=== PATIENT | female | born 1965 | race Caucasian/White ===

== ENCOUNTER → 2017-06-28 17:36 | Outpatient (CLI) | payer OTHER, SELFPAY ==
[2017-06-28 18:12] LABS: Hemoglobin 13.5 g/dl (12.0-15.0); Mean Corp Hgb Conc 32.1 g/gl (32-36); Mean Corpuscular Hgb 26.1 pg (27.0-32.0); Mean Corpuscular Volume 81.2 fL (81-99); Platelet Count 316 K/mm3 (150-450); RBC Distribution Width CV 14.9 % (11.6-14.6); RBC Distribution Width SD 43.8 fl (35.1-43.9); Red Blood Count 5.17 M/mm3 (4.2-5.4); White Blood Count 7.8 K/mm3 (4.4-11.0)
[2017-06-28 18:17] LABS: Scan Indicated on CBC? Y/N NO
[2017-06-28 18:34] LABS: AST(SGOT) 16 U/L (15-37); Alanine Aminotransfer ALT/SGPT 23 U/L (13-56); Albumin, Serum 3.7 g/dL (3.2-5.0); Alkaline Phosphatase 80 U/L (45-117); Bilirubin, Direct 0.06 mg/dL (0.00-0.30); Globulin 3.8 g/dL (2.2-4.2); Protein, Total 7.5 g/dL (6.4-8.2)
== END ==
PROVIDERS: Visit Provider Internal Medicine Gastroenterology
DX: K50.90 Crohn's disease, unspecified, without complications (principal)
CPT/HCPCS: 36415; 80076; 85027; 86140

== ENCOUNTER → 2018-10-03 07:35 | Outpatient (CLI) | payer OTHER, SELFPAY ==
--- NOTE | 2018-10-03 07:42 | CT_ITS ---
STUDY: CT ABDOMEN AND PELVIS WITH CONTRAST REASON FOR EXAM: Female, 53 years old. Abdominal pain and fever, history of Crohn's RADIATION DOSAGE (If Supplied By Facility): CTDIvol = ( 19.38 ) mGy, DLP = ( 1465.97 ) mGycm TECHNIQUE: Transaxial images were obtained from the dome of the diaphragm to the symphysis pubis with oral and rectal contrast. 100 IV/Oral Isovue 300 was administered. Sagittal and coronal images were reconstructed. Individualized dose optimization techniques were used for this CT. COMPARISON: 08/14/2015 FINDINGS: The visualized lung bases are unremarkable. The visualized portions of the heart are within normal limits. Normal liver. Normal gallbladder and extrahepatic biliary system. Normal spleen. Normal pancreas. Normal bilateral adrenal glands. Normal right kidney. Normal left kidney. Normal visualized stomach. Normal small intestine. Normal colon. There is non-visualization of the appendix. Normal abdominal aorta. Normal inferior vena cava. Normal retroperitoneum. Normal urinary bladder. Uterus is still present, the endometrium cannot be accurately evaluated with CT. The endometrium measures approximately 1.04 cm which would be abnormal if the patient is postmenopausal. Additionally, the uterus has some contour abnormality suggesting underlying fibroids. No suspicious cystic mass or free fluid noted in the pelvis. There is no clear fistula between the rectum and bladder or vagina though if this is a strong clinical concern, exam under fluoroscopy to evaluate for possible fistulous connection would be recommended. Post surgical noted in the ventral wall of the abdomen There are diffuse degenerative changes of the visualized lumbar spine. CT/Abdomen/Pelvis WITH Contrast IMPRESSION: No suspicious solid organ abnormality No CT evidence of acute inflammatory process Enlarged uterus suggests underlying fibroids. The endometrium measures 1.04 cm, if the patient is postmenopausal this would require more thorough evaluation and possible biopsy No clear CT evidence of fistulous connection between the distal sigmoid/rectum and bladder or vagina Electronically Signed: Carlos Jackson MD at 9:01 EDT , Service support ,
--- NOTE | 2018-10-03 08:00 | NURSING ---
PT SNEEZING AFTER CT WITH CONTRAST, C/O ROOF OF MOUTH ITCHING. PT AMBULATED TO HOLDING BAY FOR OBSERVATION. LIGHTS TURNED DOWN. CALL LIGHT WITHIN REACH.
[2018-10-03 08:40] VITALS: BP 130/71; PULSE 68; RESP 14; O2SAT 98
== END ==
PROVIDERS: Referring Provider Internal Medicine Gastroenterology; Visit Provider Internal Medicine Gastroenterology
DX: K50.90 Crohn's disease, unspecified, without complications (principal); L98.8 Other specified disorders of the skin and subcutaneous tissue
CPT/HCPCS: 74177; Q9967

== ENCOUNTER → 2020-03-03 15:01 | Outpatient (CLI) | payer OTHER, SELFPAY ==
[2020-03-03 17:52] LABS: Absolute Lymphocyte Count 0.92 X10^3/uL (0.83-4.51); Absolute Neutrophil Count 4.2 X10^3/uL (2.0-7.7); Basophil# 0.03 X10^3/uL; Basophil% 0.5 % (0-1); Eosinophil# 0.16 X10^3/uL; Eosinophils% 2.7 % (0-5); Hematocrit 41.7 % (37-47); Hemoglobin 13.4 g/dL (12.0-15.0); Lymphocyte # 0.92 X10^3/ul (4.0); Lymphocyte % 15.6 % (19-41); Mean Corp Hgb Conc 32.1 g/dL (32-36); Mean Corpuscular Hgb 28.7 pg (27.0-32.0); Mean Corpuscular Volume 89.3 fL (81-99); Mean Platelet Vol. 9.5 fl (6.2-12.0); Monocyte# 0.55 X10^3/uL; Monocyte% 9.3 % (0-10); NRBC Flagged by Analyzer 0 % (0-5); Neutrophil # 4.19 X10^3/uL (2.7-7.7); Neutrophil % 71.2 % (47-70); Platelet Count 272 K/mm3 (150-450); RBC Distribution Width CV 14.1 % (11.6-14.6); RBC Distribution Width SD 45.5 fl (35.1-43.9); Red Blood Count 4.67 M/mm3 (4.2-5.4); White Blood Count 5.9 K/mm3 (4.4-11.0)
[2020-03-03 18:23] LABS: AST(SGOT) 21 U/L (15-37); Alanine Aminotransfer ALT/SGPT 29 U/L (13-56); Albumin, Serum 3.6 g/dL (3.2-5.0); Alkaline Phosphatase 62 U/L (45-117); Globulin 3.6 g/dL (2.2-4.2); Protein, Total 7.2 g/dL (6.4-8.2)
== END ==
PROVIDERS: Referring Provider Internal Medicine Gastroenterology; Visit Provider Internal Medicine Gastroenterology
DX: K50.90 Crohn's disease, unspecified, without complications (principal)
CPT/HCPCS: 36415; 80076; 85025

== ENCOUNTER → 2020-06-17 16:53 | Outpatient (CLI) | payer OTHER, SELFPAY ==
[2020-06-17 17:47] LABS: Absolute Lymphocyte Count 1.21 X10^3/uL (0.83-4.51); Absolute Neutrophil Count 5.1 X10^3/uL (2.0-7.7); Basophil# 0.04 X10^3/uL; Basophil% 0.6 % (0-1); Eosinophil# 0.12 X10^3/uL; Eosinophils% 1.7 % (0-5); Hematocrit 44.6 % (37-47); Hemoglobin 14.2 g/dL (12.0-15.0); Lymphocyte # 1.21 X10^3/ul (4.0); Lymphocyte % 16.9 % (19-41); Mean Corp Hgb Conc 31.8 g/dL (32-36); Mean Corpuscular Hgb 28.1 pg (27.0-32.0); Mean Corpuscular Volume 88.3 fL (81-99); Monocyte# 0.64 X10^3/uL; NRBC Flagged by Analyzer 0 % (0-5); Neutrophil % 71.2 % (47-70); Platelet Count 342 K/mm3 (150-450); RBC Distribution Width CV 14.3 % (11.6-14.6); RBC Distribution Width SD 46.1 fl (35.1-43.9); Red Blood Count 5.05 M/mm3 (4.2-5.4); White Blood Count 7.2 K/mm3 (4.4-11.0)
[2020-06-17 18:20] LABS: AST(SGOT) 16 U/L (15-37); Alanine Aminotransfer ALT/SGPT 25 U/L (13-56); Albumin, Serum 3.8 g/dL (3.2-5.0); Alkaline Phosphatase 65 U/L (45-117); CRP 4.37 mg/L (0.0-3.0); Globulin 3.8 g/dL (2.2-4.2); Protein, Total 7.6 g/dL (6.4-8.2)
== END ==
LOC: MTLAB 16:55
PROVIDERS: PCP Nurse Practitioner Family; Referring Provider Internal Medicine Gastroenterology; Visit Provider Internal Medicine Gastroenterology
DX: K50.90 Crohn's disease, unspecified, without complications (principal)
CPT/HCPCS: 36415; 80076; 85025; 86140

== ENCOUNTER → 2020-11-26 12:07 | Outpatient (CLI) | payer OTHER, SELFPAY ==
--- NOTE | 2020-11-26 12:22 | MRI_ITS ---
STUDY: MRI ABDOMEN WITH AND WITHOUT CONTRAST REASON FOR EXAM: Female, 55 years old. CHRONS -- ENTEROGRAPHY diarrhea digestive problems TECHNIQUE: Standardized fat and water weighted pulse sequences were obtained in all 3 orthogonal planes post contrast administration. With and without IV gadolinium was administered for the contrast portion of the examination. COMPARISON: CT 10/03/2018 FINDINGS: The visualized lung bases are unremarkable. The visualized portions of the heart are within normal limits. Normal liver. There are multiple gallstones. Normal spleen. Normal pancreas. Normal bilateral adrenal glands. Normal right kidney. Normal left kidney. Normal visualized stomach. Normal small intestine. Normal colon. There is non-visualization of the appendix. There is diffuse atherosclerotic calcification of the abdominal aorta, without a demonstrated aneurysm. Normal inferior vena cava. Normal retroperitoneum. Uterus is visualized and heterogeneous. There is an exophytic mass extending off the left uterine body. This measures 37 x 36 mm. Series 20 image 24. This may be a pedunculated fibroid. There is a more heterogeneous area in the left uterine fundus measuring 35mm. This has heterogeneous enhancement. Series 22 image 17. 20 mm enhancing mass near the uterine cervix. This is noted on series 22 image 22. Fibroid uterus displaces the urinary bladder to the right side. There is a small umbilical hernia containing small bowel. Strangulation, obstruction, or incarceration is not identified. A prospective or current developing event cannot be excluded but is not evident on this study. Physical examination may be warranted in individuals with hernias. Surveillance may be warranted in individuals with hernias. There are diffuse degenerative changes of the visualized lumbar spine. MRI/MRI Abd WITH and W/O Contrast IMPRESSION: There is a small umbilical hernia containing small bowel. Strangulation, obstruction, or incarceration is not identified. Gallstones. Uterus is visualized and heterogeneous. There may be a pedunculated left uterine fibroid. There is a poorly differentiated left uterine myometrial mass. However this is stable since the prior study. Neoplastic conversion of a fibroid cannot be excluded. Three-month surveillance is recommended. If the patient has Crohn''s disease, there is no evidence for active disease. There is a cervical mass. Direct evaluation is recommended. Neoplasm cannot be excluded. Electronically Signed: Hunter Soares MD at 9:54 EDT , Service support ,
[2020-11-26 12:46] LABS: CREATININE FINGERSTICK 1.1 mg/dL (0.55-1.02)
[2020-11-26 13:15] VITALS: BP 143/74; PULSE 59; RESP 18; TEMP 36.7; O2SAT 100; BMI 45.1
[2020-11-26] MEDS: 0.9% Saline Lock 10 ML Syringe IV (14:20)
[2020-11-26] MEDS: Glucagon 1 MG/ML Syringe IM (14:20)
--- NOTE | 2020-11-26 14:30 | NURSING ---
pt states feeling heavy in MRI. bp 174/89, pulse 75 and pox 96% on room air..emotional support given. vital signs improved to 156/64, pulse 68 and pox 98% on room air. States that she is feeling better, MRI resumed
[2020-11-26 15:06] VITALS: BP 136/68; PULSE 68; RESP 18; O2SAT 98
== END ==
PROVIDERS: PCP Nurse Practitioner Family; Referring Provider Internal Medicine Gastroenterology; Visit Provider Internal Medicine Gastroenterology
DX: K50.90 Crohn's disease, unspecified, without complications (principal); K42.9 Umbilical hernia without obstruction or gangrene; K80.20 Calculus of gallbladder without cholecystitis without obstruction
CPT/HCPCS: 74183; A9575; J1610

== ENCOUNTER → 2020-12-03 12:47 | Outpatient (CLI) | payer OTHER, SELFPAY ==
[2020-12-10 14:04] LABS: HPV Reflexed? NOT INDICATED
== END ==
PROVIDERS: PCP Nurse Practitioner Family; Visit Provider Obstetrics & Gynecology
DX: Z12.4 Encounter for screening for malignant neoplasm of cervix (principal)
CPT/HCPCS: 88175; G0145

== ENCOUNTER 2021-04-12 15:19 | Outpatient (CLI) | payer OTHER, SELFPAY ==
--- NOTE | 2021-04-12 15:30 | RAD_ITS ---
STUDY: X-RAY - ABDOMEN/PELVIS REASON FOR EXAM: Female, 56 years old. Left-sided kidney stones. Patient reports recent x-ray and CT (not available for review) TECHNIQUE: Single AP view of the abdomen / pelvis. COMPARISON: CT 10/03/2018 FINDINGS: Normal visualized lung bases. There is an unremarkable bowel gas pattern. There is no demonstrated free abdominal air. Kidneys are largely obscured by overlying bowel contents. There are calcified phleboliths in the pelvis. Normal visualized osseous structures. RAD/Abdomen Single View IMPRESSION: No suspicious intra-abdominal calcification seen on x-ray. Recommend correlating with recent x-ray/CT. Electronically Signed: Angel Motta MD ([place]) at 15:53 EST ,
== END 2021-04-12 23:59 | disposition short-term general hospital (02) ==
LOC: RAD 15:22
PROVIDERS: PCP Nurse Practitioner Family; Referring Provider Urology; Visit Provider Urology
DX: N20.1 Calculus of ureter (principal)
CPT/HCPCS: 74018

== ENCOUNTER 2021-04-21 12:22 | Outpatient (CLI) | payer OTHER, SELFPAY ==
--- NOTE | 2021-04-21 12:00 | EMB_PTH ---
PATIENT: ABHISHEK GALVAN LOC: [facility] U#:[id number] AGE/SX: 56/F ROOM: RE04/21/[address]: Dr. Omari Alfaro MD : 1965 BED: DIS: 04/21/2021 SPEC #: [id number] RECD: 04/21/21 12:33 STATUS: DOMINIC MICAELA #: [id number] WONG: 04/21/21 12:[address]: Omari Alfaro DEPT: SURGICAL PATHOLOGY RECD BY: Ivana Rush ENTERED: 04/21/21 12:53 SP TYPE: ENDOM BX/C DELL DR: PATRICIA Ferrer Tissues: Endometrium, NOS Procedures: Surgery Specimen Level IV HEADER OPERATION: Endometrial biopsy PRE-OP DIAGNOSIS: N95.0 TISSUE SUBMITTED: Endometrial biopsy MICROSCOPIC DIAGNOSIS Endometrial biopsy: Proliferative endometrium. See comment. ELIZABETH:cristy 04/22/2021 COMMENT The specimen predominantly consists of strips of benign endometrial epithelium. Correlation with clinical findings and appropriate follow up are necessary. MICROSCOPIC DESCRIPTION Slides are reviewed. GROSS DESCRIPTION Received in fixative is one container labeled with the patient's name and designated EMB. The specimen consists of multiple fragments of hemorrhagic soft tissue that in aggregate measure 1.5 x 1 x 0.1 cm. The specimen is totally submitted in one cassette. / SJ:cristy 04/21/2021 :5 CPT: 23140
== END 2021-04-21 23:59 | disposition home or self-care (01) ==
LOC: LABSPEC 12:25
PROVIDERS: PCP Nurse Practitioner Family; Visit Provider Obstetrics & Gynecology
DX: N95.0 Postmenopausal bleeding (principal)
CPT/HCPCS: 88305

== ENCOUNTER → 2023-11-08 | Outpatient (CLI) | payer OTHER, SELFPAY ==
[2023-11-11 00:07] LABS: QNTFERON TB Mitogen Value > 10.00 IU/mL (.); QNTFERON TB Nil Value 0.02 IU/mL (.); QNTFERON TB1+ Ag Value 0 IU/mL (.); QNTFERON TB2+ Ag Value 0 IU/mL (.); QNTIFERON TB Positive Criteria Negative (Negative)
== END | disposition home or self-care (01) ==
LOC: MTLAB 11:08
PROVIDERS: PCP Nurse Practitioner Family; Referring Provider Internal Medicine Gastroenterology; Visit Provider Internal Medicine Gastroenterology
DX: K50.80 Crohn's disease of both small and large intestine without complications (principal)
CPT/HCPCS: 36415; 86480

== ENCOUNTER → 2024-02-28 | Outpatient (CLI) | payer OTHER, SELFPAY ==
[2024-02-28 12:15] LABS: Erythrocyte Sedimentation Rate 11 mm/hr (0-30)
[2024-02-28 12:19] LABS: Hematocrit 43.6 % (37-47); Mean Corp Hgb Conc 32.1 g/dL (32-36); Mean Corpuscular Hgb 27.6 pg (27.0-32.0); Mean Corpuscular Volume 85.8 fL (81-99); Mean Platelet Vol. 9.5 fl (6.2-12.0); Platelet Count 294 K/mm3 (150-450); RBC Distribution Width CV 14.2 % (11.6-14.6); RBC Distribution Width SD 44.5 fl (35.1-43.9); Red Blood Count 5.08 M/mm3 (4.2-5.4); White Blood Count 10.3 K/mm3 (4.4-11.0)
[2024-02-28 12:29] LABS: ALB/GLOB Ratio 0.9 RATIO (0.9-2.4); AST(SGOT) 24 U/L (15-37); Alanine Aminotransfer ALT/SGPT 34 U/L (13-56); Albumin, Serum 3.4 g/dL (3.2-5.0); Alkaline Phosphatase 74 U/L (45-117); Anion Gap 5 (5-15); BUN 16 mg/dL (7-18); BUN/Creat Ratio 18.1 RATIO (10-20); Calcium,Total 9.5 mg/dL (8.5-10.1); Chloride 102 mmol/L (98-107); Creatinine, Serum 0.88 mg/dL (0.55-1.02); EST Glomerular Filtration Rate 69 mL/min (>60); Est Glom Filt Rate - Afr Amer 84 mL/min (>60); Globulin 3.9 g/dL (2.2-4.2); Glucose 164 mg/dL (74-106); Potassium 3.2 mmol/L (3.5-5.1); Protein, Total 7.3 g/dL (6.4-8.2); Sodium Level 138 mmol/L (136-145)
== END | disposition home or self-care (01) ==
LOC: MTLAB 10:25
PROVIDERS: PCP Nurse Practitioner Family; Referring Provider Internal Medicine Gastroenterology; Visit Provider Internal Medicine Gastroenterology
DX: K50.90 Crohn's disease, unspecified, without complications (principal)
CPT/HCPCS: 36415; 80053; 85027; 85652; 86140

== ENCOUNTER → 2024-10-28 | Outpatient (CLI) | payer OTHER, SELFPAY ==
--- NOTE | 2024-10-28 16:00 | CT_ITS ---
PROCEDURE: CT ABDOMEN/PELVIS WITHOUT CONTRAST 10/28/2024 REASON FOR EXAM: CALCULUS OF KIDNEY TECHNIQUE: CT ABDOMEN/PELVIS WITHOUT CONTRAST. Noncontrast technique limits evaluation of the abdominal and pelvic viscera. Coronal and Sagittal reconstruction series were provided. One or more dose reduction techniques were used (e.g., Automated exposure control, adjustment of the mA and/or kV according to patient size, use of iterative reconstruction technique). RADIATION DOSE SUMMARY: DLP: 1260.65 mGycm COMPARISON: Abdominal CT 10/03/2018. FINDINGS: Lung bases: Clear, with mild dependent discoid atelectasis. Liver: Unremarkable. Gallbladder: Unremarkable. No biliary ductal dilatation. Spleen: Normal in size. Pancreas: Generalized age-related fatty atrophy. Adrenals: Unremarkable. Kidneys: Right-sided nephroureteral double-J stent in place. No hydroureteronephrosis or perinephric edema on either side. No urinary tract calculi identified. Bladder: Underdistended, grossly unremarkable. Reproductive Organs: Exophytic partially calcified presumed subserosal fibroid measuring up to 4 cm extending from the anterior left aspect of the lower uterine segment. Unremarkable adnexae. Bowel: Evidence of prior ventral abdominal hernia repair. Small hernia defect at the superior aspect with a focally protruding loop of small bowel without evidence of obstruction/strangulation. Normal appendix. Extensive colonic diverticulosis without evidence for active diverticulitis/colitis. Postoperative changes of partial colectomy with distal colonic anastomosis at the rectosigmoid junction. Lymph nodes: No enlarged abdominopelvic lymph nodes. Vasculature: Normal caliber abdominal aorta and IVC. Mild atherosclerotic disease. Peritoneum / Retroperitoneum: No ascites or free air. Bones: Mild multilevel degenerative changes of the spine. CT/Abdomen/Pelvis without Cont IMPRESSION: 1. No acute or active inflammatory intra-abdominal pathology. 2. Right nephroureteral double-J stent in place. No urolithiasis or hydrourete ronephrosis. 3. Exophytic 4 cm presumed uterine fibroid anterior lower uterine segment. 4. Extensive colonic diverticulosis without evidence for active diverticulitis/ colitis. 5. Prior ventral hernia repair, with small midline broad-based sasha-incisional hernia at the midline superior aspect with a focally protruding loop of small bowel. Reading Location: [id number]
--- OUTSIDE RECORDS SUMMARY | 2024-10-28 23:47 | XMS RPT_ITS | CCD ---
Author Organization [facility] Care Team Providers Care Orthotic/Prosthetic Practitioner Name Role Phone ShresthaLeighton pate Cari Unavailable Brent Wolf Unavailable Unavailable Rod Caban Unavailable Charleshoracio Gary Unavailable Unavailable Rod Caban Unavailable Unavailable Unavailable Ms. Brent Wolf Attending Unavai john Caban, Ms. Rod Flores Primary Care Unavail able Florian, Ms. Brent Pagan Attending Robynvaevelyn Caban, Ms. Rod Flores Primary Care Unavail able Mee, Ms. Rod Flores Primary Care Unavail able Florian, Ms. Brent Pagan Attending Unavai john Caban SUPERIOR COURT JUDGE-Rod KHOURY Primary Care Provide r Riya GRANDE MPH, Zach Nag S Primary Care Pro vider RIYA, ZACH NAG S Primary Care Unavail able MALLAPAREDDI, ZACH NAG S Primary Care Unavail able MALLAPAREDDI, ZACH NAG S Primary Care Unavail able MALLAPAREDDI, ZACH NAG S Primary Care Unavail able MALLAPAREDDI, ZACH NAG S Primary Care Unavail able Mora Spear MD Primary Care Provider Hannah Champion DO Primary Care Provider [phone] Unavailable Unavailable Hannah Champion DO Primary Care Provider Maury Ramirez Attending Unavailable Maury Ramirez Referring Unavailable Rod Caban NP Primary Care Unavailable Maury Ramirez Referring Unavailable Mee MIX MILL TENDER, Rod Primary Care Unavailable Maury Ramirez Attending Unavailable SYSTEM, PROVIDER NOT IN Referring Unavaila ble SYSTEM, PROVIDER NOT IN Attending Unavaila ble Akira DO, Hannah Primary Care Provider AKIRA, HANNAH Primary Care Unavailable BRENT WOLF Attending Unavailable GABINO HOLT Referring Unavailable MALLTODD, ZACH NAG S Primary Care Unavail able AKIRA, HANNAH Primary Care Unavailable SUSHMA WOOD Attending Unavailable AKIRA, HANNAH Primary Care Unavailable YANYENIBRENT Jackson Attending Unavailable AKIRA, HANNAH R. Primary Care Unavailable WILFREDO PALMER Attending Unavailable AKIRA, HANNAH R. Primary Care Unavailable VICKI LEUNG Referring Unavailabl e VICKI LEUNG Attending Unavailabl e MALLAPAREDDI, ZACH NAG S Attending Unavail able MALLAPAREDDI, ZACH NAG S Primary Care Unavail able GABINO HOLT Attending Unavailable MORA SPEAR Primary Care Unavailable GABINO HOLT Attending Unavailable AKIRA, HANNAH Primary Care Unavailable AKIRA, HANNAH R. Primary Care Unavailable AKIRA, HANNAH R. Referring Unavailable AKIRA, HANNAH R. Admitting Unavailable SUZETTE REED Attending Unavailable AKIRA, HANNAH R. Primary Care Unavailable YENI QUIROGA Attending Unavailable AKIRA, HANNAH R. Attending Unavailable AKIRA, HANNAH R. Primary Care Unavailable AKIRA, HANNAH R. Attending Unavailable AKIRA, HANNAH R. Primary Care Unavailable AKIRA, HANNAH R. Primary Care Unavailable AKIRA, HANNAH R. Attending Unavailable AKIRA, HANNAH R. Primary Care Unavailable AKIRA, HANNAH R. Attending Unavailable AKIRA, HANNAH R. Primary Care Unavailable VICKI LEUNG Attending Unavailabl e AKIRA, HANNAH R. Primary Care Unavailable VICKI LEUNG Admitting Unavailabl e VICKI LEUNG Referring Unavailabl e CRISTIANE MOMIN Attending Unavailable AKIRA, HANNAH R. Primary Care Unavailable CRISTIANE MOMIN Admitting Unavailable CRISTIANE MOMIN Referring Unavailable AKIRA, HANNAH R. Primary Care Unavailable AKIRA, HANNAH R. Attending Unavailable AKIRA, HANNAH R. Attending Unavailable AKIRA, HANNAH R. Primary Care Unavailable AKIRA, HANNAH R. Attending Unavailable AKIRA, HANNAH R. Primary Care Unavailable AKIRA, HANNAH R. Attending Unavailable HANNAH CHAMPION Primary Care Unavailable Allergies Allergy Classification Reported Allergen(s) Allergy Type Date of Onset Reaction(s) Facility Unclassified (6 sources) Tape - Adhesive, Bandaids, Paper Rash [facility] (2 sources) Latex Gloves MISC; Translations: [Latex Gloves MISC] Allergy to drug (finding) [facility] Work Phone: (2 sources) Adhesive Tape TAPE; Translations: [Adhesive Tape TAPE] Allergy to drug (finding) [facility] Work Phone: (20 sources) Latex; Translations: [LATEX] Propensity to adverse reactions 4 Diarrhea, Hives, Swelling, Itching [facility] Work Phone: (20 sources) Adhes. Mppf-Zrmt-Ummkq lkonium; Translations: [ADHES. VBVT-GKEK-OCLKT LKONIUM] Drug Intolerance 4 [facility] (20 sources) Adhesive Tape-Silicones; Translations: [ADHESIVE TAPE-SILICONES] Drug Allergy 3 [facility] Work Phone: (20 sources) Other; Translations: [OTHER] Propensity to adverse reactions 4 [facility] Work Phone: (15 sources) ANIMAL DANDER; Translations: [ANIMAL DANDER] Propensity to adverse reactions to drug (disorder) 1 Shortness of breath [facility] (14 sources) HOUSE DUST MITE; Translations: [HOUSE DUST MITE] Propensity to adverse reactions to drug (disorder) 4 Shortness of breath [facility] (18 sources) Grass pollen; Translations: [GRASS POLLEN] Propensity to adverse reactions to drug 4 [facility] Work Phone: (18 sources) peanut allergenic extract; Translations: [PEANUT] Drug Allergy 4 Hives, Swelling [facility] (18 sources) Cat Dander; Translations: [CAT DANDER] Propensity to adverse reactions to drug 4 Shortness Of Breath [facility] (1 source) natural latex rubber Drug allergy (disorder) 1 [facility] (1 source) Pollen Drug allergy (disorder) 1 [facility] (1 source) Iodinated Contrast Media Drug allergy (disorder) 9 [facility] Medications Current Medications Medication Drug Class(es) Dates Sig (Normalized) Sig (Original) acetaminophen 325 mg oral tablet (20 sources) Start: 12-23-2016 take 2 tablets by mouth every six hours as needed acetaminophen 325 mg oral tablet ; 2 tab(s) orally every 6 hours, As Needed Quantity: 0 Refills: 0 Ordered: 23-Dec-2016 Linda Tate Start: 23-Dec-2016 Generic Substitution Allowed Start: 12-23-2016 acetaminophen (Tylenol) 325 mg tablet Take by mouth every 6 hours if needed. 12/23/2016 Active [id number] 200 actuat albuterol 0.09 mg/actuat metered dose inhaler (20 sources) beta2-Adrenergic Agonist Start: 06-04-2024 End: 06-04-2025 take 2 puff(s) by inhalation every four hours for wheezing albuterol (Ventolin HFA) 90 mcg/actuation inhaler Indications: Seasonal allergies , Asthma, unspecified asthma severity, unspecified whether complicated, unspecified whether persistent ([facility]) Inhale 2 puffs every 4 hours if needed for wheezing or shortness of breath. 18 g 06/04/2024 06/04/2025 Active Start: 08-28-2023 take 1 puff(s) by in halation every four hours as needed albuterol 90 mcg/actuation inhaler Inhale 1 (one) puff every 4 (four) hours as needed . 08/28/2023 Active Start: 08-28-2023 End: 06-27-2024 take 1 puff(s) by inhalation every four hours for wheezing albuterol 90 mcg/actuation inhaler Indications: Seasonal allergies Inhale 1 puff every 4 hours if needed for wheezing. 18 g 05/28/2024 06/27/2024 Active Start: 02-01-2022 take 2 puff(s) by in halation twice daily as needed for cough albuterol 90 mcg/inh inhalation aerosol ; 2 puff(s) inhaled 2 times a day as needed for cough Quantity: 8.5 Refills: 0 Ordered: 01-Feb-2022 Brent Wolf Start: 01-Feb-2022 Generic Substitution Allowed Comments: For inhalation only.It is very important that you take or use this exactly as directed. Do not skip doses or discontinue unless directed by your doctor.Obtain medical advice before taking any non-prescription drugs as some may affect the action of this medication.Shake well before use. Start: 02-01-2022 End: 08-28-2023 take 1 puff(s) by inhalation twice daily albuterol 90 mcg/actuation inhaler Inhale 1 puff twice a day. 02/01/2022 08/28/2023 Discontinued (Reorder) take 2 puff(s) by in halation every six hours Albuterol (Eqv-Proventil HFA) 90 mcg/inh inhalation aerosol ; 2 puff(s) inhaled every 6 hours Quantity: 0 Refills: 0 Ordered: 01-Feb-2022 Brunilda Nguyen Generic Substitution Allowed Comment on above: For inhalation only. It is very important that you take or use this exactly as directed. Do not skip doses or discontinue unless directed by your doctor.Obtain medical advice before taking any non-prescription drugs as some may affect the action of this medication.Shake well before use. amoxicillin 875 mg / clavulanate 125 mg oral tablet (1 source) Penicillin-class Antibacterial Start: 07-17-19 End: 07-27-19 take 1 tablet by mouth twice daily amoxicillin-pot clavulanate (Augmentin) 875-125 mg tablet Indications: Asthma with acute exacerbation, unspecified asthma severity, unspecified whether persistent ([facility]) Take 1 tablet (875 mg) by mouth 2 times a day for 10 days. 20 tablet 07/17/2023 07/27/2023 Active azithromycin 250 mg oral tablet (2 sources) Macrolide Antimicrobial Start: 01-29-20 End: 02-03-20 azithromycin (Zithromax Z-Luis Manuel) 250 mg tablet Indications: Acute bronchitis, unspecified organism Take 2 tablets (500 mg) on Day 1, followed by 1 tablet (250 mg) once daily on Days 2 through 5. 6 tablet 0 01/28/2023 02/02/2023 Active Start: 02-01-2022 take 2 tablets by [facility], then take 1 tablet by mouth once daily azithromycin 250 mg oral tablet ; Take 2 tabs (500mg) x 1 days, then 1 tab (250mg) once daily x 4 days Quantity: 6 Refills: 0 Ordered: 01-Feb-2022 Brent Wolf Start: 01-Feb-2022 Generic Substitution Allowed Comments: Do not take dairy products, antacids, or iron preparations within one hour of this medication.Finish all this medication unless otherwise directed by prescriber. Comment on above: Do not take dairy pr oducts, antacids, or iron preparations within one hour of this medication.Finish all this medication unless otherwise directed by prescriber. benzonatate 100 mg oral capsule (1 source) Non-narcotic Antitussive Start: End: take 1 capsule by mouth twice daily as needed for cough benzonatate (TESSALON) 100 MG capsule Indications: Subacute cough Take 1 (one) capsule (100 mg total) by mouth 2 (two) times a day as needed for cough . 20 capsule 04/24/2024 05/04/2024 Active bifidobacterium animalis [id number] unt / lactobacillus acidophilus [id number] unt oral capsule (4 sources) take 1 capsule by mouth once daily Probiotic Formula oral capsule ; 1 cap(s) orally once a day Quantity: 0 Refills: 0 Ordered: 16-Dec-2016 Noelle Salinas Generic Substitution Allowed blood-glucose meter misc (12 sources) Start: blood-glucose meter misc Indications: Type 2 diabetes mellitus without complication, without long-term current use of insulin Test daily before all meals/snacks and once before bedtime. 1 each 07/25/2023 Active Start: 07-25-2023 blood-glucose meter misc Indications: Type 2 diabetes mellitus without complication, without long-term current use of insulin (Multi) Test daily before all meals/snacks and once before bedtime. 1 each 07/25/2023 Active brompheniramine maleate 0.4 mg/ml / dextromethorphan hydrobromide 2 mg/ml / pseudoephedrine hydrochloride 6 mg/ml oral solution (1 source) alpha-Adrenergic Agonist, Uncompetitive P-mnvxag-N-aspartate Receptor Antagonist, Sigma-1 Agonist Start: 02-27-2024 End: 03-08-2024 take 5 mL by mouth four times daily as needed for cough zpbcucdmbutvhaq-fhpsofvqq-IP 2-30-10 mg/5 mL syrup Indications: Acute cough Take 5 mL by mouth 4 times a day as needed for congestion or cough for up to 10 days. 120 mL 02/27/2024 03/08/2024 Active budesonide 3 mg delayed release oral capsule (5 sources) Corticosteroid budesonide 3 mg oral capsule, extended release Quantity: 0 Refills: 0 Ordered: 18-Sep-2020 Thomas Turpin Generic Substitution Allowed cefdinir 300 mg oral capsule (2 sources) Cephalosporin Antibacterial Start: 09-25-2024 take 1 capsule by mouth twice daily cefdinir (OMNICEF) 300 MG capsule Take 1 (one) capsule (300 mg total) by mouth 2 (two) times a day . 20 capsule 09/25/2024 Active cephalexin 500 mg oral tablet (4 sources) Cephalosporin Antibacterial take 1 tablet by mouth once daily cephalexin 500 mg oral tablet ; 1 tab(s) orally once a day Quantity: 0 Refills: 0 Ordered: 16-Dec-2016 Noelle Salinas Status: Discontinued Generic Substitution Allowed cholecalciferol 0.05 mg oral capsule (4 sources) Vitamin D Start: 04-18-2023 End: 08-16-2023 take 1 capsule by mouth once daily cholecalciferol (Vitamin D3) 50 mcg (2,000 unit) capsule Indications: Vitamin D deficiency Take 1 capsule (50 mcg) by mouth once daily. 30 capsule 3 04/18/2023 08/16/2023 Active ciclopirox 80 mg/ml topical solution (20 sources) Start: 08-23-2023 ciclopirox (PENLAC) 8 % solution APPLY SOLUTION TOPICALLY ONCE DAILY TO AFFECTED TOENAILS. EVERY WEEK FILE WITH MONTEZUMA BOARD & REMOVE RESIDUE 08/23/2023 Active ciprofloxacin 500 mg oral tablet (4 sources) Quinolone Antimicrobial Start: 04-24-2021 End: 04-30-2021 take 1 tablet by mouth twice daily Cipro 500 mg oral tablet ; 1 tab(s) orally 2 times a day Quantity: 14 Refills: 0 Ordered: 24-Apr-2021 Brent Wolf Start: 24-Apr-2021 End: 30-Apr-2021 Generic Substitution Allowed Comments: Avoid prolonged or excessive exposure to direct and/or artificial sunlight while taking this medication.Check with your doctor before becoming .Do not take dairy products, antacids, or iron preparations within one hour of this medication.Finish all this medication unless otherwise directed by prescriber.Medication should be taken with plenty of water. Start: 10-05-2020 End: 10-14-2020 take 1 tablet by mouth twice daily Cipro 500 mg oral tablet ; 1 tab(s) orally 2 times a day Quantity: 20 Refills: 0 Ordered: 05-Oct-2020 Brent Wolf Start: 05-Oct-2020 End: 14-Oct-2020 Generic Substitution Allowed Comments: Avoid prolonged or excessive exposure to direct and/or artificial sunlight while taking this medication.Check with your doctor before becoming .Do not take dairy products, antacids, or iron preparations within one hour of this medication.Finish all this medication unless otherwise directed by prescriber.Medication should be taken with plenty of water. Comment on above: Avoid prolonged or e xcessive exposure to direct and/or artificial sunlight while taking this medication.Check with your doctor before becoming .Do not take dairy products, antacids, or iron preparations within one hour of this medication.Finish all this medication unless otherwise directed by prescriber.Medication should be taken with plenty of water. cyclobenzaprine hydrochloride 10 mg oral tablet (1 source) Muscle Relaxant Start : 09-27 take 1 tablet by mouth three times daily for pain cyclobenzaprine 10 mg oral tablet ; 1 tab(s) orally 3 times a day as needed for pain Quantity: 20 Refills: 0 Ordered: 27-Sep-2022 Brent Wolf Start: 27-Sep-2022 Generic Substitution Allowed Comments: May cause drowsiness. Alcohol may intensify this effect. Use care when operating dangerous machinery.Obtain medical advice before taking any non-prescription drugs as some may affect the action of this medication. Comment on above: May cause drowsiness . Alcohol may intensify this effect. Use care when operating dangerous machinery.Obtain medical advice before taking any non-prescription drugs as some may affect the action of this medication. diclofenac sodium 50 mg delayed release oral tablet (1 source) Nonsteroidal Anti-inflammatory Drug take 1 tablet by mouth twice daily at mealtime diclofenac sodium (VOLTAREN) 50 MG EC tablet Take 1 (one) tablet (50 mg total) by mouth 2 (two) times a day with meals . Active 30 actuat fluticasone furoate 0.2 mg/actuat / vilanterol 0.025 mg/actuat dry powder inhaler (14 sources) Corticosteroid, beta2-Adrenergic Agonist Start : 08-27 End: 09-26 take 1 puff(s) by inhalation once daily fluticasone furoate-vilanteroL (Breo Ellipta) 200-25 mcg/dose inhaler Indications: Asthma with acute exacerbation, unspecified asthma severity, unspecified whether persistent ([facility]) Inhale 1 puff once daily. 28 each 08/28/2023 Active Start: 01-16-2023 End: 08-28-2023 Breo Ellipta 200-25 mcg/dose inhaler 01/16/2023 08/28/2023 Discontinued (Reorder) take 1 puff(s) by in halation once daily Breo Ellipta 100 mcg-25 mcg/inh inhalation powder ; 1 puff(s) inhaled once a day Quantity: 0 Refills: 0 Ordered: 01-Feb-2022 Brunilda Nguyen Generic Substitution Allowed wqguvzpwhyx-afypjfrar-jnphzs er (Trelegy Ellipta) 200-62.5-25 mcg blister with device (8 sources) Start: 05-28-2024 take 1 puff(s) by mouth once daily lmduyfxpshu-iygsjqhjf-arqwkdtr (Trelegy Ellipta) 200-62.5-25 mcg blister with device Indications: Moderate persistent asthma without complication ([facility]) , Seasonal allergies Inhale 1 puff once daily. RINSE MOUTH WITH WATER AFTER. 60 each 5 05/28/2024 Active Start: 04-24-2024 End: 05-28-2024 take 1 puff(s) by mouth once daily qsykdyvhlxm-uqfbimogt-dbzzamzh (Trelegy Ellipta) 200-62.5-25 mcg blister with device Indications: Moderate persistent asthma without complication ([facility]) , Seasonal allergies Inhale 1 puff once daily. RINSE MOUTH WITH WATER AFTER. 60 each 04/24/2024 05/28/2024 Discontinued (Reorder) Start: 10-12-2023 take 1 puff(s) by mouth once daily nvjghkmxuhg-quiwsklaq-lghqtjxt (Trelegy Ellipta) 200-62.5-25 mcg blister with device Indications: Moderate persistent asthma without complication ([facility]) , Seasonal allergies Inhale 1 puff once daily. RINSE MOUTH WITH WATER AFTER. 60 each 5 10/12/2023 Active take 1 puff(s) by mouth once daily maequdoizza-lrdoswzwd-cmhvpycy (Trelegy Ellipta) 200-62.5-25 mcg blister with device Inhale 1 puff once daily. RINSE MOUTH WITH WATER AFTER. #1 sample to pt per Dr. Holt. Active tnrghkfbfqt-jhykimzxd-xcwnti er (Trelegy Ellipta) 200-62.5-25 mcg DsDv (15 sources) fluticasone-umec lidin-vilanter (Trelegy Ellipta) 200-62.5-25 mcg DsDv Inhale 1 (one) Inhalation. daily . Active glipiZIDE 5 mg oral tablet (13 sources) Sulfonylurea S t a r t : 0 5 - 1 4 - 2 0 2 4 E n d : 0 5 - 1 4 - 2 0 2 5 take 1 tablet by mouth twice daily before mealtime glipiZIDE (Glucotrol) 5 mg tablet Indications: Type 2 diabetes mellitus without complication, without long-term current use of insulin Take 1 tablet (5 mg) by mouth 2 times a day before meals. 60 tablet 11 07/25/2023 Active hydroCHLOROthiazide 25 mg or al tablet (20 sources) Thiazide Diuretic S t a r t : 0 6 - 1 1 - 2 0 1 9 E n d : 0 5 - 0 2 - 2 0 2 5 take 1 tablet by mouth once daily hydroCHLOROthiazide (HYDRODIURIL) 25 MG tablet Indications: Primary hypertension Take 1 (one) tablet (25 mg total) by mouth daily . 30 tablet 3 07/12/2024 Active inFLIXimab 100 mg injection (4 sources) Tumor Necrosis Factor Charles Remicade 100 mg intr avenous injection Quantity: 0 Refills: 0 Ordered: 16-Dec-2016 Noelle Salinas Status: Discontinued Generic Substitution Allowed isopropyl alcohol 0.7 ml/ml medicated pad (20 sources) S t a r t : 0 2 - 1 2 - 2 0 2 5 Alcohol Prep Pads PadM Indications: Type 2 diabetes mellitus without complication, without long-term current use of insulin (HCC) Apply 1 (one) Swab. topically 2 (two) times a day . 200 each 3 04/24/2024 Active Start: 11-11-2023 End: 04-24-2024 Alcohol Prep Pads PadM USE 1 SWAB TO TEST DAILY BEFORE ALL MEALS/SNACKS AND ONCE BEFORE BEDTIME 11/11/2023 04/24/2024 Discontinued (Reorder (Suppress CancelRx Message to Pharmacy)) Start: 10-12-2023 isopropyl alco hoL 70 % towelette Indications: Type 2 diabetes mellitus without complication, without long-term current use of insulin Test daily before all meals/snacks and once before bedtime. 1 each 1 10/12/2023 Active Start: 07-25-2023 isopropyl alco hoL 70 % towelette Indications: Type 2 diabetes mellitus without complication, without long-term current use of insulin (Multi) Test daily before all meals/snacks and once before bedtime. 1 each 07/25/2023 Active lisinopril 20 mg oral tablet (20 sources) Angiotensin Converting Enzyme Inhibitor Start: 01-23-2024 End: 07-12-2024 take 1 tablet by mouth once daily lisinopriL (PRINIVIL,ZESTRIL) 20 MG tablet Indications: Primary hypertension Take 1 (one) tablet (20 mg total) by mouth daily . 30 tablet 3 07/12/2024 Active mesalamine (4 sources) Aminosalicylate Lialda ; 2.4 gra m(s) orally once a day Quantity: 0 Refills: 0 Ordered: 16-Dec-2016 Noelle Salinas Status: Discontinued Generic Substitution Allowed metFORMIN hydrochloride 500 mg oral tablet (1 source) Biguanide Start: 07-17-2023 End: 08-20-2024 take 1 tablet by mouth twice daily at mealtime metFORMIN (Glucophage) 500 mg tablet Indications: Type 2 diabetes mellitus without complication, without long-term current use of insulin (Multi) Take 1 tablet (500 mg) by mouth 2 times a day with meals. 200 tablet 3 07/17/2023 08/20/2024 Active methylPREDNISolone (2 sources) Corticosteroid Start: 08-08-2024 End: 08-14-2024 methylPREDNISolone (MEDROL DOSEPACK) 4 mg tablet Indications: Acute pain of left shoulder Follow package directions . 21 tablet 08/08/2024 08/14/2024 Active 24 hr metoprolol succinate 50 mg extended release oral tablet (20 sources) beta-Adrenergic Charles Start: 01-23-2024 End: 07-12-2024 take 1 tablet by mouth once daily metoprolol succinate (TOPROL-XL) 50 MG 24 hr tablet Indications: Primary hypertension Take 1 (one) tablet (50 mg total) by mouth daily . 30 tablet 3 07/12/2024 Active Start: 03-29-2019 End: 01-23-2024 take 1 tablet by mouth every twenty-four hours metoprolol succinate XL (Toprol-XL) 50 mg 24 hr tablet Take by mouth. 03/29/2019 Active metoprolol Quant ity: 0 Refills: 0 Ordered: 27-Sep-2022 Miriam Rao Generic Substitution Allowed miconazole nitrate 20 mg/ml topical cream (2 sources) Azole Antifungal Start: 10-09-2024 miconazole (MICOTIN) 2 % cream Indications: Vaginal candidiasis Apply topically 2 (two) times a day Apply to rash on sasha area . 14 g 10/09/2024 Active nitrofurantoin, macrocrystals 25 mg / nitrofurantoin, monohydrate 75 mg oral capsule (1 source) Nitrofuran Antibacterial Start: 08-26-2024 End: 09-02-2024 take 1 capsule by mouth twice daily nitrofurantoin, macrocrystal-monoh ydrate, (Macrobid) 100 mg capsule Indications: Acute cystitis with hematuria Take 1 capsule (100 mg) by mouth 2 times a day for 7 days. 14 capsule 08/26/2024 09/02/2024 Active pantoprazole 20 mg delayed release oral tablet (1 source) Proton Pump Inhibitor take 1 tablet by mouth once daily pantoprazole (PROTONIX) 20 MG tablet Take 1 (one) tablet (20 mg total) by mouth daily . Active predniSONE 10 mg oral tablet (6 sources) Start: 02-27-2024 End: 03-05-2024 take 3 tablets by mouth once daily predniSONE (Deltasone) 10 mg tablet Indications: Mild intermittent asthma with acute exacerbation ([facility]) Take 3 tablets (30 mg) by mouth once daily for 7 days. 21 tablet 02/27/2024 03/05/2024 Active Start: 07-17-2023 End: 07-22-2023 take 1 tablet by mouth once daily predniSONE (Deltasone) 50 mg tablet Indications: Asthma with acute exacerbation, unspecified asthma severity, unspecified whether persistent ([facility]) Take 1 tablet (50 mg) by mouth once daily for 5 days. 5 tablet 07/17/2023 07/22/2023 Active Start: 01-28-2023 End: 02-02-2023 take 3 tablets by mouth once daily predniSONE (Deltasone) 10 mg tablet Indications: Acute bronchitis, unspecified organism Take 3 tablets (30 mg) by mouth once daily for 5 days. 15 tablet 0 01/28/2023 02/02/2023 Active Start: 09-27-2022 End: 10-08-2022 take 4 tablets by mouth once daily at mealtime, then take 1 tablet by mouth once daily, then take 1 tablet by mouth once daily, then take 1 tablet by mouth once daily predniSONE 10 mg oral tablet ; 4 tab(s) orally once a day x 3 days3 tab(s) orally once a day x 3 days2 tab(s) orally once a day x 3 days1 tab(s) orally once a day x 3 days Quantity: 30 Refills: 0 Ordered: 27-Sep-2022 Brent Wolf Start: 27-Sep-2022 End: 08-Oct-2022 Generic Substitution Allowed Comments: It is very important that you take or use this exactly as directed. Do not skip doses or discontinue unless directed by your doctor.Obtain medical advice before taking any non-prescription drugs as some may affect the action of this medication.Take with food or milk. Start: 02-01-2022 End: 02-05-2022 take 3 tablets by mouth once daily at mealtime predniSONE 10 mg oral tablet ; 3 tab(s) orally once a day x 5 days Quantity: 15 Refills: 0 Ordered: 01-Feb-2022 Brent Wolf Start: 01-Feb-2022 End: 05-Feb-2022 Generic Substitution Allowed Comments: It is very important that you take or use this exactly as directed. Do not skip doses or discontinue unless directed by your doctor.Obtain medical advice before taking any non-prescription drugs as some may affect the action of this medication.Take with food or milk. Comment on above: It is very important that you take or use this exactly as directed. Do not skip doses or discontinue unless directed by your doctor.Obtain medical advice before taking any non-prescription drugs as some may affect the action of this medication.Take with food or milk. 0.83 ml risankizumab-rzaa 90.4 mg/ml prefilled syringe (15 sources) risankizumab-rza a (Skyrizi) 75 mg/0.83 mL Syrg Inject 150 mg under the skin . Active semaglutide 0.25 mg or 0.5 mg (2 mg/3 mL) Pen (14 sources) Start: 07-22-2024 semaglutide 0.25 mg or 0.5 mg (2 mg/3 mL) Pen Indications: Type 2 diabetes mellitus without complication, without long-term current use of insulin (HCC) Inject 0.25 (one-quarter) mg under the skin every 7 days . 3 mL 3 07/22/2024 Active Start: 02-22-2024 End: 05-22-2024 semaglutide 0.25 mg or 0.5 m g (2 mg/3 mL) Pen Indications: Type 2 diabetes mellitus without complication, without long-term current use of insulin (HCC) Inject 0.25 (one-quarter) mg under the skin once a week . 6 mL 3 02/22/2024 05/22/2024 Start: 02-22-2024 End: 05-22-2024 semaglutide 0.25 mg or 0.5 m g (2 mg/3 mL) Pen Indications: Type 2 diabetes mellitus without complication, without long-term current use of insulin (HCC) Inject 0.25 (one-quarter) mg under the skin once a week . 6 mL 3 02/22/2024 05/22/2024 Active Start: 11-05-2023 End: 02-22-2024 semaglutide 0.25 mg or 0.5 m g (2 mg/3 mL) Pen Inject under the skin . 11/05/2023 02/22/2024 Discontinued (Reorder (Suppress CancelRx Message to Pharmacy)) Start: 11-05-2023 semaglutide 0. 25 mg or 0.5 mg (2 mg/3 mL) Pen Inject under the skin . 11/05/2023 Active semaglutide 0.25 mg or 0.5 mg (2 mg/3 mL) pen injector (15 sources) Start: 11-05-2023 inject 0.25 mg by subcutaneous injection every week, then inject 0.5 mg by subcutaneous injection every week semaglutide 0.25 mg or 0.5 mg (2 mg/3 mL) pen injector Indications: Type 2 diabetes mellitus without complication, without long-term current use of insulin Inject 0.25 mg under the skin 1 (one) time per week for 30 days, THEN 0.5 mg 1 (one) time per week. 3 mL 2 11/05/2023 Active Start: 11-05-2023 inject 0.25 mg by peters bcutaneous injection every week, then inject 0.5 mg by subcutaneous injection every week semaglutide 0.25 mg or 0.5 mg (2 mg/3 mL) pen injector Indications: Type 2 diabetes mellitus without complication, without long-term current use of insulin (Multi) Inject 0.25 mg under the skin 1 (one) time per week for 30 days, THEN 0.5 mg 1 (one) time per week. 3 mL 2 11/05/2023 Active Start: 11-05-2023 End: 11-01-2023 semaglutide 0.25 mg or 0.5 m g (2 mg/3 mL) pen injector Indications: Type 2 diabetes mellitus without complication, without long-term current use of insulin (Multi) Inject 0.25 mg under the skin 1 (one) time per week. 3 mL 1 11/05/2023 11/01/2023 Discontinued Start: 11-05-2023 End: 01-04-2024 inject 0.25 mg by subcutaneous injection every week, then inject 0.5 mg by subcutaneous injection every week semaglutide 0.25 mg or 0.5 mg (2 mg/3 mL) pen injector Indications: Type 2 diabetes mellitus without complication, without long-term current use of insulin (Multi) Inject 0.25 mg under the skin 1 (one) time per week for 30 days, THEN 0.5 mg 1 (one) time per week. 3 mL 2 11/05/2023 01/04/2024 Active Start: 07-23-2023 End: 11-01-2023 semaglutide 0.25 mg or 0.5 m g (2 mg/3 mL) pen injector Indications: Type 2 diabetes mellitus without complication, without long-term current use of insulin (Multi) Inject 0.25 mg under the skin 1 (one) time per week. 3 mL 1 07/23/2023 11/01/2023 Discontinued (Reorder) Start: 07-23-2023 End: 07-22-2024 semaglutide 0.25 mg or 0.5 m g (2 mg/3 mL) pen injector Indications: Type 2 diabetes mellitus without complication, without long-term current use of insulin (Multi) Inject 0.25 mg under the skin 1 (one) time per week. 3 mL 1 07/23/2023 07/22/2024 Active triamcinolone acetonide 1 mg/ml topical cream (1 source) Corticosteroid Start: 02-22-2024 End: 03-07-2024 triamcinolone (KENALOG) 0.1 % cream Indications: Rash Apply topically 2 (two) times a day Apply 1 gram to affected area for 14 days . 30 g 02/22/2024 03/07/2024 Active vitamin b6 100 mg oral tablet (20 sources) Start: 08-22-2023 pyridoxine, vi tamin B6, (B-6) 100 MG tablet Take 1 (one) tablet (100 mg total) by mouth . 08/22/2023 Active Completed/Discontinued Medications Medication Drug Class(es) Dates Sig (Normalized) Sig (Original) acetaminophen 325 mg / HYDROcodone bitartrate 5 mg oral tablet (3 sources) Opioid Agonist Start: 04-09-2021 End: 04-11-2021 take 1 tablet by mouth every eight hours hydrocodone-acetam inophen 5 mg-325 mg oral tablet ; 1 tab(s) orally every 8 hours Quantity: 9 Refills: 0 Ordered: 09-Apr-2021 Gary Lucas Start: 09-Apr-2021 End: 11-Apr-2021 Generic Substitution Allowed Comments: Caution federal law prohibits the transfer of this drug to any person other than the person for whom it was prescribed.May cause drowsiness. Alcohol may intensify this effect. Use care when operating dangerous machinery.This product contains acetaminophen. Do not use with any other product containing acetaminophen to prevent possible liver damage.Using more of this medication than prescribed may cause serious breathing problems. Comment on above: Caution federal law prohibits the transfer of this drug to any person other than the person for whom it was prescribed.May cause drowsiness. Alcohol may intensify this effect. Use care when operating dangerous machinery.This product contains acetaminophen. Do not use with any other product containing acetaminophen to prevent possible liver damage.Using more of this medication than prescribed may cause serious breathing problems. azaTHIOprine 50 mg oral tablet (20 sources) Purine Antimetabolite Start: 03-21-2017 End: 07-22-2024 take 3 tablets by mouth once daily azaTHIOprine (IMURAN) 50 mg tablet Take 3 (three) tablets (150 mg total) by mouth daily . 03/21/2017 07/22/2024 Discontinued Start: 03-21-2017 take 1 tablet by ash th three times daily azaTHIOprine 50 MG Oral Tablet TAKE 1 TABLET 3 TIMES DAILY. Quantity: 0 Refills: 0 Ordered: 21-Mar-2017 DO Start : 21-Mar-2017 Active take 1 tablet by ash th once daily azaTHIOprine (Imuran) 50 mg tablet Take 1 tablet (50 mg) by mouth once daily. Active take 150 mg into the eye(s) once daily at bedtime azaTHIOprine ; 150 milligram(s) to each affected eye once a day (at bedtime) Quantity: 0 Refills: 0 Ordered: 16-Dec-2016 Noelle Salinas Status: Discontinued Generic Substitution Allowed docusate sodium 100 mg oral capsule (1 source) End: 03-21-2017 Stool Softener 100 MG Oral Capsule Quantity: 0 Refills: 0 Ordered: 21-Mar-2017 DO End : 21-Mar-2017 Complete ketorolac tromethamine 10 mg oral tablet (2 sources) Nonsteroidal Anti-inflammatory Drug, Cyclooxygenase Inhibitor Start: 04-09-2021 End: 04-13-2021 take 1 tablet by mouth three times daily at mealtime ketorolac 10 mg oral tablet ; 1 tab(s) orally 3 times a day Quantity: 15 Refills: 0 Ordered: 09-Apr-2021 Gary Lucas Start: 09-Apr-2021 End: 13-Apr-2021 Generic Substitution Allowed Comments: It is very important that you take or use this exactly as directed. Do not skip doses or discontinue unless directed by your doctor.May cause drowsiness or dizziness.Obtain medical advice before taking any non-prescription drugs as some may affect the action of this medication.Take with food or milk. Comment on above: It is very important that you take or use this exactly as directed. Do not skip doses or discontinue unless directed by your doctor.May cause drowsiness or dizziness.Obtain medical advice before taking any non-prescription drugs as some may affect the action of this medication.Take with food or milk. montelukast 10 mg oral tablet (13 sources) Leukotriene Receptor Antagonist Start: 01-16-2023 End: 03-25-2024 take 1 tablet by mouth once daily at bedtime montelukast (Singulair) 10 mg tablet Indications: Asthma, unspecified asthma severity, unspecified whether complicated, unspecified whether persistent ([facility]) Take 1 tablet (10 mg) by mouth once daily at bedtime. 30 tablet 6 08/28/2023 10/31/2023 Discontinued (Therapy completed) ondansetron 4 mg oral tablet (2 sources) Serotonin-3 Receptor Antagonist Start: 04-09-2021 End: 04-15-2021 take 1 tablet by mouth every eight hours Zofran 4 mg oral tablet ; 1 tab(s) orally every 8 hours Quantity: 21 Refills: 0 Ordered: 09-Apr-2021 Gary Lucas Start: 09-Apr-2021 End: 15-Apr-2021 Generic Substitution Allowed 0.25 mg, 0.5 mg dose 1.5 ml semaglutide 1.34 mg/ml pen injector (2 sources) End: 2024 semaglutide (Ozempic) 0.25 mg or 0.5 mg(2 mg/1.5 mL) Pen Inject 0.25 (one-quarter) mg under the skin every 7 days . 2024 Discontinued (Duplicate order (Suppress CancelRx Message to Pharmacy)) sulfamethoxazole 800 mg / trimethoprim 160 mg oral tablet (6 sources) Dihydrofolate Reductase Inhibitor Antibacterial, Sulfonamide Antimicrobial Start: 04-09-2021 End: 04-15-2021 take 1 tablet by mouth every twelve hours Bactrim DS 800 mg-160 mg oral tablet ; 1 tab(s) orally every 12 hours Quantity: 14 Refills: 0 Ordered: 09-Apr-2021 Gary Lucas Start: 09-Apr-2021 End: 15-Apr-2021 Generic Substitution Allowed Comments: Avoid prolonged or excessive exposure to direct and/or artificial sunlight while taking this medication.Finish all this medication unless otherwise directed by prescriber.Medica tion should be taken with plenty of water. Start: 09-18-2020 End: 09-24-2020 take 1 tablet by mouth twice daily Bactrim DS 800 mg-160 mg oral tablet ; 1 tab(s) orally 2 times a day Quantity: 14 Refills: 0 Ordered: 18-Sep-2020 Brent Wolf Start: 18-Sep-2020 End: 24-Sep-2020 Status: Other Generic Substitution Allowed Comments: Avoid prolonged or excessive exposure to direct and/or artificial sunlight while taking this medication.Finish all this medication unless otherwise directed by prescriber.Medication should be taken with plenty of water. Comment on above: Avoid prolonged or e xcessive exposure to direct and/or artificial sunlight while taking this medication.Finish all this medication unless otherwise directed by prescriber.Medication should be taken with plenty of water. tamsulosin hydrochloride 0.4 mg oral capsule (1 source) alpha-Adrenergic Charles Start: 2021 End: 2021 take 1 capsule by mouth once daily Flomax 0.4 mg oral capsule ; 1 cap(s) orally once a day Quantity: 5 Refills: 0 Ordered: 10-Apr-2021 Adeola Hanna Start: 10-Apr-2021 End: 14-Apr-2021 Generic Substitution Allowed Comments: It is very important that you take or use this exactly as directed. Do not skip doses or discontinue unless directed by your doctor.May cause drowsiness. Alcohol may intensify this effect. Use care when operating dangerous machinery.Some non-prescription drugs may aggravate your condition. Read all labels carefully. If a warning appears, check with your doctor before taking.Swallow whole. Do not crush. Comment on above: It is very important that you take or use this exactly as directed. Do not skip doses or discontinue unless directed by your doctor.May cause drowsiness. Alcohol may intensify this effect. Use care when operating dangerous machinery.Some non-prescription drugs may aggravate your condition. Read all labels carefully. If a warning appears, check with your doctor before taking.Swallow whole. Do not crush. Problems Active Problems Problem Classification Problem Date Documented Da te Episodic/Chronic Abdominal pain (7 sources) Right upper quadrant pain; Translations: [Right upper quadrant pain] Onset: 5 09-25-2024 Episodic Acute bronchitis (1 source) Acute bronchitis; Translations: [Acute bronchitis, unspecified] 01-28-2023 Episodic Administrative/social admission (1 source) Patient encounter status; Translations: [Persons encountering health services in other specified circumstances] 04-18-2023 Episodic Allergic reactions (2 sources) H/O: non-drug allergy; Translations: [Other allergy, other than to medicinal agents] Episodic Asthma (20 sources) Asthma; Translations: [Unspecified asthma, uncomplicated] Onset: 4 04-18-2023 Chronic Calculus of urinary tract (7 sources) Kidney stone; Translations: [Calculus of kidney] Onset: 5 04-09-2021 Episodic Diabetes mellitus without complication (20 sources) Type 2 diabetes mellitus without complication; Translations: [Type 2 diabetes mellitus without complications] Onset: 4 07-17-2023 Chronic Disorders of lipid metabolism (3 sources) Mixed hyperlipidemia; Translations: [Mixed hyperlipidemia] Onset: 4 04-18-2023 Chronic Diverticulosis and diverticulitis (5 sources) Diverticulitis; Translations: [Diverticulitis of intestine, part unspecified, without perforation or abscess without bleeding] Onset: 5 10-13-2024 Chronic E Codes: Struck by; against (1 source) Striking against other stationary object, initial encounter; Translations: [Striking against other stationary object, initial encounter] Onset: 3 Episodic Esophageal disorders (1 source) Gastroesophageal reflux disease without esophagitis; Translations: [Gastro-esophageal reflux disease without esophagitis] 09-28-2023 Chronic Essential hypertension (20 sources) Essential hypertension; Translations: [Essential (primary) hypertension] Onset: 4 04-18-2023 Chronic Genitourinary symptoms and ill-defined conditions (12 sources) Scalding pain on urination ; Translations: [Dysuria] Onset: 5 09-18-2020 Episodic Headache; including migraine (1 source) Headache; including migraine; Translations: [Headache, unspecified] Onset: 2 Joint disorders and dislocations; trauma-related (4 sources) Inferior subluxation of left humerus, initial encounter; Translations: [Closed inferior dislocation of humerus] Onset: 5 09-09-2024 Episodic Mycoses (3 sources) Candidiasis of vagina; Translations: [Vaginal candidiasis] Onset: 5 10-09-2024 Episodic Nutritional deficiencies (6 sources) Vitamin D deficiency; Translations: [Vitamin D deficiency, unspecified] Onset: 4 04-18-2023 Chronic Osteoarthritis (1 source) Unilateral primary osteoarthritis, left hip; Translations: [Unilateral primary osteoarthritis, left hip] Onset: 3 Chronic Other connective tissue disease (1 source) Pain in leg, unspecified; Translations: [Pain in leg, unspecified] Onset: 3 Episodic Other connective tissue disease (1 source) Disorder of shoulder; Translations: [Bursitis of unspecified shoulder] 09-16-2024 Episodic Other diseases of bladder and urethra (2 sources) Vesicocolic fistula; 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 Other female genital disorders (2 sources) Rectovaginal fistula; Translations: [Digestive-genital tract fistula, female] Chronic Other gastrointestinal disorders (3 sources) History of Crohns disease; Translations: [Personal history of unspecified digestive disease] 04-18-2023 Episodic Other gastrointestinal disorders (2 sources) Diarrhea, unspecified; Translations: [Diarrhea, unspecified] Onset: 4 Episodic Other lower respiratory disease (4 sources) Cough; Translations: [Subacute cough] Onset: 5 04-24-2024 Episodic Other nervous system disorders (2 sources) H/O: cataract; Translations: [Personal history of other disorders of nervous system and sense organs] Episodic Other non-traumatic joint disorders (1 source) Hip pain; Translations: [Pain in joint, pelvic region and thigh] 09-27-2022 Episodic Other non-traumatic joint disorders (1 source) Pain in right hip; Translations: [Pain in right hip] Onset: 3 Episodic Other non-traumatic joint disorders (3 sources) Chronic ankle pain; Translations: [Pain in left ankle and joints of left foot] 04-18-2023 Episodic Other non-traumatic joint disorders (5 sources) Pain in left shoulder; Translations: [Pain in joint, shoulder region] Onset: 5 08-08-2024 Episodic Other upper respiratory disease (5 sources) Seasonal allergy; Translations: [Other seasonal allergic rhinitis] 12-12-2023 Chronic Other upper respiratory disease (2 sources) Other seasonal allergic rhinitis; Translations: [Other seasonal allergic rhinitis] Onset: 5 Chronic Regional enteritis and ulcerative colitis (20 sources) Crohn's disease; Translations: [Regional enteritis of unspecified site] Onset: 4 Chronic Residual codes; unclassified (2 sources) Pain, unspecified; Translations: [Pain, unspecified] Onset: 5 Episodic Spondylosis; intervertebral disc disorders; other back problems (3 sources) Acute back pain with sciatica; Translations: [Lumbago] Onset: 3 09-27-2022 Episodic Unclassified (2 sources) Burning with urination 09-18-2020 Unclassified (2 sources) LOWER BACK/SIDE PAIN 04-08-2021 Comment on above: LOWER BACK/SIDE PAIN Unclassified (1 source) Pyelonephritis of left kidney 04-09-2021 Unclassified (1 source) Kidney stone on left side 04-09-2021 Unclassified (2 sources) R HIP PAIN 09-27-2022 Comment on above: R HIP PAIN Unclassified (1 source) Acute pain of right hip 09-27-2022 Unclassified (1 source) Acute right-sided low back pain with right-sided sciatica 09-27-2022 Unclassified (1 source) Cough, unspecified; Translations: [Cough, unspecified] Onset: 2 Unclassified (1 source) Acute cough; Translations: [Acute cough] Onset: 4 Unclassified (1 source) Acute candidiasis of vulva and vagina; Translations: [Acute candidiasis of vulva and vagina] Onset: 5 Unclassified (1 source) Subacute cough; Translations: [Subacute cough] Onset: 02-12-202 5 Urinary tract infections (12 sources) Urinary tract infectious disease; Translations: [Pyelonephritis] Onset: 09-18-2020 Episodic Comment on above: UTI Past or Other Problems Problem Classification Problem Date Documented Da te Episodic/Chronic Abdominal hernia (19 sources) Umbilical hernia; Translations: [Umbilical hernia without obstruction or gangrene] Onset: 2024 2024 Episodic Diabetes mellitus without complication (3 sources) Impaired fasting glycemia; Translations: [Impaired fasting glucose] Onset: 07-12-2023 04-18-2023 Episodic Influenza (3 sources) Influenza due to Influenza A virus; Translations: [Influenza due to other identified influenza virus with other respiratory manifestations] Onset: 04-17-2024 04-17-2024 Episodic Malaise and fatigue (3 sources) Fatigue; Translations: [Other fatigue] Onset: 04-24-2024 04-24-2024 Episodic Mood disorders (12 sources) Mood disorders Onset: 01-23-2024 Resolved: 07-22-2024 01-23-2024 Other connective tissue disease (13 sources) Cramp in lower limb; Translations: [Cramp and spasm] Onset: 04-24-2024 04-24-2024 Episodic Other connective tissue disease (2 sources) Cramp and spasm; Translations: [Cramp and spasm] Onset: 04-24-2024 Episodic Other lower respiratory disease (10 sources) Cough; Translations: [Acute cough] Onset: 04-25-2024 02-27-2024 Episodic Other skin disorders (16 sources) Eruption; Translations: [Rash and other nonspecific skin eruption] Onset: 02-22-2024 02-22-2024 Episodic Other skin disorders (2 sources) Rash and other nonspecific skin eruption; Translations: [Rash and other nonspecific skin eruption] Onset: 02-22-2024 Episodic Other upper respiratory disease (1 source) Nasal congestion; Translations: [Nasal congestion] Onset: 02-01-2022 Episodic Other upper respiratory infections (6 sources) Upper respiratory infection; Translations: [Acute upper respiratory infection, unspecified] Onset: 02-01-2022 02-01-2022 Episodic Comment on above: URI Unclassified (16 sources) Onset: 04-18-2023 Resolved: 10-31-2023 4 Unclassified (1 source) Acute cough; Translations: [Acute cough] Onset: 02-27-2024 Unclassified (1 source) Inferior subluxation of left glenohumeral joint 10-09-2024 Unclassified (1 source) Acute candidiasis of vulva and vagina; Translations: [Acute candidiasis of vulva and vagina] Onset: 10-09-2024 Unclassified (1 source) Subacute cough; Translations: [Subacute cough] Onset: 04-24-2024 Results Test Name Value Interpretation Reference Range Facility CULTURE, URINE, ROUTINEon CULTURE, URINE, ROUTINE SEE NOTE Normal [facility] Comment on above: Result Comment: CULTURE, URINE, ROUTINE Micro Number: [id number] Test Status: Final Specimen Source: Urine Specimen Quality: Adequate Result: Mixed genital rosa isolated. These superficial bacteria are not indicative of a urinary tract infection. No further organism identification is warranted on this specimen. If clinically indicated, recollect clean-catch, mid-stream urine and transfer immediately to Urine Culture Transport Tube. Performed By: #### [id number] #### [facility] [address], [address] [place] [id number] Environmental Health Nurse: Terry Bond MD Urinalysis macro (dipstick) panel (U)on 10-22-2024 Bilirubin Ql (U) Negative Negative [facility] Glucose Ql (U) Negative Normal, Negative mg/dL [facility] Hemoglobin Ql (U) Large Abnormal Negative [facility] Interpretation and review of laboratory results Abnormal [facility] Ketones Ql (U) Negative Negative mg/dL [facility] Leukocyte esterase Test strip Ql (U) Trace Abnormal Negative [facility] Nitrite Ql (U) Negative Negative [facility] pH (U) 5.5 [pH] 5.0 - 7.0 [facility] Protein Ql (U) 300 mg/dL Abnormal Negative [facility] Specific gravity (U) [Rel density] 1.02 1.005 - 1.025 [facility] Urobilinogen Qn (U) 0.2 mg/dL <2.0, 0.2, Normal, Negative, 1.0, 2.0, <1.0 [facility] CULTURE, URINE, ROUTINEon CULTURE, URINE, ROUTINE SEE NOTE Normal [facility] Comment on above: Result Comment: CULTURE, URINE, ROUTINE Micro Number: [id number] Test Status: Final Specimen Source: Urine Specimen Quality: Adequate Result: Mixed genital rosa isolated. These superficial bacteria are not indicative of a urinary tract infection. No further organism identification is warranted on this specimen. If clinically indicated, recollect clean-catch, mid-stream urine and transfer immediately to Urine Culture Transport Tube. Performed By: #### [id number] #### [address], [address] [place] [address] Environmental Health Nurse: Terry Bond MD CT ABDOMEN PELVIS WITH IV CO NTRAST ONLYon 09-25-2024 CT ABDOMEN PELVIS WITH IV CONTRAST ONLY EXAMINATION: CT ABDOMEN PELVIS WITH IV CONTRAST [...] pelvic ultrasound follow-up if not previously evaluated. [employer] Workstation ID: [id number] Dictated by: BONNIE GARCIA on MonSep 25, 2024 2:20:24 PM EDT Transcribed by: JOSE FLORES on MonSep 25, 2024 2:28:58 PM EDT Finalized by: BONNIE GARCIA on MonSep 25, 2024 10:19:25 PM EDT [facility] Comment on above: Order Comment: Injur y/Trauma or Illness?:Illness/Other How long have you had these symptoms (acute/chronic)?:Acute Reason for exam?:Diffuse abdominal pain and history of Crohn's Type of Exam?:Initial Additional signs and symptoms?:no ED Prov Noteon 09-25-2024 ED Prov Note HPI: 09/25/2024, Time: @NOWYADIRA@ Frannie Galvan is a 59 y.o. female presenting to the ED for gradual onset of diffuse abdominal pain and patient holding right side, beginning 3 hours ago. The complaint has been constant, moderate in severity, and worsened by changing position. No fever or chills. History of Crohn's ROS: Pertinent positives and negatives are stated within HPI, all other systems reviewed and are negative. - PAST HISTORY - Past Medical History: @PM@ Past Surgical History: has a past surgical [...] Grass pollen, Latex, Peanut, and Adhesive tape-silicones ------ RESULTS ----- All laboratory and radiology results have been [...] Pelvis With IV Contrast Only (Results Pending) --- NURSING NOTES AND VITALS REVIEWED ----- The nursing notes within the ED encounter and vital signs as below have been reviewed. Pulse 85 Temp 98.1 degrees F (36.7 degrees C) Resp 18 Ht 5' 6 Wt 113.4 kg (250 lb) SpO2 95% BMI 40.35 kg/m Oxygen Saturation Interpretation: Normal -------PHYSICAL EXAM Constitutional/General : Alert and oriented x3, moderate apparent discomfort [...] rash Neurologic: GCS 15, Psych: Normal Affect -------- ED COURSE/MEDICAL DECISION MAKING ------ Medications methylPREDNISolone sod suc(PF) (SOLU-medrol) Injection 125 [...] Impression: No diagnosis found. (Please note that dot (more content not included)... Normal [facility] POC BASIC METABOLIC PANEL [facility] 09-25-2024 Chloride [Moles/Vol] 101 mmol/L Normal 98-108 [facility] Comment on above: Order Comment: [facility] has implemented the eGFR calculation approach that does not have a coefficient for race that conforms to the NKF-ASN Task Force Recommendations. CO2 [Moles/Vol] 31 mmol/L Normal 21-32 [facility] Comment on above: Order Comment: [facility] has implemented the eGFR calculation approach that does not have a coefficient for race that conforms to the NKF-ASN Task Force Recommendations. Creatinine [Mass/Vol] 0.76 mg/dL Normal 0.60-1.20 [facility] Comment on above: Order Comment: [facility] has implemented the eGFR calculation approach that does not have a coefficient for race that conforms to the NKF-ASN Task Force Recommendations. Glucose [Mass/Vol] 146 mg/dL High 65-99 [facility] Comment on above: Order Comment: [facility] has implemented the eGFR calculation approach that does not have a coefficient for race that conforms to the NKF-ASN Task Force Recommendations. POC GFR 89 mL/min/1.73 m2 Normal >=60 [facility] Comment on above: Order Comment: [facility] has implemented the eGFR calculation approach that does not have a coefficient for race that conforms to the NKF-ASN Task Force Recommendations. Result Comment: April mated GFR was calculated using the 2020 CKD-EPI creatinine equation. POC IONIZED CALCIUM 4.9 mg/dL Normal 4.5-5.3 [facility] Comment on above: Order Comment: [facility] has implemented the eGFR calculation approach that does not have a coefficient for race that conforms to the NKF-ASN Task Force Recommendations. Potassium [Moles/Vol] 3.3 mmol/L Low 3.5-5.1 [facility] Comment on above: Order Comment: [facility] has implemented the eGFR calculation approach that does not have a coefficient for race that conforms to the NKF-ASN Task Force Recommendations. Sodium [Moles/Vol] 141 mmol/L Normal 135-145 [facility] Comment on above: Order Comment: [facility] has implemented the eGFR calculation approach that does not have a coefficient for race that conforms to the NKF-ASN Task Force Recommendations. Urea nitrogen [Mass/Vol] 19 mg/dL Normal 8-25 [facility] Comment on above: Order Comment: [facility] has implemented the eGFR calculation approach that does not have a coefficient for race that conforms to the NKF-ASN Task Force Recommendations. POC CBC AND DIFFERENTIALon 0 - BASOPHILS ABSOLUTE COUNT 0.03 K/mcL Normal 0.00-0.30 [facility] Basophils/100 WBC (Bld) 0.2 % Normal [facility] Eosinophils (Bld) [#/Vol] 0.06 10*3/uL Normal 0.00-0.50 [facility] Eosinophils/100 WBC (Bld) 0.5 % Normal [facility] Erythrocyte distribution width (RBC) [Ratio] 13.5 % Normal 11.6-14.8 [facility] Hematocrit (Bld) [Volume fraction] 46.5 % High 36.0-46.0 [facility] Hemoglobin (Bld) [Mass/Vol] 15.6 g/dL Normal 12.0-16.0 [facility] IG ABSOLUTE 0.02 K/mcL Normal 0.00-0.30 [facility] IG PERCENT 0.20 % Normal [facility] Comment on above: Result Comment: The IG parameter is the percentage of metamyelocytes, myelocytes and promyelocytes. An immature granulocyte count (IG) of 1% or more suggests the possibility of infection, an IG count of 3% is very likely related to an infection. Lymphocytes (Bld) [#/Vol] 0.69 10*3/uL Low 0.90-4.00 [facility] Lymphocytes/100 WBC (Bld) 5.5 % Normal [facility] MCH (RBC) [Entitic mass] 28.3 pg Normal 26.0-34.0 [facility] MCV (RBC) [Entitic vol] 84.2 fL Normal 80.0-100.0 [facility] MEAN CORPUSCULAR HEMOGLOBIN CONC 33.5 g/dL Normal 31.0-37.0 [facility] Monocytes (Bld) [#/Vol] 0.92 10*3/uL High 0.30-0.90 [facility] Monocytes/100 WBC (Bld) 7.4 % Normal [facility] NEUTROPHILS ABSOLUTE COUNT 10.75 K/mcL High 1.70-7.00 [facility] Neutrophils/100 WBC (Bld) 86.2 % Normal [facility] Platelet mean volume (Bld) [Entitic vol] 8.9 fL Low 9.4-12.4 [facility] Platelets (Bld) [#/Vol] 218 10*3/uL Normal 150-400 [facility] RBC (Bld) [#/Vol] 5.52 10*6/uL High 4.00-5.20 [facility] WBC (Bld) [#/Vol] 12.47 10*3/uL High 4.50-11.00 [facility] POC LIVER PANEL PLUS [place] 09-25-2024 Albumin [Mass/Vol] 4.2 g/dL Normal 3.2-5.2 [facility] ALP [Catalytic activity/Vol] 75 U/L Normal 40-150 [facility] ALT [Catalytic activity/Vol] 23 U/L Normal 0-40 [facility] Amylase [Catalytic activity/Vol] 29 U/L Normal 25-115 [facility] Amylase [Catalytic activity/Vol] 31 U/L Normal 7-33 [facility] AST [Catalytic activity/Vol] 24 U/L Normal 0-45 [facility] Bilirubin [Mass/Vol] 1.0 mg/dL Normal 0.0-1.3 [facility] Protein [Mass/Vol] 7.1 g/dL Normal 6.0-8.0 [facility] POC Urinalysis Dipstick, Aut oOrdered By: Batsheva Payne on 09-25-2024 Bilirubin Ql (U) Negative Negative [facility] Glucose Ql (U) Negative Normal, Negative mg/dL [facility] Hemoglobin Ql (U) Moderate Abnormal Negative [facility] Interpretation and review of laboratory results Abnormal [facility] Ketones Ql (U) Negative Negative mg/dL [facility] alth Leukocyte esterase Test strip Ql (U) Small Abnormal Negative [facility] Nitrite Ql (U) Negative Negative [facility] pH (U) 5.5 [pH] 5.0 - 7.0 [facility] Protein Ql (U) Negative Negative mg/dL [facility] alth Specific gravity (U) [Rel density] 1.025 1.005 - 1.025 [facility] Urobilinogen Qn (U) 0.2 mg/dL <2.0, 0.2, Normal, Negative, 1.0, 2.0, <1.0 [facility] XR SHOULDER LEFT 1 VIEWon XR SHOULDER LEFT 1 VIEW EXAMINATION: XR SHOULDER LEFT 1 VIEW 09/09/2024 [...] the left shoulder on this single image. [employer] Workstation ID: [id number] Dictated by: FABIEN JAUREGUI on MonSep 11, 2024 3:22:45 PM EDT Transcribed by: KARI RODRIGUEZ on MonSep 11, 2024 3:59:29 PM EDT Finalized by: FABIEN JAUREGUI on MonSep 11, 2024 4:00:10 PM EDT Normal [facility] Comment on above: Order Comment: Axill justin view Injury/Trauma or Illness?:Illness/Other How long have you had these symptoms (acute/chronic)?:Acute Reason for exam?:Pain on the top of the left shoulder after sleeping on it. History of cancer?:n Surgeries, chemotherapy, or radiation?:n Type of Exam?:Initial Additional signs and symptoms?:Limited range of motion due to pain CULTURE, URINE, ROUTINEon CULTURE, URINE, ROUTINE SEE NOTE Normal [facility] Comment on above: Result Comment: CULTURE, URINE, ROUTINE Micro Number: [id number] Test Status: Final Specimen Source: Not given Specimen Quality: Adequate Result: Mixed genital rosa isolated. These superficial bacteria are not indicative of a urinary tract infection. No further organism identification is warranted on this specimen. If clinically indicated, recollect clean-catch, mid-stream urine and transfer immediately to Urine Culture Transport Tube. Performed By: #### 3 [id number] #### [facility] [address], [address] [place] [phone] Environmental Health Nurse: Terry Bond MD POCT UA (nonautomated w/o mi croscopy) manually resultedOrdered By: Miriam Rao on 08-26-2024 Appearance (U) Clear Clear [facility] Glucose Test strip (U) [Mass/Vol] Negative NEGATIVE mg/dl [facility] Hemoglobin Ql (U) MODERATE (2+) Abnormal NEGATIVE [facility] Interpretation and review of laboratory results Abnormal [facility] Leukocyte esterase Test strip Ql (U) SMALL (1+) Abnormal NEGATIVE [facility] Nitrite Ql (U) Negative NEGATIVE [facility] pH (U) 5.5 [pH] No Reference Range Established [facility] POC Bilirubin, Urine Negative NEGATIVE [facility] POC Color, Urine Yellow Straw, Oliver ow, Light-Yellow [facility] POC Ketones, Urine Negative NEGATIVE mg/dl [facility] POC Protein, Urine Negative NEGATIVE mg/dl [facility] POC Specific [place], Urine 1.015 1.005 - 1.035 [facility] POC Urobilinogen, Urine 0.2 0.2, 1.0 EU/DL [facility] XR SHOULDER LEFT 2+ VIEWS (S TANDARD)on 08-08-2024 XR SHOULDER LEFT 2+ VIEWS (STANDARD) EXAMINATION: XR SHOULDER LEFT 2+ VIEWS (STANDARD) [...] glenohumeral joint subluxation. No acute osseous abnormality. [employer] Workstation ID: [id number] Dictated by: BONNIE GARCIA on MonAugust 08, 2024 4:26:09 PM EDT Transcribed by: ALEXA IRWIN on MonAugust 08, 2024 4:35:30 PM EDT Finalized by: BONNIE GARCIA on MonAugust 08, 2024 9:09:47 PM EDT Normal [facility] Comment on above: Order Comment: Injur y/Trauma or Illness?:Injury/Trauma How long have you had these symptoms (acute/chronic)?:Acute Reason for exam?:left shoulder pain, Acute pain of left shoulder History of cancer?:n Surgeries, chemotherapy, or radiation?:n Type of Exam?:Initial Mechanism of injury?:lifting boxes HbA1c (Bld) [Mass fraction]O rdered By: Linda Sims on 07-22-2024 Interpretation and review of laboratory results Abnormal [facility] POC Glycosylated Hemoglobin (Hb A1C)Ordered By: Linda Sims on 07-22-2024 HbA1c (Bld) [Mass fraction] 6.1 % Abnormal 4.0 - 6.0 % [facility] ALBUMIN, RANDOM URINE W/CREA Raymundo 04-25-2024 ALBUMIN, URINE 1.9 mg/dL Normal See Note: [facility] Comment on above: Result Comment: Refe rence Range: Reference Range Not established Performed By: #### 9 27, 496, 38154, 58828, 622, 10569, 6399 #### [facility] [place] [address] Environmental Health Nurse: Terry Bond MD ALBUMIN/CREATININE RATIO, RANDOM URINE 9 mg/g creat Normal <30 [facility] Comment on above: Result Comment: The ADA defines abnormalities in albumin excretion as follows: Albuminuria Category Result (mg/g creatinine) Normal to Mildly increased <30 Moderately increased 30-299 Severely increased > OR = 300 The ADA recommends that at least two of three specimens collected within a 3-6 month period be abnormal before considering a patient to be within a diagnostic category. Performed By: #### 9 27, 496, 45509, 92571, 622, 21006, 6399 #### [facility] [place] [address] Environmental Health Nurse: Terry Bond MD Creatinine (U) [Mass/Vol] 222 mg/dL Normal 20-275 [facility] Comment on above: Performed By: #### 9 27, 496, 33456, 91865, 622, 64056, 6399 #### [facility] [place] [address] Environmental Health Nurse: Terry Bond MD CBC (INCLUDES DIFF/PLT)on Basophils (Bld) [#/Vol] 0.037 10*3/uL Normal 0-200 [facility] Comment on above: Performed By: #### 9 27, 496, 03775, 96601, 622, 86096, 6399 #### [facility] [place] [address] Environmental Health Nurse: Terry Bond MD Basophils/100 WBC (Bld) 0.5 % Normal [facility] Comment on above: Performed By: #### 9 27, 496, 68847, 98569, 622, 99921, 6399 #### [facility] [place] [address] Environmental Health Nurse: Terry Bond MD COMMENT(S) Normal [facility] Comment on above: Result Comment: Revi ew of peripheral smear confirms automated results. Performed By: #### 9 27, 496, 61436, 10775, 622, 59281, 6399 #### [facility] [place] [address] Environmental Health Nurse: Terry Bond MD Eosinophils (Bld) [#/Vol] 0.148 10*3/uL Normal 15-500 [facility] Comment on above: Performed By: #### 9 27, 496, 72069, 71732, 622, 68520, 6399 #### [facility] [place] [address] Environmental Health Nurse: Terry Bond MD Eosinophils/100 WBC (Bld) 2.0 % Normal [facility] Comment on above: Performed By: #### 9 27, 496, 46226, 12143, 622, 56084, 6399 #### [facility] [place] [address] Environmental Health Nurse: Terry Bond MD Erythrocyte distribution width (RBC) [Ratio] 13.8 % Normal 11.0-15.0 [facility] Comment on above: Performed By: #### 9 27, 496, 11673, 72679, 622, 35970, 6399 #### [facility] [place] [address] Environmental Health Nurse: Terry Bond MD Hematocrit (Bld) [Volume fraction] 44.1 % Normal 35.0-45.0 [facility] Comment on above: Performed By: #### 9 27, 496, 70985, 60129, 622, 87485, 6399 #### [facility] [place] [address] Environmental Health Nurse: Terry Bond MD Hemoglobin (Bld) [Mass/Vol] 14.2 g/dL Normal 11.7-15.5 [facility] Comment on above: Performed By: #### 9 27, 496, 56874, 19892, 622, 08412, 6399 #### [facility] of [place] [address] Environmental Health Nurse: Terry Bond MD Lymphocytes (Bld) [#/Vol] 0.673 10*3/uL Low 850-3900 [facility] Comment on above: Performed By: #### 9 27, 496, 77123, 09709, 622, 33530, 6399 #### [facility] [place] [address] Environmental Health Nurse: Terry Bond MD Lymphocytes/100 WBC (Bld) 9.1 % Normal [facility] Comment on above: Performed By: #### 9 27, 496, 38102, 32113, 622, 94272, 6399 #### [facility] [place] [address] Environmental Health Nurse: Terry Bond MD MCH (RBC) [Entitic mass] 27.4 pg Normal 27.0-33.0 [facility] Comment on above: Performed By: #### 9 27, 496, 42557, 79638, 622, 13157, 6399 #### [facility] [place] [address] Environmental Health Nurse: Terry Bond MD MCHC (RBC) [Mass/Vol] 32.2 g/dL Normal 32.0-36.0 [facility] Comment on above: Result Comment: For adults, a slight decrease in the calculated MCHC value (in the range of 30 to 32 g/dL) is most likely not clinically significant; however, it should be interpreted with caution in correlation with other red cell parameters and the patient's clinical condition. Performed By: #### 9 27, 496, 05508, 32063, 622, 40474, 6399 #### [facility] of [place] [address] Environmental Health Nurse: Terry Bond MD MCV (RBC) [Entitic vol] 85.1 fL Normal 80.0-100.0 [facility] Comment on above: Performed By: #### 9 27, 496, 40506, 41567, 622, 80871, 6399 #### [facility] of [place] [address] Environmental Health Nurse: Terry Bond MD Monocytes (Bld) [#/Vol] 0.622 10*3/uL Normal 200-950 [facility] Comment on above: Performed By: #### 9 27, 496, 97953, 86367, 622, 43253, 6399 #### [facility] of [address], [address] [place] [address] Environmental Health Nurse: Terry Bond MD Monocytes/100 WBC (Bld) 8.4 % Normal [facility] Comment on above: Performed By: #### 9 27, 496, 58039, 35064, 622, 75694, 6399 #### [facility] of [place] [address] Environmental Health Nurse: Terry Bond MD Neutrophils (Bld) [#/Vol] 5.92 10*3/uL Normal 8346-8990 [facility] Comment on above: Performed By: #### 9 27, 496, 56957, 18888, 622, 21122, 6399 #### [facility] [place] [address] Environmental Health Nurse: Terry Bond MD Neutrophils/100 WBC (Bld) 80.0 % Normal [facility] Comment on above: Performed By: #### 9 27, 496, 63820, 93712, 622, 34445, 6399 #### [facility] of [place] [address] Environmental Health Nurse: Terry Bond MD Platelet mean volume (Bld) [Entitic vol] 9.6 fL Normal 7.5-12.5 [facility] Comment on above: Performed By: #### 9 27, 496, 08206, 72839, 622, 04272, 6399 #### [facility] [place] [address] Environmental Health Nurse: Terry Bond MD Platelets (Bld) [#/Vol] 404 10*3/uL High 140-400 [facility] Comment on above: Performed By: #### 9 27, 496, 39693, 12326, 622, 39900, 6399 #### [facility] [address], [address] [place] [address] Environmental Health Nurse: Terry Bond MD RBC (Bld) [#/Vol] 5.18 10*6/uL High 3.80-5.10 [facility] Comment on above: Performed By: #### 9 27, 496, 06294, 80327, 622, 30310, 6399 #### [facility] [place] [address] Environmental Health Nurse: Terry Bond MD WBC (Bld) [#/Vol] 7.4 10*3/uL Normal 3.8-10.8 [facility] Comment on above: Performed By: #### 9 27, 496, 01721, 71957, 622, 99504, 6399 #### [facility] [address], [address] [place] [address] Environmental Health Nurse: Terry Bond MD CBC Auto Differentialon 04-13 Basophils (Bld) [#/Vol] 37 10*3/uL [facility] Basophils/100 WBC (Bld) 0.5 % [facility] Eosinophils (Bld) [#/Vol] 148 10*3/uL [facility] Eosinophils/100 WBC (Bld) 2 % [facility] Erythrocyte distribution width (RBC) [Ratio] 13.8 % 11.0 - 15.0 % [facility] Hematocrit (Bld) [Volume fraction] 44.1 % 35.0 - 45.0 % [facility] Hemoglobin (Bld) [Mass/Vol] 14.2 g/dL 11.7 - 15.5 g/dL [facility] Interpretation and review of laboratory results Abnormal [facility] Lymphocytes (Bld) [#/Vol] 673 10*3/uL Low [facility] Lymphocytes/100 WBC (Bld) 9.1 % [facility] MCH (RBC) [Entitic mass] 27.4 pg 27.0 - 33.0 pg [facility] MCHC (RBC) [Mass/Vol] 32.2 g/dL 32.0 - 36.0 g/dL [facility] Comment on above: For adults, a slight decrease in the calculated MCHC value (in the range of 30 to 32 g/dL) is most likely not clinically significant; however, it should be interpreted with caution in correlation with other red cell parameters and the patient's clinical condition. MCV (RBC) [Entitic vol] 85.1 fL 80.0 - 100.0 fL [facility] Monocytes (Bld) [#/Vol] 622 10*3/uL [facility] Monocytes/100 WBC (Bld) 8.4 % [facility] Neutrophils (Bld) [#/Vol] 5920 10*3/uL [facility] Neutrophils/100 WBC (Bld) 80 % [facility] Platelet mean volume (Bld) [Entitic vol] 9.6 fL 7.5 - 12.5 fL [facility] Platelets (Bld) [#/Vol] 404 10*3/uL High [facility] RBC (Bld) [#/Vol] 5.18 10*6/uL High [facility] comment (Unsp spec) [Interp] [facility] Comment on above: Review of peripheral smear confirms automated results. WBC (Bld) [#/Vol] 7.4 10*3/uL [facility] FASTING:NO FASTING: NO [facility] COMPREHENSIVE METABOLIC PANE L W/ANION GAPon 04-25-2024 Albumin [Mass/Vol] 4.0 g/dL Normal 3.6-5.1 [facility] Comment on above: Performed By: #### 9 27, 496, 00134, 59218, 622, 87495, 6399 #### [facility] [address], [address] [place] [phone] Environmental Health Nurse: Terry Bond MD ALP [Catalytic activity/Vol] 58 U/L Normal 37-153 [facility] Comment on above: Performed By: #### 9 27, 496, 85289, 88852, 622, 72143, 6399 #### [facility] [address], [address] [place] [phone] Environmental Health Nurse: Terry Bond MD ALT [Catalytic activity/Vol] 20 U/L Normal 6-29 [facility] Comment on above: Performed By: #### 9 27, 496, 36188, 92136, 622, 32031, 6399 #### [facility] [place] [address] Environmental Health Nurse: Terry Bond MD AST [Catalytic activity/Vol] 20 U/L Normal 10-35 [facility] Comment on above: Performed By: #### 9 27, 496, 35087, 27693, 622, 99432, 6399 #### [facility] [place] [address] Environmental Health Nurse: Terry Bond MD Bilirubin [Mass/Vol] 0.6 mg/dL Normal 0.2-1.2 [facility] Comment on above: Performed By: #### 9 27, 496, 19465, 68603, 622, 08765, 6399 #### [facility] [place] [address] Environmental Health Nurse: Terry Bond MD Calcium [Mass/Vol] 9.8 mg/dL Normal 8.6-10.4 [facility] Comment on above: Performed By: #### 9 27, 496, 09447, 25117, 622, 11469, 6399 #### [facility] [place] [address] Environmental Health Nurse: Terry Bond MD Chloride [Moles/Vol] 98 mmol/L Normal 98-110 [facility] Comment on above: Performed By: #### 9 27, 496, 13609, 69203, 622, 33227, 6399 #### [facility] of [place] [address] Environmental Health Nurse: Terry Bond MD CO2 [Moles/Vol] 30 mmol/L Normal 20-32 [facility] Comment on above: Performed By: #### 9 27, 496, 02614, 39229, 622, 77051, 6399 #### [facility] [place] [address] Environmental Health Nurse: Terry Bond MD Creatinine [Mass/Vol] 0.70 mg/dL Normal 0.50-1.05 [facility] Comment on above: Performed By: #### 9 27, 496, 15743, 85056, 622, 60851, 6399 #### [facility] [place] [address] Environmental Health Nurse: Terry Bond MD ELECTROLYTE BALANCE 11 mmol/L (calc) Normal 7-17 [facility] Comment on above: Performed By: #### 9 27, 496, 40037, 03091, 622, 41897, 6399 #### [facility] [place] [address] Environmental Health Nurse: Terry Bond MD GFR/1.73 sq M.predicted among non-blacks MDRD (S/P/Bld) [Vol rate/Area] 98 mL/min/{1.73_m2} Normal > OR = 60 [facility] Comment on above: Performed By: #### 9 27, 496, 34105, 23915, 622, 12684, 6399 #### [facility] [place] [address] Environmental Health Nurse: Terry Bond MD Glucose [Mass/Vol] 175 mg/dL High 65-139 [facility] Comment on above: Result Comment: Non-fasting reference interval For someone without known diabetes, a glucose value >125 mg/dL indicates that they may have diabetes and this should be confirmed with a follow-up test. Performed By: #### 9 27, 496, 84594, 03209, 622, 45050, 6399 #### [facility] [place] [address] Environmental Health Nurse: Terry Bond MD Potassium [Moles/Vol] 3.4 mmol/L Low 3.5-5.3 [facility] Comment on above: Performed By: #### 9 27, 496, 09958, 82424, 622, 56415, 6399 #### [facility] of [place] [address] Environmental Health Nurse: Terry Bond MD Protein [Mass/Vol] 7.1 g/dL Normal 6.1-8.1 [facility] Comment on above: Performed By: #### 9 27, 496, 14791, 10291, 622, 02430, 6399 #### [facility] of [address], [address] [place] [address] Environmental Health Nurse: Terry Bond MD Sodium [Moles/Vol] 139 mmol/L Normal 135-146 [facility] Comment on above: Performed By: #### 9 27, 496, 23527, 09974, 622, 04607, 6399 #### [facility] [place] [address] Environmental Health Nurse: Terry Bond MD Urea nitrogen [Mass/Vol] 20 mg/dL Normal 7-25 [facility] Comment on above: Performed By: #### 9 27, 496, 41921, 86276, 622, 01293, 6399 #### [facility] [place] [address] Environmental Health Nurse: Terry Bond MD Comprehensive metabolic 2000 panelon 04-25-2024 Albumin [Mass/Vol] 4 g/dL 3.6 - 5.1 g/dL [facility] ALP [Catalytic activity/Vol] 58 U/L 37 - 153 U/L [facility] ALT [Catalytic activity/Vol] 20 U/L 6 - 29 U/L [facility] Anion gap [Moles/Vol] 11 mmol/L [facility] AST [Catalytic activity/Vol] 20 U/L 10 - 35 U/L [facility] Bilirubin [Mass/Vol] 0.6 mg/dL 0.2 - 1.2 mg/dL [facility] Calcium [Mass/Vol] 9.8 mg/dL 8.6 - 10. 4 mg/dL [facility] Chloride [Moles/Vol] 98 mmol/L 98 - 110 mmol/L [facility] CO2 [Moles/Vol] 30 mmol/L 20 - 32 mmol/L [facility] ealth Creatinine [Mass/Vol] 0.7 mg/dL 0.50 - 1.05 mg/dL [facility] GFR/1.73 sq M.predicted among non-blacks MDRD (S/P/Bld) [Vol rate/Area] 98 mL/min/{1.73_m2} > OR = 60 mL/min/1.73m2 [facility] Glucose [Mass/Vol] 175 mg/dL High 65 - 139 mg/dL [facility] Comment on above: Non-fasting reference interval For someone without known diabetes, a glucose value >125 mg/dL indicates that they may have diabetes and this should be confirmed with a follow-up test. Interpretation and review of laboratory results Abnormal [facility] Potassium [Moles/Vol] 3.4 mmol/L Low 3.5 - 5.3 mmol/L [facility] Protein [Mass/Vol] 7.1 g/dL 6.1 - 8.1 g/dL [facility] Sodium [Moles/Vol] 139 mmol/L 135 - 146 mmol/L [facility] Urea nitrogen [Mass/Vol] 20 mg/dL 7 - 25 mg/dL [facility] HEMOGLOBIN A1con 04-25-2024 HEMOGLOBIN A1c 7.0 % of total Hgb High <5.7 [facility] Comment on above: Result Comment: For someone without known diabetes, [...] of diabetes for children. Performed By: #### 9 33, 956, 43793, 79944, 232, 83234, 8956 #### [place] [id number] [facility], [address] [place] [phone] Environmental Health Nurse: Terry Bond MD HbA1c (Bld) [Mass fraction]o n 04-25-2024 Interpretation and review of laboratory results Abnormal [facility] FASTING:NO FASTING: NO [facility] Hemoglobin A1con 04-25-2024 HbA1c (Bld) [Mass fraction] 7 % High [facility] Comment on above: For someone without known diabetes, a hemoglobin [...] A1c for diagnosis of diabetes for children. MAGNESIUMon 04-25-2024 Magnesium [Mass/Vol] 2.2 mg/dL Normal 1.5-2.5 [facility] Comment on above: Order Comment: FASTI NG:NO FASTING: NO Performed By: #### 9 27, 496, 46856, 10271, 622, 50100, 6399 #### [facility] [place] [id number] [facility], [address] [place] [phone] Environmental Health Nurse: Terry Bond MD Magnesiumon 04-25-2024 Magnesium [Mass/Vol] 2.2 mg/dL 1.5 - 2.5 mg/dL [facility] Microalbumin/Creatinine Rati o, UR Randomon 04-25-2024 Albumin DL <= 20 mg/L (U) [Mass/Vol] 1.9 mg/dL See Note: [facility] Comment on above: Reference Range: Reference Range Not established Albumin/Creatinine (U) [Mass ratio] 9 [facility] Comment on above: The ADA defines abnormalities in albumin excretion as follows: Albuminuria Category Result (mg/g creatinine) Normal to Mildly increased <30 Moderately increased 30-299 Severely increased > OR = 300 The ADA recommends that at least two of three specimens collected within a 3-6 month period be abnormal before considering a patient to be within a diagnostic category. Creatinine (U) [Mass/Vol] 222 mg/dL 20 - 275 mg/dL [facility] No Panel Informationon 04-25 FASTING:NO FASTING: NO [facility] FASTING:NO FASTING: NO [facility] TSH DL <= 0.005 mIU/L Qnon 0 04-25-2024 TSH Qn 0.89 m[IU]/L [facility] TSH W/REFLEX TO FT4on 2024 TSH W/REFLEX TO FT4 0.89 mIU/L Normal 0.40-4.50 [facility] Comment on above: Performed By: #### 9 27, 496, 10699, 54444, 622, 36470, 6399 #### [facility] [address], [address] [place] [address] Environmental Health Nurse: Terry Bond MD VITAMIN B12on 04-25-2024 Cobalamin (Vitamin B12) [Mass/Vol] 435 pg/mL Normal 200-1100 [facility] Comment on above: Performed By: #### 9 27, 496, 89089, 52301, 622, 66442, 6399 #### [facility] [address], [address] [place] [address] Environmental Health Nurse: Terry Bond MD VITAMIN D,25-OH,TOTAL,IAon 0 04-25-2024 VITAMIN D,25-OH,TOTAL,IA 39 ng/mL Normal 30-100 [facility] Comment on above: Result Comment: Key min D Status 25-OH Vitamin D: Deficiency: <20 ng/mL Insufficiency: 20 - 29 ng/mL Optimal: > or = 30 ng/mL For 25-OH Vitamin D testing on patients on D2-supplementation and patients for whom quantitation of D2 and D3 fractions is required, the QuestAssureD(TM) 25-OH VIT D, (D2,D3), LC/MS/MS is recommended: order code 37661 (patients >2yrs). See Note 1 Note 1 For additional information, please refer to http://education.Pluralsight.Aircrm/faq/DDI607 (This link is being provided for informational/ educational purposes only.) Performed By: #### 9 27, 496, 85849, 69856, 622, 51109, 6399 #### [facility] [address], [address] [place] [address] Environmental Health Nurse: Terry Bond MD Vitamin B12on 04-25-2024 Cobalamin (Vitamin B12) [Mass/Vol] 435 pg/mL 200 - 1100 pg/mL [facility] Vitamin D, Total, 25-OHon 25-hydroxyvitamin D [Mass/Vol] 39 ng/mL 30 - 100 ng/mL [facility] Comment on above: Vitamin D Status 25 -OH Vitamin D: Deficiency: <20 ng/mL Insufficiency: 20 - 29 ng/mL Optimal: > or = 30 ng/mL For 25-OH Vitamin D testing on patients on D2-supplementation and patients for whom quantitation of D2 and D3 fractions is required, the [facility]ureD(TM) 25-OH VIT D, (D2,D3), LC/MS/MS is recommended: order code 00004 (patients >2yrs). See Note 1 Note 1 For additional information, please refer to http://education.valuescope/faq/WYP269 (This link is being provided for informational/ educational purposes only.) POCT SARS-COV-2/FLU/RSV PCR SYMPTOMATIC manually resultedOrdered By: Miriam Rao on 04-17-2024 FLUAV RNA CLEMENT+probe Ql (Resp) Detected Abnormal Not Detected [facility] FLUBV RNA CLEMENT+probe Ql (Resp) Not detected Not Detected [facility] Interpretation and review of laboratory results Abnormal [facility] RSV RNA CLEMENT+probe Ql (Resp) Not detected Not Detected [facility] SARS-CoV-2 (COVID-19) RNA CLEMENT+probe Ql (Resp) Not detected Not Detected [facility] CBC-Complete Blood Cnt No Di ffon 02-28-2024 Erythrocyte distribution width (RBC) [Ratio] 14.2 % Normal 11.6-14.6 [facility] Comment on above: Performed By: #### L 101.9900, L100.0500, L500.4050, L501.6710 #### [facility] [address] [place], [address] Hematocrit (Bld) [Volume fraction] 43.6 % Normal 37-47 [facility] Comment on above: Performed By: #### L 101.9900, L100.0500, L500.4050, L501.6710 #### [facility] [address] [place], [address] Hemoglobin (Bld) [Mass/Vol] 14.0 g/dL Normal 12.0-15.0 [facility] Comment on above: Performed By: #### L 101.9900, L100.0500, L500.4050, L501.6710 #### [facility] [address] [place], [address] MCH (RBC) [Entitic mass] 27.6 pg Normal 27.0-32.0 [facility] Comment on above: Performed By: #### L 101.9900, L100.0500, L500.4050, L501.6710 #### [facility] [address] [place], [address] MCHC (RBC) [Mass/Vol] 32.1 g/dL Normal 32-36 [facility] Comment on above: Performed By: #### L 101.9900, L100.0500, L500.4050, L501.6710 #### [facility] [address] [place], [address] MCV (RBC) [Entitic vol] 85.8 fL Normal 81-99 [facility] Comment on above: Performed By: #### L 101.9900, L100.0500, L500.4050, L501.6710 #### [facility] [address] [place], [address] Platelet mean volume (Bld) [Entitic vol] 9.5 fL Normal 6.2-12.0 [facility] Comment on above: Performed By: #### L 101.9900, L100.0500, L500.4050, L501.6710 #### [facility] [address] [place], [address] Platelets (Bld) [#/Vol] 294 10*3/uL Normal 150-450 [facility] Comment on above: Performed By: #### L 101.9900, L100.0500, L500.4050, L501.6710 #### [facility] [address] [place], [address] RBC (Bld) [#/Vol] 5.08 10*6/uL Normal 4.2-5.4 [facility] Comment on above: Performed By: #### L 101.9900, L100.0500, L500.4050, L501.6710 #### [facility] [address] [place], [address] RDW SD 44.5 fl High 35.1-43.9 [facility] Comment on above: Performed By: #### L 101.9900, L100.0500, L500.4050, L501.6710 #### [facility] [address] [place], [address] WBC (Bld) [#/Vol] 10.3 10*3/uL Normal 4.4-11.0 [facility] Comment on above: Performed By: #### L 101.9900, L100.0500, L500.4050, L501.6710 #### [facility] [address] [place], [address] CRPon 02-28-2024 C-REACTIVE PROT 76.70 mg/L High 0.0-3.0 [facility] Comment on above: Result Comment: C-Re active Protein (CRP) provides useful information for the diagnosis, therapy and monitoring of inflammatory processes and associated diseases. For the evaluation of Relative Risk for Cardiovascular Disease, a High Sensitivity CRP (HSCRP) should be ordered. Performed By: #### L 101.9900, L100.0500, L500.4050, L501.6710 #### [facility] [address] [place], [address] Comprehensive Metabolic Prof ilon 02-28-2024 Albumin [Mass/Vol] 3.4 g/dL Normal 3.2-5.0 [facility] Comment on above: Performed By: #### L 101.9900, L100.0500, L500.4050, L501.6710 #### [facility] [address] [place], [address] Albumin/Globulin [Mass ratio] 0.9 {ratio} Normal 0.9-2.4 [facility] Comment on above: Performed By: #### L 101.9900, L100.0500, L500.4050, L501.6710 #### [facility] [address] [place], [address] ALK P 74 U/L Normal 45-117 [facility] Comment on above: Performed By: #### L 101.9900, L100.0500, L500.4050, L501.6710 #### [facility] [address] [place], [address] ALT [Catalytic activity/Vol] 34 U/L Normal 13-56 [facility] Comment on above: Performed By: #### L 101.9900, L100.0500, L500.4050, L501.6710 #### [facility] [address] [place], [address] AST [Catalytic activity/Vol] 24 U/L Normal 15-37 [facility] Comment on above: Performed By: #### L 101.9900, L100.0500, L500.4050, L501.6710 #### [facility] [address] [place], [address] Bilirubin [Mass/Vol] 0.70 mg/dL Normal 0.20-1.00 [facility] Comment on above: Result Comment: For patients on eltrombopag therapy, use of Dimension [place] TBIL is not recommended. Performed By: #### L 101.9900, L100.0500, L500.4050, L501.6710 #### [facility] [address] [place], [address] BUN/CRE 18.1 RATIO Normal 10-20 [facility] Comment on above: Performed By: #### L 101.9900, L100.0500, L500.4050, L501.6710 #### [facility] [address] [place], [address] CA,Total 9.5 mg/dL Normal 8.5-10.1 [facility] Comment on above: Performed By: #### L 101.9900, L100.0500, L500.4050, L501.6710 #### [facility] [address] [place], [address] Chloride [Moles/Vol] 102 mmol/L Normal 98-107 [facility] Comment on above: Performed By: #### L 101.9900, L100.0500, L500.4050, L501.6710 #### [facility] [address] [place], [address] CO2 [Moles/Vol] 31.0 mmol/L Normal 21.0-32.0 [facility] Comment on above: Performed By: #### L 101.9900, L100.0500, L500.4050, L501.6710 #### [facility] [address] [place], [address] Creatinine [Mass/Vol] 0.88 mg/dL Normal 0.55-1.02 [facility] Comment on above: Result Comment: The validity of the calculated GFR GFRAA in patients over 70 years has not been determined. Clinical correlation is essential. Performed By: #### L 101.9900, L100.0500, L500.4050, L501.6710 #### [facility] [address] [place], [address] EST GFR - AA 84 mL/min Normal >60 [facility] Comment on above: Result Comment: Afri can [place] GFR Calc Performed By: #### L 101.9900, L100.0500, L500.4050, L501.6710 #### [facility] [address] [place], [address] GAP 5 Normal 5-15 [facility] Comment on above: Performed By: #### L 101.9900, L100.0500, L500.4050, L501.6710 #### [facility] [address] [place], [address] GFR/1.73 sq M.predicted among non-blacks MDRD (S/P/Bld) [Vol rate/Area] 69 mL/min/{1.73_m2} Normal >60 [facility] Comment on above: Result Comment: Non- GFR Calc Performed By: #### L 101.9900, L100.0500, L500.4050, L501.6710 #### [facility] [address] [place], [address] Globulin (S) [Mass/Vol] 3.9 g/dL Normal 2.2-4.2 [facility] Comment on above: Performed By: #### L 101.9900, L100.0500, L500.4050, L501.6710 #### [facility] [address] [place], [address] Glucose [Mass/Vol] 164 mg/dL High 74-106 [facility] Comment on above: Result Comment: Fast ing Glucose result greater than or equal to 126 mg/dL suggests DIABETES MELLITUS per A.D.A. criteria. Performed By: #### L 101.9900, L100.0500, L500.4050, L501.6710 #### [facility] [address] [place], [address] Potassium [Moles/Vol] 3.2 mmol/L Low 3.5-5.1 [facility] Comment on above: Performed By: #### L 101.9900, L100.0500, L500.4050, L501.6710 #### [facility] [address] [place], [address] Sodium [Moles/Vol] 138 mmol/L Normal 136-145 [facility] Comment on above: Performed By: #### L 101.9900, L100.0500, L500.4050, L501.6710 #### [facility] [address] [place], [address] T PROT 7.3 g/dL Normal 6.4-8.2 [facility] Comment on above: Performed By: #### L 101.9900, L100.0500, L500.4050, L501.6710 #### [facility] [address] [place], [address] Urea nitrogen [Mass/Vol] 16 mg/dL Normal 7-18 [facility] Comment on above: Performed By: #### L 101.9900, L100.0500, L500.4050, L501.6710 #### [facility] [address] [place], [address] Erythrocyte Sed Rateon 02-27 SED RATE 11 mm/hr Normal 0-30 [facility] Comment on above: Performed By: #### L 101.9900, L100.0500, L500.4050, L501.6710 #### [facility] [address] [place], [address] POCT SARS-COV-2/FLU/RSV PCR SYMPTOMATIC manually resultedon 02-27-2024 FLUAV RNA CLEMENT+probe Ql (Resp) Not detected Not Detected [facility] Work Phone: FLUBV RNA CLEMENT+probe Ql (Resp) Not detected Not Detected [facility] Work Phone: Interpretation and review of laboratory results Normal [facility] Work Phone: RSV RNA CLEMENT+probe Ql (Resp) Not detected Not Detected [facility] Work Phone: SARS-CoV-2 (COVID-19) RNA CLEMENT+probe Ql (Resp) Not detected Not Detected [facility] Work Phone: [facility] Work Phone: Quantiferon TB-Gold+on 11-10 QFT MITOGEN ELANA > 10.00 Normal . [facility] Comment on above: Performed By: #### L 3400.8000 #### [facility] [address] [place], [place], [phone] (673) QFT NIL VALUE 0.02 IU/mL Normal . [facility] Comment on above: Performed By: #### L 3400.8000 #### [facility] [address] [place], [place], [phone] (953) QFT TB GOLD+ Comment Normal . [facility] Comment on above: Result Comment: Estevan tiFERON-TB Gold Plus is a qualitative indirect test for M tuberculosis infection (including disease) and is intended for use in conjunction with risk assessment, radiography, and other medical and diagnostic evaluations. The QuantiFERON-TB Gold Plus result is determined by subtracting the Nil value from either TB antigen (Ag) value. The Mitogen tube serves as a control for the test. Performed By: #### L 3400.8000 #### [facility] [address] [place], [place], [phone] (323) QFT TB POS CRIT Negative Normal Negative [facility] Comment on above: Result Comment: No r esponse to M tuberculosis antigens detected. Infection with M tuberculosis is unlikely, but high risk individuals should be considered for additional testing (ATS/IDSA/CDC Clinical Practice Guidelines, 2017). The reference range is an Antigen minus Nil result of <0.35 IU/mL. The specimen received for QuantiFERON testing was incubated by the ordering institution. Specific procedures outlined in our Directory of Services and in the package insert for the QuantiFERON Gold (In Tube) test must be followed to enable for proper stimulation of cells for the production of interferon gamma. Chemiluminescence immunoassay methodology Performed at: [address] [id number] [employer] Cutter: Maury Salazar PhD, Phone: [phone] Performed By: #### L 3400.8000 #### [facility] [address] [place], [address] QFT TB1+ AG ELANA 0 IU/mL Normal . [facility] Comment on above: Performed By: #### L 3400.8000 #### [facility] [address] [place], [address] QFT TB2+ AG ELANA 0 IU/mL Normal . [facility] Comment on above: Performed By: #### L 3400.8000 #### [facility] [address] [place], [address] Basic metabolic 2000 panelon 11-01-2023 Anion gap [Moles/Vol] 11 mmol/L Normal 10-20 [facility] Comment on above: Performed By: #### 2 4323-8 #### YAN FORD ([id number]) [facility] ([facility]) [facility] [place] [address] Calcium [Mass/Vol] 9.4 mg/dL Normal 8.6-10.3 [facility] Comment on above: Performed By: #### 2 4323-8 #### YAN FORD (76066) [facility] ([facility]) [address] [place] [address] Chloride [Moles/Vol] 106 mmol/L Normal 98-107 [facility] Comment on above: Performed By: #### 2 4323-8 #### YAN FORD (51162) [facility] ([facility]) [address] [place] [address] CO2 [Moles/Vol] 28 mmol/L Normal 21-32 [facility] Comment on above: Performed By: #### 2 4323-8 #### YAN FORD (83605) [facility] ([facility]) [facility] [place] [address] Creatinine [Mass/Vol] 0.74 mg/dL Normal 0.50-1.05 [facility] Comment on above: Performed By: #### 2 4323-8 #### YAN FORD (04607) [facility] ([facility]) [address] [place] [address] GFR/1.73 sq M.predicted MDRD (S/P/Bld) [Vol rate/Area] mL/min/{1.73_m2} Normal >60 [facility] Comment on above: Result Comment: Calc ulations of estimated GFR are performed using the 2020 CKD-EPI Study Refit equation without the race variable for the IDMS-Traceable creatinine methods. https://jasn.asnjournals.org/content/early/ASN.438450251 8 Performed By: #### 2 4323-8 #### YAN FORD (23402) [facility] ([facility]) [address] [place] [address] Glucose [Mass/Vol] 151 mg/dL High 74-99 [facility] Comment on above: Performed By: #### 2 4323-8 #### YAN FORD (78439) [facility] ([facility]) [address] [place] [address] Potassium [Moles/Vol] 3.9 mmol/L Normal 3.5-5.3 [facility] Comment on above: Performed By: #### 2 4323-8 #### YAN FORD (55312) [facility] ([facility]) [address] [place] [address] Sodium [Moles/Vol] 141 mmol/L Normal 136-145 [facility] Comment on above: Performed By: #### 2 4323-8 #### YAN FORD (73070) [facility] ([facility]) [address] [place] [address] Urea nitrogen [Mass/Vol] 24 mg/dL High 6-23 [facility] Comment on above: Performed By: #### 2 4323-8 #### YAN FORD (30192) [facility] ([facility]) [address] [place] [address] C reactive proteinon 024 CRP [Mass/Vol] 0.58 mg/dL Normal <1.00 [facility] Comment on above: Order Comment: ESTRELLA [address] [facility] [place], [place] [address]KYXHB: [phone]: [phone] Performed By: #### 2 4323-8 #### YAN FORD (84250) [facility] ([facility]) [address] [place], [place] [address] CBC panel Auto (Bld)on 10-31 Erythrocyte distribution width (RBC) [Ratio] 13.5 % Normal 11.5-14.5 [facility] Comment on above: Order Comment: [address] [facility] [place], [place] [address]YNVZK: [phone]: [phone] Performed By: #### 2 4323-8 #### YAN FORD (15834) [facility] ([facility]) [address] [place] [address] Hematocrit (Bld) [Volume fraction] 48.6 % High 36.0-46.0 [facility] Comment on above: Order Comment: [address] [facility] [place], [place] [address]GITYU: [phone]: [phone] Performed By: #### 2 4323-8 #### YAN FORD (59098) [facility] ([facility]) [address] [place] [address] Hemoglobin (Bld) [Mass/Vol] 15.4 g/dL Normal 12.0-16.0 [facility] Comment on above: Order Comment: ESTRELLA [address] [facility] [place], [place] [address]DWTUC: [phone]: [phone] Performed By: #### 2 4323-8 #### YAN FORD (67821) [facility] ([facility]) [address] [place] [address] MCH (RBC) [Entitic mass] 28.0 pg Normal 26.0-34.0 [facility] Comment on above: Order Comment: ESTRELLA [address] [facility] [place], [place] [address]BAVAM: [phone]: [phone] Performed By: #### 2 4323-8 #### YAN FORD (28421) [facility] ([facility]) [address] [place] [address] MCHC (RBC) [Mass/Vol] 31.7 g/dL Low 32.0-36.0 [facility] Comment on above: Order Comment: JAZMÍN HERNANDEZENTEROLOGY[address] [facility] [place], [place] [address]XLUOS: [phone]: [phone] Performed By: #### 2 4323-8 #### YAN FORD (48665) [facility] ([facility]) [address] [place] [address] MCV (RBC) [Entitic vol] 88 fL Normal 80-100 [facility] Comment on above: Order Comment: ESTRE[address]A [address] [facility] [place], [place] [address]KZBCM: [phone]: [phone] Performed By: #### 2 4323-8 #### YAN FORD (47300) [facility] ([facility]) [address] [place] [address] Nucleated RBC/100 WBC (Bld) [Ratio] 0.0 /100 WBCs Normal 0.0-0.0 [facility] Comment on above: Order Comment: ESTRELLA HERNA[address] [place], [place] [address]OAWEF: [phone]: [phone] Performed By: #### 2 4323-8 #### YAN FORD (14841) [facility] ([facility]) [address] [place] [address] Platelets (Bld) [#/Vol] 296 x10*3/uL Normal 150-450 [facility] Comment on above: Order Comment: ESTRELLA HERNA[address]DE[address] [facility] [place], [place] [address]KEDMJ: [phone]: [phone] Performed By: #### 2 4323-8 #### YAN FORD ([id number]) [facility] ([facility]) [address] [place] [address] RBC (Bld) [#/Vol] 5.50 x10*6/uL High 4.00-5.20 [facility] Comment on above: Order Comment: ESTRELLA HERNA[address] [facility] [place], [place] [address]XQONQ: [phone]: [phone] Performed By: #### 2 4323-8 #### YAN FORD ([id number]) [facility] ([facility]) [address] [place] [address] WBC (Bld) [#/Vol] 6.3 x10*3/uL Normal 4.4-11.3 [facility] Comment on above: Order Comment: ESTRELLA HERNANDEZ[address], [place] [address]ALUIC: [phone]: [phone] Performed By: #### 2 4323-8 #### YAN FORD ([id number]) [facility] ([facility]) [address] [place] [address] HbA1c (Bld) [Mass fraction]o n 11-01-2023 Average glucose Estimated from glycated hemoglobin (Bld) [Mass/Vol] 137 mg/dL Normal Not Established [facility] Comment on above: Order Comment: Diagn osis of Fixvnozh-WwjcmrZqb-Uaoiszfs: < or = 5.6%Increased risk for developing diabetes: 5.7-6.4%Diagnostic of diabetes: > or = 6.5% Performed By: #### 2 4323-8 #### YAN FORD ([id number]) [facility] ([facility]) [facility] [place] [address] Hemoglobin A1c/Hemoglobin.to geoffrey 11-01-2023 HbA1c (Bld) [Mass fraction] 6.4 % High see below [facility] Comment on above: Order Comment: Diagn osis of Cdwwhoxx-JrpnxbJcx-Aizyicpi: < or = 5.6%Increased risk for developing diabetes: 5.7-6.4%Diagnostic of diabetes: > or = 6.5% Performed By: #### 2 4323-8 #### YAN FORD ([id number]) [facility] ([facility]) [facility] [place] [address] Hepatic function 2000 panelo n 11-01-2023 Albumin BCP dye [Mass/Vol] 4.2 g/dL Normal 3.4-5.0 [facility] Comment on above: Order Comment: TONIE HERNA[address] [place], [place] [address]RZYQD: [phone]: [phone] Performed By: #### 2 4323-8 #### YAN FORD ([id number]) [facility] ([facility]) [address] [place] [address] ALP [Catalytic activity/Vol] 57 U/L Normal 33-136 [facility] Comment on above: Order Comment: TONIE HER[address] [place], [place] [address]HYONR: [phone]: [phone] Performed By: #### 2 4323-8 #### YAN FORD ([id number]) [facility] ([facility]) [facility] [place] [address] ALT With P-5'-P [Catalytic activity/Vol] 16 U/L Normal 7-45 [facility] Comment on above: Order Comment: ESTRELLA [address] [facility] [facility] [address], [place] [address]DQBVZ: [phone]: [phone] Result Comment: Juju ents treated with Sulfasalazine may generate falsely decreased results for ALT. Performed By: #### 2 4323-8 #### YAN FORD ([id number]) [facility] ([facility]) [address] [place] [address] AST With P-5'-P [Catalytic activity/Vol] 16 U/L Normal 9-39 [facility] Comment on above: Order Comment: [address]RELL[address] [address]CZCLP: [phone]: [phone] Performed By: #### 2 4323-8 #### YAN FORD ([id number]) [facility] ([facility]) [address] [place] [address] Bilirubin [Mass/Vol] 0.5 mg/dL Normal 0.0-1.2 [facility] Comment on above: Order Comment: [address]RELL[address] [address]XHOGW: [phone]: [phone] Performed By: #### 2 4323-8 #### YAN FORD ([id number]) [facility] ([facility]) [address] [place] [address] Bilirubin.direct [Mass/Vol] 0.1 mg/dL Normal 0.0-0.3 [facility] Comment on above: Order Comment: ESTRELLA [address] [address]TZBFN: [phone]: [phone] Performed By: #### 2 4323-8 #### YAN FORD ([id number]) [facility] ([facility]) [address] [place] [address] Protein [Mass/Vol] 6.4 g/dL Normal 6.4-8.2 [facility] Comment on above: Order Comment: TIKA RAMIREZ MDGASTROENTEROLOGYGraciela OLIVA [address] [address]PVKVS: [phone]: [phone] Performed By: #### 2 4323-8 #### YAN FORD ([id number]) [facility] ([facility]) [address] [place] [address] Respiratory Allergy Profile IgEOrdered By: Phil Burgess on 09-06-2023 A. alternata IgE Qn (S) 0.38 kU/L Abnormal NINF - 0.10 kU/L [facility] A. fumigatus IgE Qn (S) kU/L NINF - 0.10 kU/L [facility] Mozambican house dust mite IgE Qn (S) kU/L NINF - 0.10 kU/L [facility] Bermuda grass IgE Qn (S) kU/L NINF - 0.10 kU/L [facility] Boxelder IgE Qn (S) kU/L NINF - 0.10 kU/L [facility] C. herbarum IgE Qn (S) kU/L NINF - 0.10 kU/L [facility] California Vale Pollen IgE Qn (S) kU/L NINF - 0.10 kU/L [facility] Cat dander IgE Qn (S) kU/L NINF - 0.10 kU/L [facility] Cockroach IgE Qn (S) kU/L NINF - 0.10 kU/L [facility] Common Pigweed IgE Qn (S) kU/L NINF - 0.10 kU/L [facility] Common Ragweed IgE Qn (S) 0.16 kU/L Abnormal NINF - 0.10 kU/L [facility] Camden IgE Qn (S) kU/L NINF - 0.10 kU/L [facility] Dog dander IgE Qn (S) kU/L NINF - 0.10 kU/L [facility] Romanian plantain IgE Qn (S) kU/L NINF - 0.10 kU/L [facility] house dust mite IgE Qn (S) kU/L NINF - 0.10 kU/L [facility] Goosefoot IgE Qn (S) kU/L NINF - 0.10 kU/L [facility] Interpretation and review of laboratory results Abnormal [facility] Levi grass IgE Qn (S) kU/L NINF - 0.10 kU/L [facility] Kentucky blue grass IgE Qn (S) kU/L NINF - 0.10 kU/L [facility] Malik Plane IgE Qn (S) kU/L NINF - 0.10 kU/L [facility] Mountain Juniper IgE Qn (S) kU/L NINF - 0.10 kU/L [facility] P. notatum IgE Qn (S) kU/L NINF - 0.10 kU/L [facility] Pecan or Collier Tree IgE Qn (S) kU/L NINF - 0.10 kU/L [facility] Saltwort IgE Qn (S) kU/L NINF - 0.10 kU/L [facility] Sheep Perley IgE Qn (S) kU/L NINF - 0.10 kU/L [facility] Silver Birch IgE Qn (S) kU/L NINF - 0.10 kU/L [facility] Nick IgE Qn (S) kU/L NINF - 0. 10 kU/L [facility] Total IgE RAST Qn (S) 12.3 NINF [facility] Comment on above: Note: Omalizumab (Xo lair, GeneChangeMob; humanized IgG1 antihuman IgE Fc) treatment does not significantly interfere with the accuracy of total IgE on the ImmunoCAP (Pulsar) platform. J Allergy Clin Immunol 2006;117:759-66). Allergens, parasitic diseases, smoking, and alcohol consumption have been reported to increase levels of total IgE in serum. White Atul IgE Qn (S) kU/L NINF - 0.10 kU/L [facility] White Elm IgE Qn (S) kU/L NINF - 0.10 kU/L [facility] White mulberry IgE Qn (S) kU/L NINF - 0.10 kU/L [facility] Hercules IgE Qn (S) kU/L NINF - 0.10 kU/L [facility] Interpretation Scale <0.10 kU/L - Class 0 Allergen: ABSENT OR UNDETECTABLE ALLERGEN SPECIFIC IgE 0.10-0.34 kU/L - Class 0/1 Allergen: EQUIVOCAL LEVEL OF ALLERGEN SPECIFIC IgE 0.35-0.69 kU/L - Class 1 Allergen: LOW LEVEL OF ALLERGEN SPECIFIC IgE 0.70-3.49 kU/L - Class 2 Allergen: MODERATE LEVEL OF ALLERGEN SPECIFIC IgE 3.50-17.49 kU/L - Class 3 Allergen: HIGH LEVEL OF ALLERGEN SPECIFIC IgE 17.50-49.99 kU/L - Class 4 Allergen: VERY HIGH LEVEL OF ALLERGEN SPECIFIC IgE 50.00-100.00 kU/L - Class 5 Allergen: ULTRA HIGH LEVEL OF ALLERGEN SPECIFIC IgE >100.00 kU/L - Class 6 Allergen: EXTREMELY HIGH LEVEL OF ALLERGEN SPECIFIC IgE [facility] ALLERGEN, RESPIRATORY PROFIL E IGEon 09-05-2023 A. alternata IgE Qn (S) 0.38 kU/L Invalid Interpretation Code <0.10 [facility] Comment on above: Order Comment: Inter pretation Scale <0.10 kU/L - Class 0 Allergen: ABSENT OR UNDETECTABLE ALLERGEN SPECIFIC IgE 0.10-0.34 kU/L - Class 0/1 Allergen: EQUIVOCAL LEVEL OF ALLERGEN SPECIFIC IgE 0.35-0.69 kU/L - Class 1 Allergen: LOW LEVEL OF ALLERGEN SPECIFIC IgE 0.70-3.49 kU/L - Class 2 Allergen: MODERATE LEVEL OF ALLERGEN SPECIFIC IgE 3.50-17.49 kU/L - Class 3 Allergen: HIGH LEVEL OF ALLERGEN SPECIFIC IgE 17.50-49.99 kU/L - Class 4 Allergen: VERY HIGH LEVEL OF ALLERGEN SPECIFIC IgE 50.00-100.00 kU/L - Class 5 Allergen: ULTRA HIGH LEVEL OF ALLERGEN SPECIFIC IgE >100.00 kU/L - Class 6 Allergen: EXTREMELY HIGH LEVEL OF ALLERGEN SPECIFIC IgE Performed By: #### I CPA2 #### PREETHI Alcala ([id number]) [facility] ([facility]) [address] [place] [address] A. fumigatus IgE Qn (S) <0.10 Normal <0.10 [facility] Comment on above: Order Comment: Inter pretation Scale <0.10 kU/L - Class 0 Allergen: ABSENT OR UNDETECTABLE ALLERGEN SPECIFIC IgE 0.10-0.34 kU/L - Class 0/1 Allergen: EQUIVOCAL LEVEL OF ALLERGEN SPECIFIC IgE 0.35-0.69 kU/L - Class 1 Allergen: LOW LEVEL OF ALLERGEN SPECIFIC IgE 0.70-3.49 kU/L - Class 2 Allergen: MODERATE LEVEL OF ALLERGEN SPECIFIC IgE 3.50-17.49 kU/L - Class 3 Allergen: HIGH LEVEL OF ALLERGEN SPECIFIC IgE 17.50-49.99 kU/L - Class 4 Allergen: VERY HIGH LEVEL OF ALLERGEN SPECIFIC IgE 50.00-100.00 kU/L - Class 5 Allergen: ULTRA HIGH LEVEL OF ALLERGEN SPECIFIC IgE >100.00 kU/L - Class 6 Allergen: EXTREMELY HIGH LEVEL OF ALLERGEN SPECIFIC IgE Performed By: #### I CPA2 #### PREETHI Alcala ([id number]) [facility] ([facility]) [address] [place] [address] Mozambican house dust mite IgE Qn (S) <0.10 Normal <0.10 [facility] Comment on above: Order Comment: Inter pretation Scale <0.10 kU/L - Class 0 Allergen: ABSENT OR UNDETECTABLE ALLERGEN SPECIFIC IgE 0.10-0.34 kU/L - Class 0/1 Allergen: EQUIVOCAL LEVEL OF ALLERGEN SPECIFIC IgE 0.35-0.69 kU/L - Class 1 Allergen: LOW LEVEL OF ALLERGEN SPECIFIC IgE 0.70-3.49 kU/L - Class 2 Allergen: MODERATE LEVEL OF ALLERGEN SPECIFIC IgE 3.50-17.49 kU/L - Class 3 Allergen: HIGH LEVEL OF ALLERGEN SPECIFIC IgE 17.50-49.99 kU/L - Class 4 Allergen: VERY HIGH LEVEL OF ALLERGEN SPECIFIC IgE 50.00-100.00 kU/L - Class 5 Allergen: ULTRA HIGH LEVEL OF ALLERGEN SPECIFIC IgE >100.00 kU/L - Class 6 Allergen: EXTREMELY HIGH LEVEL OF ALLERGEN SPECIFIC IgE Performed By: #### I CPA2 #### PREETHI Alcala ([id number]) [facility] ([facility]) [address] [place] [address] Bermuda grass IgE Qn (S) <0.10 Normal <0.10 [facility] Comment on above: Order Comment: Inter pretation Scale <0.10 kU/L - Class 0 Allergen: ABSENT OR UNDETECTABLE ALLERGEN SPECIFIC IgE 0.10-0.34 kU/L - Class 0/1 Allergen: EQUIVOCAL LEVEL OF ALLERGEN SPECIFIC IgE 0.35-0.69 kU/L - Class 1 Allergen: LOW LEVEL OF ALLERGEN SPECIFIC IgE 0.70-3.49 kU/L - Class 2 Allergen: MODERATE LEVEL OF ALLERGEN SPECIFIC IgE 3.50-17.49 kU/L - Class 3 Allergen: HIGH LEVEL OF ALLERGEN SPECIFIC IgE 17.50-49.99 kU/L - Class 4 Allergen: VERY HIGH LEVEL OF ALLERGEN SPECIFIC IgE 50.00-100.00 kU/L - Class 5 Allergen: ULTRA HIGH LEVEL OF ALLERGEN SPECIFIC IgE >100.00 kU/L - Class 6 Allergen: EXTREMELY HIGH LEVEL OF ALLERGEN SPECIFIC IgE Performed By: #### I CPA2 #### PREETHI Alcala ([id number]) [facility] ([facility]) [address] [place] [address] Boxelder IgE Qn (S) <0.10 Normal <0.10 [facility] Comment on above: Order Comment: Inter pretation Scale <0.10 kU/L - Class 0 Allergen: ABSENT OR UNDETECTABLE ALLERGEN SPECIFIC IgE 0.10-0.34 kU/L - Class 0/1 Allergen: EQUIVOCAL LEVEL OF ALLERGEN SPECIFIC IgE 0.35-0.69 kU/L - Class 1 Allergen: LOW LEVEL OF ALLERGEN SPECIFIC IgE 0.70-3.49 kU/L - Class 2 Allergen: MODERATE LEVEL OF ALLERGEN SPECIFIC IgE 3.50-17.49 kU/L - Class 3 Allergen: HIGH LEVEL OF ALLERGEN SPECIFIC IgE 17.50-49.99 kU/L - Class 4 Allergen: VERY HIGH LEVEL OF ALLERGEN SPECIFIC IgE 50.00-100.00 kU/L - Class 5 Allergen: ULTRA HIGH LEVEL OF ALLERGEN SPECIFIC IgE >100.00 kU/L - Class 6 Allergen: EXTREMELY HIGH LEVEL OF ALLERGEN SPECIFIC IgE Performed By: #### I CPA2 #### PREETHI Alcaal ([id number]) [facility] ([facility]) [address] [place] [address] C. herbarum IgE Qn (S) <0.10 Normal <0.10 [facility] Comment on above: Order Comment: Inter pretation Scale <0.10 kU/L - Class 0 Allergen: ABSENT OR UNDETECTABLE ALLERGEN SPECIFIC IgE 0.10-0.34 kU/L - Class 0/1 Allergen: EQUIVOCAL LEVEL OF ALLERGEN SPECIFIC IgE 0.35-0.69 kU/L - Class 1 Allergen: LOW LEVEL OF ALLERGEN SPECIFIC IgE 0.70-3.49 kU/L - Class 2 Allergen: MODERATE LEVEL OF ALLERGEN SPECIFIC IgE 3.50-17.49 kU/L - Class 3 Allergen: HIGH LEVEL OF ALLERGEN SPECIFIC IgE 17.50-49.99 kU/L - Class 4 Allergen: VERY HIGH LEVEL OF ALLERGEN SPECIFIC IgE 50.00-100.00 kU/L - Class 5 Allergen: ULTRA HIGH LEVEL OF ALLERGEN SPECIFIC IgE >100.00 kU/L - Class 6 Allergen: EXTREMELY HIGH LEVEL OF ALLERGEN SPECIFIC IgE Performed By: #### I CPA2 #### PREETHI Alcala ([id number]) [facility] ([facility]) [address] [place] [address] [place] Vale Pollen IgE Qn (S) <0.10 Normal <0.10 [facility] Comment on above: Order Comment: Inter pretation Scale <0.10 kU/L - Class 0 Allergen: ABSENT OR UNDETECTABLE ALLERGEN SPECIFIC IgE 0.10-0.34 kU/L - Class 0/1 Allergen: EQUIVOCAL LEVEL OF ALLERGEN SPECIFIC IgE 0.35-0.69 kU/L - Class 1 Allergen: LOW LEVEL OF ALLERGEN SPECIFIC IgE 0.70-3.49 kU/L - Class 2 Allergen: MODERATE LEVEL OF ALLERGEN SPECIFIC IgE 3.50-17.49 kU/L - Class 3 Allergen: HIGH LEVEL OF ALLERGEN SPECIFIC IgE 17.50-49.99 kU/L - Class 4 Allergen: VERY HIGH LEVEL OF ALLERGEN SPECIFIC IgE 50.00-100.00 kU/L - Class 5 Allergen: ULTRA HIGH LEVEL OF ALLERGEN SPECIFIC IgE >100.00 kU/L - Class 6 Allergen: EXTREMELY HIGH LEVEL OF ALLERGEN SPECIFIC IgE Performed By: #### I CPA2 #### PREETHI Alcala ([id number]) [facility] ([facility]) [address] [place] [address] Cat dander IgE Qn (S) <0.10 Normal <0.10 [facility] Comment on above: Order Comment: Inter pretation Scale <0.10 kU/L - Class 0 Allergen: ABSENT OR UNDETECTABLE ALLERGEN SPECIFIC IgE 0.10-0.34 kU/L - Class 0/1 Allergen: EQUIVOCAL LEVEL OF ALLERGEN SPECIFIC IgE 0.35-0.69 kU/L - Class 1 Allergen: LOW LEVEL OF ALLERGEN SPECIFIC IgE 0.70-3.49 kU/L - Class 2 Allergen: MODERATE LEVEL OF ALLERGEN SPECIFIC IgE 3.50-17.49 kU/L - Class 3 Allergen: HIGH LEVEL OF ALLERGEN SPECIFIC IgE 17.50-49.99 kU/L - Class 4 Allergen: VERY HIGH LEVEL OF ALLERGEN SPECIFIC IgE 50.00-100.00 kU/L - Class 5 Allergen: ULTRA HIGH LEVEL OF ALLERGEN SPECIFIC IgE >100.00 kU/L - Class 6 Allergen: EXTREMELY HIGH LEVEL OF ALLERGEN SPECIFIC IgE Performed By: #### I CPA2 #### PREETHI Alcala ([id number]) [facility] ([facility]) [address] [place] [address] Cockroach IgE Qn (S) <0.10 Normal <0.10 [facility] Comment on above: Order Comment: Inter pretation Scale <0.10 kU/L - Class 0 Allergen: ABSENT OR UNDETECTABLE ALLERGEN SPECIFIC IgE 0.10-0.34 kU/L - Class 0/1 Allergen: EQUIVOCAL LEVEL OF ALLERGEN SPECIFIC IgE 0.35-0.69 kU/L - Class 1 Allergen: LOW LEVEL OF ALLERGEN SPECIFIC IgE 0.70-3.49 kU/L - Class 2 Allergen: MODERATE LEVEL OF ALLERGEN SPECIFIC IgE 3.50-17.49 kU/L - Class 3 Allergen: HIGH LEVEL OF ALLERGEN SPECIFIC IgE 17.50-49.99 kU/L - Class 4 Allergen: VERY HIGH LEVEL OF ALLERGEN SPECIFIC IgE 50.00-100.00 kU/L - Class 5 Allergen: ULTRA HIGH LEVEL OF ALLERGEN SPECIFIC IgE >100.00 kU/L - Class 6 Allergen: EXTREMELY HIGH LEVEL OF ALLERGEN SPECIFIC IgE Performed By: #### I CPA2 #### PREETHI Alcala ([id number]) [facility] ([facility]) [address] [place] [address] Common Pigweed IgE Qn (S) <0.10 Normal <0.10 [facility] Comment on above: Order Comment: Inter pretation Scale <0.10 kU/L - Class 0 Allergen: ABSENT OR UNDETECTABLE ALLERGEN SPECIFIC IgE 0.10-0.34 kU/L - Class 0/1 Allergen: EQUIVOCAL LEVEL OF ALLERGEN SPECIFIC IgE 0.35-0.69 kU/L - Class 1 Allergen: LOW LEVEL OF ALLERGEN SPECIFIC IgE 0.70-3.49 kU/L - Class 2 Allergen: MODERATE LEVEL OF ALLERGEN SPECIFIC IgE 3.50-17.49 kU/L - Class 3 Allergen: HIGH LEVEL OF ALLERGEN SPECIFIC IgE 17.50-49.99 kU/L - Class 4 Allergen: VERY HIGH LEVEL OF ALLERGEN SPECIFIC IgE 50.00-100.00 kU/L - Class 5 Allergen: ULTRA HIGH LEVEL OF ALLERGEN SPECIFIC IgE >100.00 kU/L - Class 6 Allergen: EXTREMELY HIGH LEVEL OF ALLERGEN SPECIFIC IgE Performed By: #### I CPA2 #### PREETHI Alcala ([id number]) [facility] ([facility]) [address] [place] [address] Common Ragweed IgE Qn (S) 0.16 kU/L Invalid Interpretation Code <0.10 [facility] Comment on above: Order Comment: Inter pretation Scale <0.10 kU/L - Class 0 Allergen: ABSENT OR UNDETECTABLE ALLERGEN SPECIFIC IgE 0.10-0.34 kU/L - Class 0/1 Allergen: EQUIVOCAL LEVEL OF ALLERGEN SPECIFIC IgE 0.35-0.69 kU/L - Class 1 Allergen: LOW LEVEL OF ALLERGEN SPECIFIC IgE 0.70-3.49 kU/L - Class 2 Allergen: MODERATE LEVEL OF ALLERGEN SPECIFIC IgE 3.50-17.49 kU/L - Class 3 Allergen: HIGH LEVEL OF ALLERGEN SPECIFIC IgE 17.50-49.99 kU/L - Class 4 Allergen: VERY HIGH LEVEL OF ALLERGEN SPECIFIC IgE 50.00-100.00 kU/L - Class 5 Allergen: ULTRA HIGH LEVEL OF ALLERGEN SPECIFIC IgE >100.00 kU/L - Class 6 Allergen: EXTREMELY HIGH LEVEL OF ALLERGEN SPECIFIC IgE Performed By: #### I CPA2 #### PREETHI Alcala ([id number]) [facility] ([facility]) [address] [place] [address] Camden IgE Qn (S) <0.10 Normal <0.10 [facility] Comment on above: Order Comment: Inter pretation Scale <0.10 kU/L - Class 0 Allergen: ABSENT OR UNDETECTABLE ALLERGEN SPECIFIC IgE 0.10-0.34 kU/L - Class 0/1 Allergen: EQUIVOCAL LEVEL OF ALLERGEN SPECIFIC IgE 0.35-0.69 kU/L - Class 1 Allergen: LOW LEVEL OF ALLERGEN SPECIFIC IgE 0.70-3.49 kU/L - Class 2 Allergen: MODERATE LEVEL OF ALLERGEN SPECIFIC IgE 3.50-17.49 kU/L - Class 3 Allergen: HIGH LEVEL OF ALLERGEN SPECIFIC IgE 17.50-49.99 kU/L - Class 4 Allergen: VERY HIGH LEVEL OF ALLERGEN SPECIFIC IgE 50.00-100.00 kU/L - Class 5 Allergen: ULTRA HIGH LEVEL OF ALLERGEN SPECIFIC IgE >100.00 kU/L - Class 6 Allergen: EXTREMELY HIGH LEVEL OF ALLERGEN SPECIFIC IgE Performed By: #### I CPA2 #### PREETHI Alcala ([id number]) [facility] ([facility]) [address] [place] [address] Dog dander IgE Qn (S) <0.10 Normal <0.10 [facility] Comment on above: Order Comment: Inter pretation Scale <0.10 kU/L - Class 0 Allergen: ABSENT OR UNDETECTABLE ALLERGEN SPECIFIC IgE 0.10-0.34 kU/L - Class 0/1 Allergen: EQUIVOCAL LEVEL OF ALLERGEN SPECIFIC IgE 0.35-0.69 kU/L - Class 1 Allergen: LOW LEVEL OF ALLERGEN SPECIFIC IgE 0.70-3.49 kU/L - Class 2 Allergen: MODERATE LEVEL OF ALLERGEN SPECIFIC IgE 3.50-17.49 kU/L - Class 3 Allergen: HIGH LEVEL OF ALLERGEN SPECIFIC IgE 17.50-49.99 kU/L - Class 4 Allergen: VERY HIGH LEVEL OF ALLERGEN SPECIFIC IgE 50.00-100.00 kU/L - Class 5 Allergen: ULTRA HIGH LEVEL OF ALLERGEN SPECIFIC IgE >100.00 kU/L - Class 6 Allergen: EXTREMELY HIGH LEVEL OF ALLERGEN SPECIFIC IgE Performed By: #### I CPA2 #### PREETHI Alcala ([id number]) [facility] ([facility]) [address] [place] [address] Romanian plantain IgE Qn (S) <0.10 Normal <0.10 [facility] Comment on above: Order Comment: Inter pretation Scale <0.10 kU/L - Class 0 Allergen: ABSENT OR UNDETECTABLE ALLERGEN SPECIFIC IgE 0.10-0.34 kU/L - Class 0/1 Allergen: EQUIVOCAL LEVEL OF ALLERGEN SPECIFIC IgE 0.35-0.69 kU/L - Class 1 Allergen: LOW LEVEL OF ALLERGEN SPECIFIC IgE 0.70-3.49 kU/L - Class 2 Allergen: MODERATE LEVEL OF ALLERGEN SPECIFIC IgE 3.50-17.49 kU/L - Class 3 Allergen: HIGH LEVEL OF ALLERGEN SPECIFIC IgE 17.50-49.99 kU/L - Class 4 Allergen: VERY HIGH LEVEL OF ALLERGEN SPECIFIC IgE 50.00-100.00 kU/L - Class 5 Allergen: ULTRA HIGH LEVEL OF ALLERGEN SPECIFIC IgE >100.00 kU/L - Class 6 Allergen: EXTREMELY HIGH LEVEL OF ALLERGEN SPECIFIC IgE Performed By: #### I CPA2 #### PREETHI Alcala ([id number]) [facility] ([facility]) [address] [place] [address] house dust mite IgE Qn (S) <0.10 Normal <0.10 [facility] Comment on above: Order Comment: Inter pretation Scale <0.10 kU/L - Class 0 Allergen: ABSENT OR UNDETECTABLE ALLERGEN SPECIFIC IgE 0.10-0.34 kU/L - Class 0/1 Allergen: EQUIVOCAL LEVEL OF ALLERGEN SPECIFIC IgE 0.35-0.69 kU/L - Class 1 Allergen: LOW LEVEL OF ALLERGEN SPECIFIC IgE 0.70-3.49 kU/L - Class 2 Allergen: MODERATE LEVEL OF ALLERGEN SPECIFIC IgE 3.50-17.49 kU/L - Class 3 Allergen: HIGH LEVEL OF ALLERGEN SPECIFIC IgE 17.50-49.99 kU/L - Class 4 Allergen: VERY HIGH LEVEL OF ALLERGEN SPECIFIC IgE 50.00-100.00 kU/L - Class 5 Allergen: ULTRA HIGH LEVEL OF ALLERGEN SPECIFIC IgE >100.00 kU/L - Class 6 Allergen: EXTREMELY HIGH LEVEL OF ALLERGEN SPECIFIC IgE Performed By: #### I CPA2 #### PREETHI Alcala ([id number]) [facility] ([facility]) [address] [place] [address] [place] IgE Qn (S) <0.10 Normal <0.10 [facility] Comment on above: Order Comment: Inter pretation Scale <0.10 kU/L - Class 0 Allergen: ABSENT OR UNDETECTABLE ALLERGEN SPECIFIC IgE 0.10-0.34 kU/L - Class 0/1 Allergen: EQUIVOCAL LEVEL OF ALLERGEN SPECIFIC IgE 0.35-0.69 kU/L - Class 1 Allergen: LOW LEVEL OF ALLERGEN SPECIFIC IgE 0.70-3.49 kU/L - Class 2 Allergen: MODERATE LEVEL OF ALLERGEN SPECIFIC IgE 3.50-17.49 kU/L - Class 3 Allergen: HIGH LEVEL OF ALLERGEN SPECIFIC IgE 17.50-49.99 kU/L - Class 4 Allergen: VERY HIGH LEVEL OF ALLERGEN SPECIFIC IgE 50.00-100.00 kU/L - Class 5 Allergen: ULTRA HIGH LEVEL OF ALLERGEN SPECIFIC IgE >100.00 kU/L - Class 6 Allergen: EXTREMELY HIGH LEVEL OF ALLERGEN SPECIFIC IgE Performed By: #### I CPA2 #### PREETHI Alcala ([id number]) [facility] ([facility]) [address] [place] [address] [place] grass IgE Qn (S) <0.10 Normal <0.10 [facility] Comment on above: Order Comment: Inter pretation Scale <0.10 kU/L - Class 0 Allergen: ABSENT OR UNDETECTABLE ALLERGEN SPECIFIC IgE 0.10-0.34 kU/L - Class 0/1 Allergen: EQUIVOCAL LEVEL OF ALLERGEN SPECIFIC IgE 0.35-0.69 kU/L - Class 1 Allergen: LOW LEVEL OF ALLERGEN SPECIFIC IgE 0.70-3.49 kU/L - Class 2 Allergen: MODERATE LEVEL OF ALLERGEN SPECIFIC IgE 3.50-17.49 kU/L - Class 3 Allergen: HIGH LEVEL OF ALLERGEN SPECIFIC IgE 17.50-49.99 kU/L - Class 4 Allergen: VERY HIGH LEVEL OF ALLERGEN SPECIFIC IgE 50.00-100.00 kU/L - Class 5 Allergen: ULTRA HIGH LEVEL OF ALLERGEN SPECIFIC IgE >100.00 kU/L - Class 6 Allergen: EXTREMELY HIGH LEVEL OF ALLERGEN SPECIFIC IgE Performed By: #### I CPA2 #### PREETHI Alcala ([id number]) [facility] ([facility]) [address] [place] [address] [place] IgE Qn (S) <0.10 Normal <0.10 [facility] Comment on above: Order Comment: Inter pretation Scale <0.10 kU/L - Class 0 Allergen: ABSENT OR UNDETECTABLE ALLERGEN SPECIFIC IgE 0.10-0.34 kU/L - Class 0/1 Allergen: EQUIVOCAL LEVEL OF ALLERGEN SPECIFIC IgE 0.35-0.69 kU/L - Class 1 Allergen: LOW LEVEL OF ALLERGEN SPECIFIC IgE 0.70-3.49 kU/L - Class 2 Allergen: MODERATE LEVEL OF ALLERGEN SPECIFIC IgE 3.50-17.49 kU/L - Class 3 Allergen: HIGH LEVEL OF ALLERGEN SPECIFIC IgE 17.50-49.99 kU/L - Class 4 Allergen: VERY HIGH LEVEL OF ALLERGEN SPECIFIC IgE 50.00-100.00 kU/L - Class 5 Allergen: ULTRA HIGH LEVEL OF ALLERGEN SPECIFIC IgE >100.00 kU/L - Class 6 Allergen: EXTREMELY HIGH LEVEL OF ALLERGEN SPECIFIC IgE Performed By: #### I CPA2 #### PREETHI Alcala ([id number]) [facility] ([facility]) [address] [place] [address] [place] Pl[place] IgE Qn (S) <0.10 Normal <0.10 [facility] Comment on above: Order Comment: Inter pretation Scale <0.10 kU/L - Class 0 Allergen: ABSENT OR UNDETECTABLE ALLERGEN SPECIFIC IgE 0.10-0.34 kU/L - Class 0/1 Allergen: EQUIVOCAL LEVEL OF ALLERGEN SPECIFIC IgE 0.35-0.69 kU/L - Class 1 Allergen: LOW LEVEL OF ALLERGEN SPECIFIC IgE 0.70-3.49 kU/L - Class 2 Allergen: MODERATE LEVEL OF ALLERGEN SPECIFIC IgE 3.50-17.49 kU/L - Class 3 Allergen: HIGH LEVEL OF ALLERGEN SPECIFIC IgE 17.50-49.99 kU/L - Class 4 Allergen: VERY HIGH LEVEL OF ALLERGEN SPECIFIC IgE 50.00-100.00 kU/L - Class 5 Allergen: ULTRA HIGH LEVEL OF ALLERGEN SPECIFIC IgE >100.00 kU/L - Class 6 Allergen: EXTREMELY HIGH LEVEL OF ALLERGEN SPECIFIC IgE Performed By: #### I CPA2 #### PREETHI Alcala ([id number]) [facility] ([facility]) [address] [place] [address] Mountain Juniper IgE Qn (S) <0.10 Normal <0.10 [facility] Comment on above: Order Comment: Inter pretation Scale <0.10 kU/L - Class 0 Allergen: ABSENT OR UNDETECTABLE ALLERGEN SPECIFIC IgE 0.10-0.34 kU/L - Class 0/1 Allergen: EQUIVOCAL LEVEL OF ALLERGEN SPECIFIC IgE 0.35-0.69 kU/L - Class 1 Allergen: LOW LEVEL OF ALLERGEN SPECIFIC IgE 0.70-3.49 kU/L - Class 2 Allergen: MODERATE LEVEL OF ALLERGEN SPECIFIC IgE 3.50-17.49 kU/L - Class 3 Allergen: HIGH LEVEL OF ALLERGEN SPECIFIC IgE 17.50-49.99 kU/L - Class 4 Allergen: VERY HIGH LEVEL OF ALLERGEN SPECIFIC IgE 50.00-100.00 kU/L - Class 5 Allergen: ULTRA HIGH LEVEL OF ALLERGEN SPECIFIC IgE >100.00 kU/L - Class 6 Allergen: EXTREMELY HIGH LEVEL OF ALLERGEN SPECIFIC IgE Performed By: #### I CPA2 #### PREETHI Alcala ([id number]) [facility] ([facility]) [address] [place] [address] P. notatum IgE Qn (S) <0.10 Normal <0.10 [facility] Comment on above: Order Comment: Inter pretation Scale <0.10 kU/L - Class 0 Allergen: ABSENT OR UNDETECTABLE ALLERGEN SPECIFIC IgE 0.10-0.34 kU/L - Class 0/1 Allergen: EQUIVOCAL LEVEL OF ALLERGEN SPECIFIC IgE 0.35-0.69 kU/L - Class 1 Allergen: LOW LEVEL OF ALLERGEN SPECIFIC IgE 0.70-3.49 kU/L - Class 2 Allergen: MODERATE LEVEL OF ALLERGEN SPECIFIC IgE 3.50-17.49 kU/L - Class 3 Allergen: HIGH LEVEL OF ALLERGEN SPECIFIC IgE 17.50-49.99 kU/L - Class 4 Allergen: VERY HIGH LEVEL OF ALLERGEN SPECIFIC IgE 50.00-100.00 kU/L - Class 5 Allergen: ULTRA HIGH LEVEL OF ALLERGEN SPECIFIC IgE >100.00 kU/L - Class 6 Allergen: EXTREMELY HIGH LEVEL OF ALLERGEN SPECIFIC IgE Performed By: #### I CPA2 #### PREETHI Alcala ([id number]) [facility] [place] [address] Pecan or Collier Tree IgE Qn (S) <0.10 Normal <0.10 [facility] Comment on above: Order Comment: Inter pretation Scale <0.10 kU/L - Class 0 Allergen: ABSENT OR UNDETECTABLE ALLERGEN SPECIFIC IgE 0.10-0.34 kU/L - Class 0/1 Allergen: EQUIVOCAL LEVEL OF ALLERGEN SPECIFIC IgE 0.35-0.69 kU/L - Class 1 Allergen: LOW LEVEL OF ALLERGEN SPECIFIC IgE 0.70-3.49 kU/L - Class 2 Allergen: MODERATE LEVEL OF ALLERGEN SPECIFIC IgE 3.50-17.49 kU/L - Class 3 Allergen: HIGH LEVEL OF ALLERGEN SPECIFIC IgE 17.50-49.99 kU/L - Class 4 Allergen: VERY HIGH LEVEL OF ALLERGEN SPECIFIC IgE 50.00-100.00 kU/L - Class 5 Allergen: ULTRA HIGH LEVEL OF ALLERGEN SPECIFIC IgE >100.00 kU/L - Class 6 Allergen: EXTREMELY HIGH LEVEL OF ALLERGEN SPECIFIC IgE Performed By: #### I CPA2 #### PREETHI Alcala ([id number]) [facility] ([facility]) [address] [place] [address] Saltwort IgE Qn (S) <0.10 Normal <0.10 [facility] Comment on above: Order Comment: Inter pretation Scale <0.10 kU/L - Class 0 Allergen: ABSENT OR UNDETECTABLE ALLERGEN SPECIFIC IgE 0.10-0.34 kU/L - Class 0/1 Allergen: EQUIVOCAL LEVEL OF ALLERGEN SPECIFIC IgE 0.35-0.69 kU/L - Class 1 Allergen: LOW LEVEL OF ALLERGEN SPECIFIC IgE 0.70-3.49 kU/L - Class 2 Allergen: MODERATE LEVEL OF ALLERGEN SPECIFIC IgE 3.50-17.49 kU/L - Class 3 Allergen: HIGH LEVEL OF ALLERGEN SPECIFIC IgE 17.50-49.99 kU/L - Class 4 Allergen: VERY HIGH LEVEL OF ALLERGEN SPECIFIC IgE 50.00-100.00 kU/L - Class 5 Allergen: ULTRA HIGH LEVEL OF ALLERGEN SPECIFIC IgE >100.00 kU/L - Class 6 Allergen: EXTREMELY HIGH LEVEL OF ALLERGEN SPECIFIC IgE Performed By: #### I CPA2 #### PREETHI Alcala ([id number]) [facility] ([facility]) [address] [place] [address] Sheep Perley IgE Qn (S) <0.10 Normal <0.10 [facility] Comment on above: Order Comment: Inter pretation Scale <0.10 kU/L - Class 0 Allergen: ABSENT OR UNDETECTABLE ALLERGEN SPECIFIC IgE 0.10-0.34 kU/L - Class 0/1 Allergen: EQUIVOCAL LEVEL OF ALLERGEN SPECIFIC IgE 0.35-0.69 kU/L - Class 1 Allergen: LOW LEVEL OF ALLERGEN SPECIFIC IgE 0.70-3.49 kU/L - Class 2 Allergen: MODERATE LEVEL OF ALLERGEN SPECIFIC IgE 3.50-17.49 kU/L - Class 3 Allergen: HIGH LEVEL OF ALLERGEN SPECIFIC IgE 17.50-49.99 kU/L - Class 4 Allergen: VERY HIGH LEVEL OF ALLERGEN SPECIFIC IgE 50.00-100.00 kU/L - Class 5 Allergen: ULTRA HIGH LEVEL OF ALLERGEN SPECIFIC IgE >100.00 kU/L - Class 6 Allergen: EXTREMELY HIGH LEVEL OF ALLERGEN SPECIFIC IgE Performed By: #### I CPA2 #### PREETHI Alcala ([id number]) [facility] ([facility]) [address] [place] [address] Silver Birch IgE Qn (S) <0.10 Normal <0.10 [facility] Comment on above: Order Comment: Inter pretation Scale <0.10 kU/L - Class 0 Allergen: ABSENT OR UNDETECTABLE ALLERGEN SPECIFIC IgE 0.10-0.34 kU/L - Class 0/1 Allergen: EQUIVOCAL LEVEL OF ALLERGEN SPECIFIC IgE 0.35-0.69 kU/L - Class 1 Allergen: LOW LEVEL OF ALLERGEN SPECIFIC IgE 0.70-3.49 kU/L - Class 2 Allergen: MODERATE LEVEL OF ALLERGEN SPECIFIC IgE 3.50-17.49 kU/L - Class 3 Allergen: HIGH LEVEL OF ALLERGEN SPECIFIC IgE 17.50-49.99 kU/L - Class 4 Allergen: VERY HIGH LEVEL OF ALLERGEN SPECIFIC IgE 50.00-100.00 kU/L - Class 5 Allergen: ULTRA HIGH LEVEL OF ALLERGEN SPECIFIC IgE >100.00 kU/L - Class 6 Allergen: EXTREMELY HIGH LEVEL OF ALLERGEN SPECIFIC IgE Performed By: #### I CPA2 #### PREETHI Alcala ([id number]) [facility] ([facility]) [address] [place] [address] Nick IgE Qn (S) <0.10 Normal <0.10 [facility] Comment on above: Order Comment: Inter pretation Scale <0.10 kU/L - Class 0 Allergen: ABSENT OR UNDETECTABLE ALLERGEN SPECIFIC IgE 0.10-0.34 kU/L - Class 0/1 Allergen: EQUIVOCAL LEVEL OF ALLERGEN SPECIFIC IgE 0.35-0.69 kU/L - Class 1 Allergen: LOW LEVEL OF ALLERGEN SPECIFIC IgE 0.70-3.49 kU/L - Class 2 Allergen: MODERATE LEVEL OF ALLERGEN SPECIFIC IgE 3.50-17.49 kU/L - Class 3 Allergen: HIGH LEVEL OF ALLERGEN SPECIFIC IgE 17.50-49.99 kU/L - Class 4 Allergen: VERY HIGH LEVEL OF ALLERGEN SPECIFIC IgE 50.00-100.00 kU/L - Class 5 Allergen: ULTRA HIGH LEVEL OF ALLERGEN SPECIFIC IgE >100.00 kU/L - Class 6 Allergen: EXTREMELY HIGH LEVEL OF ALLERGEN SPECIFIC IgE Performed By: #### I CPA2 #### PREETHI Alcala ([id number]) [facility] ([facility]) [address] [place] [address] Total IgE RAST Qn (S) 12.3 KU/L Normal <=214 [facility] Comment on above: Order Comment: Inter pretation Scale <0.10 kU/L - Class 0 Allergen: ABSENT OR UNDETECTABLE ALLERGEN SPECIFIC IgE 0.10-0.34 kU/L - Class 0/1 Allergen: EQUIVOCAL LEVEL OF ALLERGEN SPECIFIC IgE 0.35-0.69 kU/L - Class 1 Allergen: LOW LEVEL OF ALLERGEN SPECIFIC IgE 0.70-3.49 kU/L - Class 2 Allergen: MODERATE LEVEL OF ALLERGEN SPECIFIC IgE 3.50-17.49 kU/L - Class 3 Allergen: HIGH LEVEL OF ALLERGEN SPECIFIC IgE 17.50-49.99 kU/L - Class 4 Allergen: VERY HIGH LEVEL OF ALLERGEN SPECIFIC IgE 50.00-100.00 kU/L - Class 5 Allergen: ULTRA HIGH LEVEL OF ALLERGEN SPECIFIC IgE >100.00 kU/L - Class 6 Allergen: EXTREMELY HIGH LEVEL OF ALLERGEN SPECIFIC IgE Result Comment: Note : Omalizumab (Xolair, GeneChangeMob; humanized IgG1 antihuman IgE Fc) treatment does not significantly interfere with the accuracy of total IgE on the ImmunoCAP (Pulsar) platform. J Allergy Clin Immunol 2006;117:759-66). Allergens, parasitic diseases, smoking, and alcohol consumption have been reported to increase levels of total IgE in serum. Performed By: #### I CPA2 #### PREETHI Alcala ([id number]) [facility] ([facility]) [address] [place] [address] White Atul IgE Qn (S) <0.10 Normal <0.10 [facility] Comment on above: Order Comment: Inter pretation Scale <0.10 kU/L - Class 0 Allergen: ABSENT OR UNDETECTABLE ALLERGEN SPECIFIC IgE 0.10-0.34 kU/L - Class 0/1 Allergen: EQUIVOCAL LEVEL OF ALLERGEN SPECIFIC IgE 0.35-0.69 kU/L - Class 1 Allergen: LOW LEVEL OF ALLERGEN SPECIFIC IgE 0.70-3.49 kU/L - Class 2 Allergen: MODERATE LEVEL OF ALLERGEN SPECIFIC IgE 3.50-17.49 kU/L - Class 3 Allergen: HIGH LEVEL OF ALLERGEN SPECIFIC IgE 17.50-49.99 kU/L - Class 4 Allergen: VERY HIGH LEVEL OF ALLERGEN SPECIFIC IgE 50.00-100.00 kU/L - Class 5 Allergen: ULTRA HIGH LEVEL OF ALLERGEN SPECIFIC IgE >100.00 kU/L - Class 6 Allergen: EXTREMELY HIGH LEVEL OF ALLERGEN SPECIFIC IgE Performed By: #### I CPA2 #### PREETHI Alcala ([id number]) [facility] ([facility]) [address] [place] [address] [place] IgE Qn (S) <0.10 Normal <0.10 [facility] Comment on above: Order Comment: Inter pretation Scale <0.10 kU/L - Class 0 Allergen: ABSENT OR UNDETECTABLE ALLERGEN SPECIFIC IgE 0.10-0.34 kU/L - Class 0/1 Allergen: EQUIVOCAL LEVEL OF ALLERGEN SPECIFIC IgE 0.35-0.69 kU/L - Class 1 Allergen: LOW LEVEL OF ALLERGEN SPECIFIC IgE 0.70-3.49 kU/L - Class 2 Allergen: MODERATE LEVEL OF ALLERGEN SPECIFIC IgE 3.50-17.49 kU/L - Class 3 Allergen: HIGH LEVEL OF ALLERGEN SPECIFIC IgE 17.50-49.99 kU/L - Class 4 Allergen: VERY HIGH LEVEL OF ALLERGEN SPECIFIC IgE 50.00-100.00 kU/L - Class 5 Allergen: ULTRA HIGH LEVEL OF ALLERGEN SPECIFIC IgE >100.00 kU/L - Class 6 Allergen: EXTREMELY HIGH LEVEL OF ALLERGEN SPECIFIC IgE Performed By: #### I CPA2 #### PREETHI Alcala ([id number]) [facility] ([facility]) [address] [place] [address] White mulberry IgE Qn (S) <0.10 Normal <0.10 [facility] Comment on above: Order Comment: Inter pretation Scale <0.10 kU/L - Class 0 Allergen: ABSENT OR UNDETECTABLE ALLERGEN SPECIFIC IgE 0.10-0.34 kU/L - Class 0/1 Allergen: EQUIVOCAL LEVEL OF ALLERGEN SPECIFIC IgE 0.35-0.69 kU/L - Class 1 Allergen: LOW LEVEL OF ALLERGEN SPECIFIC IgE 0.70-3.49 kU/L - Class 2 Allergen: MODERATE LEVEL OF ALLERGEN SPECIFIC IgE 3.50-17.49 kU/L - Class 3 Allergen: HIGH LEVEL OF ALLERGEN SPECIFIC IgE 17.50-49.99 kU/L - Class 4 Allergen: VERY HIGH LEVEL OF ALLERGEN SPECIFIC IgE 50.00-100.00 kU/L - Class 5 Allergen: ULTRA HIGH LEVEL OF ALLERGEN SPECIFIC IgE >100.00 kU/L - Class 6 Allergen: EXTREMELY HIGH LEVEL OF ALLERGEN SPECIFIC IgE Performed By: #### I CPA2 #### PREETHI Alcala ([id number]) [facility] ([facility]) [address] [place] [address] Hercules IgE Qn (S) <0.10 Normal <0.10 [facility] Comment on above: Order Comment: Inter pretation Scale <0.10 kU/L - Class 0 Allergen: ABSENT OR UNDETECTABLE ALLERGEN SPECIFIC IgE 0.10-0.34 kU/L - Class 0/1 Allergen: EQUIVOCAL LEVEL OF ALLERGEN SPECIFIC IgE 0.35-0.69 kU/L - Class 1 Allergen: LOW LEVEL OF ALLERGEN SPECIFIC IgE 0.70-3.49 kU/L - Class 2 Allergen: MODERATE LEVEL OF ALLERGEN SPECIFIC IgE 3.50-17.49 kU/L - Class 3 Allergen: HIGH LEVEL OF ALLERGEN SPECIFIC IgE 17.50-49.99 kU/L - Class 4 Allergen: VERY HIGH LEVEL OF ALLERGEN SPECIFIC IgE 50.00-100.00 kU/L - Class 5 Allergen: ULTRA HIGH LEVEL OF ALLERGEN SPECIFIC IgE >100.00 kU/L - Class 6 Allergen: EXTREMELY HIGH LEVEL OF ALLERGEN SPECIFIC IgE Performed By: #### I CPA2 #### PREETHI Alcala ([id number]) [facility] ([facility]) [id number] [place] [address] Calprotectinon 08-26-2023 Calprotectin (Stl) [Mass/Mass] 73 ug/g High <=49 [facility] Comment on above: Result Comment: REFE RENCE INTERVAL: Calprotectin, Fecal by Immunoassay Less than 50 ug/g.........Normal 50-120 ug/g...............Borderline elevated, test should be re-evaluated in 4-6 weeks. 121 ug/g or greater.......Elevated Performed By: [address] [place] [address] Orthoph[employer] Tech/Draftsman: Royce Marroquin MD, PhD CLIA Number: [id number] Performed By: #### 3 8445-3 #### [facility] ([place]) ([id number]) [address] [place] [address] Basic metabolic 2000 panelon 08-23-2023 Anion gap [Moles/Vol] 11 mmol/L Normal 10-20 [facility] Comment on above: Performed By: #### 2 4321-2 #### YAN FORD ([id number]) [facility] ([facility]) [address] [place] [address] Calcium [Mass/Vol] 9.4 mg/dL Normal 8.6-10.3 [facility] Comment on above: Performed By: #### 2 4321-2 #### YAN FORD ([id number]) [facility] ([facility]) [address] [place] [address] 73810 Chloride [Moles/Vol] 103 mmol/L Normal 98-107 [facility] Comment on above: Performed By: #### 2 4321-2 #### YAN FORD ([id number]) [facility] ([facility]) [address] [place] [address] 35614 CO2 [Moles/Vol] 29 mmol/L Normal 21-32 [facility] Comment on above: Performed By: #### 2 4321-2 #### YAN FORD ([id number]) [facility] ([facility]) [address] [place] [address]36 Creatinine [Mass/Vol] 0.64 mg/dL Normal 0.50-1.05 [facility] Comment on above: Performed By: #### 2 4321-2 #### YAN FORD ([id number]) [facility] ([facility]) [address] [place] [address] 72802 GFR/1.73 sq M.predicted MDRD (S/P/Bld) [Vol rate/Area] mL/min/{1.73_m2} Normal >60 [facility] Comment on above: Result Comment: Calc ulations of estimated GFR are performed using the 2020 CKD-EPI Study Refit equation without the race variable for the IDMS-Traceable creatinine methods. https://jasn.asnjournals.org/content/early//ASN.316475026 8 Performed By: #### 2 4320-2 #### YAN FORD ([id number]) [facility] ([facility]) [address] [place] [address] 99486 Glucose [Mass/Vol] 123 mg/dL High 74-99 [facility] Comment on above: Performed By: #### 2 4320-2 #### YAN FORD ([id number]) [facility] ([facility]) [address] [place] [address] 10778 Potassium [Moles/Vol] 4.0 mmol/L Normal 3.5-5.3 [facility] Comment on above: Performed By: #### 2 432-2 #### YAN FORD ([id number]) [facility] ([facility]) [address] [place] [address] 78852 Sodium [Moles/Vol] 139 mmol/L Normal 136-145 [facility] Comment on above: Performed By: #### 2 4321-2 #### YAN FORD ([id number]) [facility] ([facility]) [address] [place] [address] Urea nitrogen [Mass/Vol] 17 mg/dL Normal 6-23 [facility] Comment on above: Performed By: #### 2 4321-2 #### YAN FORD ([id number]) [facility] ([facility]) [address] [place] [address] C reactive proteinon 024 CRP [Mass/Vol] 0.57 mg/dL Normal <1.00 [facility] Comment on above: Performed By: #### 1 988-5 #### YAN FORD ([id number]) [facility] ([facility]) [address] [place] [address]85 Hepatitis B virus surface Ag on 08-23-2023 HBV surface Ag IA Ql Non-Reactive Normal Nonreactive [facility] Comment on above: Result Comment: Biot in interference may cause falsely decreased results. Patients taking a Biotin dose of up to 5 mg/day should refrain from taking Biotin for 24 hours before sample collection. Providers may contact their local laboratory for further information. Performed By: #### 5 196-1 #### PREETHI Alcala ([id number]) [facility] ([facility]) [address] [place] [address] M. tuberculosis stim IFN-g a nd spot count panel (Bld)on 08-23-2023 Gamma interferon negative control spot count (Bld) [#] Passed [facility] Comment on above: Performed By: #### 7 4281-7 #### QUEST CHANTL ([id number]) [address] [facility]. tuberculosis stim IFN-g CFP10 Ag spot count (Bld) [#] 1 [facility] Comment on above: Performed By: #### 7 4281-7 #### QUEST CHANTL ([id number]) [address] [facility]. tuberculosis stim IFN-g ESAT-6 Ag spot count (Bld) [#] 0 [facility] Comment on above: Performed By: #### 7 4281-7 #### QUEST CHANTL ([id number]) [address] [facility] [address] [address] [facility] M. tuberculosis stim IFN-g Ql (Bld) [Interp] Negative Normal Negative [facility] Comment on above: Result Comment: A negative test result does not exclude the possibility of exposure to or infection with Mycobacterium tuberculosis (M. tuberculosis). Patients with recent exposure to TB infected individuals exhibiting a negative T-SPOT.TB result should be considered for retesting within 6 weeks or if other relevant clinical symptoms indicate. Results from T-SPOT.TB testing must be used in conjunction with each individual's epidemiological history, current medical status, and results of other diagnostic evaluations. The T-SPOT.TB test is qualitative and results are reported as positive, borderline, or negative, given that the test controls perform as expected. In line with the Centers for Disease Control and Prevention's 2010 recommendation to report quantitative measurements alongside the qualitative result, the laboratory provides spot counts for informational purposes only. The T-SPOT.TB test should not be interpreted as a quantitative test. Performed By: #### 7 4281-7 #### QUEST CHANTL ([id number]) [address] [facility] [address] Mitogen stimulated gamma interferon positive control spot count (Bld) [#] Passed Normal [facility] Comment on above: Result Comment: For additional information, please refer to http://education.[employer]/faq/WRL032 (This link is being provided for informational/ educational purposes only.) Performed By: #### 7 4281-7 #### QUEST CHANTL ([id number]) [address] [facility] [address] Calcidiolon 07-12-2023 25-hydroxyvitamin D3 [Mass/Vol] 19 ng/mL Low 30-100 [facility] Comment on above: Order Comment: Defic iency: < 20 ng/ml Insufficiency: 20-29 ng/ml Sufficiency: 30-100 ng/ml This assay accurately quantifies the sum of Vitamin D3, 25-Hydroxy and Vitamin D2,25-Hydroxy. Performed By: #### 1 989-3 #### YAN FORD ([id number]) [facility] ([facility]) [address] [place] [address] Comprehensive metabolic 2000 panelon 07-12-2023 Albumin BCP dye [Mass/Vol] 4.3 g/dL Normal 3.4-5.0 [facility] Comment on above: Performed By: #### 2 4323-8 #### YAN FORD ([id number]) [facility] ([facility]) [address] [place] [address] 18494 ALP [Catalytic activity/Vol] 62 U/L Normal 33-136 [facility] Comment on above: Performed By: #### 2 4323-8 #### YAN FORD ([id number]) [facility] ([facility]) [address] [place] [address] 81997 ALT With P-5'-P [Catalytic activity/Vol] 21 U/L Normal 7-45 [facility] Comment on above: Result Comment: Juju ents treated with Sulfasalazine may generate falsely decreased results for ALT. Performed By: #### 2 4323-8 #### YAN FORD ([id number]) [facility] ([facility]) [address] [place] [address] 01233 Anion gap [Moles/Vol] 12 mmol/L Normal 10-20 [facility] Comment on above: Performed By: #### 2 4323-8 #### YAN FORD ([id number]) [facility] ([facility]) [facility] [place] [address] AST With P-5'-P [Catalytic activity/Vol] 23 U/L Normal 9-39 [facility] Comment on above: Performed By: #### 2 4323-8 #### YAN FORD ([id number]) [facility] ([facility]) [address] [place] [address] 65452 Bilirubin [Mass/Vol] 0.7 mg/dL Normal 0.0-1.2 [facility] Comment on above: Performed By: #### 2 4323-8 #### YAN FORD ([id number]) [facility] ([facility]) [address] [place] [address] 97685 Calcium [Mass/Vol] 10.0 mg/dL Normal 8.6-10.3 [facility] Comment on above: Performed By: #### 2 4323-8 #### YAN FORD ([id number]) [facility] ([facility]) [facility] [place] [address] Chloride [Moles/Vol] 102 mmol/L Normal 98-107 [facility] Comment on above: Performed By: #### 2 4323-8 #### YAN FORD ([id number]) [facility] ([facility]) [address] [place] [address] 46654 CO2 [Moles/Vol] 29 mmol/L Normal 21-32 [facility] Comment on above: Performed By: #### 2 4323-8 #### YAN FORD ([id number]) [facility] ([facility]) [address] [place] [address] 37507 Creatinine [Mass/Vol] 0.59 mg/dL Normal 0.50-1.05 [facility] Comment on above: Performed By: #### 2 4323-8 #### YAN FORD ([id number]) [facility] ([facility]) [address] [place] [address] 27332 GFR/1.73 sq M.predicted MDRD (S/P/Bld) [Vol rate/Area] mL/min/{1.73_m2} Normal >60 [facility] Comment on above: Result Comment: Calc ulations of estimated GFR are performed using the 2020 CKD-EPI Study Refit equation without the race variable for the IDMS-Traceable creatinine methods. https://jasn.asnjournals.org/content/early//ASN.221765922 8 Performed By: #### 2 4323-8 #### YAN FORD ([id number]) [facility] ([facility]) [address] [place] [id number] Glucose [Mass/Vol] 151 mg/dL High 74-99 [facility] Comment on above: Performed By: #### 2 4323-8 #### YAN FORD ([id number]) [facility] ([facility]) [facility] [place] [address] Potassium [Moles/Vol] 3.8 mmol/L Normal 3.5-5.3 [facility] Comment on above: Performed By: #### 2 4323-8 #### YAN FORD ([id number]) [facility] ([facility]) [address] [place] [address] 11211 Protein [Mass/Vol] 6.8 g/dL Normal 6.4-8.2 [facility] Comment on above: Performed By: #### 2 4323-8 #### YAN FORD ([id number]) [facility] ([facility]) [address] [place] [address] [id number] Sodium [Moles/Vol] 139 mmol/L Normal 136-145 [facility] Comment on above: Performed By: #### 2 4323-8 #### YAN FORD ([id number]) [facility] ([facility]) [address] [place] [address] 65994 Urea nitrogen [Mass/Vol] 19 mg/dL Normal 6-23 [facility] Comment on above: Performed By: #### 2 4323-8 #### YAN FORD ([id number]) [facility] ([facility]) [address] [place] [address] [id number] HbA1c (Bld) [Mass fraction]o n 07-12-2023 Average glucose Estimated from glycated hemoglobin (Bld) [Mass/Vol] 197 mg/dL Normal Not Established [facility] Comment on above: Order Comment: Diagn osis of Diabetes-Adults Non-Diabetic: < or = 5.6% Increased risk for developing diabetes: 5.7-6.4% Diagnostic of diabetes: > or = 6.5% Monitoring of Diabetes Age (y)....................... Therapeutic Goal (%) Adults: >18.........................<7.0 Pediatrics: 13-18...................<7.5 Pediatrics: 7-12....................<8.0 Pediatrics: 0-6..................... 7.5-8.5 [employer]. Diabetes Care 33(S1), Mar 2009 Performed By: #### 4 548-4 #### YAN FORD ([id number]) [facility] ([facility]) [address] [id number] Hemoglobin A1c/Hemoglobin.to geoffrey 07-12-2023 HbA1c (Bld) [Mass fraction] 8.5 % High see below [facility] Comment on above: Order Comment: Diagn osis of Diabetes-Adults Non-Diabetic: < or = 5.6% Increased risk for developing diabetes: 5.7-6.4% Diagnostic of diabetes: > or = 6.5% Monitoring of Diabetes Age (y)....................... Therapeutic Goal (%) Adults: >18.........................<7.0 Pediatrics: 13-18...................<7.5 Pediatrics: 7-12....................<8.0 Pediatrics: 0-6..................... 7.5-8.5 [place]. Diabetes Care 33(S1), Mar 2009 Performed By: #### 4 548-4 #### YAN FORD ([id number]) [facility] ([facility]) [facility] [place] [address] Lipid 1996 panelon 4 Cholesterol [Mass/Vol] 248 mg/dL High 0-199 [facility] Comment on above: Result Comment: Age Desirable Borderline High High 0-19 Y 0 - 169 170 - 199 >/= 200 20-24 Y 0 - 189 190 - 224 >/= 225 >24 Y 0 - 199 200 - 239 >/= 240 All ranges are based on fasting samples. Specific therapeutic targets will vary based on patient-specific cardiac risk. Pediatric guidelines reference:Pediatrics 2011, 128(S5).Adult guidelines reference: NCEP ATPIII Guidelines,PIPPA 2001, 258:2486-97 Venipuncture immediately after or during the administration of Metamizole may lead to falsely low results. Testing should be performed immediately prior to Metamizole dosing. Performed By: #### 2 4331-1 #### YAN FORD ([id number]) [facility] ([facility]) [facility] [place] [address] Cholesterol in HDL [Mass/Vol] 45.0 mg/dL Normal [facility] Comment on above: Result Comment: Age Very Low Low Normal High 0-19 Y < 35 < 40 40-45 ---- 20-24 Y ---- < 40 >45 ---- >24 Y ---- < 40 40-60 >60 Performed By: #### 2 4331-1 #### YAN FORD ([id number]) [facility] ([facility]) [address] [place] [address] Cholesterol in LDL [Mass/Vol] 158 mg/dL High <=99 [facility] Comment on above: Result Comment: Near Borderline AGE Desirable Optimal High High Very High 0-19 Y 0 - 109 --- 110-129 >/= 130 ---- 20-24 Y 0 - 119 --- 120-159 >/= 160 ---- >24 Y 0 - 99 100-129 130-159 160-189 >/=190 Performed By: #### 2 4331-1 #### YAN FORD ([id number]) [facility] ([facility]) [facility] [place] [address] Cholesterol in VLDL [Mass/Vol] 45 mg/dL High 0-40 [facility] Comment on above: Performed By: #### 2 4331-1 #### YAN FORD ([id number]) [facility] ([facility]) [facility] [place] [address] CHOLESTEROL/HDL RATIO 5.5 Normal [facility] Comment on above: Result Comment: Ref Values Desirable < 3.4 High Risk > 5.0 Performed By: #### 2 4331-1 #### YAN FORD ([id number]) [facility] ([facility]) [address] [place], [place] [id number] NON HDL CHOLESTEROL 203 mg/dL High 0-149 [facility] Comment on above: Result Comment: Age Desirable Borderline High High Very High 0-19 Y 0 - 119 120 - 144 >/= 145 >/= 160 20-24 Y 0 - 149 150 - 189 >/= 190 ---- >24 Y 30 mg/dL above LDL Cholesterol goal Performed By: #### 2 4331-1 #### YAN FORD ([id number]) [facility] ([facility]) [address] [place], [place] [id number] Triglyceride [Mass/Vol] 226 mg/dL High 0-149 [facility] Comment on above: Result Comment: Age Desirable Borderline High High Very High 0 D-90 D 19 - 174 ---- ---- ---- 91 D- 9 Y 0 - 74 75 - 99 >/= 100 ---- 10-19 Y 0 - 89 90 - 129 >/= 130 ---- 20-24 Y 0 - 114 115 - 149 >/= 150 ---- >24 Y 0 - 149 150 - 199 200- 499 >/= 500 Venipuncture immediately after or during the administration of Metamizole may lead to falsely low results. Testing should be performed immediately prior to Metamizole dosing. Performed By: #### 2 4331-1 #### YAN FORD ([id number]) [facility] ([facility]) [address] [place], [place] [id number] XR Ankle - left 3 Viewson Soft tissue swelling without acute osseous abnormality. MACRO: None Signed by: Gregg Arroyo 05/02/2023 10:21 AM Dictation workstation: [id number] Interpreted By: Gregg Arroyo, STUDY: XR ANKLE LEFT 3+ VIEWS; ; 05/01/2023 9:19 am INDICATION: Signs/Symptoms:left ankle pain. COMPARISON: None. ACCESSION NUMBER(S): [id number] ORDERING CLINICIAN: ZACH MALLAPAREDDI FINDINGS: Soft tissue swelling. Calcaneal enthesopathy. Chronic appearing ossicle adjacent to the medial malleolus suggestive of remote injury. [facility] Gregg Arroyo MD - 05/02/2023 Interpreted By: Gregg Arroyo, STUDY: XR ANKLE LEFT 3+ VIEWS; ; 05/01/2023 9:19 am INDICATION: Signs/Symptoms:left ankle pain. COMPARISON: None. ACCESSION NUMBER(S): [id number] ORDERING CLINICIAN: ZACH RITTER FINDINGS: Soft tissue swelling. Calcaneal enthesopathy. Chronic appearing ossicle adjacent to the medial malleolus suggestive of remote injury. IMPRESSION: Soft tissue swelling without acute osseous abnormality. MACRO: None Signed by: Gregg Arroyo 05/02/2023 10:21 AM Dictation workstation: [id number] [facility] Work Phone: XR Ankle - left 3 ViewsOrder ed By: Gregg Arroyo on 05-02-2023 [facility] Work Phone: XR Ankle - left 3 Viewson Radiology Study observation (narrative) [facility] Work Phone: CBC AND DIFFERENTIALon 11-07 % AUTOMATED IMMATURE GRAN 0.4 % Normal 0.0 - 0.9 [facility] Comment on above: Result Comment: Nuha ture Granulocyte Count (IG) includes promyelocytes, myelocytes and metamyelocytes but does not include bands. Percent differential counts (%) should be interpreted in the context of the absolute cell counts (cells/L). Performed By: #### C BCDF #### [address] [address] Basophils (Bld) [#/Vol] 0.04 10*3/uL Normal 0.00 - 0.10 [facility] Comment on above: Performed By: #### C BCDF #### [address] [address] Basophils/100 WBC (Bld) 0.5 % Normal 0.0 - 2.0 [facility] Comment on above: Performed By: #### C BCDF #### [address] [address] Eosinophils (Bld) [#/Vol] 0.09 10*3/uL Normal 0.00 - 0.70 [facility] Comment on above: Performed By: #### C BCDF #### [address] [address] Eosinophils/100 WBC (Bld) 1.2 % Normal 0.0 - 6.0 [facility] Comment on above: Performed By: #### C BCDF #### [address] [address] Erythrocyte distribution width (RBC) [Ratio] 13.9 % Normal 11.5 - 14.5 [facility] Comment on above: Performed By: #### C BCDF #### [address] [address] Hematocrit (Bld) [Volume fraction] 44.7 % Normal 36.0 - 46.0 [facility] Comment on above: Performed By: #### C BCDF #### [address] [address] Hemoglobin (Bld) [Mass/Vol] 14.4 g/dL Normal 12.0 - 16.0 [facility] Comment on above: Performed By: #### C BCDF #### [address] [address] Lymphocytes (Bld) [#/Vol] 1.10 10*3/uL Low 1.20 - 4.80 [facility] Comment on above: Performed By: #### C BCDF #### [address] [address] Lymphocytes/100 WBC (Bld) 14.4 % Normal 13.0 - 44.0 [facility] Comment on above: Performed By: #### C BCDF #### [address] [address] MCHC (RBC) [Mass/Vol] 32.2 g/dL Normal 32.0 - 36.0 [facility] Comment on above: Performed By: #### C BCDF #### [address] [address] MCV (RBC) [Entitic vol] 87 fL Normal 80 - 100 [facility] Comment on above: Performed By: #### C BCDF #### [address] [address] Monocytes (Bld) [#/Vol] 0.64 10*3/uL Normal 0.10 - 1.00 [facility] Comment on above: Performed By: #### C BCDF #### [address] [address] Monocytes/100 WBC (Bld) 8.4 % Normal 2.0 - 10.0 [facility] Comment on above: Performed By: #### C BCDF #### [address] [address] Neutrophils (Bld) [#/Vol] 5.74 10*3/uL Normal 1.20 - 7.70 [facility] Comment on above: Result Comment: Perc ent differential counts (%) should be interpreted in the context of the absolute cell counts (cells/L). Performed By: #### C BCDF #### [address] [address] Neutrophils/100 WBC (Bld) 75.1 % Normal 40.0 - 80.0 [facility] Comment on above: Performed By: #### C BCDF #### [address] [address] Platelets (Bld) [#/Vol] 209 10*3/uL Normal 150 - 450 [facility] Comment on above: Performed By: #### C BCDF #### [address] [address] RBC 5.14 x10E12/L Normal 4.00 - 5.20 [facility] Comment on above: Performed By: #### C BCDF #### [address] [address] WBC (Bld) [#/Vol] 7.6 10*3/uL Normal 4.4 - 11.3 [facility] Comment on above: Performed By: #### C BCDF #### [address] [address] COMPREHENSIVE PANELon 2022 Albumin [Mass/Vol] 4.4 g/dL Normal 3.4 - 5.0 [facility] Comment on above: Performed By: #### C MP #### [address] [address] ALP [Catalytic activity/Vol] 68 U/L Normal 33 - 110 [facility] Comment on above: Performed By: #### C MP #### [address] [address] ALT [Catalytic activity/Vol] 20 U/L Normal 7 - 45 [facility] Comment on above: Result Comment: Juju ents treated with Sulfasalazine may generate falsely decreased results for ALT. Performed By: #### C MP #### [address] [address] Anion gap [Moles/Vol] 13 mmol/L Normal 10 - 20 [facility] Comment on above: Performed By: #### C MP #### [address] [address] AST [Catalytic activity/Vol] 22 U/L Normal 9 - 39 [facility] Comment on above: Performed By: #### C MP #### [address] [address] Bilirubin [Mass/Vol] 0.8 mg/dL Normal 0.0 - 1.2 [facility] Comment on above: Performed By: #### C MP #### [address] [address] Calcium [Mass/Vol] 9.9 mg/dL Normal 8.6 - 10.3 [facility] Comment on above: Performed By: #### C MP #### [address] [address] Chloride [Moles/Vol] 100 mmol/L Normal 98 - 107 [facility] Comment on above: Performed By: #### C MP #### [address] [address] Creatinine [Mass/Vol] 0.63 mg/dL Normal 0.50 - 1.05 [facility] Comment on above: Performed By: #### C MP #### [address] [address] eGFR FEMALE >90 Normal >90 [facility] Comment on above: Result Comment: CALC ULATIONS OF ESTIMATED GFR ARE PERFORMED USING THE 2020 CKD-EPI STUDY REFIT EQUATION WITHOUT THE RACE VARIABLE FOR THE IDMS-TRACEABLE CREATININE METHODS. https://jasn.asnjournals.org/content/early//ASN.730979034 8 Performed By: #### C MP #### [address] [address] Glucose [Mass/Vol] 120 mg/dL High 74 - 99 [facility] Comment on above: Performed By: #### C MP #### [address] [address] HCO3 (Bld) [Moles/Vol] 29 mmol/L Normal 21 - 32 [facility] Comment on above: Performed By: #### C MP #### [address] [address] Potassium [Moles/Vol] 3.3 mmol/L Low 3.5 - 5.3 [facility] Comment on above: Performed By: #### C MP #### [address] [address] Protein [Mass/Vol] 6.9 g/dL Normal 6.4 - 8.2 [facility] Comment on above: Performed By: #### C MP #### [address] [address] Sodium [Moles/Vol] 139 mmol/L Normal 136 - 145 [facility] Comment on above: Performed By: #### C MP #### [address] [address] Urea nitrogen [Mass/Vol] 14 mg/dL Normal 6 - 23 [facility] Comment on above: Performed By: #### C MP #### [address] [address] LIPID PANEL (CORONARY RISK 2 )on 11-07-2022 Cholesterol [Mass/Vol] 237 mg/dL High 0 - 199 [facility] Comment on above: Result Comment: . AGE DESIRABLE BORDERLINE HIGH HIGH 0-19 Y 0 - 169 170 - 199 >/= 200 20-24 Y 0 - 189 190 - 224 >/= 225 >24 Y 0 - 199 200 - 239 >/= 240 All ranges are based on fasting samples. Specific therapeutic targets will vary based on patient-specific cardiac risk. . Pediatric guidelines reference:Pediatrics 2011, 128(S5). Adult guidelines reference: NCEP ATPIII Guidelines, PIPPA 2001, 258:2486-97 . Venipuncture immediately after or during the administration of Metamizole may lead to falsely low results. Testing should be performed immediately prior to Metamizole dosing. Performed By: #### L IPID #### [address] [address] Cholesterol in HDL [Mass/Vol] 46.0 mg/dL Normal [facility] Comment on above: Result Comment: . AGE VERY LOW LOW NORMAL HIGH 0-19 Y < 35 < 40 40-45 ---- 20-24 Y ---- < 40 >45 ---- >24 Y ---- < 40 40-60 >60 . Performed By: #### L IPID #### [address] [address] Cholesterol in LDL [Mass/Vol] 157 mg/dL High 0 - 99 [facility] Comment on above: Result Comment: . NEAR BORD AGE DESIRABLE OPTIMAL HIGH HIGH VERY HIGH 0-19 Y 0 - 109 --- 110-129 >/= 130 ---- 20-24 Y 0 - 119 --- 120-159 >/= 160 ---- >24 Y 0 - 99 100-129 130-159 160-189 >/=190 . Performed By: #### L IPID #### [address] [address] Cholesterol in VLDL [Mass/Vol] 34 mg/dL Normal 0 - 40 [facility] Comment on above: Performed By: #### L IPID #### [address] [address] Cholesterol.total/ Cholesterol in HDL [Mass ratio] 5.2 {ratio} Abnormal [facility] Comment on above: Result Comment: REF VALUES DESIRABLE < 3.4 HIGH RISK > 5.0 Performed By: #### L IPID #### [address] [address] Triglyceride [Mass/Vol] 170 mg/dL High 0 - 149 [facility] Comment on above: Result Comment: . AGE DESIRABLE BORDERLINE HIGH HIGH VERY HIGH 0 D-90 D 19 - 174 ---- ---- ---- 91 D- 9 Y 0 - 74 75 - 99 >/= 100 ---- 10-19 Y 0 - 89 90 - 129 >/= 130 ---- 20-24 Y 0 - 114 115 - 149 >/= 150 ---- >24 Y 0 - 149 150 - 199 200- 499 >/= 500 . Venipuncture immediately after or during the administration of Metamizole may lead to falsely low results. Testing should be performed immediately prior to Metamizole dosing. Performed By: #### L IPID #### [address] [address] MAGNESIUMon 11-07-2022 Magnesium [Mass/Vol] 1.86 mg/dL Normal 1.60 - 2.40 [facility] Comment on above: Performed By: #### M G #### [address] [address] TSHon 11-07-2022 TSH Qn 1.37 m[IU]/L Normal 0.44 - 3.98 [facility] Comment on above: Result Comment: TSH testing is performed using different testing methodology at [facility] than at other [facility]. Direct result comparisons should only be made within the same method. Performed By: #### C BCDF #### [address] [address] VITAMIN D, 25-HYDROXYon 10-12 VITAMIN D, 25-HYDROXY 19 ng/mL Abnormal [facility] Comment on above: Result Comment: . DEFICIENCY: < 20 NG/ML INSUFFICIENCY: 20-29 NG/ML SUFFICIENCY: 30-100 NG/ML THIS ASSAY ACCURATELY QUANTIFIES THE SUM OF VITAMIN D3, 25-HYDROXY AND VIT D2,25-HYDROXY. Performed By: #### V TDOH #### [address] [address] CBCon 11-04-2022 Erythrocyte distribution width (RBC) [Ratio] 13.8 % Normal 11.5 - 14.5 [facility] Comment on above: Performed By: #### C BC #### [address] [address] Hematocrit (Bld) [Volume fraction] 44.8 % Normal 36.0 - 46.0 [facility] Comment on above: Performed By: #### C BC #### [address] [address] Hemoglobin (Bld) [Mass/Vol] 14.6 g/dL Normal 12.0 - 16.0 [facility] Comment on above: Performed By: #### C BC #### [address] [address] MCHC (RBC) [Mass/Vol] 32.6 g/dL Normal 32.0 - 36.0 [facility] Comment on above: Performed By: #### C BC #### [address] [address] MCV (RBC) [Entitic vol] 86 fL Normal 80 - 100 [facility] Comment on above: Performed By: #### C BC #### [address] [address] Platelets (Bld) [#/Vol] 187 10*3/uL Normal 150 - 450 [facility] Comment on above: Performed By: #### C BC #### [address] [address] RBC 5.21 x10E12/L High 4.00 - 5.20 [facility] Comment on above: Performed By: #### C BC #### [address] [address] WBC (Bld) [#/Vol] 7.3 10*3/uL Normal 4.4 - 11.3 [facility] Comment on above: Performed By: #### C BC #### [address] [address] SEDIMENTATION RATE, ERYTHROC YTEon 11-04-2022 SEDIMENTATION RATE, ERYTHROCYTE 12 mm/h Normal 0 - 30 [facility] Comment on above: Performed By: #### E SRWS #### [address] [address] HIP, UNILATERAL W/PELVIS WHE N PERFORMED 2-3 VIEWSon 09-27-2022 HIP, UNILATERAL W/PELVIS WHEN PERFORMED 2-3 VIEWS STUDY: Pelvis and Right Hip Radiographs; 09/27/22 at 1:48 PM INDICATION: Right hip pain for 2 months. COMPARISON: Pelvic XR 04/10/21. ACCESSION NUMBER(S): [id number] ORDERING CLINICIAN: BRENT WOLF CNP TECHNIQUE: AP view of the pelvis and two view(s) of the right hip. FINDINGS: PELVIS: The pelvic ring is intact. There is no acute fracture. Degenerative changes are seen of the left hip with loss of articular joint space medially. RIGHT HIP: There is no displaced fracture. The alignment is anatomic. No soft tissue abnormality is seen. IMPRESSION: No acute osseous abnormality. Degenerative change left hip. Signed by Ronnie Bryant MD Electronically signed by: RONNIE BRYANT MD [facility] Provider Note - ED v3on 09-10 Provider Note - ED v3 Provider Note: Results/Vital Signs Pediatric Clinical Scoring (CECELIA) is no recent CECELIA charted on this account Chart Review ED NOTES ED NOTES: Patient presents for evaluation of right hip pain that has been ongoing for the past 2 months. Patient states she was on a riding lawnmower and had a hole in the ground which caused her to slide forward and jammed her knees into the dashboard of the coke crane operator. States she did not like Active for 2 weeks which did somewhat help symptoms. Has been taking Tylenol as well. States last week symptoms started to radiate down posterior leg. Denies any change in bowel or bladder control. Patient states that pain exacerbated with bearing weight and walking. Denies any bruising or swelling. HISTORY OF PRESENTING ILLNESS FRANNIE is a 57 year old Female and was seen by me at 27-Sep-2022 13:23. Triage Information: Most recent Vital Sign Value Date PAST MEDICAL HISTORY ALLERGIES/INTOLERANCES : Allergy Allergen: NKDA Type: Reaction: Allergen: Tape - Adhesive, Bandaids, Paper Type: Environment Reaction: Rash Intolerance Allergen: Latex Type: Latex Reaction: Nausea/Vomiting HEALTH HISTORY: No documented data. OUTPATIENT MEDICATIONS: Home Medications Review Status for Reconciliation: Complete Med Status: Patient Currently Takes Medications Drug Name: lisinopril 20 mg oral tablet Instructions: 1 tab(s) orally once a day Drug Name: hydroCHLOROthiazide 25 mg oral tablet Instructions: 1 tab(s) orally once a day Drug Name: azaTHIOprine 50 mg oral tablet Instructions: 1 tab(s) orally once a day Drug Name: Breo Ellipta 100 mcg-25 mcg/inh inhalation powder Instructions: 1 puff(s) inhaled once a day Drug Name: albuterol 90 mcg/inh inhalation aerosol Instructions: 2 puff(s) inhaled 2 times a day as needed for cough Drug Name: metoprolol Instructions: null Drug Name: cyclobenzaprine 10 mg oral tablet Instructions: 1 tab(s) orally 3 times a day as needed for pain Drug Name: predniSONE 10 mg oral tablet Instructions: 4 tab(s) orally once a day x 3 days 3 tab(s) orally once a day x 3 days 2 tab(s) orally once a day x 3 days 1 tab(s) orally once a day x 3 days SIGNIFICANT EVENTS: Clinical Events Description:Surgical Procedure Additional Notes:Examination under anesthesia, seton placement in rectovaginal fistula, exploratory laparotomy, lysis of adhesions, excision of infected umbilical hernia mesh, mobilization of splenic flexure, sigmoid colectomy Past Medical History Description:chrons disease Description:recurrent UTIs Description:Rectal bladder fistula Description:colon resection Description:hernia repairs PRIMARY CARE NURSE: Is : no Is : no REVIEW OF SYSTEMS All other systems reviewed and are negative REVIEW OF SYSTEMS: Comments See HPI PHYSICAL EXAM CONSTITUTIONAL: Well appearing, well nourished, awake, alert, oriented to person, place, time/situation and in no apparent distress. MUSCULOSKELETAL: R hip pain with bearing weight and walking, no ecchymosis, erythema or edema. Some pain with extension of hip. NEUROLOGICAL: Alert and oriented, no focal deficits, no motor or sensory deficits. SKIN: Skin normal color for race, warm, dry and intact. No evidence of trauma. PSYCHIATRIC: Alert and oriented to person, place, time/situation. normal mood and affect. No apparent risk to self or others. CRITICAL CARE VITAL SIGNS: T PRBP SpO2O2(LPM) %FiO2 Method 27-Sep-2022 12:57:[id number] 96 MDM MDM/ED COURSE: Discussed Findings with: patient Data Reviewed: vital signs Treatment Plan: Rx prednisone and flexeril. Encouraged to continue Tylenol PRN. Xray ordered. Patient's clinical presentation is otherwise unremarkable at this time. Patient is discharged with instructions to follow-up with primary care or seek emergency medical attention for worsening symptoms or any new concerns. DISPOSITION Diagnosis/Annotation: ED Dx Name:Acute pain of right hip Code:M25.551 Name:Acute right-sided low back pain with right-sided sciatica Code:M54.41 Disposition: discharged Type: home CONSULT CRITICAL CARE TIME Is this a critically ill patient: no Electronic Signatures for Addendum Section: Brent Wolf (SUPERIOR COURT JUDGE-LOCK OPERATOR) (Signed Addendum 27-Sep-2022 15:22) Pt notified of xray results. No change in care plan. Electronic Signatures: Brent Wolf (SUPERIOR COURT JUDGE-LOCK OPERATOR) (Signed 27-Sep-2022 15:21) Authored: ED Notes, HPI, PMH, ROS, PE, Results/Vital Signs, MDM/ED Course, Clinical Impression, Attestation, Chart Review, Scores Last Updated: 27-Sep-2022 15:22 by Brent Wolf (SUPERIOR COURT JUDGE-LOCK OPERATOR) Normal [facility] CBCon 05-30-2022 Erythrocyte distribution width (RBC) [Ratio] 13.7 % Normal 11.5 - 14.5 [facility] Comment on above: Performed By: #### C BCDF #### [address] [address] Hematocrit (Bld) [Volume fraction] 43.8 % Normal 36.0 - 46.0 [facility] Comment on above: Performed By: #### C BCDF #### [address] [address] Hemoglobin (Bld) [Mass/Vol] 14.0 g/dL Normal 12.0 - 16.0 [facility] Comment on above: Performed By: #### C BCDF #### [address] [address] MCHC (RBC) [Mass/Vol] 32.0 g/dL Normal 32.0 - 36.0 [facility] Comment on above: Performed By: #### C BCDF #### [address] [address] MCV (RBC) [Entitic vol] 88 fL Normal 80 - 100 [facility] Comment on above: Performed By: #### C BCDF #### [address] [address] Platelets (Bld) [#/Vol] 311 10*3/uL Normal 150 - 450 [facility] Comment on above: Performed By: #### C BCDF #### [address] [address] RBC 4.99 x10E12/L Normal 4.00 - 5.20 [facility] Comment on above: Performed By: #### C BCDF #### [address] [address] WBC (Bld) [#/Vol] 8.9 10*3/uL Normal 4.4 - 11.3 [facility] Comment on above: Performed By: #### C BCDF #### [address] [address] COMPREHENSIVE PANELon 2022 Albumin [Mass/Vol] 4.0 g/dL Normal 3.4 - 5.0 [facility] Comment on above: Performed By: #### C MP #### [address] [address] ALP [Catalytic activity/Vol] 64 U/L Normal 33 - 110 [facility] Comment on above: Performed By: #### C MP #### [address] [address] ALT [Catalytic activity/Vol] 14 U/L Normal 7 - 45 [facility] Comment on above: Result Comment: Juju ents treated with Sulfasalazine may generate falsely decreased results for ALT. Performed By: #### C MP #### [address] [address] Anion gap [Moles/Vol] 10 mmol/L Normal 10 - 20 [facility] Comment on above: Performed By: #### C MP #### [address] [address] AST [Catalytic activity/Vol] 13 U/L Normal 9 - 39 [facility] Comment on above: Performed By: #### C MP #### [address] [address] Bilirubin [Mass/Vol] 0.5 mg/dL Normal 0.0 - 1.2 [facility] Comment on above: Performed By: #### C MP #### [address] [address] Calcium [Mass/Vol] 9.4 mg/dL Normal 8.6 - 10.3 [facility] Comment on above: Performed By: #### C MP #### [address] [address] [address] Chloride [Moles/Vol] 101 mmol/L Normal 98 - 107 [facility] Comment on above: Performed By: #### C MP #### [address] [address] Creatinine [Mass/Vol] 0.73 mg/dL Normal 0.50 - 1.05 [facility] Comment on above: Performed By: #### C MP #### [address] [address] eGFR FEMALE >90 Normal >90 [facility] Comment on above: Result Comment: CALC ULATIONS OF ESTIMATED GFR ARE PERFORMED USING THE 2020 CKD-EPI STUDY REFIT EQUATION WITHOUT THE RACE VARIABLE FOR THE IDMS-TRACEABLE CREATININE METHODS. https://jasn.asnjournals.org/content/early//ASN.027411185 8 Performed By: #### C MP #### [address] [address] Glucose [Mass/Vol] 109 mg/dL High 74 - 99 [facility] Comment on above: Performed By: #### C MP #### [address] [address] HCO3 (Bld) [Moles/Vol] 31 mmol/L Normal 21 - 32 [facility] Comment on above: Performed By: #### C MP #### [address] [address] Potassium [Moles/Vol] 3.3 mmol/L Low 3.5 - 5.3 [facility] Comment on above: Performed By: #### C MP #### [address] [address] Protein [Mass/Vol] 6.9 g/dL Normal 6.4 - 8.2 [facility] Comment on above: Performed By: #### C MP #### [address] [address] Sodium [Moles/Vol] 139 mmol/L Normal 136 - 145 [facility] Comment on above: Performed By: #### C MP #### [address] [address] Urea nitrogen [Mass/Vol] 19 mg/dL Normal 6 - 23 [facility] Comment on above: Performed By: #### C MP #### [address] [address] SEDIMENTATION RATE, ERYTHROC YTEon 05-30-2022 SEDIMENTATION RATE, ERYTHROCYTE 4 mm/h Normal 0 - 30 [facility] Comment on above: Performed By: #### C BCDF #### [address] [address] CBC AND DIFFERENTIALon 02-18 % AUTOMATED IMMATURE GRAN 0.3 % Normal 0.0 - 0.9 [facility] Comment on above: Result Comment: Nuha ture Granulocyte Count (IG) includes promyelocytes, myelocytes and metamyelocytes but does not include bands. Percent differential counts (%) should be interpreted in the context of the absolute cell counts (cells/L). Performed By: #### C BCDF #### [address] [address] Basophils (Bld) [#/Vol] 0.03 10*3/uL Normal 0.00 - 0.10 [facility] Comment on above: Performed By: #### C BCDF #### [address] [address] Basophils/100 WBC (Bld) 0.4 % Normal 0.0 - 2.0 [facility] Comment on above: Performed By: #### C BCDF #### [address] [address] Eosinophils (Bld) [#/Vol] 0.10 10*3/uL Normal 0.00 - 0.70 [facility] Comment on above: Performed By: #### C BCDF #### [address] [address] Eosinophils/100 WBC (Bld) 1.4 % Normal 0.0 - 6.0 [facility] Comment on above: Performed By: #### C BCDF #### [address] [address] Erythrocyte distribution width (RBC) [Ratio] 14.0 % Normal 11.5 - 14.5 [facility] Comment on above: Performed By: #### C BCDF #### [address] [address] Hematocrit (Bld) [Volume fraction] 44.4 % Normal 36.0 - 46.0 [facility] Comment on above: Performed By: #### C BCDF #### [address] [address] Hemoglobin (Bld) [Mass/Vol] 14.2 g/dL Normal 12.0 - 16.0 [facility] Comment on above: Performed By: #### C BCDF #### [address] [address] Lymphocytes (Bld) [#/Vol] 1.05 10*3/uL Low 1.20 - 4.80 [facility] Comment on above: Performed By: #### C BCDF #### [address] [address] Lymphocytes/100 WBC (Bld) 15.0 % Normal 13.0 - 44.0 [facility] Comment on above: Performed By: #### C BCDF #### [address] [address] MCHC (RBC) [Mass/Vol] 32.0 g/dL Normal 32.0 - 36.0 [facility] Comment on above: Performed By: #### C BCDF #### [address] [address] MCV (RBC) [Entitic vol] 88 fL Normal 80 - 100 [facility] Comment on above: Performed By: #### C BCDF #### [address] [address] Monocytes (Bld) [#/Vol] 0.50 10*3/uL Normal 0.10 - 1.00 [facility] Comment on above: Performed By: #### C BCDF #### [address] [address] Monocytes/100 WBC (Bld) 7.1 % Normal 2.0 - 10.0 [facility] Comment on above: Performed By: #### C BCDF #### [address] [address] Neutrophils (Bld) [#/Vol] 5.30 10*3/uL Normal 1.20 - 7.70 [facility] Comment on above: Result Comment: Perc ent differential counts (%) should be interpreted in the context of the absolute cell counts (cells/L). Performed By: #### C BCDF #### [address] [address] Neutrophils/100 WBC (Bld) 75.8 % Normal 40.0 - 80.0 [facility] Comment on above: Performed By: #### C BCDF #### [address] [address] Platelets (Bld) [#/Vol] 304 10*3/uL Normal 150 - 450 [facility] Comment on above: Performed By: #### C BCDF #### [address] [address] RBC 5.05 x10E12/L Normal 4.00 - 5.20 [facility] Comment on above: Performed By: #### C BCDF #### [address] [address] WBC (Bld) [#/Vol] 7.0 10*3/uL Normal 4.4 - 11.3 [facility] Comment on above: Performed By: #### C BCDF #### [address] [address] COMPREHENSIVE PANELon 2021 Albumin [Mass/Vol] 4.2 g/dL Normal 3.4 - 5.0 [facility] Comment on above: Performed By: #### C BCDF #### [address] [address] ALP [Catalytic activity/Vol] 53 U/L Normal 33 - 110 [facility] Comment on above: Performed By: #### C BCDF #### [address] [address] ALT [Catalytic activity/Vol] 17 U/L Normal 7 - 45 [facility] Comment on above: Result Comment: Juju ents treated with Sulfasalazine may generate falsely decreased results for ALT. Performed By: #### C BCDF #### [address] [address] Anion gap [Moles/Vol] 10 mmol/L Normal 10 - 20 [facility] Comment on above: Performed By: #### C BCDF #### [address] [address] AST [Catalytic activity/Vol] 18 U/L Normal 9 - 39 [facility] Comment on above: Performed By: #### C BCDF #### [address] [address] Bilirubin [Mass/Vol] 0.7 mg/dL Normal 0.0 - 1.2 [facility] Comment on above: Performed By: #### C BCDF #### [address] [address] Calcium [Mass/Vol] 9.6 mg/dL Normal 8.6 - 10.3 [facility] Comment on above: Performed By: #### C BCDF #### [address] [address] Chloride [Moles/Vol] 100 mmol/L Normal 98 - 107 [facility] Comment on above: Performed By: #### C BCDF #### [address] [address] Creatinine [Mass/Vol] 0.73 mg/dL Normal 0.50 - 1.05 [facility] Comment on above: Performed By: #### C BCDF #### [address] [address] eGFR FEMALE >90 Normal >90 [facility] Comment on above: Result Comment: CALC ULATIONS OF ESTIMATED GFR ARE PERFORMED USING THE 2020 CKD-EPI STUDY REFIT EQUATION WITHOUT THE RACE VARIABLE FOR THE IDMS-TRACEABLE CREATININE METHODS. https://jasn.asnjournals.org/content/early//ASN.362495016 8 Performed By: #### C BCDF #### [address] [address] Glucose [Mass/Vol] 98 mg/dL Normal 74 - 99 [facility] Comment on above: Performed By: #### C BCDF #### [address] [address] HCO3 (Bld) [Moles/Vol] 32 mmol/L Normal 21 - 32 [facility] Comment on above: Performed By: #### C BCDF #### [address] [address] Potassium [Moles/Vol] 3.5 mmol/L Normal 3.5 - 5.3 [facility] Comment on above: Performed By: #### C BCDF #### [address] [address] Protein [Mass/Vol] 6.8 g/dL Normal 6.4 - 8.2 [facility] Comment on above: Performed By: #### C BCDF #### [address] [address] Sodium [Moles/Vol] 138 mmol/L Normal 136 - 145 [facility] Comment on above: Performed By: #### C BCDF #### [address] [address] Urea nitrogen [Mass/Vol] 19 mg/dL Normal 6 - 23 [facility] Comment on above: Performed By: #### C BCDF #### [address] [address] LIPID PANEL (CORONARY RISK 2 )on 02-18-2022 Cholesterol [Mass/Vol] 221 mg/dL High 0 - 199 [facility] Comment on above: Result Comment: . AGE DESIRABLE BORDERLINE HIGH HIGH 0-19 Y 0 - 169 170 - 199 >/= 200 20-24 Y 0 - 189 190 - 224 >/= 225 >24 Y 0 - 199 200 - 239 >/= 240 All ranges are based on fasting samples. Specific therapeutic targets will vary based on patient-specific cardiac risk. . Pediatric guidelines reference:Pediatrics 2011, 128(S5). Adult guidelines reference: NCEP ATPIII Guidelines, PIPPA 2001, 258:2486-97 . Venipuncture immediately after or during the administration of Metamizole may lead to falsely low results. Testing should be performed immediately prior to Metamizole dosing. Performed By: #### L IPID #### [address] [address] Cholesterol in HDL [Mass/Vol] 49.0 mg/dL Normal [facility] Comment on above: Result Comment: . AGE VERY LOW LOW NORMAL HIGH 0-19 Y < 35 < 40 40-45 ---- 20-24 Y ---- < 40 >45 ---- >24 Y ---- < 40 40-60 >60 . Performed By: #### L IPID #### [address] [address] Cholesterol in LDL [Mass/Vol] 143 mg/dL High 0 - 99 [facility] Comment on above: Result Comment: . NEAR BORD AGE DESIRABLE OPTIMAL HIGH HIGH VERY HIGH 0-19 Y 0 - 109 --- 110-129 >/= 130 ---- 20-24 Y 0 - 119 --- 120-159 >/= 160 ---- >24 Y 0 - 99 100-129 130-159 160-189 >/=190 . Performed By: #### L IPID #### [address] [address] Cholesterol in VLDL [Mass/Vol] 29 mg/dL Normal 0 - 40 [facility] Comment on above: Performed By: #### L IPID #### [address] [address] Cholesterol.total/ Cholesterol in HDL [Mass ratio] 4.5 {ratio} Normal [facility] Comment on above: Result Comment: REF VALUES DESIRABLE < 3.4 HIGH RISK > 5.0 Performed By: #### L IPID #### [address] [address] Triglyceride [Mass/Vol] 145 mg/dL Normal 0 - 149 [facility] Comment on above: Result Comment: . AGE DESIRABLE BORDERLINE HIGH HIGH VERY HIGH 0 D-90 D 19 - 174 ---- ---- ---- 91 D- 9 Y 0 - 74 75 - 99 >/= 100 ---- 10-19 Y 0 - 89 90 - 129 >/= 130 ---- 20-24 Y 0 - 114 115 - 149 >/= 150 ---- >24 Y 0 - 149 150 - 199 200- 499 >/= 500 . Venipuncture immediately after or during the administration of Metamizole may lead to falsely low results. Testing should be performed immediately prior to Metamizole dosing. Performed By: #### L IPID #### [address] [address] Provider Note - ED v3on 01-12 Provider Note - ED v3 Provider Note: Chart Review: ED NOTES ED NOTES: Patient presents for evaluation of nasal congestion, cough, headache, body aches, fatigue that has been ongoing for the past week. Has been using albuterol and Breo inhaler without much improvement in symptoms. Denies fever, n/v/d, headache, sore throat, abdominal pains, chest pains, or any other associated symptoms or complaints. No otc meds tried for symptoms. HISTORY OF PRESENTING ILLNESS FRANNIE is a 57 year old Female and was seen by me at 01-Feb-2022 17:26. Triage Information: Most recent Vital Sign Value Date PAST MEDICAL HISTORY ALLERGIES/INTOLERANCES : Allergy Allergen: NKDA Type: Reaction: Allergen: Tape - Adhesive, Bandaids, Paper Type: Environment Reaction: Rash Intolerance Allergen: Latex Type: Latex Reaction: Nausea/Vomiting HEALTH HISTORY: No documented data. OUTPATIENT MEDICATIONS: Home Medications Review Status for Reconciliation: Complete Med Status: Patient Currently Takes Medications Drug Name: acetaminophen 325 mg oral tablet Instructions: 2 tab(s) orally every 6 hours, As Needed Drug Name: budesonide 3 mg oral capsule, extended release Instructions: null Drug Name: lisinopril 20 mg oral tablet Instructions: 1 tab(s) orally once a day Drug Name: hydroCHLOROthiazide 25 mg oral tablet Instructions: 1 tab(s) orally once a day Drug Name: azaTHIOprine 50 mg oral tablet Instructions: 1 tab(s) orally once a day Drug Name: hydrocodone-acetaminop hen 5 mg-325 mg oral tablet Instructions: 1 tab(s) orally every 8 hours Drug Name: Breo Ellipta 100 mcg-25 mcg/inh inhalation powder Instructions: 1 puff(s) inhaled once a day Drug Name: Albuterol (Eqv-Proventil HFA) 90 mcg/inh inhalation aerosol Instructions: 2 puff(s) inhaled every 6 hours Drug Name: azithromycin 250 mg oral tablet Instructions: Take 2 tabs (500mg) x 1 days, then 1 tab (250mg) once daily x 4 days Drug Name: predniSONE 10 mg oral tablet Instructions: 3 tab(s) orally once a day x 5 days Drug Name: albuterol 90 mcg/inh inhalation aerosol Instructions: 2 puff(s) inhaled 2 times a day as needed for cough SIGNIFICANT EVENTS: Clinical Events Description:Surgical Procedure Additional Notes:Examination under anesthesia, seton placement in rectovaginal fistula, exploratory laparotomy, lysis of adhesions, excision of infected umbilical hernia mesh, mobilization of splenic flexure, sigmoid colectomy Past Medical History Description:chrons disease Description:recurrent UTIs Description:Rectal bladder fistula Description:colon resection Description:hernia repairs PRIMARY CARE NURSE: Is : no Is : no REVIEW OF SYSTEMS All other systems reviewed and are negative REVIEW OF SYSTEMS: Comments See HPI PHYSICAL EXAM CONSTITUTIONAL: Well appearing, well nourished, awake, alert, oriented to person, place, time/situation and in no apparent distress. HENMT: Airway patent, ears with clear tympanic membranes bilaterally. Nasal mucosa clear. Mouth with normal mucosa. Throat has no vesicles, no oropharyngeal exudates and uvula is midline. Face with no lymph node enlargement. EYES: Clear bilaterally, pupils equal, round and reactive to light. CARDIOVASCULAR: Normal rate, regular rhythm. Heart sounds S1, S2. No murmurs, rubs or gallops. PMI non-displaced. RESPIRATORY: Decreased air movement bilaterally without rales, rhonchi and wheezing. NEUROLOGICAL: Alert and oriented, no focal deficits, no motor or sensory deficits. SKIN: Skin normal color for race, warm, dry and intact. No evidence of trauma. PSYCHIATRIC: Alert and oriented to person, place, time/situation. normal mood and affect. No apparent risk to self or others. CRITICAL CARE VITAL SIGNS: T PRBP SpO2O2(LPM) %FiO2 Method 01-Feb-2022 17:12:[id number] 4 98 MDM MDM/ED COURSE: Discussed Findings with: patient Data Reviewed: vital signs Treatment Plan: Zpak, prednisone and albuterol inhaler. Encouraged pt to continue inhalers as directed, push by mouth fluids and rest. Discharged with instructions to return to office, f/u with PCP or go to ED if symptoms do not improve or worsen. DISPOSITION Diagnosis/Annotation: ED Dx Name:Acute upper respiratory infection Code:J06.9 Disposition: discharged Type: home CONSULT CRITICAL CARE TIME Is this a critically ill patient: no Electronic Signatures: Brent Wolf (SUPERIOR COURT JUDGE-LOCK OPERATOR) (Signed 01-Feb-2022 22:09) Authored: ED Notes, HPI, PMH, ROS, PE, Results/Vital Signs, MDM/ED Course, Clinical Impression, Attestation, Chart Review, Scores Last Updated: 01-Feb-2022 22:09 by Brent Wolf (SUPERIOR COURT JUDGE-LOCK OPERATOR) Normal [facility] Cult, Urineon 04-24-2021 Bacteria identified Cx Nom (U) [facility] Work Phone: Bacteria identified Cx Nom (U) Abnormal [facility] Work Phone: Established Visit (Colon and Rectal Surgery)on 04-07-2019 Established Visit (Colon and Rectal Surgery) History of Present Illness Frannie Galvan is a 54 yo F with history of Crohn's disease, colovesicular and rectovaginal fistula, as well as diverticular disease. In December 2016 she underwent an EUA, placement of draining seton, laparotomy, WILI, excision of infected umbilical hernia mesh,takedown of colovesical fistula, and sigmoid colectomy with colorectal anastomosis. She was last seen in clinic in 2017 with symptomatic anovaginal fistula that was controlled with seton. Discussed mucosal advancement flap repair vs. conservative management with long-term draining seton. She presents to clinic today for follow-up. Fistula is minimally symptomatic at present and seton is not bothering her much. Active Problems Acute cystitis without hematuria (595.0) (N30.00) Colovesical fistula (596.1) (N32.1) Crohn disease (555.9) (K50.90) Rectovaginal fistula (619.1) (N82.3) Past Medical History History of cataract (V12.49) (Z86.69) History of Crohn's disease (V12.70) (Z87.19) History of seasonal allergies (V15.09) (Z88.9) Surgical History History of Anal Fistulectomy History of Cataract Surgery History of Inguinal Hernia Repair History of Tonsillectomy History of Umbilical Hernia Repair Family History Family history of cardiac disorder (V17.49) (Z82.49) Family history of cerebrovascular accident (CVA) (V17.1) (Z82.3) Social History Full-time employment Never smoker No alcohol use Allergies Adhesive Tape TAPE Recorded By: Adele Martinez; 09/27/2016 2:22:08 PM Latex Gloves MISC Recorded By: Adele Martinez; 09/27/2016 2:22:08 PM Current Meds azaTHIOprine 50 MG Oral Tablet; TAKE 1 TABLET 3 TIMES DAILY; Therapy: 21Mar2017 to Recorded Dispense: 0 Days ; #: Sufficient Tablet; Refill: 0; RAMON = N; Record; Last Updated By: Adele Martinez; 03/21/2017 10:34:29 AM Vitals Vital Signs Recorded: 02Apr2019 02:57PM Heart Rate96 Mfnoyovi251 Wafjdsqlw28 Height5 ft 6 in Xfswth014 lb BMI Dhtziohpci29.71 BSA Calculated2.3 Physical Exam Constitutional: General appearance: In no acute distress, well appearing and well nourished. Abdomen and Pelvis: Examination of Anus and Perineum: Abnormal. draining silastic seton in place. Diagnoses/Problems Rectovaginal fistula (619.1) (N82.3) Crohn disease (555.9) (K50.90) Provider Impressions Anovaginal fistula. Minimal symptoms with seton in place.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 [facility] 08-28-2023 10:52-0400 SaO2% (BldA) [Mass fraction] 96 % Zach Ritter MD MPH Work Phone: [facility] 08-28-2023 10:52-0400 Systolic blood pressure 130 mm[Hg] Zach Ritter MD MPH Work Phone: [facility] 07-17-2023 13:21-0400 Body height 165 cm Zach Ritter MD MPH Work Phone: [facility] 07-17-2023 13:21-0400 Body mass index (BMI) [Ratio] 47.1 kg/m2 Zach Ritter MD MPH Work Phone: [facility] 07-17-2023 13:21-0400 Body weight 128.23 kg Zach Ritter MD MPH Work Phone: [facility] 07-17-2023 13:21-0400 Diastolic blood pressure 92 mm[Hg] Zach Ritter MD MPH Work Phone: [facility] 07-17-2023 13:21-0400 Heart rate 65 /min Zach Ritter MD MPH Work Phone: [facility] 07-17-2023 13:21-0400 SaO2% (BldA) [Mass fraction] 95 % Zach Ritter MD MPH Work Phone: [facility] 07-17-2023 13:21-0400 Systolic blood pressure 130 mm[Hg] Zach Ritter MD MPH Work Phone: [facility] 04-18-2023 16:37-0500 Body height 165 cm Zach Ritter MD MPH Work Phone: [facility] 04-18-2023 16:37-0500 Body mass index (BMI) [Ratio] 47 kg/m2 Zach Ritter MD MPH Work Phone: [facility] 04-18-2023 16:37-0500 Body weight 127.96 kg Zach Ritter MD MPH Work Phone: [facility] 04-18-2023 16:37-0500 Diastolic blood pressure 94 mm[Hg] Zach Ritter MD MPH Work Phone: [facility] 04-18-2023 16:37-0500 Heart rate 84 /min Zach Ritter MD MPH Work Phone: [facility] 04-18-2023 16:37-0500 SaO2% (BldA) [Mass fraction] 96 % Zach Ritter MD MPH Work Phone: [facility] 04-18-2023 16:37-0500 Systolic blood pressure 138 mm[Hg] Zach Ritter MD MPH Work Phone: [facility] 01-28-2023 10:29-0500 Body height 165 cm Brent Wolf SUPERIOR COURT JUDGE-LOCK OPERATOR Work Phone: [facility] 01-28-2023 10:29-0500 Body mass index (BMI) [Ratio] 47.32 kg/m2 Brent Wolf SUPERIOR [facility] JUDGE-LOCK OPERATOR Work Phone: [facility] 01-28-2023 10:29-0500 Body temperature 97.2 [degF] Brent Wolf SUPERIOR COURT JUDGE-LOCK OPERATOR Work Phone: [facility] 01-28-2023 10:29-0500 Body weight 128.82 kg Brent Wolf SUPERIOR [facility] JUDGE-LOCK OPERATOR Work Phone: [facility] 01-28-2023 10:29-0500 Diastolic blood pressure 86 mm[Hg] Brent Wolf SUPERIOR COURT JUDGE-LOCK OPERATOR Work Phone: [facility] 01-28-2023 10:29-0500 Heart rate 69 /min Brent Wolf SUPERIOR COURT JUDGE-LOCK OPERATOR Work Phone: [facility] 01-28-2023 10:29-0500 SaO2% (BldA) [Mass fraction] 95 % Brent Wolf SUPERIOR COURT JUDGE-LOCK OPERATOR Work Phone: [facility] 01-28-2023 10:29-0500 Systolic blood pressure 141 mm[Hg] Brent Wolf SUPERIOR COURT JUDGE-LOCK OPERATOR Work Phone: [facility] 09-27-2022 14:57-0400 Body height 167.6 cm Leighton Shrestha Other Phone: [facility] 09-27-2022 14:57-0400 Body temperature 97.52 [degF] Leighton Shrestha Other Phone: [facility] 09-27-2022 14:57-0400 Diastolic blood pressure 84 mm[Hg] Leighton Shrestha Other Phone: [facility] 09-27-2022 14:57-0400 Heart rate 74 /min Leighton Shrestha Other Phone: [facility] 09-27-2022 14:57-0400 SaO2% (BldA) [Mass fraction] 96 % Leighton Shrestha Other Phone: [facility] 09-27-2022 14:57-0400 Systolic blood pressure 144 mm[Hg] Leighton Shrestha Other Phone: [facility] 02-01-2022 19:12-0500 Body height 168 cm Leighton Shrestha Other Phone: [facility] 02-01-2022 19:12-0500 Body temperature 97.34 [degF] Leighton Shrestha Other Phone: [facility] 02-01-2022 19:12-0500 Diastolic blood pressure 84 mm[Hg] Leighton Shrestha Other Phone: [facility] 02-01-2022 19:12-0500 Heart rate 83 /min Leighton Shrestha Other Phone: [facility] 02-01-2022 19:12-0500 Respiratory rate 16 /min Leighton Shrestha Other Phone: [facility] 02-01-2022 19:12-0500 SaO2% (BldA) [Mass fraction] 98 % Leighton Shrestha Other Phone: [facility] 02-01-2022 19:12-0500 Systolic blood pressure 126 mm[Hg] Leighton Shrestha Other Phone: [facility] 04-24-2021 13:10-0500 Body height 170 cm Leighton Shrestha Other Phone: [facility] 04-24-2021 13:10-0500 Body temperature 96.8 [degF] Leighton Shrestha Other Phone: [facility] 04-24-2021 13:10-0500 Diastolic blood pressure 73 mm[Hg] Leighton Shrestha Other Phone: [facility] 04-24-2021 13:10-0500 Heart rate 82 /min Leighton Shrestha Other Phone: [facility] 04-24-2021 13:10-0500 SaO2% (BldA) [Mass fraction] 98 % Leighton Shrestha Other Phone: [facility] 04-24-2021 13:10-0500 Systolic blood pressure 116 mm[Hg] Leighton Shrestha Other Phone: [facility] 04-09-2021 04:21-0500 Diastolic blood pressure 87 mm[Hg] Leighton Shrestha Other Phone: [facility] 04-09-2021 04:21-0500 Heart rate 66 /min Leighton Shrestha Other Phone: [facility] 04-09-2021 04:21-0500 Respiratory rate 16 /min Leighton Shrestha Other Phone: [facility] 04-09-2021 04:21-0500 SaO2% (BldA) [Mass fraction] 99 % Leighton Shrestha Other Phone: [facility] 04-09-2021 04:21-0500 Systolic blood pressure 96 mm[Hg] Leighton Shrestha Other Phone: [facility] 10-05-2020 19:14-0400 Body height 167.6 cm Leighton Shrestha Other Phone: [facility] 10-05-2020 19:14-0400 Body temperature 97.16 [degF] Leighton Shrestha Other Phone: [facility] 10-05-2020 19:14-0400 Diastolic blood pressure 81 mm[Hg] Leighton Shrestha Other Phone: [facility] 10-05-2020 19:14-0400 Heart rate 80 /min Leighton Shrestha Other Phone: [facility] 10-05-2020 19:14-0400 SaO2% (BldA) [Mass fraction] 95 % Leighton Shrestha Other Phone: [facility] 10-05-2020 19:14-0400 Systolic blood pressure 126 mm[Hg] Leighton Shrestha Other Phone: [facility] 09-18-2020 18:34-0400 Body height 167.6 cm Leighton Shrestha Other Phone: [facility] 09-18-2020 18:34-0400 Body temperature 96.98 [degF] Leighton Shrestha Other Phone: [facility] 09-18-2020 18:34-0400 Diastolic blood pressure 77 mm[Hg] Leighton Shrestha Other Phone: [facility] 09-18-2020 18:34-0400 Heart rate 68 /min Leighton Shrestha Other Phone: [facility] 09-18-2020 18:34-0400 Respiratory rate 16 /min Leighton Shrestha Other Phone: [facility] 09-18-2020 18:34-0400 SaO2% (BldA) [Mass fraction] 96 % Leighton Shrestha Other Phone: [facility] 09-18-2020 18:34-0400 Systolic blood pressure 140 mm[Hg] Leighton Shrestha Other Phone: [facility] Encounters Encounter Date Encounter Type Care Provider Facility Start: 10-22-2024 End: 10-22-2024 ambulatory HANNAH CHAMPION [facility] Start: 10-22-2024 End: 10-22-2024 Office outpatient visit 25 minutes Hannah Katerin Champion DO Work Phone: [facility] Comment on above: Nephrolithiasis (Samantha jenny Dx) Start: 10-09-2024 End: 10-09-2024 Office outpatient visit 25 minutes Hannah Katerin Champion DO Work Phone: [facility] Comment on above: Vaginal candidiasis (Primary Dx); Diverticulitis Start: 10-09-2024 End: 10-09-2024 ambulatory HANNAH CHAMPION [facility] Start: 09-25-2024 End: 09-25-2024 Emergency department patient visit HANNAH CHAMPION [facility] Start: 09-25-2024 End: 09-25-2024 Office outpatient visit 25 minutes Hannah Champion DO Work Phone: [facility] Comment on above: RUQ pain (Primary Dx ); Dysuria Start: 09-25-2024 End: 09-25-2024 ambulatory HANNAH CHAMPION [facility] Start: 09-09-2024 End: 09-09-2024 Office outpatient new 30 minutes Vicki Leung LOCK OPERATOR Work Phone: [facility] Comment on above: Bursitis and tendini tis of shoulder region (Primary Dx); Inferior subluxation of left glenohumeral joint Start: 09-09-2024 End: 09-13-2024 ambulatory HANNAH Katerin CHAMPION [facility] Start: 08-26-2024 End: 08-26-2024 Patient encounter procedure Brent Wolf SUPERIOR COURT JUDGE-LOCK OPERATOR Work Phone: [facility] Comment on above: Acute cystitis with hematuria (Primary Dx); Dysuria Start: 08-26-2024 End: 08-26-2024 ambulatory [facility]ANNAH [facility] Start: 08-09-2024 End: 10-09-2024 Follow-up encounter Vicki Leung LOCK OPERATOR Work Phone: [facility] Comment on above: XR Shoulder Left 2+ Views (Standard) Start: 08-08-2024 End: 08-09-2024 Refill Hannah R. Akira DO Work Phone: [facility] Comment on above: Type 2 diabetes mary itus without complication, without long- term current use of insulin (HCC) (Primary Dx) Start: 08-08-2024 End: 08-08-2024 Office outpatient visit 25 minutes Vicki Leung LOCK OPERATOR Work Phone: [facility] Comment on above: Acute pain of left s houlder (Primary Dx); Cervical radiculopathy Start: 07-22-2024 End: 07-22-2024 ambulatory HANNAH Katerin CHAMPION [facility] Start: 07-22-2024 End: 07-22-2024 Office outpatient visit 40 minutes Hannah R. Akira DO Work Phone: [facility] Comment on above: Type 2 diabetes mary itus without complication, without long- term current use of insulin (HCC) (Primary Dx); Rash; Primary hypertension Start: 07-12-2024 End: 07-12-2024 Refill Hannah R. Akira DO Work Phone: [facility] Comment on above: Primary hypertension Start: 05-28-2024 End: 05-28-2024 Office outpatient visit 40 minutes Gabino Holt DO Work Phone: [facility] Comment on above: Moderate persistent asthma without complication ([facility]-HCC) (Primary Dx); Seasonal allergies Start: 05-28-2024 End: 05-28-[address] [facility] Start: 05-23-2024 End: 05-23-2024 Documentation procedure Hannah Champion DO Work Phone: [facility] Comment on above: FMLA DOCUMENTATION Start: 05-20-2024 End: 05-20-2024 ambulatory HANNAH Conklin [facility] Start: 05-20-2024 End: 05-20-2024 Office outpatient visit 15 minutes Hannah Champion DO Work Phone: [facility] Comment on above: Type 2 diabetes mary itus without complication, without long- term current use of insulin (HCC) (Primary Dx) Start: 04-24-2024 End: 04-24-2024 ambulatory HANNAH Conklin [facility] Start: 04-24-2024 End: 04-24-2024 Office outpatient visit 25 minutes Hannah Champion DO Work Phone: [facility] Comment on above: Type 2 diabetes mary itus without complication, without long- term current use of insulin (HCC) (Primary Dx); Primary hypertension; Vitamin D deficiency; Subacute cough; Fatigue, unspecified type; Leg cramps; Crohn's disease with fistula, unspecified gastrointestinal tract location (HCC) Start: 04-17-2024 End: 04-17-2024 Patient encounter procedure Brent Wolf SUPERIOR COURT JUDGE-LOCK OPERATOR Work Phone: [facility] Comment on above: Influenza A (Primary Dx); Acute upper respiratory infection Start: 04-17-2024 End: 04-17-2024 ambulatory [facility] Start: 02-27-2024 End: 02-27-2024 Patient encounter procedure Sushma Wood SUPERIOR COURT JUDGE-LOCK OPERATOR Work Phone: [facility] Comment on above: Mild intermittent as thma with acute exacerbation (HHS-HCC) (Primary Dx); Acute cough Start: 02-27-2024 End: 02-28-2024 ambulatory Maury Ramirez Facility:[facility] Start: 02-22-2024 End: 02-22-2024 Office outpatient visit 25 minutes Hannah Champion DO Work Phone: [facility] Comment on above: Rash (Primary Dx); Type 2 diabetes mellitus without complication, without long-term current use of insulin (HCC) Start: 02-22-2024 End: 02-22-2024 ambulatory HANNAH CHAMPION [facility] Start: 2024 End: 01-29-2024 ambulatory HANNAH CHAMPION [facility] Start: 2024 End: 2024 Office outpatient new 45 minutes Hannah Champion DO Work Phone: [facility] Comment on above: Crohn's disease with fistula, unspecified gastrointestinal tract location (HCC) (Primary Dx); Umbilical hernia without obstruction and without gangrene Start: 2024 End: 2024 ambulatory HANNAH CHAMPION [facility] Start: 01-23-2024 End: 01-23-2024 Office outpatient new 45 minutes Hannah Champion DO Work Phone: [facility] Comment on above: Type 2 diabetes mary itus without complication, without long- term current use of insulin (HCC) (Primary Dx); Umbilical hernia without obstruction and without gangrene; Primary hypertension; Moderate persistent asthma without complication; Crohn's disease with fistula, unspecified gastrointestinal tract location (HCC) Start: 01-23-2024 End: 01-23-2024 ambulatory HANNAH CHAMPION [facility] Start: 12-12-2023 End: 12-12-2023 Office outpatient visit 25 minutes Gabino Holt DO Work Phone: [facility] Comment on above: Moderate persistent asthma without complication (HHS-HCC) (Primary Dx); Seasonal allergies Start: 12-12-2023 End: 12-12-2023 [facility]ulatory [place] [facility] Start: 11-08-2023 End: 11-08-2023 ambulatory Maury Ramirez Facility:[facility] Start: 11-01-2023 End: 11-01-2023 ambulatory [facility] Start: 10-31-2023 End: 10-31-2023 Office outpatient visit 15 minutes Zach Ritter MD MPH Work Phone: [facility] Comment on above: Type 2 diabetes mary itus without complication, without long- term current use of insulin (Multi) (Primary Dx); Asthma with acute exacerbation, unspecified asthma severity, unspecified whether persistent (HHS-HCC) Start: 10-31-2023 End: 10-31-2023 ambulatory [facility] Start: 09-28-2023 End: 09-28-2023 Office outpatient visit 25 minutes Gabino Holt DO Work Phone: [facility] Comment on above: Mild persistent asth ma without complication (HHS-HCC) (Primary Dx); Seasonal allergies; Gastroesophageal reflux disease without esophagitis Start: 09-20-2023 End: 09-20-2023 Erroneous Encounter Gabino Holt DO Work Phone: [facility] Start: 09-12-2023 End: 09-12-2023 Subsequent hospital visit by physician Akira Hines Room [facility] Comment on above: Moderate persistent asthma without complication (HHS-HCC) Start: 09-12-2023 End: 09-12-[address] [facility] Start: 09-05-2023 End: 09-05-2023 ambulatory [facility] Start: 09-05-2023 End: 09-05-2023 Office outpatient new 45 minutes Gabino Holt DO Work Phone: [facility] Comment on above: Moderate persistent asthma without complication (HHS-HCC) (Primary Dx); Asthma with acute exacerbation, unspecified asthma severity, unspecified whether persistent (HHS-HCC); Seasonal allergies Start: 08-28-2023 End: 08-28-2023 Office outpatient visit 25 minutes Zach Ritter MD MPH Work Phone: [facility] Comment on above: Type 2 diabetes mary itus without complication, without long- term current use of insulin (Multi) (Primary Dx); Asthma with acute exacerbation, unspecified asthma severity, unspecified whether persistent (HHS-HCC); Asthma, unspecified asthma severity, unspecified whether complicated, unspecified whether persistent (HHS-HCC) Start: 08-26-2023 End: 08-26-2023 ambulatory [facility] Start: 08-23-2023 End: 08-23-2023 ambulatory [facility] Start: 07-17-2023 End: 07-17-2023 Office outpatient visit 25 minutes Zach Ritter MD MPH Work Phone: [facility] Comment on above: Asthma with acute ex acerbation, unspecified asthma severity, unspecified whether persistent (HHS-HCC) (Primary Dx); Primary hypertension; Type 2 diabetes mellitus without complication, without long-term current use of insulin (Multi) Start: 07-12-2023 End: 07-12-2023 ambulatory [facility] Start: 05-01-2023 End: 05-01-2023 Subsequent hospital visit by physician Akira [id number] [facility] Comment on above: Chronic pain of left ankle Start: 04-18-2023 End: 04-18-2023 Office outpatient new 45 minutes Zach Ritter MD MPH Work Phone: [facility] Comment on above: Encounter to [facility] (Primary Dx); Primary hypertension; Vitamin D deficiency; Impaired fasting glucose; Mixed hyperlipidemia; Chronic pain of left ankle; H/O Crohn's disease; Asthma, unspecified asthma severity, unspecified whether complicated, unspecified whether persistent Start: 01-28-2023 End: 01-28-2023 Patient encounter procedure Brent Wolf SUPERIOR COURT JUDGE-LOCK OPERATOR Work Phone: [facility] Comment on above: Acute bronchitis, un specified organism (Primary Dx) Start: 09-27-2022 ambulatory Ms. Rod Caban Facility:[id number] Start: 09-27-2022 End: 09-27-2022 Emergency department patient visit [facility] Start: 02-01-2022 End: 02-01-2022 Emergency department patient visit [facility] Start: 04-24-2021 End: 04-24-2021 Emergency department patient visit [facility] Start: 04-12-2021 End: 04-12-2021 ambulatory PROVIDER NOT IN SYSTEM [facility] Start: 04-08-2021 End: 04-09-2021 Emergency department patient visit Gary Lucas [facility] Emergency 04 Start: 10-05-2020 End: 10-05-2020 Emergency department patient visit [facility] Start: 09-18-2020 End: 09-18-2020 Emergency department patient visit [facility] Start: 04-07-2017 AUDIT Rod Winklerabdullahi boggs Work Phone: [facility] Work Phone: Start: 03-21-2017 Postop follow up vis it related to original px Rod Winkleryuri Work Phone: [facility] Work Phone: Procedures Date Procedure Procedure Detail Performing Clinician Start: 10-22-2024 Urnls dip stick/tabl et rgnt non-auto w/o micrscp Hannah Champion DO Work Phone: Start: 09-25-2024 Urnls dip stick/tabl et rgnt auto w/o microscopy Hannah Champion DO Work Phone: Start: 08-26-2024 Urnls dip stick/tabl et rgnt non-auto w/o micrscp Brent Sancho Olguinlatasha SUPERIOR COURT JUDGE-LOCK OPERATOR Work Phone: Start: 07-22-2024 Hemoglobin glycosyla marsha a1c Hannah Champion DO Work Phone: Start: 05-20-2024 Follow-up visit Follow-up HANNAH CHAMPION Start: 04-24-2024 Comprehensive metabo lic panel Hannah Champion DO Work Phone: Start: 04-24-2024 Urine albumin quantitative Hannah Champion DO Work Phone: Start: 04-17-2024 POCT SARS-COV-2/FLU/ RSV PCR SYMPTOMATIC Brent Sancho Florian SUPERIOR COURT JUDGE-LOCK OPERATOR Work Phone: Start: 02-27-2024 POCT SARS-COV-2/FLU/ RSV PCR SYMPTOMATIC Sushma Wood SUPERIOR COURT JUDGE-LOCK OPERATOR Work Phone: Start: 01-23-2024 Hemoglobin glycosyla marsha a1c Hannah Champion DO Work Phone: Start: 07-12-2023 Comprehensive metabo lic 2000 panel - Serum or Plasma ZACH TREJOLASHON Start: 07-12-2023 Hemoglobin A1c/Hemoglobin.total in Blood ZACH TREJOREDDI Start: 07-12-2023 Lipid panel ZACH MEDINA PAREDDI Start: 07-12-2023 VITAMIN D 25-HYDROXY,TOTAL ZACH TREJOREDDI Start: 07-12-2023 Lipid 1996 panel - S edith or Plasma Zach Ritter MD MPH Work Phone: Start: 05-01-2023 Radex ankle complete minimum 3 views Zach Ritter MD MPH Work Phone: Start: 11-07-2022 Lipid 1996 panel - S edith or Plasma Brent Wolf SUPERIOR COURT JUDGE-LOCK OPERATOR Work Phone: Start: 06-26-2014 Microscopic observat ion [Identifier] in Cervix by Cyto stain Brent Wolf SUPERIOR COURT JUDGE-LOCK OPERATOR Work Phone: Anal fistulectomy Rod Alcala Lázaro miller Work Phone: Cataract surgery Rod Winkler yuri Work Phone: Inguinal Hernia Repair Rod Alcala Mee Work Phone: Tonsillectomy Rod Alcala Audie boggs Work Phone: Umbilical Hernia Repair Terr [facility] Cari Caban Work Phone: Plan of Treatment Date Care Activity Detail Author Start: 11-08-2027 Lipid panel Lipid Panel [facility] Start: 10-09-2025 Diabetic foot examination Diabetic F oot Exam [facility] Start: 09-25-2025 eGFR Diabetes eGFR Diabetes [facility] Start: 07-22-2025 Depression screening using PHQ-9 (Patient Health Questionnaire 9) score Depression Screening/Follow-Up (PHQ-2/9) [facility] Start: 04-24-2025 Cyanocobalamin vitam in b-12 Vitamin B-12 [facility] Start: 04-24-2025 eGFR Diabetes eGFR Diabetes [facility] Start: 04-24-2025 Urine screening for protein [facility] Start: 01-22-2025 Depression screening using PHQ-9 (Patient Health Questionnaire 9) score Depression Screening/Follow-Up (PHQ-2/9) [facility] Start: 01-22-2025 Hemoglobin A1c measurement A1C [facility] Start: 01-14-2025 End: 01-14-2025 Patient encounter procedure 01/14/2025 9:00 AM EST Office Visit [facility] [address] [place] [address] Hannah Champion DO [address] [place] [id number] [facility] Start: 11-11-2024 Influenza vaccination [facility] Start: 10-22-2024 Hemoglobin A1c measurement [facility] Start: 09-27-2024 End: 09-27-2024 Patient encounter procedure [facility] Start: 07-22-2024 Hemoglobin A1c measurement [facility] Start: 07-22-2024 End: 07-22-2024 Patient encounter procedure 07/22/2024 8:40 AM EDT Office Visit [facility] [address] [place] [address] Hannah Champion DO [address] [address] [facility] Start: 07-11-2024 Lipid panel Lipid Panel [facility] Start: 07-11-2024 Vitamin D25-[place] Vitamin D25-OH [facility] Start: 05-20-2024 End: 05-20-2024 Patient encounter procedure 05/20/2024 8:40 AM EDT Office Visit [facility] [address] [place] [address] Hannah Champion DO [address] [address] [facility] Start: 04-26-2024 End: 04-26-2024 Patient encounter procedure 04/26/2024 8:30 AM EST Office Visit [place] [id number] [place] [address] Gabino Holt DO [address] [place] [address] [facility] Start: 04-24-2024 End: 04-24-2024 Patient encounter procedure 04/24/2024 8:40 AM EST Office Visit [facility] [address] [place] [address] Hannah Champion DO [address] [address] [facility] Start: 04-15-2024 End: 04-15-2024 Patient encounter procedure 04/15/2024 8:00 AM EST Office Visit [facility] [address] [place] [address] Gabino Holt DO [address] [place] [address] [facility] Start: 03-11-2024 End: 03-11-2024 Patient encounter procedure 03/11/2024 9:20 AM EST Office Visit [facility] [address] [place] [address] Hannah Champion DO [address] [address] [facility] Start: 03-07-2024 End: 03-07-2024 Patient encounter procedure 03/07/2024 3:00 PM EST Office Visit [facility] [address] [place] [id number] Mora Spear MD [address] [facility] [address] [place] [address] [facility] Start: 02-22-2024 End: 02-22-2024 Patient encounter procedure 02/22/2024 9:00 AM EST Office Visit [facility] [address] [place] [address] Hannah Champion DO [address] [address] [facility] Start: 02-01-2024 Hemoglobin A1c measurement Diabetes: Hemoglobin A1C [facility] Start: 2024 End: 2024 ambulatory 2024 3:30 PM EST Patient Outreach [facility] [address] [place] [address] [facility] Start: 12-12-2023 End: 12-12-2023 Patient encounter procedure 12/12/2023 3:30 PM EDT Office Visit [facility] [address] [place] [id number] Gabino Holt DO [address] [place] [address] [facility] Start: 11-12-2023 COVID-19 Vaccine () COVID-19 Vaccine ( season) [facility] Start: 11-12-2023 Influenza vaccination [facility] Start: 11-07-2023 End: 10-30-2024 Basic metabolic 2000 panel - Serum or Plasma Basic Metabolic Panel Lab Routine Type 2 diabetes mellitus without complication, without long-term current use of insulin (Multi) Expected: 11/07/2023 (Approximate), Expires: 10/30/2024 [facility] Work Phone: Comment on above: Expected: 11/07/2023 (Approximate), Expires: 10/30/2024 Start: 10-31-2023 End: 10-30-2024 Hemoglobin A1c/Hemoglobin.total in Blood Hemoglobin A1C Lab Routine Type 2 diabetes mellitus without complication, without long-term current use of insulin (Multi) Expected: 10/31/2023 (Approximate), Expires: 10/30/2024 [facility] Service Area Work Phone: Comment on above: Expected: 10/31/2023 (Approximate), Expires: 10/30/2024 Start: 10-30-2023 End: 10-30-2023 Patient encounter procedure 10/30/2023 9:40 AM EDT Office Visit [facility] [address] [place] [phone] Zach Ritter MD MPH [address] [facility] [address] [place] [address] [facility] Start: 10-12-2023 Hemoglobin A1c measurement Diabetes: Hemoglobin A1C [facility] Start: 10-12-2023 End: 10-12-2023 Patient encounter procedure 10/12/2023 8:00 AM EDT Office Visit [facility] [address] [place] [id number] Gabino Holt DO [address] [place] [address] [facility] Start: 09-28-2023 End: 09-28-2023 Patient encounter procedure 09/28/2023 8:00 AM EDT Office Visit [facility] [address] [place] [address] Gabino Hlot DO [address] [place] [address] [facility] Start: 09-20-2023 End: 09-20-2023 Patient encounter procedure 09/20/2023 9:20 AM EDT Office Visit [facility] [address] [place] [address] Gabino Holt DO [address] [place] [address] [facility] Start: 09-12-2023 End: 09-12-2023 Patient encounter procedure [facility] Start: 09-05-2023 End: 09-04-2024 Complete Pulmonary Function Test Pre/Post Bronchodialator (Spirometry Pre/Post/DLCO/Lung Volumes) Complete Pulmonary Function Test Pre/Post Bronchodialator (Spirometry Pre/Post/DLCO/Lung Volumes) PFT Routine Moderate persistent asthma without complication (HHS-HCC) Expected: 09/05/2023 (Approximate), Expires: 09/04/2024 [facility] Work Phone: Comment on above: Expected: 09/05/2023 (Approximate), Expires: 09/04/2024 Start: 09-05-2023 End: 09-04-2024 Exhaled Nitric Oxide (FeNO) Exhaled Nitric Oxide (FeNO) PFT Routine Moderate persistent asthma without complication (HHS-HCC) Expected: 09/05/2023 (Approximate), Expires: 09/04/2024 [facility] Service Area Work Phone: Comment on above: Expected: 09/05/2023 (Approximate), Expires: 09/04/2024 Start: 09-05-2023 End: 09-05-2023 Patient encounter procedure 09/05/2023 10:40 AM EDT Office Visit [facility] [address] [place] [phone] Gabino Holt DO [address] [place] [address] [facility] Start: 08-18-2023 End: 08-18-2023 Patient encounter procedure 08/18/2023 8:40 AM EDT Office Visit [facility] [address] [place] [phone] Zach Ritter MD MPH [address] [facility] [address] [place] [address] [facility] Start: 07-17-2023 End: 07-17-2023 Patient encounter procedure 07/17/2023 5:00 PM EDT Office Visit [facility] [address] [place] [id number] Zach Ritter MD MPH [address] [facility], [address] [place] [address] [facility] Start: 07-17-2023 End: 07-16-2024 Basic metabolic 2000 panel - Serum or Plasma Basic Metabolic Panel Lab Routine Type 2 diabetes mellitus without complication, without long-term current use of insulin (Multi) Expected: 07/17/2023 (Approximate), Expires: 07/16/2024 [facility] Service Area Work Phone: Comment on above: Expected: 07/17/2023 (Approximate), Expires: 07/16/2024 Start: 04-18-2023 End: 04-18-2024 25-hydroxyvitamin D3 [Mass/volume] in Serum or Plasma Vitamin D 25-Hydroxy,Total (for eval of Vitamin D levels) Lab Routine Vitamin D deficiency Expected: 04/18/2023 (Approximate), Expires: 04/18/2024 [facility] Service Area Work Phone: Comment on above: Expected: 04/18/2023 (Approximate), Expires: 04/18/2024 Start: 04-18-2023 End: 04-18-2024 Comprehensive metabolic 2000 panel - Serum or Plasma Comprehensive Metabolic Panel Lab Routine Impaired fasting glucose Expected: 04/18/2023 (Approximate), Expires: 04/18/2024 [facility] Work Phone: Comment on above: Expected: 04/18/2023 (Approximate), Expires: 04/18/2024 Start: 04-18-2023 End: 04-18-2024 Hemoglobin A1c/Hemoglobin.total in Blood Hemoglobin A1C Lab Routine Impaired fasting glucose Expected: 04/18/2023 (Approximate), Expires: 04/18/2024 [facility] Work Phone: Comment on above: Expected: 04/18/2023 (Approximate), Expires: 04/18/2024 Start: 04-18-2023 End: 04-18-2024 Lipid 1996 panel - Serum or Plasma Lipid Panel Lab Routine Mixed hyperlipidemia Expected: 04/18/2023 (Approximate), Expires: 04/18/2024 [facility] Work Phone: Comment on above: Expected: 04/18/2023 (Approximate), Expires: 04/18/2024 Start: 04-18-2023 End: 04-18-2024 XR Ankle - left 3 Views XR ankle left 3+ views Imaging Routine Chronic pain of left ankle Expected: 04/18/2023, Expires: 04/18/2024 [facility] Work Phone: Comment on above: Expected: 04/18/2023 , Expires: 04/18/2024 Start: 2023 Respiratory Syncytia l Virus Immunization: Risk, 60-74 Risk, or 75+ (1 - Risk 60-74 years 1-dose series) Respiratory Syncytial Virus Immunization: Risk, 60-74 Risk, or 75+ (1 - Risk 60-74 years 1-dose series) [facility] Start: 2023 RSV High Risk: (Elde rly (60+) or Population) (1 - Risk 60-74 years 1-dose series) RSV High Risk: (Elderly (60+) or Population) (1 - Risk 60-74 years 1-dose series) [facility] Start: 2023 RSV patient s and/or patients aged 60+ years (1 - 1-dose 60+ series) RSV patients and/or patients aged 60+ years (1 - 1-dose 60+ series) [facility] Start: 11-11-2022 Influenza vaccination Influenza Vacc ine (#1) [facility] Start: 04-25-2021 Urine screening for protein Diabetes: Urine Protein Screening [facility] Start: 07-03-2020 COVID-19 Vaccine (3 - Moderna risk series) COVID-19 Vaccine (3 - Moderna risk series) [facility] Start: 06-26-2017 Screening for malign ant neoplasm of cervix [facility] Start: 2013 Administration of he rpes zoster vaccine Zoster Vaccines (1 of 2) [facility] Start: 2013 Screening for malign ant neoplasm of colon Flexible sigmoid[facility] Start: 2013 Zoster Vaccines (1 of 2) Zoster Vacc robert (1 of 2) [facility] Start: 08-15-2007 Hepatitis B Vaccines (2 of 3 - 19+ 3-dose series) Hepatitis B Vaccines (2 of 3 - 19+ 3-dose series) [facility] Start: 2003 Screening for malign ant neoplasm of breast Mammogram [facility] Start: 1993 Screening for malign ant neoplasm of cervix HPV/Cotest [facility] Start: 1985 DTaP/Tdap/Td Vaccine s (1 - Tdap) DTaP/Tdap/Td Vaccines (1 - Tdap) [facility] Start: 01-26-1984 Screening for malign ant neoplasm of cervix [facility] Start: 1982 Administration of he rpes zoster vaccine Zoster Vaccines (1 of 2) [facility] Start: 1982 Pneumococcal vaccination Pneum ococcal Vaccine (1 of 2 - PCV) [facility] Start: 1982 Pneumococcal Vaccine : Age 50+ (1 of 2 - PCV) Pneumococcal Vaccine: Age 50+ (1 of 2 - PCV) [facility] Start: 1982 Zoster Vaccines (1 of 2) Zoster Vacc robert (1 of 2) [facility] Start: 1981 Hepatitis C screening Hepatitis C Sc reening [facility] Start: 1978 HIV screening HIV Screening [facility] Start: 1973 Diabetic foot examination [facility] Start: 1973 Glaucoma screening [facility] Start: 1973 Urine screening for protein [facility] Start: 1969 Pneumococcal Vaccine : Ped or At-Risk (1 of 2 - PCV) Pneumococcal Vaccine: Ped or At-Risk (1 of 2 - PCV) [facility] Start: 1969 Pneumococcal Vaccine : Pediatrics (0 to 5 Years) and At-Risk Patients (6 to 64 Years) (1 - PCV) Pneumococcal Vaccine: Pediatrics (0 to 5 Years) and At-Risk Patients (6 to 64 Years) (1 - PCV) [facility] Start: 1969 Pneumococcal Vaccine : Pediatrics (0 to 5 Years) and At-Risk Patients (6 to 64 Years) (1 of 2 - PCV) Pneumococcal Vaccine: Pediatrics (0 to 5 Years) and At-Risk Patients (6 to 64 Years) (1 of 2 - PCV) [facility] Start: 1966 History and physical examination, annual for health maintenance Wellness Visit [facility] Start: 01-26-1964 MMR Vaccines (1 of 1 - Standard series) MMR Vaccines (1 of 1 - Standard series) [facility] Start: 1963 COVID-19 Vaccine (#1) COVID-19 Vacci ne (#1) [facility] Start: 1963 Cyanocobalamin vitam in b-12 Vitamin B-12 [facility] Start: 1963 HIV screening HIV Screening [facility] Start: 1963 Screening for malign ant neoplasm of colon [facility] Start: 1963 Screening for osteoporosis Bone Density Scan [facility] Start: 1963 TB Test TB Test [facility] Start: 1963 Tetanus vaccination Tetanus: Every 1 0yrs [facility] Start: 1963 Yearly Adult Physical [facility]ly [facility] End: 09-25-2025 Bacteria identified in Unspecified specimen by Aerobe culture Urine Aerobic Culture Microbiology Routine Dysuria 1 Occurrences starting 09/25/2024 until 09/25/2025 [facility] Work Phone: Comment on above: 1 Occurrences starti ng 09/25/2024 until 09/25/2025 Bacteria identified in Unspecified specimen by Aerobe culture Urine Aerobic Culture Microbiology Routine Dysuria 09/25/2024 12:47 PM EDT [facility] End: 10-22-2025 Bacteria identified in Unspecified specimen by Aerobe culture Urine Aerobic Culture Microbiology Routine Nephrolithiasis 1 Occurrences starting 10/22/2024 until 10/22/2025 [facility] Comment on above: 1 Occurrences starti ng 10/22/2024 until 10/22/2025 Bacteria identified in Unspecified specimen by Aerobe culture Urine Aerobic Culture Microbiology Routine Nephrolithiasis 10/22/2024 4:09 PM EDT [facility] Bacteria identified in Urine by Culture Urine Culture Microbiology Routine Acute cystitis with hematuria Ordered: 08/26/2024 [facility] Service Area Work Phone: Comment on above: Ordered: 08/26/2024 End: 04-24-2025 Complete blood count with white cell differential, manual CBC and Differential Lab Routine Type 2 diabetes mellitus without complication, without long-term current use of insulin (HCC) Primary hypertension 1 Occurrences starting 04/24/2024 until 04/24/2025 [facility] Work Phone: Comment on above: 1 Occurrences starti ng 04/24/2024 until 04/24/2025 End: 09-12-2023 Complete Pulmonary Function Test Pre/Post Bronchodialator (Spirometry Pre/Post/DLCO/Lung Volumes) [facility] Service Area Work Phone: Comment on above: Once for 1 Occurrenc es starting 09/12/2023 until 09/12/2023 End: 09-12-2023 Exhaled Nitric Oxide (FeNO) [facility] Service Area Work Phone: Comment on above: Once for 1 Occurrenc es starting 09/12/2023 until 09/12/2023 Hemoglobin A1c/Hemoglobin.total in Blood POC Glycosylated Hemoglobin (Hb A1C) Point of Care Testing Routine Type 2 diabetes mellitus without complication, without long-term current use of insulin (HCC) 01/23/2024 8:13 AM EST [facility] Work Phone: End: 07-22-2025 Lipid 1996 panel - Serum or Plasma Lipid Panel Lab Routine Type 2 diabetes mellitus without complication, without long-term current use of insulin ([facility]) 1 Occurrences starting 07/22/2024 until 07/22/2025 [facility] Work Phone: Comment on above: 1 Occurrences starti ng 07/22/2024 until 07/22/2025 End: 10-22-2025 US Kidney - bilateral and Urinary bladder US Renal and Bladder Imaging Routine Nephrolithiasis 1 Occurrences starting 10/22/2024 until 10/22/2025 [facility] Work Phone: Comment on above: 1 Occurrences starti ng 10/22/2024 until 10/22/2025 End: 05-01-2023 XR Ankle - left 3 Views [facility] Service Are a Work Phone: Comment on above: Once for 1 Occurrenc es starting 05/01/2023 until 05/01/2023 End: 08-08-2025 XR Shoulder - left 2 Views XR Shoulder Left 2+ Views (Standard) Imaging Routine Acute pain of left shoulder 1 Occurrences starting 08/08/2024 until 08/08/2025 [facility] Work Phone: Comment on above: 1 Occurrences starti ng 08/08/2024 until 08/08/2025 XR Shoulder - left 2 Views XR Shoulder Left 2+ Views (Standard) Imaging Routine Acute pain of left shoulder 08/08/2024 8:25 AM EDT [facility] Immunizations Immunization Date Immunization Notes Care Provider Zeus bill 01-12-2007 influenza virus vaccine, unspecified formulation Brent HOWELL Work Phone: [facility] Work Phone: Payers Date Payer Category Payer Self-pay 2017 Managed Care POS (unspecified) [employer] CHOICE POS/POSII/PREMIER CARE/PREMIER CARE PLUS [id number] 2012 Managed Care (Private) [facility] [id number] 2012 Private Health Insurance [facility] [id number] 2012-Present [address] [place] [address] [id number] 2012 Unknown 2012 Private Health Insurance [id number] 1965 Unknown [id number] 2.16840.1.471430.3.57 9.2.1068 1963 Unknown [id number] 2.16840.1.150696.3.57 9.2.1069 1963 Unknown [id number] 2.16840.1.089602.3.57 9.2.1069 1963 Unknown [id number] 2.16840.1.696181.3.57 9.2.1245 1963 Unknown [id number] 2.16.840.1.663472.3.57 9.2.1245 1963 Unknown [id number] 2.16.840.1.701297.3.57 9.2.1245 1963 Unknown [id number] 2.16.840.1.268742.3.57 9.2.1245 1963 Unknown [id number] 2.16.840.1.602547.3.57 9.2.1245 1963 Unknown [id number] 2.16.840.1.688369.3.57 9.2.900 1963 Unknown [id number] 2.16.840.1.538945.3.57 9.2.1243 1963 Unknown [id number] 2.16.840.1.671969.3.57 9.2.124 1963 Unknown [id number] 2.16.840.1.589385.3.57 9.2.1243 1963 Unknown [id number] 2.16.840.1.375911.3.57 9.2.1243 1963 Unknown [id number] 2.16.840.1.846296.3.57 9.2.1243 1963 Unknown [id number] 2.16.840.1.985266.3.57 9.2.902 1963 Unknown [id number] 2.16.840.1.138080.3.57 9.2.902 1963 Unknown [id number] 2.16.840.1.689993.3.57 9.2.1244 1963 Unknown [id number] 2.16.840.1.529446.3.57 9.2.1244 1963 Unknown [id number] 2.16.840.1.280491.3.57 9.2.1244 1963 Unknown [id number] 2.16.840.1.772284.3.57 9.2.903 1963 Unknown [id number] 2.16.840.1.274095.3.57 9.2.903 1963 Unknown [id number] 2.16.840.1.707531.3.57 9.2.903 1963 Unknown [id number] 2.16.840.1.941513.3.57 9.2.903 1963 Unknown [id number] 2.16.840.1.386955.3.57 9.2.903 1963 Unknown [id number] 2.16.840.1.543721.3.57 9.2.903 1963 Unknown [id number] 2.16.840.1.745170.3.57 9.2.903 1963 Unknown [id number] 2.16.840.1.524166.3.57 9.2.903 1963 Unknown [id number] 2.16.840.1.317366.3.57 9.2.903 1963 Unknown [id number] 2.16.840.1.158629.3.57 9.2.903 1963 Unknown [id number] 2.16.840.1.853960.3.57 9.2.903 1963 Unknown [id number] 2.16.840.1.085318.3.57 9.2.903 1963 Unknown [id number] 2.16.840.1.311133.3.57 9.2.903 Unknown [id number] 2.16.840.1.285344.3.57 9.2.462 Unknown [id number] 2.16.840.1.433354.3.57 9.2.462 Social History Date Type Detail Facility [facility] Tobacco smoking consumption unknown [facility] Start: 04-18-2023 End: 07-22-2024 Never smoker Never smoker [facility] Start: 01-28-2023 End: 01-23-2024 Tobacco smoking status NHIS Never smoked tobacco [facility] Work Phone: Start: 01-28-2023 End: 01-23-2024 Tobacco use and exposure Smokeless tobacco non-user [facility] Work Phone: Start: 01-28-2023 End: 10-31-2023 Alcohol intake Lifetime non-drinker (finding) [facility] Work Phone: Start: 1965 Sex Assigned At Not on file [facility] Work Phone: Start: 04-18-2023 End: 07-22-2024 Gender identity Not on file [facility] Start: 01-18-2023 End: 05-28-2024 Exposure to SARS-CoV-2 (event) Not sure [facility] Start: 12-12-2023 End: 10-22-2024 Alcoholic beverage intake Ex-drinker (finding) [facility] Work Phone: Adult Depression Screening Assessment 0 [facility] Start: 01-05-2024 Gender identity Identifies as female gender (finding) [facility] Start: 01-05-2024 Sexual orientation Heterosexual (finding) [facility] (I/We) worried wheth er (my/our) food would run out before (I/we) got money to buy more. Never true [facility] Medical Equipment Procedure Code Equipment Code Equipment Origin al Text Equipment Identifier Dates [id number] Start: 07-25-2023 End: 08-08-2024 Check glucose on ce daily. [id number] Start: 07-25-2023 by Miscellaneous route 3 (three) times a day as needed . [id number] Start: 08-08-2024 33G one touch ch nedra BG TID PRN . [id number] Start: 08-08-2024 33G one touch TI D PRN . [id number] Start: 08-08-2024 End: 08-08-2024 Goals Date Patient Goal Desired Activity /State Personal health goal Comment on above: Formatting of this n ote might be different from the original. 30 grams of carbohydrates per meal; 15 grams of carbohydrates per snack with focus on balancing protein at all meals & snacks Clinical Notes 01-28-2023 to 10-26-2024 Assessment & Plan Note - Hannah Champion, - 10/22/2024 4:28 PM EDTAssessment & Plan Note - Hannah Champion DO - 10/22/2024 4:28 PM EDTPHannah cuellar DO - 10/22/2024 3:41 PM EDT Note Date & Type Note Facility 10-26-2024 Note Please call patient and let her know her urine culture is negative for infection. AUTHENTICATED BY HANNAH CHAMPION, ON 10/26/2024 19:46:53 [facility] 10-22-2024 Evaluation + Plan note Associated Problem(s): Nephrolithiasis Right nephrolithiasis while traveling in [facility] 10/19/2024 (3 days ago[address] and ultrasound [...] - Hydrate well, use OTC pain relievers [facility] 10-22-2024 Miscellaneous Notes Associated Problem(s): Nephrolithiasis Right nephrolithiasis while traveling in [facility] 10/19/2024 (3 days ago[address] CT and ultrasound [...] - Hydrate well, use OTC pain relievers documented in this encounter [facility] 10-22-2024 Note Assessment/Plan: Nephrolithiasis Right nephrolithiasis while traveling in [facility] 10/19/2024 (3 days ago[address] and ultrasound [...] well, use OTC pain relievers Subjective: Frannie Galvan is a 59 y.o. female Chief Complaint Patient presents with Follow-up Pt states she was seen in the ER in [facility] due to severe back pain. Pt states she had a CT scan done and it showed that she had a kidney stone. Pt states she is still having blood in her urine. Pt would like referral to urology. Patient presents for ER follow-up. She began having right sided flank pain 10/19/24 when she was in [facility] preparing to come home. She was examined [...] the medications. My ongoing relationship with Frannie Galvan requires continued responsibility and cognitive effort of being the focal point for all services related to chronic condition(s). Hannah Champion DO AUTHENTICATED BY HANNAH CHAMPION, ON 10/22/2024 16:28:25 [facility] 10-22-2024 History of Present illness Narrative Assessment/Plan: Nephrolithiasis Right nephrolithiasis while traveling in [facility] 10/19/2024 (3 days ago[address] and ultrasound [...] well, use OTC pain relievers Subjective: Frannie Galvan is a 59 y.o. female Chief Complaint Patient presents with Follow-up Pt states she was seen in the ER in [facility] due to severe back pain. Pt states she had a CT scan done and it showed that she had a kidney stone. Pt states she is still having blood in her urine. Pt would like referral to urology. Patient presents for ER follow-up. She began having right sided flank pain 10/19/24 when she was in [facility] preparing to come home. She was examined [...] 145/99 Pulse: 68 Resp: 14 Temp: 98.9 F (37.2 C) SpO2: 96% Physical Exam Constitutional: General: [...] the medications. My ongoing relationship with Frannie Galvan requires continued responsibility and cognitive effort of being the focal point for all services related to chronic condition(s). Hannah Champion DO documented in this encounter [facility] 10-13-2024 Evaluation + Plan note Associated Problem(s): Diverticulitis Right upper quadrant pain with CT 09/25/2024 showing Diffuse colonic diverticulosis. Superimposed focal transverse colon wall thickening and pericolonic fat stranding, suspicious for small focal area of diverticulitis. She has completed a course of cefdinir and metronidazole and pain is greatly improved. - Follow-up if symptoms do not resolve [facility] 10-13-2024 Miscellaneous Notes Associated Problem(s): Diverticulitis Right upper quadrant pain with CT 09/25/2024 showing Diffuse colonic diverticulosis. Superimposed focal transverse colon wall thickening and pericolonic fat stranding, suspicious for small focal area of diverticulitis. She has completed a course of cefdinir and metronidazole and pain is greatly improved. - Follow-up if symptoms do not resolve Associated Problem(s): Vaginal candidiasis Vulvar pruritus since completing antibiotics for diverticulitis. Metronidazole prescribed. Follow-up if needed. documented in this encounter [facility] 10-13-2024 Evaluation + Plan note Associated Problem(s): Vaginal candidiasis Vulvar pruritus since completing antibiotics for diverticulitis. Metronidazole prescribed. Follow-up if needed. [facility] 10-09-2024 Note Assessment/Plan: Vaginal candidiasis Vulvar pruritus since completing [...] if symptoms do not resolve Subjective: Frannie Galvan is a 59 y.o. female Chief Complaint [...] since being on antibiotics. She [place] red[place] for this year. FMLA needs to be 09/10/24-09/10/25 The following portions [...] the medications. My ongoing relationship with Frannie Galvan requires continued responsibility and cognitive effort of being the focal point for all services related to chronic condition(s). Hannah Champion DO AUTHENTICATED BY HANNAH CHAMPION, ON 10/13/2024 12:29:59 [facility] 10-09-2024 History of Present illness Narrative Assessment/Plan: Vaginal candidiasis Vulvar pruritus since completing [...] if symptoms do not resolve Subjective: Frannie Galvan is a 59 y.o. female Chief Complaint [...] since being on antibiotics. She [place] red[place] for this year. FMLA needs to be 09/10/24-09/10/25 The following portions of the patient's history were reviewed and updated as appropriate: allergies, current medications, past family history, past medical history, past social history, past surgical history and problem list. Review of Systems Objective: PACU Vitals 10/09/24 0742 BP: 122/81 Pulse: 67 Resp: 18 Temp: 97.7 F (36.5 C) SpO2: 96% PainSc: 0-No pain Physical [...] the medications. My ongoing relationship with Frannie Galvan requires continued responsibility and cognitive effort of being the focal point for all services related to chronic condition(s). Hannah Champion DO Skin intact but dry and calluses heels. Pedal and Tibial pulses palpable and equal Monofilament screen normal. documented in this encounter [facility] 09-27-2024 Note Please call patient and let her know her urine culture was negative for infection. AUTHENTICATED BY HANNAH CHAMPION, ON 09/27/2024 07:57:02 [facility] 09-25-2024 Evaluation + Plan note Associated Problem(s): Dysuria Pelvic fullness, urgency. POC UA positive for blood, LE, nitrites. Hx colovesicular fistula with Crohn's - Urine sent for culture [facility] 09-25-2024 Miscellaneous Notes Associated Problem(s): Dysuria Pelvic fullness, urgency. POC UA positive for blood, LE, nitrites. Hx colovesicular fistula with Crohn's - Urine sent for culture Associated Problem(s): RUQ pain Acute onset this morning. Ddx: cholecystitis, gastritis, ozempic side effect, SBO, ureterolithiasis. - Sent to ER for urgent evaluation documented in this encounter [facility] 09-25-2024 Evaluation + Plan note Associated Problem(s): RUQ pain Acute onset this morning. Ddx: cholecystitis, gastritis, ozempic side effect, SBO, ureterolithiasis. - Sent to ER for urgent evaluation [facility] 09-25-2024 Note Assessment/Plan: RUQ pain Acute onset this morning. Ddx: cholecystitis, gastritis, ozempic side effect, SBO, ureterolithiasis. - Sent to ER for urgent evaluation Dysuria Pelvic fullness, urgency. POC UA positive for blood, LE, nitrites. Hx colovesicular fistula with Crohn's - Urine sent for culture Subjective: Frannie Galvan is a 59 y.o. female Chief Complaint [...] the medications. My ongoing relationship with Frannie Galvan requires continued responsibility and cognitive effort of being the focal point for all services related to chronic condition(s). Hannah Champion DO AUTHENTICATED BY HANNAH CHAMPION, ON 09/25/2024 13:25:43 [facility] 09-25-2024 History of Present illness Narrative Assessment/Plan: RUQ pain Acute onset this morning. Ddx: cholecystitis, gastritis, ozempic side effect, SBO, ureterolithiasis. - Sent to ER for urgent evaluation Dysuria Pelvic fullness, urgency. POC UA positive for blood, LE, nitrites. Hx colovesicular fistula with Crohn's - Urine sent for culture Subjective: Frannie Galvan is a 59 y.o. female Chief Complaint [...] 117/74 Pulse: 82 Resp: 16 Temp: 98 F (36.7 C) SpO2: 96% Physical Exam Constitutional: General: She is in acute distress. Appearance: Normal appearance. HENT: Head: Normocephalic. Cardiovascular: Rate and Rhythm: Normal rate. Pulmonary: Effort: Pulmonary effort is normal. No respiratory distress. Abdominal: General: There is distension. Tenderness: There is abdominal tenderness in the right upper quadrant and epigastric area. Positive signs include Ugo's sign. Comments: Fullness and ttp RUQ and epigastrium Neurological: Mental Status: She is alert. For any new medications prescribed today, patient was educated about indications for the medication, how to take the medication and potential side effects of the medications. My ongoing relationship with Frannie Estela requires continued responsibility and cognitive effort of being the focal point for all services related to chronic condition(s). Hannah Champion DO documented in this encounter [facility] 09-09-2024 Note Frannie Galvan 1965 CC: 59 y.o. is a she [...] joint Follow Up: No follow-ups on file. Cristiane Momin, [place] [1] Allergies Allergen Reactions Cat Dander Shortness Of Breath Grass Pollen Hives Latex Hives, Itching and Swelling Peanut Hives and Swelling Adhesive Tape-Silicones Rash [2] Kentrell (more content not included)... [facility] 09-09-2024 History of Present illness Narrative Frannie Alcala Estela 1965 CC: 59 y.o. is a she [...] joint Follow Up: No follow-ups on file. Cristiane Momin, [place] [1] Allergies Allergen Reactions Cat [...] TO AFFECTED TOENAILS. EVERY WEEK FILE WITH MONTEZUMA BOARD & REMOVE RESIDUE, Disp: , Rfl: [id number] (Trelegy Ellipta) 200-62.5-25 mcg DsDv, Inhale 1 [...] Friends and Family: Three times a week documented in this encounter [facility] 08-26-2024 History of Present illness Narrative 59 y.o. female female presents for evaluation of dysuria. Patient reports several days of increased urinary frequency, mild suprapubic discomfort. Patient denies fever, nausea, vomiting, vaginal discharge, flank pains or other constitutional signs and symptoms. . No recent UTI or antibiotic use. No other complaints. Vitals: 08/26/24 1716 BP: 125/86 Pulse: 83 Temp: 36.2 C (97.1 F) SpO2: 96% RX Allergies[1] Medication Documentation Review Audit Reviewed by Miriam Rao MA ([place]) on 08/26/24 at 1715 Medication Order Taking? Sig Documenting Provider Last Dose Status acetaminophen (Tylenol) 325 mg tablet [id number] Yes Take by mouth every 6 hours if needed. Historical ProviderMD Taking Active albuterol (Ventolin HFA) 90 mcg/actuation inhaler [id number] Yes Inhale 2 puffs every 4 hours if needed for wheezing or shortness of breath. Gabino Holt, DO Active azaTHIOprine (Imuran) 50 mg tablet [id number] Yes Take 1 tablet (50 mg) by mouth once daily. Historical Provider, Taking Active blood sugar diagnostic (Blood Glucose Test) strip [id number] Yes Once daily Zach Ritter MD MPH Taking Active blood-glucose meter misc [id number] Yes Test daily before all meals/snacks and once before bedtime. Zach Ritter MD MPH Taking Active ciclopirox (Penlac) 8 % solution [id number] Yes APPLY SOLUTION TOPICALLY ONCE DAILY TO AFFECTED TOENAILS. EVERY WEEK FILE WITH MONTEZUMA BOARD & REMOVE RESIDUE Historical Provider, Taking Active ejztyhsfhkx-ypszhnxpc-rhzdqqny (Trelegy Ellipta) 200-62.5-25 mcg blister with device [id number] Yes Inhale 1 puff once daily. RINSE MOUTH WITH WATER AFTER. Gabino Holt, DO Active glipiZIDE (Glucotrol) 5 mg tablet [id number] No Take 1 tablet (5 mg) by mouth 2 times a day before meals. Zach Ritter MD MPH Taking 07/24/24 2359 hydroCHLOROthiazide (HYDRODiuril) 25 mg tablet [id number] Yes Take 1 tablet (25 mg) by mouth once daily. Historical Provider, Taking Active isopropyl alcohoL 70 % towelette [id number] Yes Test daily before all meals/snacks and once before bedtime. Zach Ritter MD MPH Taking Active lancets misc [id number] Yes Check glucose once daily. Zach Ritter MD MPH Taking Active lisinopril 20 mg tablet [id number] Yes Take 1 tablet (20 mg) by mouth once daily. Historical Provider, Taking Active metoprolol succinate XL (Toprol-XL) 50 mg 24 hr tablet [id number] Yes Take by mouth. Historical Provider, Taking Active pyridoxine (Vitamin B-6) 100 mg tablet [id number] Yes Take 1 tablet (100 mg) by mouth every 12 hours. Historical Provider, Taking Active risankizumab-rzaa (Skyrizi) 75 mg/0.83 mL syringe syringe [id number] Yes Inject 150 mg under the skin. Historical Provider, Active semaglutide 0.25 mg or 0.5 mg (2 mg/3 mL) pen injector [id number] No Inject 0.25 mg under the skin 1 (one) time per week for 30 days, THEN 0.5 mg 1 (one) time per week. Patient not taking: Reported on 12/12/2023 Zach Ritter MD MPH Not Taking 01/04/24 3154 Medical History[2] Surgical History[3] ROS See HPI Physical Exam Constitutional: General: She is not in acute distress. Appearance: Normal appearance. She is not toxic-appearing. Cardiovascular: Rate and Rhythm: Normal rate. Pulmonary: Effort: Pulmonary effort is normal. Breath sounds: Normal breath sounds. Abdominal: General: There is no distension. Palpations: Abdomen is soft. Tenderness: There is abdominal tenderness in the suprapubic area. There is no right CVA tenderness or left CVA tenderness. Genitourinary: General: Normal vulva. Vagina: No vaginal discharge. Comments: Per pt report Skin: General: Skin is warm and dry. Neurological: General: No focal deficit present. Mental Status: She is alert and oriented to person, place, and time. Psychiatric: Mood and Affect: Mood normal. Behavior: Behavior normal. Assessment/Plan/MDM Frannie was seen today for uti. Diagnoses and all orders for this visit: Acute cystitis with hematuria (Primary) - Urine Culture - nitrofurantoin, macrocrystal-monohydrate, (Macrobid) 100 mg capsule; Take 1 capsule (100 mg) by mouth 2 times a day for 7 days. Dysuria - POCT UA (nonautomated w/o microscopy) manually resulted Encouraged patient increase water intake, avoid caffeine/energy drinks, void after intercourse, wipe front to back after voiding and bowel movements, avoid baths/hot tubs/pools, avoid tight fitting garments, empty bladder frequently. Patient's clinical presentation is otherwise unremarkable at this time. Patient is discharged with instructions to follow-up with primary care or seek emergency medical attention for worsening symptoms or any new concerns. I did personally review Frannie's past medical history, surgical history, social history, as well as family history (when relevant). In this case, I also oversaw the her drug management by reviewing her medication list, allergy list, as well as the medications that I prescribed during the UC course and/or recommended as an out-patient (including possible OTC medications such as acetaminophen, NSAIDs , etc). After reviewing the items above, I did look at previous medical documentation, such as recent hospitalizations, office visits, and/or recent consultations with PCP/specialist. SDOH: Another factor that I considered in Frannie's care was her Social Determinants of Health (SDOH). During this UC encounter, she did not have social determinants of health. Those SDOH influencing Frannie's care are: none Brent Wolf CNP [facility] [phone] [1] Allergies Allergen Reactions Animal Dander Shortness of breath House Dust Mite Shortness of breath Latex Diarrhea, Hives and Swelling Other Swelling Pashto peanuts Adhes. Yiuq-Ratj-Zepsgvepgoiy Rash Use paper tape Adhesive Tape-Silicones Rash [2] Past Medical History: Diagnosis Date Allergy status to unspecified drugs, medicaments and biological substances History of seasonal allergies Personal history of other diseases of the digestive system History of Crohn's disease Personal history of other diseases of the nervous system and sense organs History of cataract [3] Past Surgical History: Procedure Laterality Date CATARACT EXTRACTION 09/27/2016 Cataract Surgery HERNIA REPAIR 09/27/2016 Inguinal Hernia Repair OTHER SURGICAL HISTORY 09/27/2016 Anal Fistulectomy TONSILLECTOMY 09/27/2016 Tonsillectomy UMBILICAL HERNIA REPAIR 09/27/2016 Umbilical Hernia Repair Cosigned by DANTE Field at 08/26/2024 5:39 PM EDT Recent Results (from the past hour) POCT UA (nonautomated w/o microscopy) manually resulted Collection Time: 08/26/24 5:19 PM Result Value Ref Range POC Color, Urine Yellow Straw, Yellow, Light-Yellow POC Appearance, Urine Clear Clear POC Glucose, Urine NEGATIVE NEGATIVE mg/dl POC Bilirubin, Urine NEGATIVE NEGATIVE POC Ketones, Urine NEGATIVE NEGATIVE mg/dl POC Specific [place], Urine 1.015 1.005 - 1.035 POC Blood, Urine MODERATE (2+) (A) NEGATIVE POC PH, Urine 5.5 No Reference Range Established PH POC Protein, Urine NEGATIVE NEGATIVE mg/dl POC Urobilinogen, Urine 0.2 0.2, 1.0 EU/DL Poc Nitrite, Urine NEGATIVE NEGATIVE POC Leukocytes, Urine SMALL (1+) (A) NEGATIVE I was present with the SUPERIOR COURT JUDGE student who participated in the documentation of this note. I have personally seen and re-examined the patient and performed the medical decision-making components (assessment and plan of care). I have reviewed the SUPERIOR COURT JUDGE student documentation and verified the findings in the note as written with additions or exceptions as stated in the body of this note. DANTE Field documented in this encounter [facility] Work Phone: 08-08-2024 Telephone encounter Note Last OV . Next OV 01/14/25. [facility] 08-08-2024 Miscellaneous Notes Last OV . Next OV 01/14/25. Both requested prescriptions are from a historical provider. Patient's last office visit with PCP 07/22/2024, next scheduled office visit 01/14/2025 documented in this encounter [facility] 08-08-2024 Telephone encounter Note Both requested prescriptions are from a historical provider. Patient's last office visit with PCP 07/22/2024, next scheduled office visit 01/14/2025 [facility] 08-08-2024 Note Subjective Patient ID: Frannie Galvan is a 59 y.o. female. Chief Complaint [...] TO AFFECTED TOENAILS. EVERY WEEK FILE WITH MONTEZUMA BOARD & REMOVE RESIDUE ncfbhggncbc-hxlntqqhy-tvusqoao (Trelegy Ellipta) 200-62.5-25 mcg DsDv Inhale 1 [...] would like to obtain XRAY to further alexus (more content not included)... [facility] 08-08-2024 History of Present illness Narrative Images from the original note were not included. Subjective Patient ID: Frannie Galvan is a 59 y.o. female. Chief Complaint [...] TO AFFECTED TOENAILS. EVERY WEEK FILE WITH MONTEZUMA BOARD & REMOVE RESIDUE fdjcyruimyg-zgytkavwk-wrpdpson (Trelegy Ellipta) 200-62.5-25 mcg DsDv Inhale 1 [...] Size: X-large Adult) Pulse 71 Temp 97.9 F (36.6 C) Resp 16 Ht 5' 6 Wt [...] this chart may have been created with [employer]yer voice recognition software. Occasional wrong-word or sound-like [...] Peanut Hives and Swelling Adhesive Tape-Silicones Rash documented in this encounter [facility] 07-24-2024 Evaluation + Plan note Associated Problem(s): Primary hypertension Goal <140/90. Current regimen with metoprolol XR 50 mg, lisinopril 20 mg, hydrochlorothiazide 25 mg daily. Blood pressure is at goal. Continue current treatment. - Check CMP every 6 to 12 months [facility] 07-24-2024 Miscellaneous Notes Associated Problem(s): Primary hypertension Goal <140/90. Current regimen with metoprolol XR 50 mg, lisinopril 20 mg, hydrochlorothiazide 25 mg daily. Blood pressure is at goal. Continue current treatment. - Check CMP every 6 to 12 months Associated Problem(s): Rash Scaly, rough rash on R face x5-6 months, worsening slightly. Ddx: allergic dermatitis, atopic dermatitis, fungal infection, rosacea/pustular rosacea, acne. Briefly improved after triamcinolone 14-day course, return after completing. - Refer to dermatology Associated Problem(s): Type 2 diabetes mellitus without complication, without long-term current use of insulin (HCC) POC A1c 6.1% today, down from 7.0% [...] or higher - Follow-up in 6 months documented in this encounter [facility] 07-24-2024 Evaluation + Plan note Associated Problem(s): Rash Scaly, rough rash on R face x5-6 months, worsening slightly. Ddx: allergic dermatitis, atopic dermatitis, fungal infection, rosacea/pustular rosacea, acne. Briefly improved after triamcinolone 14-day course, return after completing. - Refer to dermatology [facility] 07-24-2024 Evaluation + Plan note Associated Problem(s): Type 2 diabetes mellitus without complication, without long-term current use of insulin (HCC) POC A1c 6.1% today, down from 7.0% [...] or higher - Follow-up in 6 months [facility] 07-22-2024 History of Present illness Narrative Assessment/Plan: Type 2 diabetes mellitus without complication, without long-term current use of insulin (HCC) POC A1c 6.1% today, down from 7.0% [...] every 6 to 12 months Subjective: Frannie Galvan is a 59 y.o. female Chief Complaint [...] patient, ordering tests/procedures/medications, documentation, and care coordination. Hannah Champion DO documented in this encounter [facility] 07-22-2024 Note Assessment/Plan: Type 2 diabetes mellitus without complication, without long-term current use of insulin ([facility]) POC A1c 6.1% today, down from [...] every 6 to 12 months Subjective: Frannie Galvan is a 59 y.o. female Chief Complaint [...] doesn't eat much bread. She works on [employer]. HTN She takes lisinopril 20 mg, [...] patient, ordering tests/procedures/medications, documentation, and care coordination. Hannah Champion DO AUTHENTICATED BY HANNAH CHAMPION, ON 07/24/2024 16:48:12 [facility] 07-12-2024 Telephone encounter Note FRANNIE is requesting a refill for Requested Prescriptions Pending Prescriptions Disp Refills lisinopriL (PRINIVIL,ZESTRIL) 20 MG tablet 30 tablet 3 Sig: Take 1 (one) tablet (20 mg total) by mouth daily . metoprolol succinate (TOPROL-XL) 50 MG 24 hr tablet 30 tablet 3 Sig: Take 1 (one) tablet (50 mg total) by mouth daily . hydroCHLOROthiazide (HYDRODIURIL) 25 MG tablet 30 tablet 3 Sig: Take 1 (one) tablet (25 mg total) by mouth daily . Last refill: 01/23/24 Last appt: 05/20/2024 Upcoming appt (when is it due or is it scheduled): 07/22/24 Follow up: Refill pending for review without additional follow up based on information above. [facility] 07-12-2024 Miscellaneous Notes FRANNIE is requesting a refill for Requested Prescriptions Pending Prescriptions Disp Refills lisinopriL (PRINIVIL,ZESTRIL) 20 MG tablet 30 tablet 3 Sig: Take 1 (one) tablet (20 mg total) by mouth daily . metoprolol succinate (TOPROL-XL) 50 MG 24 hr tablet 30 tablet 3 Sig: Take 1 (one) tablet (50 mg total) by mouth daily . hydroCHLOROthiazide (HYDRODIURIL) 25 MG tablet 30 tablet 3 Sig: Take 1 (one) tablet (25 mg total) by mouth daily . Last refill: 01/23/24 Last appt: 05/20/2024 Upcoming appt (when is it due or is it scheduled): 07/22/24 Follow up: Refill pending for review without additional follow up based on information above. documented in this encounter [facility] 05-28-2024 History of Present illness Narrative Subjective Patient ID: Frannie Galvan is a 59 y.o. female who presents for No chief complaint on file.. HPI Patient was seen today in the office on a follow-up visit she reports that in general her breathing is doing well with Trelegy-200 daily and albuterol inhaler as needed shortness of breath patient reports that her breathing is improved since she has recovered from influenza A infection. She denies having cough or sputum production no hemoptysis or wheezing. She has no significant dyspnea with daily activities. Her last lung infection was about 6 weeks ago. Review of Systems She denies having any fever, chills, rhinitis or sore throat and she has not been hospitalized. She is not a smoker. Her peak flow today is 460 L/min Objective Physical Exam Supple ENT, there is no inflammation on examination of the oropharynx. Pulmonary, diminished breath sounds bilaterally but clear. Cardio, heart sounds are regular rate and rhythm. Extremities, no pretibial edema. Assessment/Plan Impressions: 1. Asthma. 2. Seasonal allergies. Recommendations: 1. Continue with the Trelegy-200 daily. 2. Short acting beta agonist #1 at 2 puffs twice daily as needed shortness of breath and I have not given her any additional refills at this time since she is seldom using that inhaler. 3. Follow-up with the patient in 4 months. This note was transcribed using the wire[employer]yer Dictation system. There may be grammatical, punctuation, or verbiage errors that occur with voice recognition programs. Gabino Holt DO 05/28/24 3:20 PM documented in this encounter [facility] Work Phone: 05-23-2024 History of Present illness Narrative [facility] DOCUMENTATION FAXED TO [employer] AT [phone], WHICH IS NUMBER PROVIDED BY PT. DOCUMENTATION SENT TO [facility] TO BE SCANNED INTO CHART. documented in this encounter [facility] 05-23-2024 Evaluation + Plan note Associated Problem(s): Type 2 diabetes mellitus without complication, without long-term current use of insulin (HCC) Last A1c 7.0% 04/24/2024. Currently on therapy with semaglutide 0.25 mg weekly, but admits to regularly forgetting to take it on time. Previously on glipizide, but discontinued in 01/2024 due to A1c 6.0%. Home fasting BG readings are 120-140. She has met with upholsterer outside and is actively improving her diet and working on weight loss. - Improve medication adherence; take semaglutide 0.25 mg weekly on time - Continue to work on healthy diet - Begin regular cardiovascular exercise, goal 150 minutes weekly - Follow-up in 2 weeks, will do POC A1c at that time [facility] 05-23-2024 Miscellaneous Notes Associated Problem(s): Type 2 diabetes mellitus without complication, without long-term current use of insulin (HCC) Last A1c 7.0% 04/24/2024. Currently on therapy with semaglutide 0.25 mg weekly, but admits to regularly forgetting to take it on time. Previously on glipizide, but discontinued in 01/2024 due to A1c 6.0%. Home fasting BG readings are 120-140. She has met with upholsterer outside and is actively improving her diet and working on weight loss. - Improve medication adherence; take semaglutide 0.25 mg weekly on time - Continue to work on healthy diet - Begin regular cardiovascular exercise, goal 150 minutes weekly - Follow-up in 2 weeks, will do POC A1c at that time documented in this encounter [facility] 05-20-2024 History of Present illness Narrative Assessment/Plan: Type 2 diabetes mellitus without complication, without long-term current use of insulin (HCC) Last A1c 7.0% 04/24/2024. Currently on therapy with semaglutide 0.25 mg weekly, but admits to regularly forgetting to take it on time. Previously on glipizide, but discontinued in 01/2024 due to A1c 6.0%. Home fasting BG readings are 120-140. She has met with upholsterer outside and is actively improving her diet and working on weight loss. - Improve medication adherence; take semaglutide 0.25 mg weekly on time - Continue to work on healthy diet - Begin regular cardiovascular exercise, goal 150 minutes weekly - Follow-up in 2 weeks, will do POC A1c at that time Subjective: Frannie Galvan is a 59 y.o. female Chief Complaint [...] and potential side effects of the medications. Hannah Champion DO documented in this encounter [facility] 05-20-2024 Note Assessment/Plan: Type 2 diabetes mellitus without complication, without long-term current use of insulin (HCC) Last A1c 7.0% 04/24/2024. Currently on therapy with semaglutide 0.25 mg weekly, but admits to regularly forgetting to take it on time. Previously on glipizide, but discontinued in 01/2024 due to A1c 6.0%. Home fasting BG readings are 120-140. She has met with upholsterer outside and is actively improving her diet and working on weight loss. - Improve medication adherence; take semaglutide 0.25 mg weekly on time - Continue to work on healthy diet - Begin regular cardiovascular exercise, goal 150 minutes weekly - Follow-up in 2 weeks, will do POC A1c at that time Subjective: Frannie Galvan is a 59 y.o. female Chief Complaint [...] and potential side effects of the medications. Hannah Champion DO AUTHENTICATED BY HANNAH CHAMPION, ON 05/23/2024 01:59:35 [facility] 04-25-2024 Evaluation + Plan note Associated Problem(s): Subacute cough Postviral cough after recent influenza infection. Cough is keeping her awake through the night. Tessalon Perles relieve cough. - Prescription provided for Tessalon Perles at bedtime [facility] 04-25-2024 Miscellaneous Notes Associated Problem(s): Subacute cough Postviral cough after recent influenza infection. Cough is keeping her awake through the night. Tessalon Perles relieve cough. - Prescription provided for Tessalon Perles at bedtime Associated Problem(s): Leg cramps Bilateral calf cramps at night. - Maintain adequate hydration - Supportive care with daily walk, light stretching, OTC magnesium supplement - Check serum magnesium level today - Follow-up in 1 month Associated Problem(s): Crohn disease (HCC) Follows with GI. Recently started on Skyrizi. Still taking aziothioprine currently, but plan is to drop off after a while on Skyrizi. Associated Problem(s): Primary hypertension Goal <140/90. Current regimen with metoprolol XR 50 mg, lisinopril 20 mg, hydrochlorothiazide 25 mg daily. Blood pressure is at goal. Continue current treatment. - Check updated CMP Associated Problem(s): Type 2 diabetes mellitus without complication, without long-term current use of insulin (HCC) POC A1c 01/27/24 was 6.0% on glipizide and semaglutide 0.5 mg weekly (she had only taken 1 dose of 0.5 mg). Stopped glipizide and reduced semaglutide back to 0.25 mg weekly to avoid hypoglycemia. She denies any hypoglycemic events. Home fasting BG readings are 120-140. She has met with upholsterer outside and is actively improving her diet and working on weight loss. - Check updated A1c. If still below 6.5, will stop semaglutide - Check CMP, urine microalbumin - Follow-up in 1 month to review fasting glucose log documented in this encounter [facility] 04-25-2024 Note Please let patient k now her A1c is 7.0%. I would recommend [...] if she has any questions. AUTHENTICATED BY HANNAH CHAMPION, ON 04/25/2024 15:50:57 [facility] 04-25-2024 History of Present illness Narrative Please let patient know her A1c is [...] me know if she has any questions. Assessment/Plan: Type 2 diabetes mellitus without complication, without long-term current use of insulin ([facility]) POC A1c 01/27/24 was 6.0% on glipizide and semaglutide 0.5 mg weekly (she had only taken 1 dose of 0.5 mg). Stopped glipizide and reduced semaglutide back to 0.25 mg weekly to avoid hypoglycemia. She denies any hypoglycemic events. Home fasting BG readings are 120-140. She has met with upholsterer outside and is actively improving her diet and [...] for Tessalon Perles at bedtime Subjective: Frannie Galvan is a 59 y.o. female Chief Complaint Patient presents with Diabetes Type 2 diabetes mellitus without complication, without long-term current use of insulin Gap Closure (Health Maintenance) Diabetic Foot Exam Never done Diabetic Eye Exam Never done Cough Dx w/ Influenza A last week, consistent cough, therapy completed on [place] Patient presents for follow-up diabetes, HTN. She [...] to the . She met with the upholsterer outside, who identified she was eating inconsistently. She [...] 132/82 Pulse: 84 Resp: 14 Temp: 99.1 F (37.3 C) SpO2: 94% Physical Exam Constitutional: General: [...] the medications. My ongoing relationship with Frannie Galvan requires continued responsibility and cognitive effort of being the focal point for all services related to chronic condition(s). Hannah Champion DO documented in this encounter [facility] 04-24-2024 Evaluation + Plan note Associated Problem(s): Leg cramps Bilateral calf cramps at night. - Maintain adequate hydration - Supportive care with daily walk, light stretching, OTC magnesium supplement - Check serum magnesium level today - Follow-up in 1 month [facility] 04-24-2024 Evaluation + Plan note Associated Problem(s): Crohn disease (HCC) Follows with GI. Recently started on Skyrizi. Still taking aziothioprine currently, but plan is to drop off after a while on Skyrizi. [facility] 04-24-2024 Evaluation + Plan note Associated Problem(s): Primary hypertension Goal <140/90. Current regimen with metoprolol XR 50 mg, lisinopril 20 mg, hydrochlorothiazide 25 mg daily. Blood pressure is at goal. Continue current treatment. - Check updated CMP [facility] 04-24-2024 Evaluation + Plan note Associated Problem(s): Type 2 diabetes mellitus without complication, without long-term current use of insulin (HCC) POC A1c 01/27/24 was 6.0% on glipizide and semaglutide 0.5 mg weekly (she had only taken 1 dose of 0.5 mg). Stopped glipizide and reduced semaglutide back to 0.25 mg weekly to avoid hypoglycemia. She denies any hypoglycemic events. Home fasting BG readings are 120-140. She has met with upholsterer outside and is actively improving her diet and working on weight loss. - Check updated A1c. If still below 6.5, will stop semaglutide - Check CMP, urine microalbumin - Follow-up in 1 month to review fasting glucose log [facility] 04-24-2024 Instructions Hannah Champion DO - 04/24/2024 9:15 AM EST You can take an over the counter magnesium supplement of 400 mg daily to help prevent leg cramps and headaches. documented in this encounter [facility] 04-24-2024 Note Assessment/Plan: Type 2 diabetes mellitus without complication, without long-term current use of insulin ([facility]) POC A1c 01/27/24 was 6.0% on glipizide and semaglutide 0.5 mg weekly (she had only taken 1 dose of 0.5 mg). Stopped glipizide and reduced semaglutide back to 0.25 mg weekly to avoid hypoglycemia. She denies any hypoglycemic events. Home fasting BG readings are 120-140. She has met with upholsterer outside and is actively improving her diet and [...] for Tessalon Perles at bedtime Subjective: Frannie Galvan is a 59 y.o. female Chief Complaint [...] to the . She met with the upholsterer outside, who identified she was eating inconsistently. She [...] the medications. My ongoing relationship with Frannie Galvan requires continued responsibility and cognitive effort of being the focal point for all services related to chronic condition(s). Hannah Champion DO AUTHENTICATED BY HANNAH CHAMPION, ON 04/25/2024 16:40:41 [facility] 04-17-2024 History of Present illness Narrative 59 y.o. female presents for evaluation of URI. Symptoms including fever, cough, congestion, body aches, malaise, ear pressure, and headache have been present for 3 days and refractory to OTC meds. No nausea, vomiting, abdominal pain, CP, or SOB. No exacerbating factors. No known COVID 19/flu exposure. Vitals: 04/17/24 1646 BP: 93/63 Pulse: 91 Resp: 20 Temp: (!) 37.9 C (100.3 F) SpO2: 95% Allergies Allergen Reactions Animal Dander Shortness of breath House Dust Mite Shortness of breath Latex Diarrhea, Hives and Swelling Other Swelling Pashto peanuts Adhes. Zciq-Pvre-Tzerenpdulmh Rash Use paper tape Adhesive Tape-Silicones Rash Medication Documentation Review Audit Reviewed by Miriam Rao MA (Log Chipper) on 04/17/24 at 1645 Medication Order Taking? Sig Documenting Provider Last Dose Status acetaminophen (Tylenol) 325 mg tablet [id number] Yes Take by mouth every 6 hours if needed. Historical Provider, Active albuterol 90 mcg/actuation inhaler [id number] Inhale 1 puff every 4 hours if needed for wheezing. Zach Ritter MD MPH 10/31/23 8959 azaTHIOprine (Imuran) 50 mg tablet [id number] Yes Take 1 tablet (50 mg) by mouth once daily. Historical Provider, Active blood sugar diagnostic (Blood Glucose Test) strip [id number] Yes Once daily Zach Ritter MD MPH Active blood-glucose meter misc [id number] Yes Test daily before all meals/snacks and once before bedtime. Zach Ritter MD MPH Active ciclopirox (Penlac) 8 % solution [id number] Yes APPLY SOLUTION TOPICALLY ONCE DAILY TO AFFECTED TOENAILS. EVERY WEEK FILE WITH MONTEZUMA BOARD & REMOVE RESIDUE Historical Provider, Active jytydebbkty-dnwssdxsp-vfnnnzpe (Trelegy Ellipta) 200-62.5-25 mcg blister with device [id number] Yes Inhale 1 puff once daily. RINSE MOUTH WITH WATER AFTER. Gabino Holt, Active glipiZIDE (Glucotrol) 5 mg tablet [id number] Yes Take 1 tablet (5 mg) by mouth 2 times a day before meals. Zach Ritter MD MPH Active hydroCHLOROthiazide (HYDRODiuril) 25 mg tablet [id number] Yes Take 1 tablet (25 mg) by mouth once daily. Historical Provider, Active isopropyl alcohoL 70 % towelette [id number] Yes Test daily before all meals/snacks and once before bedtime. Zach Ritter MD MPH Active lancets mis [id number] Yes Check glucose once daily. Zach Ritter MD MPH Active lisinopril 20 mg tablet [id number] Yes Take 1 tablet (20 mg) by mouth once daily. Historical ProviderMD Active metoprolol succinate XL (Toprol-XL) 50 mg 24 hr tablet [id number] Yes Take by mouth. Historical Provider, Active pyridoxine (Vitamin B-6) 100 mg tablet [id number] Yes Take 1 tablet (100 mg) by mouth every 12 hours. Historical ProviderMD Active semaglutide 0.25 mg or 0.5 mg (2 mg/3 mL) pen injector [id number] Inject 0.25 mg under the skin 1 (one) time per week for 30 days, THEN 0.5 mg 1 (one) time per week. Patient not taking: Reported on 12/12/2023 Zach Ritter MD MPH 01/04/24 [id number] Past Medical History: Diagnosis Date Allergy status to unspecified drugs, medicaments and biological substances History of seasonal allergies Personal history of other diseases of the digestive system History of Crohn's disease Personal history of other diseases of the nervous system and sense organs History of cataract Past Surgical History: Procedure Laterality Date CATARACT EXTRACTION 09/27/2016 Cataract Surgery HERNIA REPAIR 09/27/2016 Inguinal Hernia Repair OTHER SURGICAL HISTORY 09/27/2016 Anal Fistulectomy TONSILLECTOMY 09/27/2016 Tonsillectomy UMBILICAL HERNIA REPAIR 09/27/2016 Umbilical Hernia Repair ROS See HPI Physical Exam Vitals and nursing note reviewed. Constitutional: Appearance: She is ill-appearing (mildly). HENT: Head: Normocephalic and atraumatic. Right Ear: Tympanic membrane and ear canal normal. Left Ear: Tympanic membrane and ear canal normal. Nose: Congestion present. Mouth/Throat: Mouth: Mucous membranes are moist. Pharynx: Oropharynx is clear. Eyes: Extraocular Movements: Extraocular movements intact. Conjunctiva/sclera: Conjunctivae normal. Pupils: Pupils are equal, round, and reactive to light. Cardiovascular: Rate and Rhythm: Normal rate. Pulmonary: Effort: Pulmonary effort is normal. Breath sounds: Normal breath sounds. Lymphadenopathy: Cervical: Cervical adenopathy present. Skin: General: Skin is warm and dry. Neurological: General: No focal deficit present. Mental Status: She is alert and oriented to person, place, and time. Psychiatric: Mood and Affect: Mood normal. Behavior: Behavior normal. Recent Results (from the past hour) POCT SARS-COV-2/FLU/RSV PCR SYMPTOMATIC manually resulted Collection Time: 04/17/24 5:44 PM Result Value Ref Range POC Coronavirus 2019, PCR Not Detected Not Detected POC Flu A Result Detected (A) Not Detected POC Flu B Result Not Detected Not Detected POC RSV PCR Not Detected Not Detected Assessment/Plan/MDM Frannie was seen today for flu symptoms. Diagnoses and all orders for this visit: Influenza A (Primary) Acute upper respiratory infection - POCT SARS-COV-2/FLU/RSV PCR SYMPTOMATIC manually resulted Encouraged pt to use otc cold remedies PRN, push PO fluids and rest. Patient's clinical presentation is otherwise unremarkable at this time. Patient is discharged with instructions to follow-up with primary care or seek emergency medical attention for worsening symptoms or any new concerns. I did personally review Frannie's past medical history, surgical history, social history, as well as family history (when relevant). In this case, I also oversaw the her drug management by reviewing her medication list, allergy list, as well as the medications that I prescribed during the UC course and/or recommended as an out-patient (including possible OTC medications such as acetaminophen, NSAIDs , etc). After reviewing the items above, I did look at previous medical documentation, such as recent hospitalizations, office visits, and/or recent consultations with PCP/specialist. SDOH: Another factor that I considered in Frannie's care was her Social Determinants of Health (SDOH). During this UC encounter, she did not have social determinants of health. Those SDOH influencing Frannie's care are: none Brent Wolf CNP [facility] [phone] documented in this encounter [facility] Work Phone: 02-27-2024 History of Present illness Narrative [facility] NOTE: Name: Frannie Galvan, 59 y.o. CSN:[id number] PCP: Hannah Champion, DO ALL: Allergies Allergen Reactions Animal Dander Shortness of breath House Dust Mite Shortness of breath Latex Diarrhea, Hives and Swelling Other Swelling Pashto peanuts Adhes. Pzme-Xwsp-Zhvjancxeqby Rash Use paper tape Adhesive Tape-Silicones Rash History: Chief Complaint: URI (Cough, congestion, fatigued, fever x 3-4 days) Encounter Date: 02/27/2024 HPI: The history was obtained from the patient. Frannie is a 59 y.o. female, who presents with a chief complaint of URI (Cough, congestion, fatigued, fever x 3-4 days) Sinus pressure and pain, nasal congestion with clear mucus, bilateral ear pain/fullness, productive cough with yellow/green sputum , mild sore throat, and fatigue. Symptoms began 3 days ago, reports symptoms have progressively worsened since onset. States feeling more short of breath today. denies any body aches, abdominal pain, chest pain, wheezing, rashes, urinary symptoms, vomiting, and diarrhea. Denies any lightheadedness or dizziness; no changes in mental status. No swelling in legs. Appetite is decreased ; is able to eat and drink fluids without difficulty. Has been taking utilized otc cold and flu without much relief; no other obfq-inl-nouqixh medications or home remedies for symptom management. Does have a history of asthma, has not utilized rescue inhaler. PMHx: Past Medical History: Diagnosis Date Allergy status to unspecified drugs, medicaments and biological substances History of seasonal allergies Personal history of other diseases of the digestive system History of Crohn's disease Personal history of other diseases of the nervous system and sense organs History of cataract Current Outpatient Medications Medication Sig Dispense Refill acetaminophen (Tylenol) 325 mg tablet Take by mouth every 6 hours if needed. azaTHIOprine (Imuran) 50 mg tablet Take 1 tablet (50 mg) by mouth once daily. blood sugar diagnostic (Blood Glucose Test) strip Once daily 100 each 3 blood-glucose meter misc Test daily before all meals/snacks and once before bedtime. 1 each 0 ciclopirox (Penlac) 8 % solution APPLY SOLUTION TOPICALLY ONCE DAILY TO AFFECTED TOENAILS. EVERY WEEK FILE WITH MONTEZUMA BOARD & REMOVE RESIDUE yitkaafryro-vijpujfie-sbpnjqcx (Trelegy Ellipta) 200-62.5-25 mcg blister with device Inhale 1 puff once daily. RINSE MOUTH WITH WATER AFTER. 60 each 5 hydroCHLOROthiazide (HYDRODiuril) 25 mg tablet Take 1 tablet (25 mg) by mouth once daily. isopropyl alcohoL 70 % towelette Test daily before all meals/snacks and once before bedtime. 1 each 1 lancets misc Check glucose once daily. 100 each 3 lisinopril 20 mg tablet Take 1 tablet (20 mg) by mouth once daily. metoprolol succinate XL (Toprol-XL) 50 mg 24 hr tablet Take by mouth. pyridoxine (Vitamin B-6) 100 mg tablet Take 1 tablet (100 mg) by mouth every 12 hours. albuterol 90 mcg/actuation inhaler Inhale 1 puff every 4 hours if needed for wheezing. 18 g 1 zxseaplamsgperd-hgjfwfeib-UR 2-30-10 mg/5 mL syrup Take 5 mL by mouth 4 times a day as needed for congestion or cough for up to 10 days. 120 mL 0 glipiZIDE (Glucotrol) 5 mg tablet Take 1 tablet (5 mg) by mouth 2 times a day before meals. (Patient not taking: Reported on 02/27/2024) 60 tablet 11 predniSONE (Deltasone) 10 mg tablet Take 3 tablets (30 mg) by mouth once daily for 7 days. 21 tablet 0 semaglutide 0.25 mg or 0.5 mg (2 mg/3 mL) pen injector Inject 0.25 mg under the skin 1 (one) time per week for 30 days, THEN 0.5 mg 1 (one) time per week. (Patient not taking: Reported on 12/12/2023) 3 mL 2 No current facility-administered medications for this visit. PMSx: Past Surgical History: Procedure Laterality Date CATARACT EXTRACTION 09/27/2016 Cataract Surgery HERNIA REPAIR 09/27/2016 Inguinal Hernia Repair OTHER SURGICAL HISTORY 09/27/2016 Anal Fistulectomy TONSILLECTOMY 09/27/2016 Tonsillectomy UMBILICAL HERNIA REPAIR 09/27/2016 Umbilical Hernia Repair Fam Hx: Family History Family history unknown: Yes SOC. Hx: Social History Socioeconomic History Marital status: Spouse name: Not on file Number of children: Not on file Years of education: Not on file Highest education level: Not on file Occupational History Not on file Tobacco Use Smoking status: Never Smokeless tobacco: Never Vaping Use Vaping status: Never Used Substance and Sexual Activity Alcohol use: Not Currently Drug use: Never Sexual activity: Not on file Other Topics Concern Not on file Social History Narrative Not on file Social Drivers of Health Financial Resource Strain: Not on file Food Insecurity: Not on file Transportation Needs: Not on file Physical Activity: Not on file Stress: Not on file Social Connections: Not on file Intimate Partner Violence: Not on file Housing Stability: Not on file Vitals: 02/27/24 1655 BP: 118/70 Pulse: 86 Resp: 14 Temp: 36.8 C (98.3 F) SpO2: 95% 122 kg (268 lb) Physical Exam Vitals and nursing note reviewed. Constitutional: Appearance: Normal appearance. HENT: Head: Normocephalic and atraumatic. Right Ear: Hearing, ear canal and external ear normal. A middle ear effusion is present. Tympanic membrane is erythematous. Tympanic membrane is not bulging. Tympanic membrane has normal mobility. Left Ear: Hearing, ear canal and external ear normal. A middle ear effusion is present. Tympanic membrane is erythematous. Tympanic membrane is not bulging. Tympanic membrane has normal mobility. Nose: Congestion and rhinorrhea present. Rhinorrhea is purulent. Right Sinus: Maxillary sinus tenderness and frontal sinus tenderness present. Left Sinus: Maxillary sinus tenderness and frontal sinus tenderness present. Mouth/Throat: Lips: [place]. Mouth: Mucous membranes are moist. Pharynx: Uvula midline. Posterior oropharyngeal erythema present. No pharyngeal swelling or oropharyngeal exudate. Tonsils: No tonsillar exudate. Cardiovascular: Rate and Rhythm: Normal rate and regular rhythm. Heart sounds: Normal heart sounds. Pulmonary: Effort: Pulmonary effort is normal. Breath sounds: Examination of the right-upper field reveals wheezing. Examination of the left-upper field reveals wheezing. Wheezing present. Abdominal: General: Bowel sounds are normal. Skin: General: Skin is warm and dry. Neurological: Mental Status: She is alert and oriented to person, place, and time. LABORATORY @ RADIOLOGICAL IMAGING (if done): Results for orders placed or performed in visit on 02/27/24 (from the past 24 hours) POCT SARS-COV-2/FLU/RSV PCR SYMPTOMATIC manually resulted Result Value Ref Range POC Coronavirus 2019, PCR Not Detected Not Detected POC Flu A Result Not Detected Not Detected POC Flu B Result Not Detected Not Detected POC RSV PCR Not Detected Not Detected Negative laboratory testing reviewed with patient, states understanding. __ I did personally review Frannie's past medical history, surgical history, social history, as well as family history (when relevant). In this case, I also oversaw the her drug management by reviewing her medication list, allergy list, as well as the medications that I prescribed during the UC course and/or recommended as an out-patient (including possible OTC medications such as acetaminophen, NSAIDs , etc). After reviewing the items above, I did look at previous medical documentation, such as recent hospitalizations, office visits, and/or recent consultations with PCP/specialist. SDOH: Another factor that I considered in Frannie's care was her Social Determinants of Health (SDOH). During this UC encounter, she did not have social determinants of health. Those SDOH influencing Frannie's care are: none ___ UC COURSE/MEDICAL DECISION MAKING: Frannie is a 59 y.o., who presents with a working diagnosis of 1. Mild intermittent asthma with acute exacerbation ([facility]) 2. Acute cough Frannie was seen today for uri. Diagnoses and all orders for this visit: Mild intermittent asthma with acute exacerbation ([facility]CC) (Primary) - predniSONE (Deltasone) 10 mg tablet; Take 3 tablets (30 mg) by mouth once daily for 7 days. Acute cough - tegjbndkrswohne-awhayfplb-ZO 2-30-10 mg/5 mL syrup; Take 5 mL by mouth 4 times a day as needed for congestion or cough for up to 10 days. - POCT SARS-COV-2/FLU/RSV PCR SYMPTOMATIC manually resulted Continue current plan of care, if symptoms have not improved or worsened over the next 2 to 3 days patient to call for possible antibiotic therapy. Plan of care reviewed with patient. If symptoms change and/or worsen will follow-up with primary care provider, return to urgent care, or go to the nearest emergency department for further evaluation. Patient states understanding and is agreeable with plan of care. Sushma Wood APRN, DNP Advanced Practice Provider [facility] Please note: While the patient may or may not have received printed discharge paperwork, all relevant medical findings, test results, and treatment details are accessible through the electronic medical record system. The patient is encouraged to review their chart via the patient portal for comprehensive information and follow-up instructions. documented in this encounter [facility] Work Phone: 02-22-2024 Evaluation + Plan note Associated Problem(s): Type 2 diabetes mellitus without complication, without long-term current use of insulin (HCC) POC A1c 01/27/24 was 6.0% on glipizide and semaglutide 0.5 mg weekly (she had only taken 1 dose of 0.5 mg). Stopped glipizide and reduced semaglutide back to 0.25 mg weekly to avoid hypoglycemia She denies any hypoglycemic events. Home fasting BG log reviewed today, and most readings are 110-140. She has met with upholsterer outside and is actively improving her diet and working on weight loss. - Advised if fasting blood sugar is consistently over 150, increase Ozempic to 0.5 m weekly and let me know - Follow up in 2 months, recheck A1c then [facility] 02-22-2024 Miscellaneous Notes Associated Problem(s): Type 2 diabetes mellitus without complication, without long-term current use of insulin (HCC) POC A1c 01/27/24 was 6.0% on glipizide and semaglutide 0.5 mg weekly (she had only taken 1 dose of 0.5 mg). Stopped glipizide and reduced semaglutide back to 0.25 mg weekly to avoid hypoglycemia She denies any hypoglycemic events. Home fasting BG log reviewed today, and most readings are 110-140. She has met with upholsterer outside and is actively improving her diet and working on weight loss. - Advised if fasting blood sugar is consistently over 150, increase Ozempic to 0.5 m weekly and let me know - Follow up in 2 months, recheck A1c then Associated Problem(s): Rash Scaly, rough rash on R face x5-6 months, worsening slightly. Ddx: allergic dermatitis, atopic dermatitis, fungal infection, rosacea/pustular rosacea - Start triamcinolone BID for 14 days - Follow up in 2 weeks if no improvement. Consider metronidazole cream if steroid doesn't help. documented in this encounter [facility] 02-22-2024 Evaluation + Plan note Associated Problem(s): Rash Scaly, rough rash on R face x5-6 months, worsening slightly. Ddx: allergic dermatitis, atopic dermatitis, fungal infection, rosacea/pustular rosacea - Start triamcinolone BID for 14 days - Follow up in 2 weeks if no improvement. Consider metronidazole cream if steroid doesn't help. [facility] 02-22-2024 Note Assessment/Plan: Rash Scaly, rough rash on R face x5-6 months, worsening slightly. Ddx: allergic dermatitis, atopic dermatitis, fungal infection, rosacea/pustular rosacea - Start triamcinolone BID for 14 days - Follow up in 2 weeks if no improvement. Consider metronidazole cream if steroid doesn't help. Type 2 diabetes mellitus without complication, without long-term current use of insulin ([facility]) POC A1c 01/27/24 was 6.0% on glipizide and semaglutide 0.5 mg weekly (she had only taken 1 dose of 0.5 mg). Stopped glipizide and reduced semaglutide back to 0.25 mg weekly to avoid hypoglycemia She denies any hypoglycemic events. Home fasting BG log reviewed today, and most readings are 110-140. She has met with upholsterer outside and is actively improving her diet and working on weight loss. - Advised if fasting blood sugar is consistently over 150, increase Ozempic to 0.5 m weekly and let me know - Follow up in 2 months, recheck A1c then Subjective: Frannie Galvan is a 59 y.o. female Chief Complaint [...] to the . She met with the upholsterer outside, who identified she was eating inconsistently. She [...] patient, ordering tests/procedures/medications, documentation, and care coordination. Hannah Champion DO AUTHENTICATED BY HANNAH CHAMPION, ON 02/22/2024 11:25:41 [facility] 02-22-2024 History of Present illness Narrative Assessment/Plan: Rash Scaly, rough rash on R face x5-6 months, worsening slightly. Ddx: allergic dermatitis, atopic dermatitis, fungal infection, rosacea/pustular rosacea - Start triamcinolone BID for 14 days - Follow up in 2 weeks if no improvement. Consider metronidazole cream if steroid doesn't help. Type 2 diabetes mellitus without complication, without long-term current use of insulin ([facility]) POC A1c 01/27/24 was 6.0% on glipizide and semaglutide 0.5 mg weekly (she had only taken 1 dose of 0.5 mg). Stopped glipizide and reduced semaglutide back to 0.25 mg weekly to avoid hypoglycemia She denies any hypoglycemic events. Home fasting BG log reviewed today, and most readings are 110-140. She has met with upholsterer outside and is actively improving her diet and working on weight loss. - Advised if fasting blood sugar is consistently over 150, increase Ozempic to 0.5 m weekly and let me know - Follow up in 2 months, recheck A1c then Subjective: Frannie Galvan is a 59 y.o. female Chief Complaint [...] to the . She met with the upholsterer outside, who identified she was eating inconsistently. She [...] 133/78 Pulse: 72 Resp: 17 Temp: 96.9 F (36.1 C) SpO2: 93% Physical Exam Constitutional: General: [...] patient, ordering tests/procedures/medications, documentation, and care coordination. Hannah Champion DO documented in this encounter [facility] 01-27-2024 Evaluation + Plan note Associated Problem(s): Crohn disease (HCC) Follows with GI. On azathioprine. Continue current therapy and appropriate follow up. [facility] 01-27-2024 Miscellaneous Notes Associated Problem(s): Crohn disease (HCC) Follows with GI. On azathioprine. Continue current therapy and appropriate follow up. Associated Problem(s): Umbilical hernia without obstruction and without gangrene Referral to general surgery Associated Problem(s): Type 2 diabetes mellitus without complication, without [...] weekly. - Recheck A1c in 3-6 months Associated Problem(s): Primary hypertension Goal <130/90. Current regimen with metoprolol XR 50 mg, lisinopril 20 mg, hydrochlorothiazide 25 mg daily. Continue Associated Problem(s): Asthma Current therapy with trelegy inhaler and prn albuterol. Follows with pulmonology, Dr. Holt at [facility]. Continue current therapy and appropriate follow up. documented in this encounter [facility] 01-27-2024 Evaluation + Plan note Associated Problem(s): Umbilical hernia without obstruction and without gangrene Referral to general surgery [facility] 01-27-2024 Evaluation + Plan note Associated Problem(s): Type 2 diabetes mellitus without complication, without [...] weekly. - Recheck A1c in 3-6 months [facility] 01-27-2024 Evaluation + Plan note Associated Problem(s): Primary hypertension Goal <130/90. Current regimen with metoprolol XR 50 mg, lisinopril 20 mg, hydrochlorothiazide 25 mg daily. Continue [facility] 01-27-2024 Evaluation + Plan note Associated Problem(s): Asthma Current therapy with trelegy inhaler and prn albuterol. Follows with pulmonology, Dr. Holt at [facility]. Continue current therapy and appropriate follow up. [facility] 2024 Note [facility] PATIENT: Frannie Galvan DATE / TIME: 01/25/24 8:55 AM POS: Office AGE: 58 y.o. : 1965 RACE: [1] SEX: female PCP: Hannah Champion DO REFERRAL: Hannah Champion DO HISTORY OF PRESENT ILLNESS CC [...] with strict return precautions to the ED i (more content not included)... [facility] 2024 History of Present illness Narrative Images from the original note were not included. [facility] [place] PATIENT: Frannie Alcala Estela DATE / TIME: 01/25/24 8:55 AM POS: Office AGE: 58 y.o. : 1965 RACE: [1] SEX: female PCP: Hannah Champion DO REFERRAL: Hannah Champion DO HISTORY OF PRESENT ILLNESS CC [...] yrs ago CATARACT EXTRACTION, BILATERAL Bilateral around 2018 HERNIA REPAIR umbilical hernia repair with mesh [...] to participate in the care of Frannie Galvan. ICD: Crohn's disease with fistula, unspecified gastrointestinal tract location (HCC) [K50.913] documented in this encounter [facility] 01-23-2024 Instructions Hannah Champion DO - 01/23/2024 8:19 AM EST Stop glipizide. Take Ozempic 0.25 mg weekly. If your fasting blood sugar is consistently over 150, increase Ozempic to 0.5 m weekly. documented in this encounter [facility] 01-23-2024 Note Assessment/Plan: Asthma Current therapy with trelegy inhaler and prn albuterol. Follows with pulmonology, Dr. Holt at [facility]. Continue current therapy and appropriate follow up. Primary hypertension Goal <130/90. Current regimen with metoprolol XR 50 mg, lisinopril 20 mg, hydrochlorothiazide 25 mg daily. Continue Type 2 diabetes mellitus without complication, without long-term current use of insulin ([facility]) Current therapy with glipizide semaglutide, just increased [...] therapy and appropriate follow up. Subjective: Frannie Galvan is a 59 y.o. female Chief Complaint [...] lithotripsy Specialists: Pulmonology GI Urology Nephrology - [facility] The following portions of the patient's history [...] and potential side effects of the medications. Hannah Champion DO AUTHENTICATED BY HANNAH CHAMPION, ON 01/27/2024 17:58:33 [facility] 01-23-2024 History of Present illness Narrative Assessment/Plan: Asthma Current therapy with trelegy inhaler and prn albuterol. Follows with pulmonology, Dr. Holt at [facility]. Continue current therapy and appropriate follow up. Primary hypertension Goal <130/90. Current regimen with metoprolol XR 50 mg, lisinopril 20 mg, hydrochlorothiazide 25 mg daily. Continue Type 2 diabetes mellitus without complication, without long-term current use of insulin ([facility]) Current therapy with glipizide semaglutide, just increased [...] therapy and appropriate follow up. Subjective: Frannie Galvan is a 59 y.o. female Chief Complaint [...] lithotripsy Specialists: Pulmonology GI Urology Nephrology - [facility] The following portions of the patient's history were reviewed and updated as appropriate: allergies, current medications, past family history, past medical history, past social history, past surgical history and problem list. Review of Systems Objective: PACU Vitals 01/23/24 0702 BP: 135/87 Pulse: 73 Resp: 16 Temp: 98.2 F (36.8 C) SpO2: 93% Physical Exam Constitutional: General: [...] and potential side effects of the medications. Hannah Champion DO documented in this encounter [facility] 12-12-2023 History of Present illness Narrative Subjective Patient ID: Frannie Galvan is a 58 y.o. female who presents for No chief complaint on file.. HPI Patient was seen today in the office on a 2-month follow-up visit. Patient reports that her breathing has been doing good she has only had a little bit of congestion after recently cutting her lawn. She also gets some rhinitis but generally that is short-lived. She is short of breath going up stairs. Review of Systems She denies any fever, chills, rhinitis or sore throat. She reports also that she does not awake in the morning with a cough like she had been doing before. Objective Physical Exam HEENT, no inflammation on examination of the oropharynx. I suggested to the patient that when she does get some irritation that she actually drink some liquids of her choice rather than just rinsing and gargling with water. Heart, heart sounds were regular rate and rhythm. Extremities, no cyanosis, clubbing or pretibial edema. Peak flow today was 470 L/min Assessment/Plan Impressions: 1. Asthma. 2. Seasonal allergies. Recommendations: 1. Continue with her present therapy. 2. Follow-up with the patient in 4 months. This note was transcribed using the wireLawyer Dictation system. There may be grammatical, punctuation, or verbiage errors that occur with voice recognition programs. Gabino Holt DO 12/12/23 3:57 PM documented in this encounter [facility] Work Phone: 10-31-2023 History of Present illness Narrative Subjective Patient ID: Frannie Galvan is a 58 y.o. female who presents for Follow-up (Pt is here today for 2 month FUV. Pulmonology referral was placed last visit and she is currently being seen by their office. Would like to try to get Ozempic approved again through her insurance. ). HPI Patient is here for follow up. Asthma: was started on trelegy. increased peak flow and feels like it is helping. DM2: most recent A1C was 8.5. dietary recommendations are discussed again. Ordered to reassess. Insurance not approving semaglutide saying her A1C needs to be above 6.5, which she does at 8.5. Will resubmit the order. Given her diabetes and obesity (BMI-44) she will benefit from semaglutide. Review of Systems ROS negative except discussed above in [facility]. Vitals: 10/31/23 1447 BP: 112/70 Pulse: 79 SpO2: 97% Objective Physical Exam Constitutional: Appearance: Normal appearance. Neurological: Mental Status: She is alert. Assessment/Plan Frannie was seen today for follow-up. Diagnoses and all orders for this visit: Type 2 diabetes mellitus without complication, without long-term current use of insulin (Multi) (Primary) - Hemoglobin A1C; Future - Basic Metabolic Panel; Future - semaglutide 0.25 mg or 0.5 mg (2 mg/3 mL) pen injector; Inject 0.25 mg under the skin 1 (one) time per week for 30 days, THEN 0.5 mg 1 (one) time per week. Asthma with acute exacerbation, unspecified asthma severity, unspecified whether persistent ([facility]) Follow up in 3 months if semaglutide is not approved. If approved may need to be seen sooner. Zach Ritter MD MPH documented in this encounter [facility] Work Phone: 09-28-2023 History of Present illness Narrative Subjective Patient ID: Frannie Galvan is a 58 y.o. female who presents for No chief complaint on file.. HPI Patient was seen today in the office on a follow-up visit. I reviewed with her the results of her pulmonary function testing which showed small airway obstructive disease. She has borderline abnormal FeNO test at 25 and RAST testing just showed to low-level allergens which were, and ragweed and Alternaria which is a fungus. She also complains of some shortness of breath and chest congestion when she goes to bed in the evening. Her house has no central air or air janitor cleaner. She does have the coughing in the evening which may be a result of some allergies which I explained to her that our screening does not test for every allergen [place]. She is currently on the Breo 200/25 and she uses albuterol as needed. She has discontinued the Singulair on her own because did not seem to be making a difference for her breathing. Review of Systems She denies any fever, chills, rhinitis or sore throat. Objective Physical Exam Pulmonary, lungs were clear to auscultation bilaterally. Her peak flow today was 430 L/min. 380 would be the norm for her height and age. Cardio, heart sounds were regular rate and rhythm. Extremities, no cyanosis, clubbing or pretibial edema. The patient appears alert and oriented x 3 and is not dyspneic at rest or with activity in the office. Assessment/Plan Impressions: 1. Asthma. 2. Seasonal allergies which is probably aggravated by her not having central air or air janitor cleaner in the house. 3. GERD symptoms in the evening as described by the patient. She currently avoids drinking any fluids for several hours before bedtime to help relieve those symptoms. Recommendations: 1. Can give her a trial of Trelegy-200 daily and this device will be good for 2 weeks. 2. Will have her hold the Breo inhaler for now. 3. I have suggested to her looking into a exercise program and weight loss which may help with some of the shortness of breath issues that she has been having. 4. Follow-up with the patient in 2 weeks This note was transcribed using the [employer] Dictation system. There may be grammatical, punctuation, or verbiage errors that occur with voice recognition programs. Gabino Holt DO 09/28/23 8:56 AM documented in this encounter [facility] Work Phone: 09-05-2023 History of Present illness Narrative Subjective Patient ID: Frannie Galvan is a 58 y.o. female who presents for Asthma. HPI This is a 58-year-old female with history of asthma over the past year. She apparently had testing done in the past she was diagnosed with allergies as a child and was on immunotherapy for a number of years. She did have an episode of COVID infection in 2020 but was not hospitalized for that. She is currently being treated with Breo 200/25 daily and Singulair 10 mg nightly. She also has a albuterol inhaler. She has had bilateral cataract surgery, tonsillectomy and adenoidectomy, inguinal hernia repair, partial resection of her colon for Crohn's disease. Family history of father with arthritis mother with asthma and both parents had underlying heart disease. She has a brother whose had a CVA. 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 Review of Systems Patient reports her weight has been about the same over the past year. She has ncn-aisekkf-saqthqrlo diabetes mellitus. She has had some left ankle arthritis and she denies being a smoker. She does admit to history of poor sleep and snoring. Objective Physical Exam Patient reports being variably rested in the morning. HEENT she has class IV airway and a retrognathic chin. Pulmonary, lungs are clear to auscultation bilaterally. Cardio, heart sounds are regular rate and rhythm. GI, bowel sounds were heard in all quadrants. No evidence of musculoskeletal disorder other than her complaint of some left ankle discomfort. She does not have any pretibial edema however she reports attributes that to her current diuretics. Psych, the patient is alert and oriented x 3. Assessment/Plan Impressions: 1. Asthma. 2. Seasonal allergies. 3. History that may be consistent with sleep apnea. Recommendations: 1. Complete pulmonary function testing. 2. FeNO. 3. RAST testing. 4. Will follow-up with the patient after the above testing is completed and discuss those results with her 5. May also review whether she wants to have an evaluation for possible obstructive sleep apnea. This note was transcribed using the [employer] Dictation system. There may be grammatical, punctuation, or verbiage errors that occur with voice recognition programs. Gabino Holt DO 09/07/23 7:54 AM documented in this encounter [facility] Work Phone: 08-28-2023 History of Present illness Narrative Subjective Patient ID: Frannie Galvan is a 58 y.o. female who presents for Follow-up (Pt is here for 1 month FUV. ). HPI Here for follow up. New diagnosis of DM2. Reports that she is trying to figure out the diet. She reports that she is checking her glucose as well. Referral provided for nutrition education. Will reassess again before the next appointment. Has hx of asthma. Has been a little while she has seen snuff grinder and screener. Referral provided. Review of Systems ROS negative except discussed above in HPI. Vitals: 08/28/23 1052 BP: 130/80 Pulse: 68 SpO2: 96% Objective Physical Exam Constitutional: Appearance: Normal appearance. Neurological: Mental Status: She is alert. Assessment/Plan Frannie was seen today for follow-up. Diagnoses and all orders for this visit: Type 2 diabetes mellitus without complication, without long-term current use of insulin (Multi) (Primary) - Follow Up In Nutrition Services; Future Asthma with acute exacerbation, unspecified asthma severity, unspecified whether persistent ([facility]) - albuterol 90 mcg/actuation inhaler; Inhale 1 puff every 4 hours if needed for wheezing. - fluticasone furoate-vilanteroL (Breo Ellipta) 200-25 mcg/dose inhaler; Inhale 1 puff once daily. - Referral to Pulmonology; Future Asthma, unspecified asthma severity, unspecified whether complicated, unspecified whether persistent ([facility]) - montelukast (Singulair) 10 mg tablet; Take 1 tablet (10 mg) by mouth once daily at bedtime. Follow up in a couple of months. Discussed with patient that I will be leaving [facility] at the end of October. Discussed options to transfer care. Zach Ritter MD MPH documented in this encounter [facility] Work Phone: 07-17-2023 History of Present illness Narrative Subjective Patient ID: Frannie Galvan is a 58 y.o. female who presents for Follow-up (Pt is here today for 3 month FUV. Needs colonoscopy ordered and mammo ordered. Would like her lungs and chest listened to, reports she had a cold going on 4 weeks, and is still coughing with some green mucus. ). HPI New diagnosis of DM: Has had previous prediabetes diagnosis with 6.1. now A1C is 8.2. Recommended to change diet. Starting ozempic whic can help with diet and weight. Mtformin also started to be begin in the meantime. She has been having chest congestion lately. Has been present for the last few weeks. Slight improvement noticed. Bring phlegm intermittently. Will rx steroids. If not improving then abx. Asthma: slightly worse with recent possibel infection. HTN: Blood pressure is elevated today. Currently taking 3 blood pressure medications. Diet and exercise could be improved. Encouraged her to work on these for now. GERD: She will start Omeprazole. Fluid retention is slighly better. Has been having tinnitus more frequently now. Chronic conditions: Chron's disease - was diagnosed about 7-8 years ago. Short shad surgeries in the past. Mild symptoms since then. Recurrent UTI in the past in the past. 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 Cataract due to prednisone that she was taking for Crohn's. She underwent cataract surgery. Impaired fasting glucose from previous blood test results. Ankle pain in the left side: discussed about PT. Patient would like to see a chopping machine operator. Referral is made. X-rays ordered Review of Systems ROS negative except discussed above in HPI. Vitals: 07/17/23 1321 BP: (!) 130/92 Pulse: 65 SpO2: 95% Objective Physical Exam Constitutional: Appearance: Normal appearance. Cardiovascular: Rate and Rhythm: Normal rate and regular rhythm. Pulses: Normal pulses. Heart sounds: Normal heart sounds. Pulmonary: Effort: Pulmonary effort is normal. Breath sounds: Normal breath sounds. Neurological: Mental Status: She is alert. Assessment/Plan Frannie was seen today for follow-up. Diagnoses and all orders for this visit: Asthma with acute exacerbation, unspecified asthma severity, unspecified whether persistent ([facility]) (Primary) - amoxicillin-pot clavulanate (Augmentin) 875-125 mg tablet; Take 1 tablet (875 mg) by mouth 2 times a day for 10 days. - Discontinue: predniSONE (Deltasone) 50 mg tablet; Take 1 tablet (50 mg) by mouth once daily for 10 days. - predniSONE (Deltasone) 50 mg tablet; Take 1 tablet (50 mg) by mouth once daily for 5 days. Primary hypertension Type 2 diabetes mellitus without complication, without long-term current use of insulin (Multi) - semaglutide 0.25 mg or 0.5 mg (2 mg/3 mL) pen injector; Inject 0.25 mg under the skin 1 (one) time per week. - metFORMIN (Glucophage) 500 mg tablet; Take 1 tablet (500 mg) by mouth 2 times a day with meals. - Basic Metabolic Panel; Future Follow up in 3 months. Zach Ritter MD MPH documented in this encounter [facility] Work Phone: 07-17-2023 Instructions Zach Ritter MD MPH - 07/17/2023 1:20 PM EDT [facility] Address: [address] [place] [address] Hours: Monday 10?AM-2?PM Monday 10?AM-2?PM, 6-8?PM Monday 10?AM-2?PM 10?AM-2?PM Monday Closed Monday 9-11?AM Monday Closed Updated by others 9 weeks ago Suggest new hours documented in this encounter [facility] Work Phone: 04-18-2023 History of Present illness Narrative Subjective Patient ID: Frannie Galvan is a 58 y.o. female who presents for New PT (PT is here today to establish care as a new pt. Has some med side effect issues. Had recent lab work done, at [facility]. ). HPI Here to establish care. Asthma: Has history of asthma. Reports that she was diagnosed with this later in life. Currently using Albuterol and Breo ellipta. Continues to have some residual symptoms. Symptoms more at night. Has hx of GERD and Crohn's- she will try omeprazole to see if this improves her symptoms as well. HTN: Blood pressure is elevated today. Currently taking 3 blood pressure medications. Diet and exercise could be improved. Encouraged her to work on these for now. GERD: She will start Omeprazole. Has felt like she is retaining fluid. Encouraged to make dietary changes, especially reducing salt intake. increase physical activity. Has been having tinnitus more frequently now. Chron's disease - was diagnosed about 7-8 years ago. Short shad surgeries in the past. Mild symptoms since then. Recurrent UTI in the past in the past. 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 Cataract due to prednisone that she was taking for Crohn's. She underwent cataract surgery. Impaired fasting glucose from previous blood test results. Ankle pain in the left side: discussed about PT. Patient would like to see a chopping machine operator. Referral is made. X-rays ordered Review of Systems ROS negative except discussed above in HPI. Vitals: 04/18/23 1637 BP: (!) 138/94 Pulse: 84 SpO2: 96% Objective Physical Exam Constitutional: Appearance: Normal appearance. Cardiovascular: Rate and Rhythm: Normal rate and regular rhythm. Pulmonary: Effort: Pulmonary effort is normal. Breath sounds: Normal breath sounds. Musculoskeletal: Cervical back: Normal range of motion and neck supple. Comments: Mild tenderness in the left ankle in the lateral malleoli are area. No other significant findings. Mild limitation in range of motion. Neurological: Mental Status: She is alert. Assessment/Plan Frannie was seen today for new pt. Diagnoses and all orders for this visit: Encounter to establish care (Primary) Primary hypertension Vitamin D deficiency - cholecalciferol (Vitamin D3) 50 mcg (2,000 unit) capsule; Take 1 capsule (50 mcg) by mouth once daily. - Vitamin D 25-Hydroxy,Total (for eval of Vitamin D levels); Future Impaired fasting glucose - Hemoglobin A1C; Future - Comprehensive Metabolic Panel; Future Mixed hyperlipidemia - Lipid Panel; Future Chronic pain of left ankle - XR ankle left 3+ views; Future - Referral to Podiatry; Future H/O Crohn's disease Asthma, unspecified asthma severity, unspecified whether complicated, unspecified whether persistent Follow up in 3 months. Zach Ritter MD MPH documented in this encounter [facility] Work Phone: 04-18-2023 Instructions Zach Ritter MD MPH - 04/18/2023 4:40 PM EST Please try Prilosec (omeprazole) for the next couple of weeks to see if this improves your night time asthma symptoms. documented in this encounter [facility] Work Phone: 01-28-2023 History of Present illness Narrative 58 y.o. female Vitals: 01/28/23 1029 BP: 141/86 Pulse: 69 Temp: 36.2 C (97.2 F) SpO2: 95% Allergies Allergen Reactions Latex Diarrhea, Hives and Swelling Other Swelling Pashto peanuts Adhes. Muwk-Xmxq-Ibwhpzyamyev Rash Use paper tape Adhesive Tape-Silicones Rash Medication Documentation Review Audit Reviewed by Mey Collins MA (Log Chipper) on 01/28/23 at 1034 Medication Order Taking? Sig Documenting Provider Last Dose Status acetaminophen (Tylenol) 325 mg tablet [id number] Yes Take by mouth every 6 hours if needed. Historical Provider, Taking Active albuterol 90 mcg/actuation inhaler [id number] Yes Inhale 1 puff twice a day. Historical Provider, Taking Active Breo Ellipta 200-25 mcg/dose inhaler [id number] Yes Historical Provider, Taking Active hydroCHLOROthiazide (HYDRODiuril) 25 mg tablet [id number] Yes Take 1 tablet (25 mg) by mouth once daily. Historical Provider, Taking Active lisinopril 20 mg tablet [id number] Yes Take 1 tablet (20 mg) by mouth once daily. Historical Provider, Taking Active metoprolol succinate XL (Toprol-XL) 50 mg 24 hr tablet [id number] Yes Take by mouth. Historical Provider, Taking Active montelukast (Singulair) 10 mg tablet [id number] Yes Historical Provider, Taking Active Past Medical History: Diagnosis Date Allergy status to unspecified drugs, medicaments and biological substances History of seasonal allergies Personal history of other diseases of the digestive system History of Crohn's disease Personal history of other diseases of the nervous system and sense organs History of cataract Past Surgical History: Procedure Laterality Date CATARACT EXTRACTION 09/27/2016 Cataract Surgery HERNIA REPAIR 09/27/2016 Inguinal Hernia Repair OTHER SURGICAL HISTORY 09/27/2016 Anal Fistulectomy TONSILLECTOMY 09/27/2016 Tonsillectomy UMBILICAL HERNIA REPAIR 09/27/2016 Umbilical Hernia Repair ROS See HPI Physical Exam Vitals and nursing note reviewed. HENT: Head: Normocephalic and atraumatic. Right Ear: Tympanic membrane and ear canal normal. Left Ear: Tympanic membrane and ear canal normal. Nose: Nose normal. Mouth/Throat: Mouth: Mucous membranes are moist. Pharynx: Oropharynx is clear. No oropharyngeal exudate or posterior oropharyngeal erythema. Eyes: Extraocular Movements: Extraocular movements intact. Conjunctiva/sclera: Conjunctivae normal. Pupils: Pupils are equal, round, and reactive to light. Cardiovascular: Rate and Rhythm: Normal rate and regular rhythm. Pulmonary: Effort: Pulmonary effort is normal. No respiratory distress. Breath sounds: No stridor. No wheezing, rhonchi or rales. Comments: Decreased air movement bilaterally Lymphadenopathy: Cervical: No cervical adenopathy. Skin: General: Skin is warm and dry. Capillary Refill: Capillary refill takes less than 2 seconds. Neurological: General: No focal deficit present. Mental Status: She is alert and oriented to person, place, and time. Psychiatric: Mood and Affect: Mood normal. Behavior: Behavior normal. Assessment/Plan/MDM Frannie was seen today for uri. Diagnoses and all orders for this visit: Acute bronchitis, unspecified organism (Primary) - azithromycin (Zithromax Z-Luis Manuel) 250 mg tablet; Take 2 tablets (500 mg) on Day 1, followed by 1 tablet (250 mg) once daily on Days 2 through 5. - predniSONE (Deltasone) 10 mg tablet; Take 3 tablets (30 mg) by mouth once daily for 5 days. Encouraged pt to continue otc cold remedies PRN, push by mouth fluids and rest. Patient's clinical presentation is otherwise unremarkable at this time. Patient is discharged with instructions to follow-up with primary care or seek emergency medical attention for worsening symptoms or any new concerns. Brent Wolf CNP [facility] [phone] documented in this encounter [facility] Work Phone: Evaluation note Diagnosis Acute bronchitis, unspecified organism- Primary documented in this encounter [facility] Work Phone: Evaluation note* Diagnosis Encounter to establish care- Primary Primary hypertension Unspecified essential hypertension Vitamin D deficiency Impaired fasting glucose Mixed hyperlipidemia Chronic pain of left ankle H/O Crohn's disease Asthma, unspecified asthma severity, unspecified whether complicated, unspecified whether persistent documented in this encounter [facility] Work Phone: Evaluation note* Diagnosis Chronic pain of left ankle documented in this encounter [facility] Work Phone: Evaluation note* Diagnosis Chronic pain of left ankle documented in this encounter [facility] Work Phone: Evaluation note* Diagnosis Asthma with acute exacerbation, unspecified asthma severity, unspecified whether persistent ([facility])- Primary Primary hypertension Unspecified essential hypertension Type 2 diabetes mellitus without complication, without long-term current use of insulin (Multi) documented in this encounter [facility] Work Phone: Evaluation note* Diagnosis Type 2 diabetes mellitus without complication, without long-term current use of insulin (Multi)- Primary Asthma with acute exacerbation, unspecified asthma severity, unspecified whether persistent (HHS-HCC) Asthma, unspecified asthma severity, unspecified whether complicated, unspecified whether persistent (HHS-HCC) documented in this encounter [facility] Work Phone: Evaluation note* Diagnosis Moderate persistent asthma without complication (HHS-HCC)- Primary Seasonal allergies Allergic rhinitis, cause unspecified documented in this encounter [facility] Work Phone: Evaluation note* Diagnosis Crohn's disease with fistula, unspecified gastrointestinal tract location (HCC)- Primary Umbilical hernia without obstruction and without gangrene [facility] Diagnosis Type 2 diabetes mellitus without complication, without long-term current use of insulin (HCC)- Primary Umbilical hernia without obstruction and without gangrene Primary hypertension Unspecified essential hypertension Moderate persistent asthma without complication Crohn's disease with fistula, unspecified gastrointestinal tract location (HCC) [facility] Diagnosis Moderate persistent asthma without complication (HHS-HCC)- Primary Asthma with acute exacerbation, unspecified asthma severity, unspecified whether persistent (HHS-HCC) Seasonal allergies Allergic rhinitis, cause unspecified documented in this encounter [facility] Work Phone: Evaluation note* Diagnosis Moderate persistent asthma without complication (HHS-HCC) documented in this encounter [facility] Work Phone: Evaluation note* Diagnosis Mild persistent asthma without complication (HHS-HCC)- Primary Seasonal allergies Allergic rhinitis, cause unspecified Gastroesophageal reflux disease without esophagitis Esophageal reflux documented in this encounter [facility] Work Phone: Evaluation note* Diagnosis Type 2 diabetes mellitus without complication, without long-term current use of insulin (HCC)- Primary Umbilical hernia without obstruction and without gangrene Primary hypertension Unspecified essential hypertension Moderate persistent asthma without complication Crohn's disease with fistula, unspecified gastrointestinal tract location (HCC) Rash- Primary Rash and other nonspecific skin eruption Type 2 diabetes mellitus without complication, without long-term current use of insulin (HCC) [facility] Diagnosis Type 2 diabetes mellitus without complication, without long-term current use of insulin (Multi)- Primary Asthma with acute exacerbation, unspecified asthma severity, unspecified whether persistent (HHS-HCC) documented in this encounter [facility] Work Phone: Evaluation note* Diagnosis Mild intermittent asthma with acute exacerbation (HHS-HCC)- Primary Acute cough documented in this encounter [facility] Work Phone: Evaluation note* Diagnosis Influenza A- Primary Influenza with other respiratory manifestations Acute upper respiratory infection Acute upper respiratory infections of unspecified site documented in this encounter [facility] Work Phone: Evaluation note* Diagnosis Type 2 diabetes mellitus without complication, without long-term current use of insulin (HCC)- Primary Umbilical hernia without obstruction and without gangrene Primary hypertension Unspecified essential hypertension Moderate persistent asthma without complication Crohn's disease with fistula, unspecified gastrointestinal tract location (HCC) Rash- Primary Rash and other nonspecific skin eruption Type 2 diabetes mellitus without complication, without long-term current use of insulin (HCC) Type 2 diabetes mellitus without complication, without long-term current use of insulin (HCC)- Primary Primary hypertension Unspecified essential hypertension Vitamin D deficiency Subacute cough Fatigue, unspecified type Leg cramps Cramp of limb Crohn's disease with fistula, unspecified gastrointestinal tract location (HCC) [facility] Type 2 diabetes mellitus without complication, without long-term current use of insulin (HCC)- Primary Umbilical hernia without obstruction and without gangrene Primary hypertension Unspecified essential hypertension Moderate persistent asthma without complication Crohn's disease with fistula, unspecified gastrointestinal tract location (HCC) Rash- Primary Rash and other nonspecific skin eruption Type 2 diabetes mellitus without complication, without long-term current use of insulin (HCC) Type 2 diabetes mellitus without complication, without long-term current use of insulin (HCC)- Primary Primary hypertension Unspecified essential hypertension Vitamin D deficiency Subacute cough Fatigue, unspecified type Leg cramps Cramp of limb Crohn's disease with fistula, unspecified gastrointestinal tract location (HCC) Type 2 diabetes mellitus without complication, without long-term current use of insulin (HCC)- Primary [facility] Diagnosis Moderate persistent asthma without complication ([facility])- Primary Seasonal allergies Allergic rhinitis, cause unspecified documented in this encounter [facility] Work Phone: Evaluation note* Diagnosis Type 2 diabetes mellitus without complication, without long-term current use of insulin (HCC)- Primary Umbilical hernia without obstruction and without gangrene Primary hypertension Unspecified essential hypertension Moderate persistent asthma without complication Crohn's disease with fistula, unspecified gastrointestinal tract location (HCC) Rash- Primary Rash and other nonspecific skin eruption Type 2 diabetes mellitus without complication, without long-term current use of insulin (HCC) Type 2 diabetes mellitus without complication, without long-term current use of insulin (HCC)- Primary Primary hypertension Unspecified essential hypertension Vitamin D deficiency Subacute cough Fatigue, unspecified type Leg cramps Cramp of limb Crohn's disease with fistula, unspecified gastrointestinal tract location (HCC) Type 2 diabetes mellitus without complication, without long-term current use of insulin (HCC)- Primary Primary hypertension Unspecified essential hypertension documented in this encounter [facility] note* Diagnosis Type 2 diabetes mellitus without complication, without long-term current use of insulin (HCC)- Primary Umbilical hernia without obstruction and without gangrene Primary hypertension Unspecified essential hypertension Moderate persistent asthma without complication Crohn's disease with fistula, unspecified gastrointestinal tract location (HCC) Rash- Primary Rash and other nonspecific skin eruption Type 2 diabetes mellitus without complication, without long-term current use of insulin (HCC) Type 2 diabetes mellitus without complication, without long-term current use of insulin (HCC)- Primary Primary hypertension Unspecified essential hypertension Vitamin D deficiency Subacute cough Fatigue, unspecified type Leg cramps Cramp of limb Crohn's disease with fistula, unspecified gastrointestinal tract location (HCC) Type 2 diabetes mellitus without complication, without long-term current use of insulin (HCC)- Primary Type 2 diabetes mellitus without complication, without long-term current use of insulin (HCC)- Primary Rash Rash and other nonspecific skin eruption Primary hypertension Unspecified essential hypertension documented in this encounter [facility] note* Diagnosis Type 2 diabetes mellitus without complication, without long-term current use of insulin (HCC)- Primary Umbilical hernia without obstruction and without gangrene Primary hypertension Unspecified essential hypertension Moderate persistent asthma without complication Crohn's disease with fistula, unspecified gastrointestinal tract location (HCC) Rash- Primary Rash and other nonspecific skin eruption Type 2 diabetes mellitus without complication, without long-term current use of insulin (HCC) Type 2 diabetes mellitus without complication, without long-term current use of insulin (HCC)- Primary Primary hypertension Unspecified essential hypertension Vitamin D deficiency Subacute cough Fatigue, unspecified type Leg cramps Cramp of limb Crohn's disease with fistula, unspecified gastrointestinal tract location (HCC) Type 2 diabetes mellitus without complication, without long-term current use of insulin (HCC)- Primary Type 2 diabetes mellitus without complication, without long-term current use of insulin (HCC)- Primary Rash Rash and other nonspecific skin eruption Primary hypertension Unspecified essential hypertension Acute pain of left shoulder- Primary Cervical radiculopathy Brachial neuritis or radiculitis nos [facility] Diagnosis Type 2 diabetes mellitus without complication, without long-term current use of insulin (HCC)- Primary Umbilical hernia without obstruction and without gangrene Primary hypertension Unspecified essential hypertension Moderate persistent asthma without complication Crohn's disease with fistula, unspecified gastrointestinal tract location (HCC) Rash- Primary Rash and other nonspecific skin eruption Type 2 diabetes mellitus without complication, without long-term current use of insulin (HCC) Type 2 diabetes mellitus without complication, without long-term current use of insulin (HCC)- Primary Primary hypertension Unspecified essential hypertension Vitamin D deficiency Subacute cough Fatigue, unspecified type Leg cramps Cramp of limb Crohn's disease with fistula, unspecified gastrointestinal tract location (HCC) Type 2 diabetes mellitus without complication, without long-term current use of insulin (HCC)- Primary Type 2 diabetes mellitus without complication, without long-term current use of insulin (HCC)- Primary Rash Rash and other nonspecific skin eruption Primary hypertension Unspecified essential hypertension Type 2 diabetes mellitus without complication, without long-term current use of insulin (HCC)- Primary [facility] Diagnosis Acute cystitis with hematuria- Primary Dysuria documented in this encounter [facility] Work Phone: Evaluation note* Diagnosis Type 2 diabetes mellitus without complication, without long-term current use of insulin (HCC)- Primary Umbilical hernia without obstruction and without gangrene Primary hypertension Unspecified essential hypertension Moderate persistent asthma without complication Crohn's disease with fistula, unspecified gastrointestinal tract location (HCC) Rash- Primary Rash and other nonspecific skin eruption Type 2 diabetes mellitus without complication, without long-term current use of insulin (HCC) Type 2 diabetes mellitus without complication, without long-term current use of insulin (HCC)- Primary Primary hypertension Unspecified essential hypertension Vitamin D deficiency Subacute cough Fatigue, unspecified type Leg cramps Cramp of limb Crohn's disease with fistula, unspecified gastrointestinal tract location (HCC) Type 2 diabetes mellitus without complication, without long-term current use of insulin (HCC)- Primary Type 2 diabetes mellitus without complication, without long-term current use of insulin (HCC)- Primary Rash Rash and other nonspecific skin eruption Primary hypertension Unspecified essential hypertension Bursitis and tendinitis of shoulder region- Primary Inferior subluxation of left glenohumeral joint [facility] Diagnosis Type 2 diabetes mellitus without complication, without long-term current use of insulin (HCC)- Primary Umbilical hernia without obstruction and without gangrene Primary hypertension Unspecified essential hypertension Moderate persistent asthma without complication Crohn's disease with fistula, unspecified gastrointestinal tract location (HCC) Rash- Primary Rash and other nonspecific skin eruption Type 2 diabetes mellitus without complication, without long-term current use of insulin (HCC) Type 2 diabetes mellitus without complication, without long-term current use of insulin (HCC)- Primary Primary hypertension Unspecified essential hypertension Vitamin D deficiency Subacute cough Fatigue, unspecified type Leg cramps Cramp of limb Crohn's disease with fistula, unspecified gastrointestinal tract location (HCC) Type 2 diabetes mellitus without complication, without long-term current use of insulin (HCC)- Primary Type 2 diabetes mellitus without complication, without long-term current use of insulin (HCC)- Primary Rash Rash and other nonspecific skin eruption Primary hypertension Unspecified essential hypertension RUQ pain- Primary Abdominal pain, right upper quadrant Dysuria documented in this encounter [facility] note* Diagnosis Type 2 diabetes mellitus without complication, without long-term current use of insulin (HCC)- Primary Umbilical hernia without obstruction and without gangrene Primary hypertension Unspecified essential hypertension Moderate persistent asthma without complication Crohn's disease with fistula, unspecified gastrointestinal tract location (HCC) Rash- Primary Rash and other nonspecific skin eruption Type 2 diabetes mellitus without complication, without long-term current use of insulin (HCC) Type 2 diabetes mellitus without complication, without long-term current use of insulin (HCC)- Primary Primary hypertension Unspecified essential hypertension Vitamin D deficiency Subacute cough Fatigue, unspecified type Leg cramps Cramp of limb Crohn's disease with fistula, unspecified gastrointestinal tract location (HCC) Type 2 diabetes mellitus without complication, without long-term current use of insulin (HCC)- Primary Type 2 diabetes mellitus without complication, without long-term current use of insulin (HCC)- Primary Rash Rash and other nonspecific skin eruption Primary hypertension Unspecified essential hypertension Inferior subluxation of left glenohumeral joint- Primary RUQ pain- Primary Abdominal pain, right upper quadrant Dysuria documented in this encounter [facility] note* Diagnosis Type 2 diabetes mellitus without complication, without long-term current use of insulin (HCC)- Primary Umbilical hernia without obstruction and without gangrene Primary hypertension Unspecified essential hypertension Moderate persistent asthma without complication Crohn's disease with fistula, unspecified gastrointestinal tract location (HCC) Rash- Primary Rash and other nonspecific skin eruption Type 2 diabetes mellitus without complication, without long-term current use of insulin (HCC) Type 2 diabetes mellitus without complication, without long-term current use of insulin (HCC)- Primary Primary hypertension Unspecified essential hypertension Vitamin D deficiency Subacute cough Fatigue, unspecified type Leg cramps Cramp of limb Crohn's disease with fistula, unspecified gastrointestinal tract location (HCC) Type 2 diabetes mellitus without complication, without long-term current use of insulin (HCC)- Primary Type 2 diabetes mellitus without complication, without long-term current use of insulin (HCC)- Primary Rash Rash and other nonspecific skin eruption Primary hypertension Unspecified essential hypertension RUQ pain- Primary Abdominal pain, right upper quadrant Dysuria Vaginal candidiasis- Primary Candidiasis of vulva and vagina Diverticulitis Diverticulitis of colon (without mention of hemorrhage) [facility] Diagnosis Type 2 diabetes mellitus without complication, without long-term current use of insulin (HCC)- Primary Umbilical hernia without obstruction and without gangrene Primary hypertension Unspecified essential hypertension Moderate persistent asthma without complication Crohn's disease with fistula, unspecified gastrointestinal tract location (HCC) Rash- Primary Rash and other nonspecific skin eruption Type 2 diabetes mellitus without complication, without long-term current use of insulin (HCC) Type 2 diabetes mellitus without complication, without long-term current use of insulin (HCC)- Primary Primary hypertension Unspecified essential hypertension Vitamin D deficiency Subacute cough Fatigue, unspecified type Leg cramps Cramp of limb Crohn's disease with fistula, unspecified gastrointestinal tract location (HCC) Type 2 diabetes mellitus without complication, without long-term current use of insulin (HCC)- Primary Type 2 diabetes mellitus without complication, without long-term current use of insulin (HCC)- Primary Rash Rash and other nonspecific skin eruption Primary hypertension Unspecified essential hypertension RUQ pain- Primary Abdominal pain, right upper quadrant Dysuria Vaginal candidiasis- Primary Candidiasis of vulva and vagina Diverticulitis Diverticulitis of colon (without mention of hemorrhage) Nephrolithiasis- Primary Calculus of kidney [facility] Attach[facility] The following attachments cannot be sent through Care Everywhere. * Diverticulosis and Diverticulitis: General Info (Romanian) [facility] (n[facility]ative)* Consultation (Routine) - Authorized Specialty Diagnoses / Procedures Referred By Stephen gunn Referred To Contact Podiatry Diagnoses Chronic pain of left ankle Zach Ritter MD MPH [address] [facility], [place] [address] [place] [phone] Referral ID Status Reason Start Date Expiration Date Visits Requested Visits Authorized [id number] Authorized Specialty Services Required 04/18/2023 04/17/2024 1 1 Scheduling Instructions [facility] * Imaging (Routine) - Authorized Specialty Diagnoses / Procedures Referred By Stephen gunn Referred To Contact Radiology Diagnoses Chronic pain of left ankle Procedures XR ankle left 3+ views Zach Ritter MD MPH [address] [facility], [facility] [address] [place] [phone] Referral ID Status Reason Start Date Expiration Date Visits Requested Visits Authorized [id number] Authorized Perform Procedure 04/18/2023 04/17/2024 1 1 [facility] Work Phone: Reason for referral (narrative)* Consultation (Routine) - Authorized Specialty Diagnoses / Procedures Referred By Stephen gunn Referred To Contact Pulmonary Disease / Pulmonology Diagnoses Asthma with acute exacerbation, unspecified asthma severity, unspecified whether persistent ([facility]) Zach Ritter MD MPH [address] [facility], [place] [address] [place] [phone] Gabino Holt DO [address] [place] [address] [place] [address] Referral ID Status Reason Start Date Expiration Date Visits Requested Visits Authorized [id number] Authorized Specialty Services Required 08/28/2023 08/27/2024 1 1 * Consultation (Routine) - Authorized Specialty Diagnoses / Procedures Referred By Stephen gunn Referred To Contact Dietitian Diagnoses Type 2 diabetes mellitus without complication, without long-term current use of insulin (Multi) Procedures Follow Up In Nutrition Services Zach Ritter MD MPH [address] [facility], [place] [address] Referral ID Status Reason Start Date Expiration Date V isits Requested Visits Authorized [id number] Authorized 08/28/2023 08/27/2024 1 1 * Medications - Closed Specialty Diagnoses / Procedures Referred By Stephen gunn Referred To Contact Diagnoses Asthma with acute exacerbation, unspecified asthma severity, unspecified whether persistent ([facility]) Zach Ritter MD MPH [address] [facility], [place] [address] Referral ID Status Reason Start Date Expiration Date Visits Re quested Visits Authorized [id number] Closed 1 1 [facility] Work Phone: Summary Purpose Family History No Family History Records FoundUnknown Family Member Name Dates Details Family history of cardiac di sorder: Mother(V17.49, Z82.49) Status:Active Family history of cerebrovas cular accident (CVA): Mother(V17.1, Z82.3) Status:Active Unknown Family Member Name Dates Details Family history of cardiac di sorder: Mother(V17.49, Z82.49) Status:Active Family history of cerebrovas cular accident (CVA): Mother(V17.1, Z82.3) Status:Active Advance Directives No Advanced Directives Records FoundNo Advanced Directives Records FoundNo Advanced Directives Records FoundNo Advanced Directives Records FoundNo Advanced Directives Records FoundNo Advanced Directives Records FoundNo Advanced Directives Records FoundNo Advanced Directives Records FoundNo Advanced Directives Records FoundNo Advanced Directives Records FoundNo Advanced Directives Records FoundNo Advanced Directives Records Found Reason for Referral Specialty Diagnoses / Procedures Referred By Contac t Referred To Contact Radiology Diagnoses Chronic pain of left ankle Procedures XR ankle left 3+ views Zach Ritetr MD MPH [address] [facility], [facility] [address] [phone] Referral ID Status Reason Start Date Expiration Date Visits Requested Visits Authorized [id number] Authorized Perform Procedure 04/18/2023 04/17/2024 1 1 Specialty Diagnoses / Procedures Referred By Contac t Referred To Contact Diagnoses Type 2 diabetes mellitus without complication, without long-term current use of insulin (Multi) Zach Ritter MD MPH [address] [facility], [facility] [address] [place] [phone] Referral ID Status Reason Start Date Expiration Date Visits Re quested Visits Authorized [id number] Closed 1 1 Specialty Diagnoses / Procedures Referred By Contac t Referred To Contact Diagnoses Moderate persistent asthma without complication (HHS-HCC) Procedures Complete Pulmonary Function Test Pre/Post Bronchodialator (Spirometry Pre/Post/DLCO/Lung Volumes) Gabino Holt DO [address] [address] Referral ID Status Reason Start Date Expiration Date V isits Requested Visits Authorized [id number] Pending Review 09/05/2023 09/04/2024 1 1 Specialty Diagnoses / Procedures Referred By Contac t Referred To Contact Diagnoses Moderate persistent asthma without complication (HHS-HCC) Procedures Exhaled Nitric Oxide (FeNO) Gabino Holt DO [address] [facility] [address] [place] [phone] Referral ID Status Reason Start Date Expiration Date V isits Requested Visits Authorized [id number] Pending Review 09/05/2023 09/04/2024 1 1 Additional Source Comments INFORMATION SOURCE (unrecogn ized section and content) DATE CREATED AUTHOR 11/05/2018 [facility] DATE CREATED AUTHOR AUTHOR'S ORGANIZ ATION 04/07/2019 [employer] DATE CREATED AUTHOR AUTHOR'S ORGANIZ ATION 09/30/2022 [facility] DATE CREATED AUTHOR AUTHOR'S ORGANIZ ATION 11/08/2022 [facility] DATE CREATED AUTHOR AUTHOR'S ORGANIZ ATION 11/06/2023 [facility] DATE CREATED AUTHOR AUTHOR'S ORGANIZ ATION 03/31/2024 [facility] DATE CREATED AUTHOR AUTHOR'S ORGANIZ ATION 04/05/2024 [facility] DATE CREATED AUTHOR AUTHOR'S ORGANIZ ATION 08/29/2024 [facility] DATE CREATED AUTHOR AUTHOR'S ORGANIZ ATION 10/24/2024 [facility] DATE CREATED AUTHOR AUTHOR'S ORGANIZ ATION 10/26/2024 [facility] DATE CREATED AUTHOR AUTHOR'S ORGANIZ ATION 10/26/2024 [facility] DATE CREATED AUTHOR AUTHOR'S ORGANIZ ATION 10/27/2024 [facility] <item><item><item><item><item><item> Privacy Markings (unrecogniz ed section and content) Section Author: Jennifer Jones PROHIBITION ON REDISCLOSURE OF CONFIDENTIAL INFORMATION This notice accompanies a disclosure of information concerning a client made to you with the consent of such client. Section Author: Jennifer Jones PROHIBITION ON REDISCLOSURE OF CONFIDENTIAL INFORMATION This notice accompanies a disclosure of information concerning a client made to you with the consent of such client. Section Author: Jennifer Jones PROHIBITION ON REDISCLOSURE OF CONFIDENTIAL INFORMATION This notice accompanies a disclosure of information concerning a client made to you with the consent of such client. Section Author: Jennifer Jones PROHIBITION ON REDISCLOSURE OF CONFIDENTIAL INFORMATION This notice accompanies a disclosure of information concerning a client made to you with the consent of such client. Section Author: Jennifer Jones PROHIBITION ON REDISCLOSURE OF CONFIDENTIAL INFORMATION This notice accompanies a disclosure of information concerning a client made to you with the consent of such client. Section Author: Jennifer Jones PROHIBITION ON REDISCLOSURE OF CONFIDENTIAL INFORMATION This notice accompanies a disclosure of information concerning a client made to you with the consent of such client. Reason for Visit (unrecogniz ed section and content) Reason Comments URI C/o congestion, coug nona and green sinus drainage x 1 week Reason Comments New PT PT is here today to establish care as a new pt. Has some med side effect issues. Had recent lab work done, at [facility]. Specialty Diagnoses / Procedures Referred By Stephen gunn Referred To Contact Radiology Diagnoses Chronic pain of left ankle Procedures XR ankle left 3+ views Zach Ritter MD MPH [address] [facility] [place] [address] Referral ID Status Reason Start Date Expiration Date Visits Requested Visits Authorized [id number] Authorized Perform Procedure 04/18/2023 04/17/2024 1 1 Reason Comments Follow-up Pt is here today for 3 month FUV. Needs colonoscopy ordered and mammo ordered. Would like her lungs and chest listened to, reports she had a cold going on 4 weeks, and is still coughing with some green mucus. Reason Comments Follow-up Pt is here for 1 mon FUV. Reason Comments Consult Hernia Specialty Diagnoses / Procedures Referred By Stephen gunn Referred To Contact General Surgery Diagnoses Umbilical hernia without obstruction and without gangrene Hannah Champion, DO [address] [id number] Phone: tel: fax: [facility] [address] [facility], [address]th [place] [address] Phone: tel: fax: Referral ID Status Reason Start Date Expiration Date Visits Re quested Visits Authorized [id number] Closed 01/23/2024 01/22/2025 1 1 Reason Comments Establish Care May have hernia. Dell h on right side of face Reason Comments Asthma Specialty Diagnoses / Procedures Referred By Contac t Referred To Contact Pulmonary Disease / Pulmonology Diagnoses Asthma with acute exacerbation, unspecified asthma severity, unspecified whether persistent ([facility]) Zach Ritter MD MPH [address] [facility], [address] [place] [phone] Gabino Holt DO [address] [place] [id number] Referral ID Status Reason Start Date Expiration Date Visits Requested Visits Authorized [id number] Authorized Specialty Services Required 08/28/2023 08/27/2024 1 1 Specialty Diagnoses / Procedures Referred By Contac t Referred To Contact Diagnoses Moderate persistent asthma without complication ([facility]) Procedures Exhaled Nitric Oxide (FeNO) Gabino Holt DO [address] [facility] [address] [phone] Referral ID Status Reason Start Date Expiration Date V isits Requested Visits Authorized [id number] Pending Review 09/05/2023 09/04/2024 1 1 Specialty Diagnoses / Procedures Referred By Contac t Referred To Contact Diagnoses Moderate persistent asthma without complication ([facility]) Procedures Complete Pulmonary Function Test Pre/Post Bronchodialator (Spirometry Pre/Post/DLCO/Lung Volumes) Gabino Holt DO [address] [place] [id number] Referral ID Status Reason Start Date Expiration Date V isits Requested Visits Authorized [id number] Pending Review 09/05/2023 09/04/2024 1 1 Reason Comments Error (VOID this visit) Reason Comments Follow-up Spot of right side o f face. Diabetes Rash Reason Comments Follow-up Pt is here today for 2 month FUV. Pulmonology referral was placed last visit and she is currently being seen by their office. Would like to try to get Ozempic approved again through her insurance. Reason Comments URI Cough, congestion, f atigued, fever x 3-4 days Reason Comments Flu Symptoms Fever, cough , fatig ue, ear pressure, body aches X 3 days Reason Comments Diabetes Type 2 diabetes mary itus without complication, without long-term current use of insulin Gap Closure (Health Maintenance) Diabeti c Foot Exam Never doneDiabetic Eye Exam Never done Cough Dx w/ Influenza A la st week, consistent cough, therapy completed on pearls Reason Comments Follow-up 4 week f/u Reason Onset Date Comments FMLA DOCUMENTATION 05/23/2024 Reason Onset Date Comments Medication Refill 07/12/2024 Reason Comments Follow-up DM Reason Comments Shoulder Pain Left shoulder pain x 2 day Reason Onset Date Comments Medication Refill 08/08/2024 Reason Comments UTI Left side back pain, frequency and urgency and bladder pressure X 1 week Reason Comments Pain Specialty Diagnoses / Procedures Referred By Contac t Referred To Contact Sports Medicine Diagnoses Inferior subluxation of left glenohumeral joint Vicki Leung, LOCK OPERATOR [address] [facility] 2nd [place] [address] Phone: tel: fax: Cristiane Momin, LOCK OPERATOR [address] [place] [address] Phone: tel: fax: Referral ID Status Reason Start Date Expiration Date V isits Requested Visits Authorized [id number] Closed Specialty Services Required/Juju ent's Best Interest 08/09/2024 08/09/2025 1 1 Reason Comments Urinary Tract Infection Abdomin pain rig ht side, belching, Heavyness in lower abdomin. Urgency to go, little coming out. Was seen at an urgent care August 26. Reason Comments Follow-up DIVERTICULITIS FINIS HED ANTIBIOTICS ON MONDAY Vaginitis MONDAY OF LAST WEEK Gap Closure (Health Maintenance) Colorec anthony Cancer Screening GETTING DONE THIS YEAR FROM [facility] Visit NeveR-NEXT VISITDiabetic Foot Exam-YESDiabetic Eye Exam NOT SUREHIV ScreeningHepatitis C Screening Reason Comments Follow-up Pt states she was se en in the [facility] in [facility] due to severe back pain. Pt states she had a CT scan done and it showed that she had a kidney stone. Pt states she is still having blood in her urine. Pt would like referral to urology. Care Teams (unrecognized sec tion and content) Orthotic/Prosthetic Practitioner Relationship Specialty Start Date End Date Rod Caban, SUPERIOR COURT JUDGE-LOCK OPERATOR [address] [place] [phone] PCP - General 03/17/21 Orthotic/Prosthetic Practitioner Relationship Specialty Start Date End Date Zach Ritter MD MPH [address] [facility], [address] [place] [phone] PCP - General Family Medicine 04/18/23 Orthotic/Prosthetic Practitioner Relationship Specialty Start Date End Date Zach Ritter MD MPH [address] [facility], [address] [place] [phone] PCP - General Family Medicine 04/18/23 Orthotic/Prosthetic Practitioner Relationship Specialty Start Date End Date Zach Ritter MD MPH [address] [facility], [place] [place] [phone] PCP - General Family Medicine 04/18/23 Orthotic/Prosthetic Practitioner Relationship Specialty Start Date End Date Zach Ritter MD MPH [address] [facility], [address] [place] [address] PCP - General Family Medicine 04/18/23 Orthotic/Prosthetic Practitioner Relationship Specialty Start Date End Date Zach Ritter MD MPH [address] [facility], [address] [place] [address] PCP - General Family Medicine 04/18/23 Orthotic/Prosthetic Practitioner Relationship Specialty Start Date End Date Mora Spear MD [address] [facility], [address] [place] [address] PCP - General Family Medicine 12/12/23 Orthotic/Prosthetic Practitioner Relationship Specialty Start Date End Date Hannah Champion DO [facility] [address] [address] PCP - General Family Medicine 01/23/[address] Dietitian Case Management 01/23/24 Orthotic/Prosthetic Practitioner Relationship Specialty Start Date End Date Hannah Champion DO [facility] [address] [address] PCP - General Family Medicine 01/23/[address] Dietitian Case Management 01/23/24 Orthotic/Prosthetic Practitioner Relationship Specialty Start Date End Date Zach Ritter MD MPH [address] [facility], [place] [phone] PCP - General Family Medicine 04/18/23 Orthotic/Prosthetic Practitioner Relationship Specialty Start Date End Date Zach Ritter MD MPH [address] [facility], [place] [phone] PCP - General Family Medicine 04/18/23 Orthotic/Prosthetic Practitioner Relationship Specialty Start Date End Date Zach Ritter MD MPH [address] [facility] [place] [id number] PCP - General Family Medicine 04/18/23 Orthotic/Prosthetic Practitioner Relationship Specialty Start Date End Date Zach Ritter MD MPH [address] [facility] [place] [phone] PCP - General Family Medicine 04/18/23 Orthotic/Prosthetic Practitioner Relationship Specialty Start Date End Date Hannah Champion DO [address] [phone] PCP - General Family Medicine 01/23/[address] Dietitian Case Management 01/23/24 Orthotic/Prosthetic Practitioner Relationship Specialty Start Date End Date Zach Ritter MD MPH [facility] [facility], [address] [place] [phone] PCP - General Family Medicine 04/18/23 Orthotic/Prosthetic Practitioner Relationship Specialty Start Date End Date Hannah Champion DO [facility] [place] [phone] PCP - General Family Medicine 02/27/24 Orthotic/Prosthetic Practitioner Relationship Specialty Start Date End Date Hannah Champion DO [address] [place], [place] [phone] PCP - General Family Medicine 02/27/24 Orthotic/Prosthetic Practitioner Relationship Specialty Start Date End Date Hannah Champion DO [facility] [place] [phone] PCP - General Family Medicine 01/23/24 Orthotic/Prosthetic Practitioner Relationship Specialty Start Date End Date Hannah Champion DO [facility] [address] [address] PCP - General Family Medicine 01/23/24 Orthotic/Prosthetic Practitioner Relationship Specialty Start Date End Date Hannah Champion DO [facility] [address] [address] PCP - General Family Medicine 01/23/24 Orthotic/Prosthetic Practitioner Relationship Specialty Start Date End Date Hannah Champion DO [facility] [place] [phone] PCP - General Family Medicine 02/27/24 Orthotic/Prosthetic Practitioner Relationship Specialty Start Date End Date Hannah Champion DO [facility] [place] [phone] PCP - General Family Medicine 01/23/24 Orthotic/Prosthetic Practitioner Relationship Specialty Start Date End Date Hannah Champion DO [address] [place] [address] PCP - General Family Medicine 01/23/24 Orthotic/Prosthetic Practitioner Relationship Specialty Start Date End Date Hannah Champion DO [address] [place] [address] PCP - General Family Medicine 01/23/24 Orthotic/Prosthetic Practitioner Relationship Specialty Start Date End Date Hannah Champion DO [address] [place] [address] PCP - General Family Medicine 01/23/24 Orthotic/Prosthetic Practitioner Relationship Specialty Start Date End Date Hannah Champion DO [address] [place] [address] PCP - General Family Medicine 02/27/24 Orthotic/Prosthetic Practitioner Relationship Specialty Start Date End Date Hannah Champion DO [address] [place], [place] [phone] PCP - General Family Medicine 01/23/24 Orthotic/Prosthetic Practitioner Relationship Specialty Start Date End Date Hannah Champion DO [address] [place], [place] [phone] PCP - General Family Medicine 01/23/24 Orthotic/Prosthetic Practitioner Relationship Specialty Start Date End Date Hannah Champion DO [address] [address] PCP - General Family Medicine 01/23/24 Orthotic/Prosthetic Practitioner Relationship Specialty Start Date End Date Hannah Champion DO [address] [address] PCP - General Family Medicine 01/23/24 Orthotic/Prosthetic Practitioner Relationship Specialty Start Date End Date Hannah Champion DO [address] [address] PCP - General Family Medicine 01/23/24 FOR RECORDS PERTAINING TO PATIENTS WHO ARE OR HAVE BEEN ENROLLED IN A CHEMICAL DEPENDENCY/SUBSTANCEABUSE PROGRAM, SOME INFORMATION MAY BE OMITTED. This clinical summary was aggregated from multiple sources. Caution should be exercised in using it in the provision of clinical care. This summary normalizes information from multiple sources, and as a consequence, information in this document may materially change the coding, format and clinical context of patient data. In addition, data may be omitted in some cases. CLINICAL DECISIONS SHOULD BE BASED ON THE PRIMARY CLINICAL RECORDS. [facility]. provides no warranty or guarantee of the accuracy or completeness of information in this document.
== END | disposition home or self-care (01) ==
LOC: CT 15:52
PROVIDERS: PCP Nurse Practitioner Family; Referring Provider Nurse Practitioner; Visit Provider Nurse Practitioner
DX: N20.0 Calculus of kidney (principal)
CPT/HCPCS: 74176

== ENCOUNTER → 2024-12-10 | Outpatient (CLI) | payer OTHER, SELFPAY ==
--- OUTSIDE RECORDS SUMMARY | 2024-10-22 15:26 | XMS RPT_ITS ---
Author Name Auto Generated Organization OHIP Support Name Relationship Address Phone ESTELA, YG Next of Kin Unknown + ESTELA, MIO Next of Kin Unknown + ESTELA, YG Next of Kin Unknown + ESTELA, MIO Next of Kin Unknown + ESTELA, YG Next of Kin Unknown + ESTELA, MIO Next of Kin Unknown + ESTELA, YG Next of Kin Unknown + ESTELA, MIO Next of Kin Unknown + ESTELA, YG Next of Kin Unknown + ESTELA, MIO Next of Kin Unknown + ESTELA, YG Next of Kin Unknown + ESTELA, MIO Next of Kin Unknown + [place] [facility] [place] [address] Unavailable ESTELA, YG Next of Kin [address] [place] [address] + ESTELA, YG Next of Kin Unknown + ESTELA, MIO Next of Kin Unknown + ESTELA, YG Next of Kin Unknown + ESTELA, MIO Next of Kin Unknown + ESTELA, YG Next of Kin Unknown + ESTELA, MIO Next of Kin Unknown + [place] [employer] [facility] [place] [address] Unavailable ESTELA, YG Next of Kin [address] [place] [address] + ESTELA, YG Next of Kin Unknown + ESTELA, MIO Next of Kin Unknown + ESTELA, YG Next of Kin Unknown + ESTELA, MIO Next of Kin Unknown + [place] [employer] [facility] [place] [address] Unavailable ESTELA, YG Next of Kin [address] [facility] [address] [place] [address] + [place] [employer] [facility] [place] [address] Unavailable ESTELA, YG Next of Kin [address] [facility] [address] [place] [address] + ESTELA, YG Next of Kin Unknown + ESTELA, MIO Next of Kin Unknown + ESTELA, YG Next of Kin Unknown + ESTELA, MIO Next of Kin Unknown + ESTELA, YG Next of Kin Unknown + ESTELA, MIO Next of Kin Unknown + ESTELA, YG Next of Kin Unknown Unavailable Care Team Providers Care Attendance Clerk Name Role Phone AKIRA, JONNY Primary Care Unavailable LOLIS WOLF Attending Unavailable AKIRA, JONNY Primary Care Unavailable HAKEEM MCKEON Attending Unavailable AKIRA, JONNY Primary Care Unavailable LOLIS WOLF Attending Unavailable GABINO HOLT Attending Unavailable AKIRA, JONNY Primary Care Unavailable AKIRA, JONNY R. Primary Care Unavailable WILFREDO CEBALLOS Attending Unavailable AKIRA, JONNY R. Primary Care Unavailable CASTILLO BROWN Referring Unavailabl e CASTILLO BROWN Attending Unavailabl e AKIRA, JONNY R. Primary Care Unavailable AKIRA, JONNY R. Referring Unavailable AKIRA, JONNY R. Admitting Unavailable CATRACHITO REED Attending Unavailable AKIRA, JONNY R. Primary Care Unavailable SHERYL BOYLE Attending Unavailable AKIRA, JONNY R. Attending Unavailable AKIRA, JONNY R. Primary Care Unavailable AKIRA, JONNY R. Attending Unavailable AKIRA, JONNY R. Primary Care Unavailable AKIRA, JONNY R. Primary Care Unavailable AKIRA, JONNY R. Attending Unavailable AKIRA, JONNY R. Primary Care Unavailable AKIRA, JONNY R. Attending Unavailable AKIRA, JONNY R. Primary Care Unavailable CASTILLO BROWN Attending Unavailabl e AKIRA, JONNY R. Primary Care Unavailable CASTILLO BROWNGE Admitting Unavailabl e STEPHANIE, CASTILLO SANABRIAGE Referring Unavailabl e ISRAEL MOMIN Attending Unavailable AKIRA, JONNY R. Primary Care Unavailable ISRAEL MOMIN Admitting Unavailable ISRAEL MOMIN Referring Unavailable AKIRA, JONNY R. Primary Care Unavailable AKIRA, JONNY R. Attending Unavailable AKIRA, JONNY R. Attending Unavailable AKIRA, JONNY R. Primary Care Unavailable AKIRA, JONNY R. Attending Unavailable AKIRA, JONNY R. Primary Care Unavailable AKIRA, JONNY R. Attending Unavailable AKIRA, JONNY R. Primary Care Unavailable PROBLEMS DATE TYPE CONDITION / CODE ATTENDING STATUS [facility] 10/22/2024 Admitting diagnosis Calculus of kidney / N20.0(ICD-10) AKIRA, JONNY R. Active [facility] 10/09/2024 Admitting diagnosis Acute candidiasis of vulva and vagina / B37.31(ICD-10) AKIRA, JONNY R. [facility] 09/25/2024 Admitting diagnosis Diverticulitis of large intestine without perforation or abscess without bleeding / K57.32(ICD-10) WILFREDO CEBALLOS [facility] [place] 09/25/2024 Admitting diagnosis Dysuria / R30.0(ICD-10) AKIRA, JONNY R. [facility] 09/25/2024 Admitting diagnosis Right upper quadrant pain / R10.11(ICD-10) AKIRA, JONNY R. [facility] 09/09/2024 Admitting diagnosis Pain, unspecified / R52(ICD-10) NA [facility] 09/09/2024 Admitting diagnosis Inferior subluxation of left humerus, initial encounter / S43.032A(ICD-10) ISRAEL MOMIN [facility] 08/26/2024 Admitting Diagnosis Acute cystitis with hematuria / N30.01(ICD-10) LOLIS WOLF [facility] 08/08/2024 Admitting diagnosis Pain in left shoulder / M25.512(ICD-10) CASTILLO BROWN [facility] [place] 02/22/2024 Admitting diagnosis Rash and other nonspecific skin eruption / R21(ICD-10) AKIRA JONNY [facility]. [facility] 05/28/2024 Admitting Diagnosis Moderate persistent asthma, uncomplicated ([facility]) / J45.40(ICD-10) SRIRAM [facility] 05/28/2024 Admitting Diagnosis Other seasonal allergic rhinitis / J30.2(ICD-10) SRIRAM [facility] 05/28/2024 Admitting Diagnosis Unspecified asthma with (acute) exacerbation ([facility]) / J45.901(ICD-10) SRIRAM [facility] 05/20/2024 Admitting diagnosis Follow-up / UNK(Unknown) AKIRA JONNY [facility]. [facility] 01/27/2024 Admitting diagnosis Essential (primary) hypertension / I10(ICD-10) AKIRA JONNY [facility]. [facility] 04/24/2024 Admitting diagnosis Vitamin D deficiency, unspecified / E55.9(ICD-10) AKIRA JONNY [facility]. [facility] 04/24/2024 Admitting diagnosis Subacute cough / R05.2(ICD-10) AKIRA JONNY [facility]ley. [facility] 04/24/2024 Admitting diagnosis Other fatigue / R53.83(ICD-10) AKIRA, JONNY [facility] 04/24/2024 Admitting diagnosis Cramp and spasm / R25.2(ICD-10) [facility] Admitting Diagnosis Influenza due to other identified influenza virus with other respiratory manifestations / J10.1(ICD-10) LOLIS WOLF [facility] 04/17/2024 Admitting Diagnosis Acute upper respiratory infection, unspecified / J06.9(ICD-10) LOLIS WOLF Active [facility] 02/27/2024 Admitting Diagnosis Acute cough / R05.1(ICD-10) HAKEEM MCKEON Active [facility] 02/27/2024 Admitting Diagnosis Mild intermittent asthma with (acute) exacerbation ([facility]) / J45.21(ICD-10) HAKEEM MCKEON Active [facility] 01/27/2024 Admitting diagnosis Type 2 diabetes mellitus without complications / E11.9(ICD-10) JONNY CHAMPION Active [facility] 2024 Admitting diagnosis Crohn's disease, unspecified, with fistula / K50.913(ICD-10) CATRACHITO REED Active [facility] 2024 Admitting diagnosis Umbilical hernia without obstruction or gangrene / K42.9(ICD-10) CATRACHITO REED Active [facility] PROCEDURES No Procedure Records Found RESULTS PROGRESS Observed: 10/26/2024 7:46 PM Status: COMPLETED Source: [facility] Please call patient and let her know her urine culture is negative for infection. AUTHENTICATED BY JONNY CHAMPION, ON 10/26/2024 19:46:53 PROGRESS Observed: 10/22/2024 3:41 PM Status: COMPLETED Source: [facility] Assessment/Plan: Nephrolithiasis Right nephrolithiasis while traveling in [facility] 10/19/2024 (3 [address] ago[address] and ultrasound in the ER, reports reviewed. She was seen by urology and a stent was placed, relieving her pain. The stone was not identified to have passed. Stent is still present. - POC UA dipstick positive for blood and small leuk esterase - Urine sent for culture - Referral back to her urologist, Dr. Ojeda, as she has not been seen in office in over 3 years. - Hydrate well, use OTC pain relievers Subjective: Frannie Palmer is a 59 y.o. female Chief Complaint Patient presents with Follow-up Pt states she was seen in the ER in [facility] due to severe back pain. Pt states she had a CT scan done and it showed that she had a kidney stone. Pt states she is still having blood in her urine. Pt would like referral to urology. Patient presents for ER follow-up. She began having right sided flank pain 10/19/24 when she was in [place] preparing to come home. She was examined in ER and was found to have a right-sided kidney stone on US and CT. The size was not described reports which she has brought with her today. She was seen by urologist and a stent was placed, relieving her pain. The stone was not identified to have passed yet. The stent was left in and she was instructed to follow-up when she arrived back in [place]. She is having a mild amount of discomfort with urination. The following portions of the patient's history were reviewed and updated as appropriate: allergies, current medications, past family history, past medical history, past social history, past surgical history and problem list. Review of Systems Objective: PACU Vitals 10/22/24 1529 BP: (!) 145/99 Pulse: 68 Resp: 14 Temp: 98.9 degrees F (37.2 degrees C) SpO2: 96% Physical Exam Constitutional: General: She is not in acute distress. Appearance: Normal appearance. She is not ill-appearing, toxic-appearing or diaphoretic. HENT: Head: Normocephalic and atraumatic. Eyes: General: No scleral icterus. Cardiovascular: Rate and Rhythm: Normal rate and regular rhythm. Heart sounds: No murmur heard. No gallop. Pulmonary: Effort: Pulmonary effort is normal. No respiratory distress. Breath sounds: Normal breath sounds. No wheezing or rales. Abdominal: Tenderness: There is no right CVA tenderness or left CVA tenderness. Skin: General: Skin is warm and dry. Coloration: Skin is not jaundiced or pale. Neurological: General: No focal deficit present. Mental Status: She is alert. Psychiatric: Mood and Affect: Mood normal. For any new medications prescribed today, patient was educated about indications for the medication, how to take the medication and potential side effects of the medications. My ongoing relationship with Frannie Palmer requires continued responsibility and cognitive effort of being the focal point for all services related to chronic condition(s). Jonny Champion DO AUTHENTICATED BY JONNY CHAMPION, ON 10/22/2024 16:28:25 CULTURE, URINE, ROUTINE Collected: 10/11 12:00 AM Status: F Source: [facility] TYPE CODE TESTS RESULT OUT OF RANGE REFERENCE UNITS LAB [id number] CULTURE, URINE, ROUTINE SEE NOTE Result Comment: CULTURE, URINE, ROUTINE Micro Number: [id number] Test Status: Final Specimen Source: Urine Specimen Quality: Adequate Result: Mixed genital rosa isolated. These superficial bacteria are not indicative of a urinary tract infection. No further organism identification is warranted on this specimen. If clinically indicated, recollect clean-catch, mid-stream urine and transfer immediately to Urine Culture Transport Tube. Performed By: #### [id number] #### [facility] [address], [address] [place] [address] Machine Operator Hay Stacker: Terry Bodn MD PROGRESS Observed: 10/09/2024 8:02 AM Status: COMPLETED Source: [facility] Assessment/Plan: Vaginal candidiasis Vulvar pruritus since completing antibiotics for diverticulitis. Metronidazole prescribed. Follow-up if needed. Diverticulitis Right upper quadrant pain with CT 09/25/2024 showing Diffuse colonic diverticulosis. Superimposed focal transverse colon wall thickening and pericolonic fat stranding, suspicious for small focal area of diverticulitis. She has completed a course of cefdinir and metronidazole and pain is greatly improved. - Follow-up if symptoms do not resolve Subjective: Frannie Palmer is a 59 y.o. female Chief Complaint Patient presents with Follow-up DIVERTICULITIS FINISHED ANTIBIOTICS ON MONDAY Vaginitis MONDAY OF LAST WEEK Gap Closure (Health Maintenance) Colorectal Cancer Screening GETTING DONE THIS YEAR FROM [facility] Wellness Visit NeveR-NEXT VISIT Diabetic Foot Exam-YES Diabetic Eye Exam NOT SURE HIV Screening Hepatitis C Screening Patient presents for ER follow up for diverticulitis. She was seen in office 09/25/2024, and sent to ER for acutely worsening right upper quadrant abdominal pain. CT showed suspicion for diverticulitis of her transverse colon. She was started on antibiotics, cefdinir and metronidazole twice daily x 10 days. She has completed these, and her abdominal pain has improved greatly. She has vulvar pruritus since being on antibiotics. She needs her [facility] paperwork redone for this year. [place] needs to be 09/10/24-09/10/25 The following portions of the patient's history were reviewed and updated as appropriate: allergies, current medications, past family history, past medical history, past social history, past surgical history and problem list. Review of Systems Objective: PACU Vitals 10/09/24 0742 BP: 122/81 Pulse: 67 Resp: 18 Temp: 97.7 degrees F (36.5 degrees C) SpO2: 96% PainSc: 0-No pain Physical Exam Constitutional: General: She is not in acute distress. Appearance: Normal appearance. She is not ill-appearing, toxic-appearing or diaphoretic. HENT: Head: Normocephalic and atraumatic. Cardiovascular: Rate and Rhythm: Normal rate and regular rhythm. Pulmonary: Effort: Pulmonary effort is normal. No respiratory distress. Breath sounds: Normal breath sounds. Abdominal: Tenderness: There is abdominal tenderness in the epigastric area. Skin: General: Skin is warm. Coloration: Skin is not jaundiced or pale. Neurological: General: No focal deficit present. Mental Status: She is alert. For any new medications prescribed today, patient was educated about indications for the medication, how to take the medication and potential side effects of the medications. My ongoing relationship with Frannie Palmer requires continued responsibility and cognitive effort of being the focal point for all services related to chronic condition(s). Jonny Champion DO AUTHENTICATED BY JONNY CHAMPION, ON 10/13/2024 12:29:59 PROGRESS Observed: 09/27/2024 7:57 AM Status: COMPLETED Source: [facility] Please call patient and let her know her urine culture was negative for infection. AUTHENTICATED BY JONNY CHAMPION, ON 09/27/2024 07:57:02 POC LIVER PANEL PLUS RALS Collected: 09/25/2024 1:30 PM Status: F Source: [facility] TYPE CODE TESTS RESULT OUT OF RANGE REFERENCE UNITS LAB 204 POC ALBUMIN 4.2 3.2-5.2 g/dL LAB 206 POC ALKALINE PHOSPHATASE 75 40-150 U/L LAB 203 POC ALT (SGPT) 23 0-40 U/L LAB POCAST POC AST (SGOT) 24 0-45 U/L LAB [id number] POC BILIRUBIN, TOTAL 1.0 0.0-1.3 mg/dL LAB 235 POC TOTAL PROTEIN 7.1 6.0-8.0 g/dL LAB 207 POC AMYLASE 29 25-115 U/L LAB 221 POC GAMMA GLUTAMYL TRANSFERASE 31 7-33 U/L POC BASIC METABOLIC PANEL - RALS Collected: 09/25/2024 1:29 PM Status: F Source: [facility] Order Comment: [facility] has implemented the eGFR calculation approach that does not have a coefficient for race that conforms to the NKF-ASN Task Force Recommendations. TYPE CODE TESTS RESULT OUT OF RANGE REFERENCE UNITS LAB [id number] POC GLUCOSE - EPOC 146 High 65-99 mg/dL LAB 1614923 POC BUN 19 8-25 mg/dL LAB 6628587 POC CREATININE (EPOC) 0.76 0.60-1.20 mg/dL LAB 8989832 POC GFR 89 >=60 mL/min/1. 73 m2 Result Comment: Estimated GF R was calculated using the 2020 CKD-EPI creatinine equation. LAB [id number] POC SODIUM 141 135-145 mmol/L LAB 6605642 POC POTASSIUM 3.3 Low 3.5-5.1 mmol/L LAB 8641293 POC CHLORIDE 101 98-108 mmol/L LAB 0407864 POC TCO2 31 21-32 mmol/L LAB 4021026 POC IONIZED CALCIUM 4.9 4.5-5.3 mg/dL CT ABDOMEN PELVIS WITH IV CONTRAST ONLY Observed: 09/25/2024 1:26 PM Status: F Source: [facility] Order Comment: Injury/Trauma or Illness?:Illness/Other How long have you had these symptoms (acute/chronic)?:Acute Reason for exam?:Diffuse abdominal pain and history of Crohn's Type of Exam?:Initial Additional signs and symptoms?:no EXAMINATION: CT ABDOMEN PELVIS WITH IV CONTRAST ONLY HISTORY: ORDERING SYSTEM PROVIDED HISTORY: Diffuse abdominal pain and history of Crohn's, TECHNOLOGIST PROVIDED HISTORY: Illness/Other Reason for exam: Diffuse abdominal pain and history of Crohn's Encounter Type: Initial Additional signs and symptoms: no ORDERING SYSTEM PROVIDED DIAGNOSIS CODES: COMPARISON: None TECHNIQUE: CT examination of the abdomen and pelvis following the administration of intravenous contrast. Coronal and sagittal reformations were performed. Dose reduction techniques were achieved by using automated exposure control and/or adjustment of mA and/or kV according to patient size and/or use of iterative reconstruction technique. CONTRAST: IOPAMIDOL 370 MG IODINE/ML (76 %) INTRAVENOUS SOLUTION - 75 mL, FINDINGS: LOWER CHEST: Mild bibasilar atelectasis. ABDOMEN: Liver: Normal. Bile ducts: Normal caliber. Gallbladder: No calcified gallstones. Normal caliber wall. Pancreas: Normal. Spleen: Normal. Adrenals: Normal. Kidneys: Symmetric enhancement without hydronephrosis. PELVIS: Reproductive organs: No pelvic masses. Ureters: Normal. Bladder: Suboptimally distended without gross abnormality. OTHER ABDOMEN AND PELVIS: Bowel: Suggestion of prior sigmoidectomy. Recto-colic anastomosis is intact. Mild colonic stool burden. No bowel obstruction. No appendicitis. Diffuse colonic diverticulosis. Superimposed focal transverse colon wall thickening and pericolonic fat stranding, suspicious for small focal area of diverticulitis. Probable tiny hiatal hernia. Small diverticula of the 3rd portion of the duodenum measuring up to 1.4 cm. Left anterior adnexal low-density/cystic lesion measures 3.1 x 3.8 cm. Coarse calcifications seen at the periphery. Peritoneum: No free intraperitoneal air. No ascites or fluid collection. Vessels: Abdominal aorta and iliac arteries are normal in caliber with mild calcific atherosclerosis. Lymph nodes: No enlarged lymph nodes. Abdominal wall: Tiny fat-containing supraumbilical ventral hernia. Osseous structures: No destructive lesions. Multilevel spondylosis. Mild retrolisthesis of L1 upon L2, L2 upon L3 and L3 upon L4. IMPRESSION: Suspect focal acute diverticulitis involving the midportion of the transverse colon. No associated free air or abscess. No bowel obstruction. Recommend short-term CT follow-up and/or colonoscopy evaluation to exclude underlying mass. Indeterminate left ovarian, partially calcified lesion measuring up to 3.8 cm. Recommend pelvic ultrasound follow-up if not previously evaluated. [employer] Workstation ID: [id number] Dictated by: BONNIE GARCIA on MonSep 25, 2024 2:20:24 PM EDT Transcribed by: JOSE FLORES on MonSep 25, 2024 2:28:58 PM EDT Finalized by: BONNIE GARCIA on MonSep 25, 2024 10:19:25 PM EDT ED PROV NOTE Observed: 09/25/2024 1:25 PM Status: COMPLETED Source: [facility] HPI: 09/25/2024, Time: @NICK@ Frannie Alcala Estela is a 59 y.o. female presenting to the ED for gradual onset of diffuse abdominal pain and patient holding right side, beginning 3 hours ago. The complaint has been constant, moderate in severity, and worsened by changing position. No fever or chills. History of Crohn's ROS: Pertinent positives and negatives are stated within HPI, all other systems reviewed and are negative. PAST HISTORY Past Medical History: @[facility]@ Past Surgical History: has a past surgical history that includes Cataract extraction, bilateral (Bilateral); tonsillectomy; Hernia repair; partial colectomy; and Abscess drainage. Social History: reports that she has never smoked. She has never used smokeless tobacco. She reports that she does not currently use alcohol. She reports that she does not use drugs. Family History: family history includes Arthritis in her father and mother; Asthma in her son; Diabetes in her father; Diverticulitis in her father; Hypertension in her brother and brother; Irritable bowel syndrome in her daughter; Lactose intolerance in her daughter and son; Rheumatic fever in her mother; Stroke in her brother. The patient's home medications have been reviewed. Allergies: Cat dander, Grass pollen, Latex, Peanut, and Adhesive tape-silicones RESULTS All laboratory and radiology results have been personally reviewed by myself LABS: Results for orders placed or performed in visit on 09/25/24 POC Urinalysis Dipstick, Auto Collection Time: 09/25/24 12:43 PM Result Value Ref Range Glucose, UA Negative Normal, Negative mg/dL Bilirubin, UA Negative Negative Ketones, UA Negative Negative mg/dL Spec Grav, UA 1.025 1.005 - 1.025 Blood, UA Moderate (A) Negative pH, UA 5.5 5.0 - 7.0 Protein, UA Negative Negative mg/dL Urobilinogen, UA 0.2 <2.0, 0.2, Normal, Negative, 1.0, 2.0, <1.0 mg/dL Nitrite, UA Negative Negative Leukocyte Esterase, UA Small (A) Negative RADIOLOGY: Interpreted by Radiologist. CT Abdomen Pelvis With IV Contrast Only (Results Pending) NURSING NOTES AND VITALS REVIEWED The nursing notes within the ED encounter and vital signs as below have been reviewed. Pulse 85 Temp 98.1 degrees F (36.7 degrees C) Resp 18 Ht 5' 6 Wt 113.4 kg (250 lb) SpO2 95% BMI 40.35 kg/m Oxygen Saturation Interpretation: Normal PHYSICAL EXAM Constitutional/General: Alert and oriented x3, moderate apparent discomfort but no respiratory difficulty Head: NC/AT Eyes: PERRL, EOMI Mouth: Oropharynx clear, handling secretions, no trismus Neck: Supple, full ROM, no meningeal signs Pulmonary: Lungs clear to auscultation bilaterally, no wheezes, rales, or rhonchi. Not in respiratory distress Cardiovascular: Regular rate and rhythm, no murmurs, gallops, or rubs. 2+ distal pulses Abdomen: Soft, moderate diffuse tenderness to palpation especially epigastric and complained of right lower quadrant pain with palpation of the left lower quadrant-positive Rovsing's, non distended, Extremities: Moves all extremities x 4. Warm and well perfused Skin: warm and dry without rash Neurologic: GCS 15, Psych: Normal Affect ED COURSE/MEDICAL DECISION MAKING Medications methylPREDNISolone sod suc(PF) (SOLU-medrol) Injection 125 mg (has no administration in time range) ketorolac (TORADOL) injection 15 mg (has no administration in time range) sodium chloride 0.9% (NS) bolus 1,000 mL (has no administration in time range) Medical Decision Making: Will obtain CT of abdomen pelvis and treat pain Counseling: The emergency provider has spoken with the patient and discussed today's results, in addition to providing specific details for the plan of care and counseling regarding the diagnosis and prognosis. Questions are answered at this time and they are agreeable with the plan. IMPRESSION AND DISPOSITION IMPRESSION No diagnosis found. DISPOSITION Disposition: discharged to home Patient condition is stable Summation Patient Course: Improved ED Medications administered this visit: Medications methylPREDNISolone sod suc(PF) (SOLU-medrol) Injection 125 mg (has no administration in time range) ketorolac (TORADOL) injection 15 mg (has no administration in time range) sodium chloride 0.9% (NS) bolus 1,000 mL (has no administration in time range) New Prescriptions from this visit: Follow-up: No follow-up provider specified. Final Impression: No diagnosis found. (Please note that portions of this note were completed with a voice recognition program. Efforts were made to edit the dictations but occasionally words are mis-transcribed.) Wilfredo Ceballos MD 09/26/24 0003 AUTHENTICATED BY WILFREDO CEBALLOS, ON 09/26/2024 00:03:12 POC CBC AND DIFFERENTIAL Collected: 09/25/2024 1:23 P M Status: F Source: [facility] TYPE CODE TESTS RESULT OUT OF RANGE REFERENCE UNITS LAB WBC WHITE BLOOD CELL COUNT 12.47 High 4.50-11.00 K/mcL LAB RBC RED BLOOD CELL COUNT 5.52 High 4.00-5.20 M/mcL LAB HGB HEMOGLOBIN 15.6 12.0-16.0 g/dL LAB HCT HEMATOCRIT 46.5 High 36.0-46.0 % LAB MCV MEAN CORPUSCULAR VOLUME 84.2 80.0-100.0 fL LAB [facility] MEAN CORPUSCULAR HEMOGLOBIN 28.3 26.0-34.0 pg LAB M[facility] MEAN CORPUSCULAR HEMOGLOBIN CONC 33.5 31.0-37.0 g/dL LAB RDW RED CELL DISTRIBUTION WIDTH 13.5 11.6-14.8 % LAB PLT PLATELET COUNT 218 150-400 K/mcL LAB MPV MEAN PLATELET VOLUME 8.9 Low 9.4-12.4 fL LAB NEUTS% NEUTROPHILS RELATIVE PERCENT 86.2 % LAB LYMPHS% LYMPHOCYTES RELATIVE PERCENT 5.5 % LAB MONOS% MONOCYTES RELATIVE PERCENT 7.4 % LAB EOSIN% EOSINOPHILS RELATIVE PERCENT 0.5 % LAB BASO% BASOPHILS RELATIVE PERCENT 0.2 % LAB 49214 IG PERCENT 0.20 % Result Comment: The IG aguila eter is the percentage of metamyelocytes, myelocytes and promyelocytes. An immature granulocyte count (IG) of 1% or more suggests the possibility of infection, an IG count of 3% is very likely related to an infection. LAB NEUTSABS NEUTROPHILS ABSOLUTE COUNT 10.75 High 1.70-7.00 K/mcL LAB LYMPHSABS LYMPHOCYTES ABSOLUTE COUNT 0.69 Low 0.90-4.00 K/mcL LAB MONOSABS MONOCYTES ABSOLUTE COUNT 0.92 High 0.30-0.90 K/mcL LAB EOSABS EOSINOPHILS ABSOLUTE COUNT 0.06 0.00-0.50 K/mcL LAB BASOABS BASOPHILS ABSOLUTE COUNT 0.03 0.00-0.30 K/mcL LAB 37627 IG ABSOLUTE 0.02 0.00-0.30 K/mcL PROGRESS Observed: 09/25/2024 12:41 PM Status: COMPLETED Source: [facility] Assessment/Plan: RUQ pain Acute onset this morning. Ddx: cholecystitis, gastritis, ozempic side effect, SBO, ureterolithiasis. - Sent to ER for urgent evaluation Dysuria Pelvic fullness, urgency. POC UA positive for blood, LE, nitrites. Hx colovesicular fistula with Crohn's - Urine sent for culture Subjective: Frannie Palmer is a 59 y.o. female Chief Complaint Patient presents with Urinary Tract Infection Abdomin pain right side, belching, Heavyness in lower abdomin. Urgency to go, little coming out. Was seen at an urgent care August 26. Patient presents for urinary symptoms, however, she has acute RUQ pain. She has acute onset RUQ pain and swelling after eating this morning; raw carrots, grapes, pepperoni, carrots. She reports her RUQ is swelling and feels hard. Improves with massaging R -> L and belching. Last BM last night, more solid than usual, some straining. Previous BM was also hard. She is not passing gas. History significant for Crohn's disease. She also takes Ozempic. 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 Review of Systems Objective: PACU Vitals 09/25/24 1235 BP: 117/74 Pulse: 82 Resp: 16 Temp: 98 degrees F (36.7 degrees C) SpO2: 96% Physical Exam Constitutional: General: She is in acute distress. Appearance: Normal appearance. HENT: Head: Normocephalic. Cardiovascular: Rate and Rhythm: Normal rate. Pulmonary: Effort: Pulmonary effort is normal. No respiratory distress. Abdominal: General: There is distension. Tenderness: There is abdominal tenderness in the right upper quadrant and epigastric area. Positive signs include Guo's sign. Comments: Fullness and ttp RUQ and epigastrium Neurological: Mental Status: She is alert. For any new medications prescribed today, patient was educated about indications for the medication, how to take the medication and potential side effects of the medications. My ongoing relationship with Frannie Thompsonl requires continued responsibility and cognitive effort of being the focal point for all services related to chronic condition(s). Jonny Champion DO AUTHENTICATED BY JONNY CHAMPION, ON 09/25/2024 13:25:43 CULTURE, URINE, ROUTINE Collected: 09/10 12:00 AM Status: F Source: [facility] TYPE CODE TESTS RESULT OUT OF RANGE REFERENCE UNITS LAB [id number] CULTURE, URINE, ROUTINE SEE NOTE Result Comment: CULTURE, URINE, ROUTINE Micro Number: [id number] Test Status: Final Specimen Source: Urine Specimen Quality: Adequate Result: Mixed genital rosa isolated. These superficial bacteria are not indicative of a urinary tract infection. No further organism identification is warranted on this specimen. If clinically indicated, recollect clean-catch, mid-stream urine and transfer immediately to Urine Culture Transport Tube. Performed By: #### [id number] #### [facility] [address], [address] [place] [address] Machine Operator Hay Stacker: Terry Bond MD PROGRESS Observed: 09/09/2024 3:20 PM Status: COMPLETED Source: [facility] Frannie Palmer 1965 CC: 59 y.o. is a she with left shoulder pain. Chief Complaint Patient presents with Left Shoulder - Pain . HPI: Shoulder Pain: Patient complains of left shoulder pain. This started a little over a month ago without any specific injury. She had been moving a lot of heavy boxes due to the end of the school year. She thinks that might have aggravated the shoulder. She was in to see her primary care physician who placed her on a Medrol Dosepak and also ordered imaging of the shoulder. She had been to the chiropractor and reports that she feels that her range of motion did slightly improve after that visit. She uses OTC pain medications as needed. Today she reports that the shoulder is getting better. Her range of motion has improved. Initially, she reports decreased range of motion in addition to increased pain with movement. She was informed that the shoulder was either dislocated or subluxated after she had imaging performed and was therefore instructed to follow-up with orthopedics. Again, today the shoulder has improved. Her range of motion is also improved. PMH Allergies[1] Current Medications[2] Past Medical History: Diagnosis Date Asthma Crohn disease (HCC) Diabetes mellitus (HCC) Hypertension Past Surgical History: Procedure Laterality Date ABCESS DRAINAGE perineal abscesses ~12 yrs ago CATARACT EXTRACTION, BILATERAL Bilateral around 2019 HERNIA REPAIR umbilical hernia repair with mesh about 12 yrs ago, then mesh removed after about 4 yrs partial colectomy due to crohn, apx 10 in removed TONSILLECTOMY early 20s Social History[3] The patient's past medical history, surgical history, social history, family history, medications and allergies were reviewed with the patient today and are available in the chart for further review. ROS: Review of Systems Constitutional: Negative for activity change and fatigue. HENT: Negative for congestion, hearing loss and trouble swallowing. Eyes: Negative for visual disturbance. Respiratory: Negative for chest tightness and shortness of breath. Cardiovascular: Negative for chest pain and palpitations. Gastrointestinal: Negative for abdominal pain, diarrhea, nausea and vomiting. Endocrine: Negative for polydipsia, polyphagia and polyuria. Genitourinary: Negative for decreased urine volume, difficulty urinating and hematuria. Musculoskeletal: Positive for arthralgias and myalgias. Negative for joint swelling. Skin: Negative for color change, rash and wound. Allergic/Immunologic: Negative for immunocompromised state. Neurological: Negative for dizziness, weakness, light-headedness and numbness. Hematological: Does not bruise/bleed easily. Psychiatric/Behavioral: Negative for confusion and sleep disturbance. The patient is not nervous/anxious. PE: Physical Exam Constitutional: Appearance: She is well-developed. HENT: Head: Normocephalic. Eyes: Pupils: Pupils are equal, round, and reactive to light. Cardiovascular: Rate and Rhythm: Normal rate and regular rhythm. Pulmonary: Effort: Pulmonary effort is normal. Breath sounds: Normal breath sounds. Abdominal: General: Bowel sounds are normal. Palpations: Abdomen is soft. Musculoskeletal: General: Tenderness present. No swelling. Normal range of motion. Cervical back: Normal range of motion and neck supple. Skin: General: Skin is warm and dry. Neurological: Mental Status: She is alert and oriented to person, place, and time. Left Shoulder Exam Tenderness The patient is experiencing tenderness in the biceps tendon, acromion and acromioclavicular joint. Range of Motion Active abduction: 140 Passive abduction: 140 External rotation: 70 Forward flexion: 160 Internal rotation 90 degrees: 80 Muscle Strength The patient has normal left shoulder strength. Tests Cross arm: positive Impingement: positive Other Erythema: absent Scars: absent Sensation: normal Pulse: present Imaging: Left shoulder: No acute fracture or dislocation. Mild degenerative changes in the glenohumeral and acromioclavicular joint spaces. Assessment/Plan: After examination reviewing the patient x-ray images, she is to continue with activity as tolerated. I encouraged her to work on range of motion in addition to continuing OTC pain medications as needed. We did discuss possible cortisone injections and/or formal physical therapy in the future but I think at this point she continues to improve so I am happy to see her back as needed. Diagnosis: Problem List Items Addressed This Visit None Visit Diagnoses Inferior subluxation of left glenohumeral joint Follow Up: No follow-ups on file. Israel Momin, IRAIDA [1] Allergies Allergen Reactions Cat Dander Shortness Of Breath Grass Pollen Hives Latex Hives, Itching and Swelling Peanut Hives and Swelling Adhesive Tape-Silicones Rash [2] Current Outpatient Medications: albuterol 90 mcg/actuation inhaler, Inhale 1 (one) puff every 4 (four) hours as needed ., Disp: , Rfl: Alcohol Prep Pads PadM, Apply 1 (one) Swab. topically 2 (two) times a day ., Disp: 200 each, Rfl: 3 blood sugar diagnostic (glucose blood) strips, by Miscellaneous route 3 (three) times a day as needed ., Disp: 100 each, Rfl: 0 ciclopirox (PENLAC) 8 % solution, APPLY SOLUTION TOPICALLY ONCE DAILY TO AFFECTED TOENAILS. EVERY WEEK FILE WITH [place] BOARD & REMOVE RESIDUE, Disp: , Rfl: fyewdzvrkrn-fgkzojidm-cfusguhn (Trelegy Ellipta) 200-62.5-25 mcg DsDv, Inhale 1 (one) Inhalation. daily ., Disp: , Rfl: hydroCHLOROthiazide (HYDRODIURIL) 25 MG tablet, Take 1 (one) tablet (25 mg total) by mouth daily ., Disp: 30 tablet, Rfl: 3 lancets Misc, 33G one touch check BG TID PRN ., Disp: 100 each, Rfl: 0 lisinopriL (PRINIVIL,ZESTRIL) 20 MG tablet, Take 1 (one) tablet (20 mg total) by mouth daily ., Disp: 30 tablet, Rfl: 3 metoprolol succinate (TOPROL-XL) 50 MG 24 hr tablet, Take 1 (one) tablet (50 mg total) by mouth daily ., Disp: 30 tablet, Rfl: 3 pyridoxine, vitamin B6, (B-6) 100 MG tablet, Take 1 (one) tablet (100 mg total) by mouth ., Disp: , Rfl: risankizumab-rzaa (Skyrizi) 75 mg/0.83 mL Syrg, Inject 150 mg under the skin ., Disp: , Rfl: semaglutide 0.25 mg or 0.5 mg (2 mg/3 mL) Pen, Inject 0.25 (one-quarter) mg under the skin every 7 days ., Disp: 3 mL, Rfl: 3 [3] Social History Socioeconomic History Marital status: Tobacco Use Smoking status: Never Smokeless tobacco: Never Vaping Use Vaping status: Never Used Substance and Sexual Activity Alcohol use: Not Currently Drug use: Never Sexual activity: Yes Partners: Male Social Drivers of Health Financial Resource Strain: Low Risk (07/22/2024) Overall Financial Resource Strain (CARDIA) Difficulty of Paying Living Expenses: Not hard at all Food Insecurity: No Food Insecurity (07/22/2024) Hunger Vital Sign Worried About Running Out of Food in the Last Year: Never true Ran Out of Food in the Last Year: Never true Transportation Needs: No Transportation Needs (07/22/2024) PRAPARE - Transportation Lack of Transportation (Medical): No Lack of Transportation (Non-Medical): No Social Connections: Unknown (07/22/2024) Social Connection and Isolation Panel [NHANES] Frequency of Social Gatherings with Friends and Family: Three times a week AUTHENTICATED BY ISRAEL MOMIN, ON 09/16/2024 12:42:32 XR SHOULDER LEFT 1 VIEW Observed: 2024 3:12 PM Status: F Source: [facility] Order Comment: Axillary view Injury/Trauma or Illness?:Illness/Other How long have you had these symptoms (acute/chronic)?:Acute Reason for exam?:Pain on the top of the left shoulder after sleeping on it. History of cancer?:n Surgeries, chemotherapy, or radiation?:n Type of Exam?:Initial Additional signs and symptoms?:Limited range of motion due to pain EXAMINATION: XR SHOULDER LEFT 1 VIEW 09/09/2024 3:15 PM HISTORY: ORDERING SYSTEM PROVIDED HISTORY: Pain, TECHNOLOGIST PROVIDED HISTORY: Illness/Other Reason for exam: Pain on the top of the left shoulder after sleeping on it. Cancer History: n Surgery, RadiationHistory: n Encounter Type: Initial Additional signs and symptoms: Limited range of motion due to pain ORDERING SYSTEM PROVIDED DIAGNOSIS CODES: R52 Pain COMPARISON: X-ray left shoulder 08/08/2024. FINDINGS: Axillary view left shoulder was performed. No fracture or dislocation identified on this single image. IMPRESSION: No acute abnormality in the left shoulder on this single image. [employer] Workstation ID: [id number] Dictated by: FABIEN JAUREGUI on MonSep 11, 2024 3:22:45 PM EDT Transcribed by: KARI RODRIGUEZ on MonSep 11, 2024 3:59:29 PM EDT Finalized by: FABIEN JAUREGUI on MonSep 11, 2024 4:00:10 PM EDT CULTURE, URINE, ROUTINE Collected: 08/11 5:25 PM Status: F Source: [facility] TYPE CODE TESTS RESULT OUT OF RANGE REFERENCE UNITS LAB [id number] CULTURE, URINE, ROUTINE SEE NOTE Result Comment: CULTURE, URINE, ROUTINE Micro Number: [id number] Test Status: Final Specimen Source: Not given Specimen Quality: Adequate Result: Mixed genital rosa isolated. These superficial bacteria are not indicative of a urinary tract infection. No further organism identification is warranted on this specimen. If clinically indicated, recollect clean-catch, mid-stream urine and transfer immediately to Urine Culture Transport Tube. Performed By: #### 395 #### [facility] [address], [address] [place] [address] Machine Operator Hay Stacker: Terry Bond MD XR SHOULDER LEFT 2+ VIEWS (STANDARD) Observed: 08/08/2024 7:36 AM Status: F Source: [facility] Order Comment: Injury/Trauma or Illness?:Injury/Trauma How long have you had these symptoms (acute/chronic)?:Acute Reason for exam?:left shoulder pain, Acute pain of left shoulder History of cancer?:n Surgeries, chemotherapy, or radiation?:n Type of Exam?:Initial Mechanism of injury?:lifting boxes EXAMINATION: XR SHOULDER LEFT 2+ VIEWS (STANDARD) HISTORY: ORDERING SYSTEM PROVIDED HISTORY: Left shoulder pain. TECHNOLOGIST PROVIDED HISTORY: Injury/Trauma. Reason for exam: Left shoulder pain, Acute pain of left shoulder. Cancer History: N. Surgery, Radiation History: N. Encounter Type: Initial. Mechanism of injury: Lifting boxes. ORDERING SYSTEM PROVIDED DIAGNOSIS CODES: M25.512 Acute pain of left shoulder. COMPARISON: None FINDINGS: Three views of the left shoulder. No acute osseous abnormality. Widening of the glenohumeral joint with inferior subluxation on the external and internal rotation views. No significant anterior or posterior subluxation on the Y-view. Normal AC joint alignment with minimal degenerative change. IMPRESSION: Suspect inferior glenohumeral joint subluxation. No acute osseous abnormality. [facility] Workstation ID: [id number] Dictated by: BONNIE GARCIA on MonAugust 08, 2024 4:26:09 PM EDT Transcribed by: ALEXA IRWIN on MonAugust 08, 2024 4:35:30 PM EDT Finalized by: BONNIE GARCIA on MonAugust 08, 2024 9:09:47 PM EDT PROGRESS Observed: 08/08/2024 7:09 AM Status: COMPLETED Source: [facility] Subjective Patient ID: Frannie Palmer is a 59 y.o. female. Chief Complaint Patient presents with Shoulder Pain Left shoulder pain x2 day Shoulder Pain Frannie is a pleasant 59 year old female who comes to office today with left shoulder pain for past few days. States she cannot recall specific incident when pain began but notes on Monday she was lifting a lot of heavy boxes, Monday was holding her grandson and noted the left shoulder was aching and then on Monday when she went to give a hug she noted tightness in her left shoudler/arm. She denies any falls. States she went to chiropractor yesterday and after that she has slightly more ROM, however is unable to reach her arm up or lift any object with left arm. At times will have numbness down LUE when her pain is increased. She does have PMH of crohns, DM, HTN and asthma. The following portions of the patient's history were reviewed and updated as appropriate: allergies, current medications, past family history, past medical history, past social history, past surgical history, and problem list. Past Medical History: Diagnosis Date Asthma Crohn disease (HCC) Diabetes mellitus (HCC) Hypertension Past Surgical History: Procedure Laterality Date ABCESS DRAINAGE perineal abscesses ~12 yrs ago CATARACT EXTRACTION, BILATERAL Bilateral around 2019 HERNIA REPAIR umbilical hernia repair with mesh about 12 yrs ago, then mesh removed after about 4 yrs partial colectomy due to crohn, apx 10 in removed TONSILLECTOMY early 20s Social History[1] Family History Problem Relation Age of Onset Arthritis Mother Rheumatic fever Mother Arthritis Father Diabetes Father Diverticulitis Father Hypertension Brother Stroke Brother Hypertension Brother Lactose intolerance Daughter Irritable bowel syndrome Daughter Asthma Son Lactose intolerance Son Allergies[2] Outpatient Medications as of 08/08/2024 Medication Sig albuterol 90 mcg/actuation inhaler Inhale 1 (one) puff every 4 (four) hours as needed . Alcohol Prep Pads PadM Apply 1 (one) Swab. topically 2 (two) times a day . blood sugar diagnostic (glucose blood) strips by Miscellaneous route . ciclopirox (PENLAC) 8 % solution APPLY SOLUTION TOPICALLY ONCE DAILY TO AFFECTED TOENAILS. EVERY WEEK FILE WITH [place] BOARD & REMOVE RESIDUE qngpbfpygph-losmkbkkq-kwztkndg (Trelegy Ellipta) 200-62.5-25 mcg DsDv Inhale 1 (one) Inhalation. daily . hydroCHLOROthiazide (HYDRODIURIL) 25 MG tablet Take 1 (one) tablet (25 mg total) by mouth daily . lancets Misc by Miscellaneous route 33G one touch . lisinopriL (PRINIVIL,ZESTRIL) 20 MG tablet Take 1 (one) tablet (20 mg total) by mouth daily . metoprolol succinate (TOPROL-XL) 50 MG 24 hr tablet Take 1 (one) tablet (50 mg total) by mouth daily . pyridoxine, vitamin B6, (B-6) 100 MG tablet Take 1 (one) tablet (100 mg total) by mouth . risankizumab-rzaa (Skyrizi) 75 mg/0.83 mL Syrg Inject 150 mg under the skin . semaglutide 0.25 mg or 0.5 mg (2 mg/3 mL) Pen Inject 0.25 (one-quarter) mg under the skin every 7 days . Review of Systems Objective BP 135/86 (BP Location: Right arm, Patient Position: Sitting, BP Cuff Size: X-large Adult) Pulse 71 Temp 97.9 degrees F (36.6 degrees C) Resp 16 Ht 5' 6 Wt 117.9 kg (260 lb) SpO2 93% BMI 41.97 kg/m Physical Exam Constitutional: General: She is not in acute distress. Appearance: She is not ill-appearing or toxic-appearing. HENT: Mouth/Throat: Mouth: Mucous membranes are moist. Eyes: Extraocular Movements: Extraocular movements intact. Conjunctiva/sclera: Conjunctivae normal. Pulmonary: Effort: Pulmonary effort is normal. No respiratory distress. Musculoskeletal: Right shoulder: Normal. Left shoulder: No swelling, deformity or laceration. Comments: Tenderness upon palpation to left shoulder joint line anteriorly, unable to complete cody test d/t pain and limited ROM. Neers test negative. Strength was equal to bilateral UE +5/5. Radial pulses +2 and equal bilaterally. Spurlings test postive to left side Skin: General: Skin is warm and dry. Findings: No rash. Neurological: Mental Status: She is alert and oriented to person, place, and time. Psychiatric: Mood and Affect: Mood normal. Behavior: Behavior normal. Thought Content: Thought content normal. Judgment: Judgment normal. Assessment/Plan: Diagnoses and all orders for this visit: Acute pain of left shoulder - XR Shoulder Left 2+ Views (Standard); Future - methylPREDNISolone (MEDROL DOSEPACK) 4 mg tablet; Follow package directions . Spurling's test positive therefore cervical radiculopathy. Discussed with patient and will treat conservatively first with prednisone taper dose. Discussed this will elevate her blood sugar readings and to monitor BG closely at home. We discussed as she still has point tenderness to left shoulder on exam would like to obtain XRAY to further evaluate. Once XRAY is back will notify with further plan of care. Encouraged to continue with ROM stretching/exercises at home, but not pushing past pain. Encouraged RICE therapy as well. Warning signs/symptoms reviewed with patient and when to follow up or present ER. Please note: Portions of this chart may have been created with [employer]al[employer] voice recognition software. Occasional wrong-word or sound-like substitutions may have occurred due to inherent limitations of the voice recognition software. Please read the chart carefully and recognize, using context, where the substitutions have occurred. Electronically signed by DANTE Herrera 8:14 AM [1] Social History Tobacco Use Smoking status: Never Smokeless tobacco: Never Vaping Use Vaping status: Never Used Substance Use Topics Alcohol use: Not Currently Drug use: Never [2] Allergies Allergen Reactions Cat Dander Shortness Of Breath Grass Pollen Hives Latex Hives, Itching and Swelling Peanut Hives and Swelling Adhesive Tape-Silicones Rash AUTHENTICATED BY CASTILLO BROWN, ON 08/08/2024 08:14:57 PROGRESS Observed: 07/22/2024 8:40 AM Status: COMPLETED Source: [facility] Assessment/Plan: Type 2 diabetes mellitus without complication, without long-term current use of insulin ([facility]) POC A1c 6.1% today, down from 7.0% 3 months ago. She is currently taking semaglutide 0.25 mg weekly. She has taken glipizide a couple of times when her sugar has been high. Advised not to take glipizide unless blood sugar 200 or higher. She denies any fasting blood sugar of 200 or higher. - Continue semaglutide 0.25 mg weekly - Discontinue glipizide use unless fasting blood sugar 200 or higher - Follow-up in 6 months Rash Scaly, rough rash on R face x5-6 months, worsening slightly. Ddx: allergic dermatitis, atopic dermatitis, fungal infection, rosacea/pustular rosacea, acne. Briefly improved after triamcinolone 14-day course, return after completing. - Refer to dermatology Primary hypertension Goal <140/90. Current regimen with metoprolol XR 50 mg, lisinopril 20 mg, hydrochlorothiazide 25 mg daily. Blood pressure is at goal. Continue current treatment. - Check CMP every 6 to 12 months Subjective: Frannie Palmer is a 59 y.o. female Chief Complaint Patient presents with Follow-up DM Patient presents for follow-up DM2. DM2 Last A1c is 7.0% on 04/24/2024. At that time, we continued semaglutide 0.25 mg weekly as monotherapy, and she was urged to continue improving her diet losing weight. She has noticed a few high fasting blood sugars, up to 180. She took glipizide and wound up dropping low and feeling shaky. She doesn't eat much bread. She works on balancing protein. HTN She takes lisinopril 20 mg, metoprolol succinate 50 mg, hydrochlorothiazide 25 mg daily. Her BP is high today 143/84. She has had no caffeine today, but did have a salty dinner yesterday. Repeat blood pressure 119/86. 05/20/2024 DM2 Previously on glipizide and semaglutide 0.5 mg weekly, but was having hypoglycemic episodes and A1c 6.0%. Glipizide was stopped and semaglutide reduced to 0.25. Last A1c 7.0% on 04/24/2024. She has been improving her diet, and losing weight. She reports recently she has been eating more processed and high calorie foods. She reports she keeps forgetting to take semaglutide. She feels that she has more appetite when she forgets her semaglutide. She walks at work and gets home late so she's not exercising at home. FBG log reviewed. The following portions of the patient's history were reviewed and updated as appropriate: allergies, current medications, past family history, past medical history, past social history, past surgical history and problem list. Review of Systems Objective: PACU Vitals 07/22/24 0929 BP: 119/86 Pulse: Resp: Temp: SpO2: Physical Exam Constitutional: General: She is not in acute distress. Appearance: Normal appearance. She is not ill-appearing, toxic-appearing or diaphoretic. HENT: Head: Normocephalic and atraumatic. Eyes: General: No scleral icterus. Cardiovascular: Rate and Rhythm: Normal rate and regular rhythm. Heart sounds: Normal heart sounds. No murmur heard. No gallop. Pulmonary: Effort: Pulmonary effort is normal. No respiratory distress. Breath sounds: Normal breath sounds. No wheezing or rales. Skin: General: Skin is warm and dry. Coloration: Skin is not jaundiced or pale. Neurological: General: No focal deficit present. Mental Status: She is alert. Psychiatric: Mood and Affect: Mood normal. For any new medications prescribed today, patient was educated about indications for the medication, how to take the medication and potential side effects of the medications. *Total encounter time today was 46 minutes. This time includes review of past tests/notes, obtaining patient history, performing a medically necessary exam, counseling the patient, ordering tests/procedures/medications, documentation, and care coordination. Jonny Champion DO AUTHENTICATED BY JONNY CHAMPION, ON 07/24/2024 16:48:12 PROGRESS Observed: 05/20/2024 8:40 AM Status: COMPLETED Source: [facility] Assessment/Plan: Type 2 diabetes mellitus without complication, without long-term current use of insulin ([facility]) Last A1c 7.0% 04/24/2024. Currently on therapy with semaglutide 0.25 mg weekly, but admits to regularly forgetting to take it on time. Previously on glipizide, but discontinued in 01/2024 due to A1c 6.0%. Home fasting BG readings are 120-140. She has met with pulp mixer and is actively improving her diet and working on weight loss. - Improve medication adherence; take semaglutide 0.25 mg weekly on time - Continue to work on healthy diet - Begin regular cardiovascular exercise, goal 150 minutes weekly - Follow-up in 2 weeks, will do POC A1c at that time Subjective: Frannie Palmer is a 59 y.o. female Chief Complaint Patient presents with Follow-up 4 week f/u Patient presents for follow-up. DM2 Previously on glipizide and semaglutide 0.5 mg weekly, but was having hypoglycemic episodes and A1c 6.0%. Glipizide was stopped and semaglutide reduced to 0.25. Last A1c 7.0% on 04/24/2024. She has been improving her diet, and losing weight. She reports recently she has been eating more processed and high calorie foods. She reports she keeps forgetting to take semaglutide. She feels that she has more appetite when she forgets her semaglutide. She walks at work and gets home late so she's not exercising at home. FBG log reviewed. The following portions of the patient's history were reviewed and updated as appropriate: allergies, current medications, past family history, past medical history, past social history, past surgical history and problem list. Review of Systems Objective: PACU Vitals 05/20/24 0843 BP: 136/86 Pulse: 71 Resp: 16 SpO2: 94% Physical Exam Constitutional: General: She is not in acute distress. Appearance: Normal appearance. She is not ill-appearing, toxic-appearing or diaphoretic. HENT: Head: Normocephalic and atraumatic. Eyes: General: No scleral icterus. Cardiovascular: Rate and Rhythm: Normal rate and regular rhythm. Heart sounds: No murmur heard. No gallop. Pulmonary: Effort: Pulmonary effort is normal. No respiratory distress. Breath sounds: Normal breath sounds. No wheezing or rales. Skin: General: Skin is warm and dry. Coloration: Skin is not jaundiced or pale. Neurological: Mental Status: She is alert. Psychiatric: Mood and Affect: Mood normal. For any new medications prescribed today, patient was educated about indications for the medication, how to take the medication and potential side effects of the medications. Jonny Champion DO AUTHENTICATED BY JONNY CHAMPION, ON 05/23/2024 01:59:35 PROGRESS Observed: 04/25/2024 3:50 PM Status: COMPLETED Source: [facility] Please let patient know her A1c is 7.0%. I would recommend continuing Ozempic 0.25 mg weekly. If she would like to switch to a different medication, we can discuss at next appointment. The rest of her labs are fairly normal. Potassium mildly low, but this fluctuates with diet. Vitamin D and B12 are normal. Thyroid function is normal. Magnesium level is normal. Please let me know if she has any questions. AUTHENTICATED BY JONNY CHAMPION, ON 04/25/2024 15:50:57 MAGNESIUM Collected: 9:42 AM Status: F Source: [facility] Order Comment: FASTING:NO FASTING: NO TYPE CODE TESTS RESULT OUT OF RANGE REFERENCE UNITS LAB [id number] MAGNESIUM 2.2 Normal 1.5-2.5 mg/dL Performed By: #### 927, 496, 91414, 04683, 622, 00033, 6399 #### [facility] [address], [address] [place] [id number] Machine Operator Hay Stacker: Terry Bond MD COMPREHENSIVE METABOLIC PANE L W/ANION GAP Collected: 04/24/2024 9:42 AM Status: F Source: [facility] TYPE CODE TESTS RESULT OUT OF RANGE REFERENCE UNITS LAB [id number] GLUCOSE 175 High 65-139 mg/dL Result Comment: Non-fasting reference interval For someone without known diabetes, a glucose value >125 mg/dL indicates that they may have diabetes and this should be confirmed with a follow-up test. LAB [id number] UREA NITROGEN (BUN) 20 Normal 7-25 mg/dL LAB [id number] CREATININE 0.70 Normal 0.50-1.05 mg/dL LAB [id number] EGFR 98 Normal > OR = 60 mL/min/1 .73m2 LAB [id number] SODIUM 139 Normal 135-146 mmol/L LAB [id number] POTASSIUM 3.4 Low 3.5-5.3 mmol/L LAB [id number] CHLORIDE 98 Normal 98-110 mmol/L LAB [id number] CARBON DIOXIDE 30 Normal 20-32 mmol/L LAB [id number] ELECTROLYTE BALANCE 11 Normal 7-17 mmol/L (calc) LAB [id number] CALCIUM 9.8 Normal 8.6-10.4 mg/dL LAB [id number] PROTEIN, TOTAL 7.1 Normal 6.1-8.1 g/dL LAB [id number] ALBUMIN 4.0 Normal 3.6-5.1 g/dL LAB [id number] BILIRUBIN, TOTAL 0.6 Normal 0.2-1.2 mg/dL LAB [id number] ALKALINE PHOSPHATASE 58 Normal 37-153 U/L LAB [id number] AST 20 Normal 10-35 U/L LAB [id number] ALT 20 Normal 6-29 U/L Performed By: #### 927, 496, 43665, 06937, 622, 30596, 6383 #### [facility] [address], [address] [place] [address] Machine Operator Hay Stacker: Terry Bond MD CBC (INCLUDES DIFF/PLT) Collected: 04/13 9:42 AM Status: F Source: [facility] TYPE CODE TESTS RESULT OUT OF RANGE REFERENCE UNITS LAB [id number] WHITE BLOOD CELL COUNT 7.4 Normal 3.8-10.8 Thousand /uL LAB [id number] RED BLOOD CELL COUNT 5.18 High 3.80-5.10 Million/ uL LAB [id number] HEMOGLOBIN 14.2 Normal 11.7-15.5 g/dL LAB [id number] HEMATOCRIT 44.1 Normal 35.0-45.0 % LAB [id number] MCV 85.1 Normal 80.0-100.0 fL LAB [id number] MCH 27.4 Normal 27.0-33.0 pg LAB [id number] MCHC 32.2 Normal 32.0-36.0 g/dL Result Comment: For adults, a slight decrease in the calculated MCHC value (in the range of 30 to 32 g/dL) is most likely not clinically significant; however, it should be interpreted with caution in correlation with other red cell parameters and the patient's clinical condition. LAB [id number] RDW 13.8 Normal 11.0-15.0 % LAB [id number] PLATELET COUNT 404 High 140-400 Thousand /uL LAB [id number] MPV 9.6 Normal 7.5-12.5 fL LAB [id number] ABSOLUTE NEUTROPHILS 5920 Normal 6660-1607 cells/uL LAB [id number] ABSOLUTE LYMPHOCYTES 673 Low 850-3900 cells/uL LAB [id number] ABSOLUTE MONOCYTES 622 Normal 200-950 cells/uL LAB [id number] ABSOLUTE EOSINOPHILS 148 Normal 15-500 cells/uL LAB [id number] ABSOLUTE BASOPHILS 37 Normal 0-200 cells/uL LAB [id number] NEUTROPHILS 80.0 Normal % LAB [id number] LYMPHOCYTES 9.1 Normal % LAB [id number] MONOCYTES 8.4 Normal % LAB [id number] EOSINOPHILS 2.0 Normal % LAB [id number] BASOPHILS 0.5 Normal % LAB [id number] COMMENT(S) Result Comment: Review of pe ripheral smear confirms automated results. Performed By: #### 927, 496, 48262, 28227, 622, 60488, 6399 #### [facility] [address], [address] [place] [address] Machine Operator Hay Stacker: Terry Bond MD VITAMIN B12 Collected: 9:42 AM Status: F Source: [facility] TYPE CODE TESTS RESULT OUT OF RANGE REFERENCE UNITS LAB [id number] VITAMIN B12 435 Normal 200-1100 pg/mL Performed By: #### 927, 496, 71268, 31051, 622, 98234, 6399 #### [facility] [address], [address] [place] [address] Machine Operator Hay Stacker: Terry Bond MD TSH W/REFLEX TO FT4 Collected: 04/24/19 9:42 AM Status: F Source: [facility] TYPE CODE TESTS RESULT OUT OF RANGE REFERENCE UNITS LAB [id number] TSH W/REFLEX TO FT4 0.89 Normal 0.40-4.50 mIU/L Performed By: #### 927, 496, 42080, 43429, 622, 94995, 6399 #### [facility] [address], [address] [place] [address] Machine Operator Hay Stacker: Terry Bond MD VITAMIN D,25-OH,TOTAL,IA Collected: 02/2025 9:42 AM Status: F Source: [facility] TYPE CODE TESTS RESULT OUT OF RANGE REFERENCE UNITS LAB [id number] VITAMIN D,25-OH,TOT AL,IA 39 Normal 30-100 ng/mL Result Comment: Vitamin D St atus 25-OH Vitamin D: Deficiency: <20 ng/mL Insufficiency: 20 - 29 ng/mL Optimal: > or = 30 ng/mL For 25-OH Vitamin D testing on patients on D2-supplementation and patients for whom quantitation of D2 and D3 fractions is required, the [facility](TM) 25-OH VIT D, (D2,D3), LC/MS/MS is recommended: order code 53885 (patients >2yrs). See Note 1 Note 1 For additional information, please refer to http://education.[employer]/faq/GYM042 (This link is being provided for informational/ educational purposes only.) Performed By: #### 927, 496, 82558, 01180, 622, 28918, 6399 #### [facility] [address], [address] [place], [place] [id number] Machine Operator Hay Stacker: Terry Bond MD HEMOGLOBIN A1C Collected: 9:42 AM Status: F Source: [facility] TYPE CODE TESTS RESULT OUT OF RANGE REFERENCE UNITS LAB [id number] HEMOGLOBIN A1c 7.0 High <5.7 % of total Hgb Result Comment: For someone without known diabetes, a hemoglobin A1c value of 6.5% or greater indicates that they may have diabetes and this should be confirmed with a follow-up test. For someone with known diabetes, a value <7% indicates that their diabetes is well controlled and a value greater than or equal to 7% indicates suboptimal control. A1c targets should be individualized based on duration of diabetes, age, comorbid conditions, and other considerations. Currently, no consensus exists regarding use of hemoglobin A1c for diagnosis of diabetes for children. Performed By: #### 927, 496, 96863, 15241, 622, 51561, 6399 #### [facility] [address], [address] [place] [address] Machine Operator Hay Stacker: Terry Bond MD ALBUMIN, RANDOM URINE W/CREATININE Collected: 04/24/2024 9:40 AM Status: F Source: [facility] TYPE CODE TESTS RESULT OUT OF RANGE REFERENCE UNITS LAB [id number] CREATININE, RANDOM URINE 222 Normal 20-275 mg/dL LAB [id number] ALBUMIN, URINE 1.9 Normal See Note: mg/dL Result Comment: Reference Ra nge: Reference Range Not established LAB [id number] ALBUMIN/CRE ATININE RATIO, RANDOM URINE 9 Normal <30 mg/g creat Result Comment: The ADA defines abnormalities in albumin excretion as follows: Albuminuria Category Result (mg/g creatinine) Normal to Mildly increased <30 Moderately increased 30-299 Severely increased > OR = 300 The ADA recommends that at least two of three specimens collected within a 3-6 month period be abnormal before considering a patient to be within a diagnostic category. Performed By: #### [id number] #### [facility] [address], [address] [place] [address] Machine Operator Hay Stacker: Terry Bond MD PROGRESS Observed: 04/24/2024 8:40 AM Status: COMPLETED Source: [facility] Assessment/Plan: Type 2 diabetes mellitus without complication, without long-term current use of insulin ([facility]) POC A1c 01/27/24 was 6.0% on glipizide and semaglutide 0.5 mg weekly (she had only taken 1 dose of 0.5 mg). Stopped glipizide and reduced semaglutide back to 0.25 mg weekly to avoid hypoglycemia. She denies any hypoglycemic events. Home fasting BG readings are 120-140. She has met with pulp mixer and is actively improving her diet and working on weight loss. - Check updated A1c. If still below 6.5, will stop semaglutide - Check CMP, urine microalbumin - Follow-up in 1 month to review fasting glucose log Primary hypertension Goal <140/90. Current regimen with metoprolol XR 50 mg, lisinopril 20 mg, hydrochlorothiazide 25 mg daily. Blood pressure is at goal. Continue current treatment. - Check updated CMP Crohn disease (HCC) Follows with GI. Recently started on Skyrizi. Still taking aziothioprine currently, but plan is to drop off after a while on Skyrizi. Leg cramps Bilateral calf cramps at night. - Maintain adequate hydration - Supportive care with daily walk, light stretching, OTC magnesium supplement - Check serum magnesium level today - Follow-up in 1 month Subacute cough Postviral cough after recent influenza infection. Cough is keeping her awake through the night. Tessalon Perles relieve cough. - Prescription provided for Tessalon Perles at bedtime Subjective: Frannie Palmer is a 59 y.o. female Chief Complaint Patient presents with Diabetes Type 2 diabetes mellitus without complication, without long-term current use of insulin Gap Closure (Health Maintenance) Diabetic Foot Exam Never done Diabetic Eye Exam Never done Cough Dx w/ Influenza A last week, consistent cough, therapy completed on pearls Patient presents for follow-up diabetes, HTN. She is currently taking semaglutide 0.25 mg weekly. Fasting BG log 120-140 mostly Diet: she is doing better about making healthy choices. She has lost 13 pounds since last visit 2 months ago. HTN She continues taking lisinopril 20 mg, metoprolol succinate 50 mg, hydrochlorothiazide 25 mg daily. Crohn's Recently started on Skyrizi. Still taking aziothioprine currently, but plan is to drop off after a while on Skyrizi. She has been feeling very fatigued lately. Very tired after work, going to bed early. Recent influenza infection treated with supportive care and Tessalon Perles from urgent care. Tessalon Perles were effective for reducing her cough, but she is run out of these and is still having bothersome cough which keeps her awake through the night. 02/22/2024 Last month her A1c was 6.0%. We stopped glipizide and reduced semaglutide from 0.5 mg (she had only taken one dose of 0.5 mg) back down to 0.25 mg. Fasting BG log reviewed on her monitor. Most readings 110-140. Couple of 160, and she reports low of 107, one time. She admits to eating a little less carefully due to the iday. She met with the pulp mixer, who identified she was eating inconsistently. She now combines eats a carbohydrate and protein together at lunch and dinner. The following portions of the patient's history were reviewed and updated as appropriate: allergies, current medications, past family history, past medical history, past social history, past surgical history and problem list. Review of Systems Objective: PACU Vitals 04/24/24 0855 BP: 132/82 Pulse: 84 Resp: 14 Temp: 99.1 degrees F (37.3 degrees C) SpO2: 94% Physical Exam Constitutional: General: She is not in acute distress. Appearance: Normal appearance. She is not ill-appearing, toxic-appearing or diaphoretic. HENT: Head: Normocephalic and atraumatic. Cardiovascular: Rate and Rhythm: Normal rate and regular rhythm. Heart sounds: No murmur heard. No gallop. Pulmonary: Effort: Pulmonary effort is normal. No respiratory distress. Breath sounds: No rales. Comments: Faint wheeze RUL Neurological: Mental Status: She is alert. For any new medications prescribed today, patient was educated about indications for the medication, how to take the medication and potential side effects of the medications. My ongoing relationship with Frannie Palmer requires continued responsibility and cognitive effort of being the focal point for all services related to chronic condition(s). Jonny Champion, AUTHENTICATED BY JONNY CHAMPION, ON 04/25/2024 16:40:41 PROGRESS Observed: 02/22/2024 9:40 AM Status: COMPLETED Source: [facility] Assessment/Plan: Rash Scaly, rough rash on R face x5-6 months, worsening slightly. Ddx: allergic dermatitis, atopic dermatitis, fungal infection, rosacea/pustular rosacea - Start triamcinolone BID for 14 days - Follow up in 2 weeks if no improvement. Consider metronidazole cream if steroid doesn't help. Type 2 diabetes mellitus without complication, without long-term current use of insulin ([facility]) POC A1c 01/27/24 was 6.0% on glipizide and semaglutide 0.5 mg weekly (she had only taken 1 dose of 0.5 mg). Stopped glipizide and reduced semaglutide back to 0.25 mg weekly to avoid hypoglycemia She denies any hypoglycemic events. Home fasting BG log reviewed today, and most readings are 110-140. She has met with pulp mixer and is actively improving her diet and working on weight loss. - Advised if fasting blood sugar is consistently over 150, increase Ozempic to 0.5 m weekly and let me know - Follow up in 2 months, recheck A1c then Subjective: Frannie Palmer is a 59 y.o. female Chief Complaint Patient presents with Follow-up Spot of right side of face. Diabetes Rash Presenting for follow up diabetes. Last month her A1c was 6.0%. We stopped glipizide and reduced semaglutide from 0.5 mg (she had only taken one dose of 0.5 mg) back down to 0.25 mg. Fasting BG log reviewed on her monitor. Most readings 110-140. Couple of 160, and she reports low of 107, one time. She admits to eating a little less carefully due to the . She met with the pulp mixer, who identified she was eating inconsistently. She now combines eats a carbohydrate and protein together at lunch and dinner. Rash R face, below and in front of her ear. She noticed a couple of spots like a pimple, under her chin and on the other side of her face which feel similar Present for several months, started over the summer (5-6 months ago). She feels it has worsened slightly. The rash is itchy and sometimes feels swollen. She reports a tingly feeling as well. Yesterday she noticed clear drainage, for the first time. Denies any new personal products or detergent. She does have environmental and food allergies. The following portions of the patient's history were reviewed and updated as appropriate: allergies, current medications, past family history, past medical history, past social history, past surgical history and problem list. Review of Systems Objective: PACU Vitals 02/22/24 0906 BP: 133/78 Pulse: 72 Resp: 17 Temp: 96.9 degrees F (36.1 degrees C) SpO2: 93% Physical Exam Constitutional: General: She is not in acute distress. Appearance: Normal appearance. She is obese. She is not ill-appearing, toxic-appearing or diaphoretic. Cardiovascular: Rate and Rhythm: Normal rate and regular rhythm. Pulmonary: Effort: Pulmonary effort is normal. No respiratory distress. Breath sounds: Normal breath sounds. Skin: General: Skin is warm and dry. Coloration: Skin is not jaundiced or pale. Findings: Rash present. Comments: R face anterior and inferior to her earlobe; Irregular patch of rough, scaly skin, irregular borders, appx 4-5 cm diameter. No surrounding erythema, edema, or drainage. Neurological: Mental Status: She is alert. For any new medications prescribed today, patient was educated about indications for the medication, how to take the medication and potential side effects of the medications. *Total encounter time today was 30 minutes. This time includes review of past tests/notes, obtaining patient history, performing a medically necessary exam, counseling the patient, ordering tests/procedures/medications, documentation, and care coordination. Jonny Champion DO AUTHENTICATED BY JONNY CHAMPION, ON 02/22/2024 11:25:41 PROGRESS Observed: 2024 8:55 AM Status: COMPLETED Source: [facility] PATIENT: Frannie Palmer DATE / TIME: 01/25/24 8:55 AM POS: Office AGE: 58 y.o. 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 Patient reports that approximately 2 weeks ago she noted protrusion at her midline incision. She admits to mild discomfort around the area, but denies any obstructive symptoms, or skin changes. Reports that she is always able to reduce the hernia. PAST MEDICAL / SURGICAL HISTORY Past Medical History: Diagnosis Date Asthma Crohn disease (HCC) Diabetes mellitus (HCC) Hypertension Past Surgical History: Procedure Laterality Date ABCESS DRAINAGE perineal abscesses ~12 yrs ago CATARACT EXTRACTION, BILATERAL Bilateral around 2019 HERNIA REPAIR umbilical hernia repair with mesh about 12 yrs ago, then mesh removed after about 4 yrs partial colectomy due to crohn, apx 10 in removed TONSILLECTOMY early 20s FAMILY HISTORY Family History Problem Relation Age of Onset Arthritis Mother Rheumatic fever Mother Arthritis Father Diabetes Father Diverticulitis Father Hypertension Brother Stroke Brother Hypertension Brother Lactose intolerance Daughter Irritable bowel syndrome Daughter Asthma Son Lactose intolerance Son SOCIAL HISTORY Data Unavailable Social History Tobacco Use Smoking Status Never Smokeless Tobacco Never Social History Substance and Sexual Activity Alcohol Use Not Currently Social History Substance and Sexual Activity Drug Use Never MEDICATIONS: Patient has a current medication list which includes the following prescription(s): albuterol, alcohol prep pads, azathioprine, glucose blood, ciclopirox, trelegy ellipta, hydrochlorothiazide, lancets, lisinopril, metoprolol succinate, pyridoxine (vitamin b6), and semaglutide. ALLERGIES: Allergies Allergen Reactions Cat Dander Shortness Of Breath Grass Pollen Hives Latex Hives, Itching and Swelling Peanut Hives and Swelling Adhesive Tape-Silicones Rash REVIEW OF SYSTEMS Pertinent positives and negatives are listed in HPI, PMSH, SH, ALL above and in Details below. [] The following systems were reviewed: [x] Const (fevers, chills, wt. loss, fatigue) [x] CV (HTN, CP, HIGH, edema, DVT) [x] Resp (SOB, pleurisy, asthma, apnea) [x] GI (N, V, D, C, M, abd pain, appetite) [x] Musc (back pain, joint stiffness, gout) [x] Neuro (seizures, syncope, paralysis) [x] Psych (depression, anxiety) [x] Endo (hot/cold intol, polyuria[DM]) [x] Hem/Lymph (Anemia, LA, bleeding) [x] Allerg/Immun (seasonal, immuniz) [x] Eyes (diplopia, cataracts) [x] ENT/mouth (dysphagia, epistaxis) [x] (dysuria, hematuria) [x] Skin/Breast (moles, rash, lumps, nipple changes) [x] Able to walk up a flight of steps without difficulty Details: PHYSICAL EXAM PACU Vitals 01/25/24 0816 BP: 126/84 Pulse: 71 SpO2: 95% Body mass index is 43.6 kg/m . Physical Exam Vitals reviewed. Constitutional: Appearance: Normal appearance. She is obese. HENT: Head: Normocephalic and atraumatic. Eyes: Extraocular Movements: Extraocular movements intact. Cardiovascular: Rate and Rhythm: Normal rate and regular rhythm. Pulmonary: Effort: Pulmonary effort is normal. No respiratory distress. Breath sounds: Normal breath sounds. No wheezing. Abdominal: General: There is no distension. Palpations: Abdomen is soft. Tenderness: There is no abdominal tenderness. There is no guarding or rebound. Hernia: A hernia is present. Hernia is present in the ventral area. Musculoskeletal: General: Normal range of motion. Skin: General: Skin is warm and dry. Neurological: General: No focal deficit present. Mental Status: She is alert and oriented to person, place, and time. Psychiatric: Mood and Affect: Mood normal. Behavior: Behavior normal. ASSESSMENT AND PLAN: 58-year-old female with PMH of Crohn's disease, complicated by fistula and mesh infection s/p excision of umbilical hernia mesh, bowel resection, and takedown of fistulous here with complaint of incisional hernia Hernia is easily reducible, with no overlying skin changes. Would not recommend repair at this time due to high risk of complications such as fistulization, mesh infection, as well as high risk of recurrence due to patient's use of immunosuppressive medications and obesity. I discussed this in detail with the patient, and she agrees with the plan Patient was provided with strict return precautions to the ED if she develops any signs of strangulation such as overlying skin changes, worsening pain, or obstructive symptoms Patient can follow-up with us in the office as needed if she feels that the hernia is enlarging, and is affecting her lifestyle Thank you for the privilege of allowing me to participate in the care of Frannie Palmer. ICD: Crohn's disease with fistula, unspecified gastrointestinal tract location (HCC) [K50.913] AUTHENTICATED BY CATRACHITO REED ON 2024 09:04:32 PROGRESS Observed: 01/23/2024 7:23 AM Status: COMPLETED Source: [facility] Assessment/Plan: Asthma Current therapy with trelegy inhaler and prn albuterol. Follows with pulmonology, Dr. Holt at [facility]. Continue current therapy and appropriate follow up. Primary hypertension Goal <130/90. Current regimen with metoprolol XR 50 mg, lisinopril 20 mg, hydrochlorothiazide 25 mg daily. Continue Type 2 diabetes mellitus without complication, without long-term current use of insulin (HCC) Current therapy with glipizide semaglutide, just increased to 0.5 mg weekly (only 1 dose). POC A1c today was 6.0%. she denies any hypoglycemic events. - Stop glipizide - Reduce semaglutide back to 0.25 mg weekly to avoid hypoglycemia - Advised if fasting blood sugar is consistently over 150, increase Ozempic to 0.5 m weekly. - Recheck A1c in 3-6 months Umbilical hernia without obstruction and without gangrene Referral to general surgery Crohn disease (HCC) Follows with GI. On azathioprine. Continue current therapy and appropriate follow up. Subjective: Frannie Palmer is a 59 y.o. female Chief Complaint Patient presents with Establish Care May have hernia. Rash on right side of face Patient presents to establish care. Previous PCP Dr. Ritter, last seen 10/31/23. PMH: HTN, DM2, asthma, Crohn's disease, nephrolithiasis HTN Crohn disease Diagnosed about 8 yrs ago She had been very sick, was losing weight She had rectovesicular fistula, rectovaginal fistula. She had surgery to remove one fistula, partial colectomy (about 10 in removed). Nephrolithiasis 2 yrs ago, s/p lithotripsy Specialists: Pulmonology GI Urology Nephrology - Mariel The following portions of the patient's history were reviewed and updated as appropriate: allergies, current medications, past family history, past medical history, past social history, past surgical history and problem list. Review of Systems Objective: PACU Vitals 01/23/24 0702 BP: 135/87 Pulse: 73 Resp: 16 Temp: 98.2 degrees F (36.8 degrees C) SpO2: 93% Physical Exam Constitutional: General: She is not in acute distress. Appearance: Normal appearance. She is not ill-appearing, toxic-appearing or diaphoretic. HENT: Head: Normocephalic and atraumatic. Right Ear: Tympanic membrane, ear canal and external ear normal. There is no impacted cerumen. Left Ear: Tympanic membrane, ear canal and external ear normal. There is no impacted cerumen. Nose: Nose normal. No congestion or rhinorrhea. Mouth/Throat: Mouth: Mucous membranes are moist. Pharynx: Oropharynx is clear. No oropharyngeal exudate or posterior oropharyngeal erythema. Eyes: General: No scleral icterus. Right eye: No discharge. Left eye: No discharge. Pupils: Pupils are equal, round, and reactive to light. Cardiovascular: Rate and Rhythm: Normal rate and regular rhythm. Heart sounds: No murmur heard. No friction rub. No gallop. Pulmonary: Effort: Pulmonary effort is normal. No respiratory distress. Breath sounds: Normal breath sounds. No stridor. No wheezing, rhonchi or rales. Abdominal: General: Abdomen is flat. Bowel sounds are normal. There is no distension. Palpations: Abdomen is soft. Tenderness: There is no abdominal tenderness. There is no guarding. Hernia: A hernia is present. Comments: Midline bulge at umbilicus, soft and easily reducible Musculoskeletal: General: No tenderness or signs of injury. Cervical back: Neck supple. No tenderness. No muscular tenderness. Right lower leg: No edema. Left lower leg: No edema. Lymphadenopathy: Cervical: No cervical adenopathy. Skin: General: Skin is warm and dry. Coloration: Skin is not jaundiced or pale. Findings: No rash. Neurological: General: No focal deficit present. Mental Status: She is alert. Deep Tendon Reflexes: Reflexes normal. Psychiatric: Mood and Affect: Mood normal. For any new medications prescribed today, patient was educated about indications for the medication, how to take the medication and potential side effects of the medications. Jonny Champion DO AUTHENTICATED BY JONNY CHAMPION, ON 01/27/2024 17:58:33 ALLERGIES DATE TYPE / CODE NAME / CODE REACTION SEVERITY SOURCE 2024 DRUG/[id number](SNOME D CT) ADHESIVE TAPE-SILICONES Rash [facility] 01/23/2024 DRUG INGREDI/[id number](SN OMED CT) CAT DANDER Sob [facility] 01/23/2024 DRUG INGREDI/[id number](SN OMED CT) GRASS POLLEN [facility] 01/23/2024 DRUG INGREDI/502935517(SN OMED CT) LATEX [facility] 01/23/2024 DRUG INGREDI/[id number](SN OMED CT) PEANUT [facility] 09/05/2023 DRUG INGREDI~Environ/4195 90268(SNOMED CT) ANIMAL DANDER Shortness of breath [facility] 09/05/2023 DRUG INGREDI~Environ/4195 86172(SNOMED CT) HOUSE DUST MITE Shortness of breath [facility] 01/28/2023 DRUG/[id number](SNOME D CT) ADHESIVE TAPE-SILICONES Rash [facility] 02/24/2014 Miscellaneous Allergy/266745081(SN OMED CT) OTHER Swelling [facility] 02/24/2014 DRUG/505583890(SNOME D CT) ADHES. [id number]-[id number]-OQCP ALKONIUM Rash [facility] 12/25/2013 DRUG INGREDI~Environ/4195 53345(SNOMED CT) LATEX Diarrhea [facility] ENCOUNTERS ADMIT/DISCHARGE ACCOUNT NUMBER ADMITTING ENCOUNTER CLASS LOCATION SOURCE 10/22/2024/10/23/19 [id number] Ambulatory Building:[facility] 10/09/2024/10/10/19 [id number] Ambulatory Building:[facility] 09/25/2024/09/26/19 25 [id number] Emergency Building:[facility] Room: VUR92Uqh: 03 [facility] 09/25/2024/09/26/19 25 [id number] Ambulatory Building:[facility] 09/09/2024/09/14/19 25 [id number] ISRAEL MOMIN Ambulatory Building:[facility] 09/09/2024/09/10/19 25 [id number] CASTILLO BROWN Ambulatory Building:[facility] 08/26/2024/08/27/19 25 [id number] Ambulatory Building:[facility] 08/08/2024/08/09/19 25 [id number] Ambulatory Building:[facility] 1 [facility] 08/08/2024/08/09/19 25 [id number] Ambulatory Building:[facility] 07/22/2024/07/23/19 25 [id number] Ambulatory Building:[facility] 05/28/2024/05/29/19 25 [id number] Ambulatory Building:[facility] [id number] [facility] 05/20/2024/05/21/19 25 [id number] Ambulatory Building:[facility] 04/24/2024/04/24/19 25 [id number] Ambulatory Building:[facility] 04/17/2024/04/17/19 25 [id number] Ambulatory Building:[facility] 02/27/2024/02/27/20 24 [id number] Ambulatory Building:[facility] 02/22/2024/02/22/20 24 [id number] Ambulatory Building:[facility] 01/25/2024/01/29/20 24 [id number] Ambulatory Building:[facility] 01/25/2024/01/25/20 24 [id number] JONNY CHAMPION Ambulatory Building:[facility] 01/23/2024/01/23/20 24 [id number] Ambulatory Building:[facility] PAYERS ENCOUNTER GUARANTOR PAYER SUBSCRIBER SOURCE 10/22/2024 FRANNIE Alcala NALLDOB: [address] [place] [address] 57568Won: ~(115 (HP) Primary Insurance:AETNAPo licy Number: [id number] Date:8435-06-37QH [id number] [place] [phone]: FRANNIE Alcala NALLDOB: [id number] [address] [address]Onm: (HP) [facility] 10/09/2024 FRANNIE Alcala NALLDOB: [address] [address]Fqo: ~(435 (HP) Primary Insurance:AETNAPo licy Number: [id number] Date:8701-10-41EO [id number] [place] [phone]: FRANNIE Alcala NALLDOB: [id number] [address] [address]Tky: (HP) [facility] 09/25/2024 FRANNIE Alcala NALLDOB: [address] [place] [address]Yvp: ~(464 (HP) Primary Insurance:AETNAPo licy Number: [id number] Date:4316-55-60AA [id number] [place] [phone]: FRANNIE L NALLDOB: [id number] [address] [address]Ojc: (HP) [facility] 09/25/2024 FRANNIE L NALLDOB: [address] [place] [address] [id number]: ~(419 (HP) Primary Insurance:AETNAPo licy Number: [id number] Date:8191-94-72DS [facility] [id number] [place] [phone]: FRANNIE L NALLDOB: [id number] [address] [address]Gdb: (HP) [facility] 09/09/2024 FRANNIE L NALLDOB: [address] [place] [address] [phone]: ~(419 (HP) Primary Insurance:AETNAPo licy Number: [id number] ve Date:1278-35-49EG [id number] [place] [phone]: FRANNIE L NALLDOB: [id number] [address] [address]Lkc: (HP) [facility] 09/09/2024 FRANNIE Alcala NALLDOB: [address] [address]Ugc: ~(419 (HP) Primary Insurance:AETNAPo licy Number: [id number] Date:9356-41-96DB [id number] [place] [address]NH: FRANNIE L NALLDOB: [id number] [address] [address]Jzx: (HP) [facility] 08/26/2024 FRANNIE L NALLDOB: [address] [address]Kcz: (HP) Primary Insurance:AETNAPo licy Number: [id number] ve Date:2012-03-13 FRANNIE Alcala NALLDOB: [id number] [address] [address]Qmy: (HP) [facility] 08/08/2024 FRANNIE Alcala NALLDOB: [address] [place] [address] 22787Klx: ~(705 (HP) Primary Insurance:AETNAPo licy Number: [id number] Date:0619-85-00RY [id number] [place] [phone]: FRANNIE Alcala NALLDOB: [id number] [place] [id number]: (HP) [facility] 08/08/2024 FRANNIE Alcala NALLDOB: [address] [place] [address] 85956Qyt: ~(665 (HP) Primary Insurance:AETNAPo licy Number: [id number] ve Date:8706-14-56YC [id number] [place] [address]YJ: FRANNIE Alcala NALLDOB: [id number] [place] [phone]: (HP) [facility] 07/22/2024 FRANNIE L NALLDOB: [address] [place] [address] 13957Das: ~(506 (HP) Primary Insurance:AETNAPo licy Number: [id number] Date:3345-58-32VT [id number] [place] [phone]: FRANNIE Alcala NALLDOB: [id number] [address]Unx: (HP) [facility] 05/28/2024 FRANNIE Alcala NALLDOB: [address] [address]Upr: (HP) Primary Insurance:AETNAPo licy Number: [id number] ve Date:2012-03-13 FRANNIE Alcala NALLDOB: [id number] [address] [address]Ewt: (HP) [facility] 05/20/2024 FRANNIE L NALLDOB: [address] [place] [address] 55469Vpn: ~(737 (HP) Primary Insurance:AETNAPo licy Number: [id number] Date:6313-90-24EW [facility] [id number] [place] [id number]: FRANNIE Alcala NALLDOB: [id number] [address] [address]Zfm: (HP) [facility] 04/24/2024 FRANNIE Alcala NALLDOB: [address] [place] [address] [phone]: ~([phone] (HP) Primary Insurance:AETNAPo licy Number: [id number] ve Date:7939-17-68MR [id number] [place] [phone]: FRANNIE Alcala NALLDOB: [id number] [address] [address]The: (HP) [facility] 04/17/2024 FRANNIE Alcala NALLDOB: [id number] [place] [address]Ehd: (HP) Primary Insurance:AETNAPo licy Number: [id number] ve Date:2012-03-13 FRANNIE Alcala NALLDOB: [id number] [address]Awt: (HP) [facility] 02/27/2024 FRANNIE Alcala NALLDOB: [address] [address]Zzn: (HP) Primary Insurance:AETNAPo licy Number: [id number] ve Date:2012-03-13 FRANNIE Alcala NALLDOB: [id number] [address] [address]Yho: (HP) [facility] 02/22/2024 FRANNIE Alcala NALLDOB: [address] [place] [address]Sgp: ~(656 (HP) Primary Insurance:AETNAPo licy Number: [id number] ve Date:6193-02-40NK [id number] [place] [phone]: FRANNIE Alcala NALLDOB: [id number] [address] [address]Fug: (HP) [facility] 2024 FRANNIE L NALLDOB: [address] [place] [address] 384[address]Mtj: ~([phone] (HP) Primary Insurance:AETNAPo licy Number: [id number] ve Date:1259-79-44PS [id number] [place] [phone]: FRANNIE Alcala NALLDOB: [id number] [address] [address]Bmw: (HP) [facility] 2024 FRANNIE Alcala NALLDOB: [address] [place] [address] 47776Uyj: ~(419 (HP) Primary Insurance:AETNAPo licy Number: [id number] ve Date:5004-20-89YD [id number] [place] [phone]: FRANNIE Alcala NALLDOB: [id number] [address] [address]Oob: (HP) [facility] 01/23/2024 FRANNIE Alcala NALLDOB: [address] [address] [place] [address] 08491Cil: ~([phone] (HP) Primary Insurance:AETNAPo licy Number: [id number] ve Date:4161-50-64BE [id number] [place] [phone]: FRANNIE Alcala NALLDOB: [id number] [address] [address]Nnb: (HP) [facility]
[2024-12-10 11:23] LABS: Hematocrit 46.8 % (37-47); Hemoglobin 15.2 g/dL (12.0-15.0); Mean Corp Hgb Conc 32.5 g/dL (32-36); Mean Corpuscular Volume 84.8 fL (81-99); Mean Platelet Vol. 9.4 fl (6.2-12.0); Platelet Count 291 K/mm3 (150-450); RBC Distribution Width CV 13.5 % (11.6-14.6); RBC Distribution Width SD 42.0 fl (35.1-43.9); Red Blood Count 5.52 M/mm3 (4.2-5.4); White Blood Count 6.3 K/mm3 (4.4-11.0)
[2024-12-10 11:45] LABS: AST(SGOT) 16 U/L (<=31); Alanine Aminotransfer ALT/SGPT 17 U/L (<=34); Albumin, Serum 4.0 g/dL (3.4-4.8); Alkaline Phosphatase 68 U/L (35-104); Anion Gap 10 (5-15); BUN 21 mg/dL (4-19); BUN/Creat Ratio 30.8 RATIO (10-20); Calcium,Total 9.4 mg/dL (7.6-11.0); Carbon Dioxide 25.6 mmol/L (21.0-32.0); Chloride 104 mmol/L (98-108); Globulin 2.5 g/dL (2.2-4.2); Glucose 130 mg/dL (70-99); Potassium 4.1 mmol/L (3.3-5.1)
[2024-12-10 19:40] LABS: CRP 4.87 mg/L (0.0-3.0)
== END | disposition home or self-care (01) ==
LOC: LAB 10:26
PROVIDERS: PCP Family Medicine; Referring Provider Internal Medicine Gastroenterology; Visit Provider Internal Medicine Gastroenterology
DX: K50.90 Crohn's disease, unspecified, without complications (principal)
CPT/HCPCS: 36415; 80053; 85027; 85652; 86140